=== PATIENT | male | born 1980 | race American Indian/Alaskan Native ===

== ENCOUNTER 2016-07-30 03:04 | Inpatient (IN) | payer OTHER ==
--- NOTE | 2016-07-30 03:40 | Emergency Department Report ---
HPI - General Time Seen by Provider: 07/30/16 03:39 - HPI HPI: Room 20 The patient is a 35-year-old male presenting with a chief complaint of chest pain shortness of breath. The patient states this evening at 23:00 while attempting to lay down to sleep and short of breath of chest discomfort as though something was sitting on his chest. Patient denies nausea/vomiting or diaphoresis. Patient admits to having had a cough that began earlier today whenever he attempted to smoke a cigarette. Patient currently gives his chest pain a score of 7-8/10. Patient states he's never had a stress test or cardiac catheterization. Location: Chest, lungs Duration: Constant since 23:00 Quality: Heaviness Severity: 7-8/10 Modifying factors: [see above] Context: [see above] Mode of transportation: [not driving] ED Past Medical Hx - Past Medical History Hx Hypertension: Yes - Surgical History Past Surgical History?: No - Family History Family history: no significant - Social History Smoking Status: Current Every Day Smoker Substance Use Type: Alcohol (occasional), Marijuana - Medications Home Medications: Home Medications Medication Instructions Recorded Confirmed Last Taken Type Hydrochlorothiazide [HCTZ] 25 mg PO QDAY 07/30/16 07/30/16 Unknown History ED Review of Systems ROS: Stated complaint: SOB Other details as noted in HPI Comment: All other systems reviewed and negative Constitutional: denies: diaphoresis ENT: denies: ear pain, throat pain Respiratory: cough, shortness of breath Cardiovascular: chest pain Endocrine: no symptoms reported Gastrointestinal: denies: abdominal pain, nausea, diarrhea Genitourinary: denies: urgency, dysuria Musculoskeletal: denies: back pain, joint swelling, arthralgia Skin: denies: rash, lesions Neurological: denies: headache, weakness, paresthesias Psychiatric: denies: anxiety, depression Hematological/Lymphatic: denies: easy bleeding, easy bruising Physical Exam - Physical Exam Physical Exam: GENERAL: The patient is well-developed well-nourished male lying on stretcher not appearing to be in acute distress. Occasional cough. [] HEENT: Normocephalic. Atraumatic. Extraocular motions are intact. Patient has moist mucous membranes. NECK: Supple. Trachea midline CHEST/LUNGS: Clear to auscultation. There is no respiratory distress noted. HEART/CARDIOVASCULAR: Regular. There is no tachycardia. There is no gallop rub or murmur. ABDOMEN: Abdomen is soft, nontender. Patient has normal bowel sounds. There is no abdominal distention. SKIN: There is no rash. There is no edema. There is no diaphoresis. NEURO: The patient is awake, alert, and oriented. The patient is cooperative. The patient has normal speech MUSCULOSKELETAL:There is no evidence of acute injury. ED Medical Decision Making - Lab Data Result diagrams: 07/30/16 03:58 07/30/16 03:58 Laboratory Tests 07/30/16 07/30/16 07/30/16 03:58 03:58 03:58 WBC 9.7 RBC 3.93 Hgb 12.1 Hct 34.4 L MCV 87 MCH 31 MCHC 35 H RDW 14.4 Plt Count 236 Lymph % (Auto) 11.4 L [place] % (Auto) 5.2 Eos % (Auto) 1.3 Baso % (Auto) 0.3 Lymph # 1.1 L [place] # 0.5 Eos # 0.1 Baso # 0.0 Seg Neutrophils % 81.8 H Seg Neutrophils # 8.0 H PT 12.9 INR 0.98 APTT 34.6 D-Dimer 807.54 H Sodium 135 L Potassium 3.5 L Chloride 96.0 L Carbon Dioxide 19 L Anion Gap 24 BUN 64 H Creatinine 7.1 H Estimated GFR 11 BUN/Creatinine Ratio 9.01 Glucose 104 H Calcium 8.1 L Total Creatine Kinase 539 H CK-MB (CK-2) 9.5 H CK-MB (CK-2) Rel Index 1.7 Troponin T 0.179 H* NT-Pro-B Natriuret Pep 81187 H - EKG Data -: EKG Interpreted by Me EKG shows normal: sinus rhythm Rate: normal - EKG Data When compared to previous EKG there are: previous EKG unavailable Interpretation: nonspecific ST-T wave delmy (T-wave inversion in leads 1, aVL, V4 , V5, V6) - Radiology Data Radiology results: image reviewed (chest x-ray) interpreted by me: Chest [id number]. Slight haziness right lower lobe - Differential Diagnosis ACS, CHF, GERD, pericarditis, pneumonia, ZOHREH inhibitor reaction Critical care attestation.: If time is entered above; I have spent that time in minutes in the direct care of this critically ill patient, excluding procedure time. ED Disposition Clinical Impression: Chest pain, T wave inversion in EKG, Acute renal failure, Congestive heart failure Disposition: OP ADMITTED IP TO THIS HOSP Is pt being admited?: Yes Does the pt Need Aspirin: Yes Condition: Poor Instructions: Chest Pain (ED) Referrals: PRIMARY CARE, [Primary Care Provider] - 3-5 Days Time of Disposition: 05:00 (hospitalist notified)
[2016-07-30] MEDS ORDERED: ASPIRIN PO ONE (03:47)
[2016-07-30] MEDS ORDERED: ZOFRAN IV ONE (03:47)
[2016-07-30] MEDS ORDERED: NITRO-BID 2% TP ONE (03:47)
[2016-07-30] MEDS ORDERED: TESSALON PERLES PO ONE (03:47)
[2016-07-30] MEDS ORDERED: MORPHINE IV ONE (03:47)
[2016-07-30] MEDS ORDERED: APRESOLINE IV ONE (03:57)
[2016-07-30 04:31] LABS: Basophils % (Auto) 0.3 % (0.0-1.8); Eosinophils % (Auto) 1.3 % (0.0-4.3); Hematocrit 34.4 % (35.5-45.6); Hemoglobin 12.1 gm/dl (11.8-15.2); Mean Corpuscular HGB Conc 35 % (32-34); Mean Corpuscular Hemoglobin 31 pg (28-32); Mean Corpuscular Volume 87 fl (84-94); Platelet Count 236 K/mm3 (140-440); Red Blood Count 3.93 M/mm3 (3.65-5.03); Red Cell Distribution Width 14.4 % (13.2-15.2); White Blood Count 9.7 K/mm3 (4.5-11.0)
[2016-07-30 04:42] LABS: INR 0.98 (0.87-1.13)
[2016-07-30 04:43] LABS: Partial Thromboplastin Time 34.6 Sec. (24.2-36.6)
[2016-07-30 04:51] LABS: Creatine Kinase MB 9.5 ng/mL (0.0-4.0)
[2016-07-30 04:52] LABS: BUN/Creatinine Ratio 9.01; Calcium 8.1 mg/dL (8.4-10.2); Potassium 3.5 mmol/L (3.6-5.0)
[2016-07-30] MEDS ORDERED: NORMODYNE IV ONE ×2 (05:03→05:04)
[2016-07-30] MEDS ORDERED: NORMODYNE 200 MG in D5W 160 ML IV ONE ×2 (05:47→10:00)
[2016-07-30] MEDS ORDERED: DUONEB 0.5 MG-3 MG/3 ML SOLN IH PRN (06:28)
[2016-07-30] MEDS ORDERED: ZOFRAN IV PRN (06:28)
[2016-07-30] MEDS ORDERED: DULCOLAX PR PRN (06:28)
[2016-07-30] MEDS ORDERED: MILK OF MAGNESIA PO PRN (06:28)
[2016-07-30] MEDS ORDERED: TYLENOL PO PRN (06:28)
[2016-07-30] MEDS ORDERED: SODIUM CHLORIDE FLUSH SYRINGE 10 ML IV PRN (06:31)
--- NOTE | 2016-07-30 06:34 | History and Physical Report ---
History of Present Illness Chief complaint: I cant breathe History of present illness: 35 YO male with HTN, Asthma, Medication Noncompliance, Nicotine Dependence presents to ED for evaluation. Pt states that he has experienced difficulty breathing and coughing for the past 6 days with worsening symptoms over the past 8 hours. Pt acknowledges orthopnea, PND, noncompliance with medications as well as chest discomfort secondary to coughing episodes. Cough is nonproductive. Pt denies fever, chills, palpitations, NVD, recent ill contacts, prolonged travel/immobility, leg swelling, calf pain, individual/family history of DVT/PE, hemoptysis, syncope, unintentional weight loss, skin rash, night sweats. Past History Past Medical History: hypertension Past Surgical History: No surgical history, Other (reviewed) Social history: single, smoking. denies: alcohol abuse, prescription drug abuse Family history: diabetes, hypertension Medications and Allergies Allergies Allergy/AdvReac Type Severity Reaction Status Date / Time No Known Allergies Allergy Unverified 07/30/16 03:41 Home Medications Medication Instructions Recorded Confirmed Last Taken Type Hydrochlorothiazide [HCTZ] 25 mg PO QDAY 07/30/16 07/30/16 Unknown History Active Meds: Active Medications Acetaminophen (Tylenol) 650 mg PO Q4H PRN PRN Reason: Pain MILD(1-3)/Fever >100.5/LOPEZ Albuterol/Ipratropium (Duoneb 0.5 Mg-3 Mg/3 Ml Soln) 1 ampul IH Q6HRT PRN PRN Reason: Wheezing Bisacodyl (Dulcolax) 10 mg [place] QDAY PRN PRN Reason: Constipation unrelieved by MOM Hydrochlorothiazide (Hctz) 25 mg PO QDAY [facility] Labetalol HCl 200 mg/ Dextrose 200 mls @ 120 mls/hr IV ONCE.ED ONE; 2 MG/MIN PRN Reason: Protocol Stop: 07/30/16 07:26 Magnesium Hydroxide (Milk Of Magnesia) 30 ml PO Q4H PRN PRN Reason: Constipation Ondansetron HCl (Zofran) 4 mg IV Q8H PRN PRN Reason: N/V unrelieved by Reglan Review of Systems All systems: negative Cardiovascular: orthopnea, paroxysmal nocturnal dyspnea Respiratory: shortness of breath Exam - Constitutional Vitals: Temp Pulse Resp BP Pulse Ox 98.0 F 78 18 172/123 99 07/30/16 03:42 07/30/16 06:23 07/30/16 06:23 07/30/16 06:23 07/30/16 06:23 General appearance: Present: mild distress - EENT Eyes: Present: PERRL ENT: hearing intact, clear oral mucosa - Neck Neck: Present: supple, normal ROM - Respiratory Respiratory effort: normal Respiratory: bilateral: diminished - Cardiovascular Heart Sounds: Present: S1 & S2. Absent: rub, click - Extremities Extremities: pulses symmetrical, No edema Peripheral Pulses: within normal limits - Abdominal General gastrointestinal: Present: soft, non-tender, non-distended, normal bowel sounds Male genitourinary: Present: normal - Integumentary Integumentary: Present: clear, warm, dry - Musculoskeletal Musculoskeletal: gait normal, strength equal bilaterally - Psychiatric Psychiatric: appropriate mood/affect, intact judgment & insight - Neurologic Neurologic: CNII-XII intact, moves all extremities Results - Labs CBC & Chem 7: 07/30/16 03:58 07/30/16 03:58 Labs: Abnormal lab results 07/30/16 07/30/16 07/30/16 Range/Units 03:58 03:58 03:58 Hct 34.4 L (35.5-45.6) % MCHC 35 H (32-34) % Lymph % (Auto) 11.4 L (13.4-35.0) % Lymph # 1.1 L (1.2-5.4) K/mm3 Seg Neutrophils % 81.8 H (40.0-70.0) % Seg Neutrophils # 8.0 H (1.8-7.7) K/mm3 D-Dimer 807.54 H (0-234) ng/mlDDU Sodium 135 L (137-145) mmol/L Potassium 3.5 L (3.6-5.0) mmol/L Chloride 96.0 L (98-107) mmol/L Carbon Dioxide 19 L (22-30) mmol/L BUN 64 H (9-20) mg/dL Creatinine 7.1 H (0.8-1.5) mg/dL Glucose 104 H (75-100) mg/dL POC Glucose (70-105) Calcium 8.1 L (8.4-10.2) mg/dL Total Creatine Kinase 539 H (55-170) units/L CK-MB (CK-2) 9.5 H (0.0-4.0) ng/mL Troponin T 0.179 H* (0.00-0.029) ng/mL NT-Pro-B Natriuret Pep 14149 H (0-450) pg/mL 07/30/16 Range/Units 05:17 Hct (35.5-45.6) % MCHC (32-34) % Lymph % (Auto) (13.4-35.0) % Lymph # (1.2-5.4) K/mm3 Seg Neutrophils % (40.0-70.0) % Seg Neutrophils # (1.8-7.7) K/mm3 D-Dimer (0-234) ng/mlDDU Sodium (137-145) mmol/L Potassium (3.6-5.0) mmol/L Chloride (98-107) mmol/L Carbon Dioxide (22-30) mmol/L BUN (9-20) mg/dL Creatinine (0.8-1.5) mg/dL Glucose (75-100) mg/dL POC Glucose 140 H (70-105) Calcium (8.4-10.2) mg/dL Total Creatine Kinase (55-170) units/L CK-MB (CK-2) (0.0-4.0) ng/mL Troponin T (0.00-0.029) ng/mL NT-Pro-B Natriuret Pep (0-450) pg/mL Assessment and Plan - Patient Problems (1) CHF (congestive heart failure) Current Visit: Yes Status: Suspected Qualifiers: Congestive heart failure type: C Congestive heart failure chronicity: C Plan to address problem: CHF Protocol: Echo, supportive care, fluid restriction, serial cardiac enzymes, ekg, telemetry, d dimer, ct angio chest, fluid restriction, afterload reduction , diuretic therapy, (2) Malignant hypertension Current Visit: Yes Status: Acute Plan to address problem: monitor BP q shift, resume home medication, Bruce Inhibitor, b comfort therapy, (3) Asthma Current Visit: Yes Status: Chronic Qualifiers: Asthma severity: mild intermittent Asthma complication type: A Plan to address problem: supplemental oxygen, nebs, supportive care, pulmonary toilet (4) DVT prophylaxis Current Visit: Yes Status: Acute
[2016-07-30] MEDS ORDERED: PROVENTIL IH PRN (06:35)
--- NOTE | 2016-07-30 07:23 | Consultation ---
History of Present Illness - Reason for Consult Consult date: 07/30/16 acute renal failure, hypokalemia - History of Present Illness The patient is a 35 YO AAM with history significant for Poorly controlled HTN, Asthma, Medication noncompliance, Nicotine Dependence and Drug use presented to the ED for evaluation of difficulty in breathing and non productive cough. Patient developed the symptoms about a week ago and gotten worse on the day of admission. Associated symptoms include orthopnea, PND, nausea, vomiting, decreased appetite and poor sleep. His BP on admission was around 250/150 and currently he is on Labetalol drip. Patient was seen at [facility] ED 4 months ago for uncontrolled Hypertension. Patient hasn't had any blood test done in the past. Denies any hematuria, dysuria, NSAID intake, msucle cramps, jaundice, fever, chills, diarrhea, leg swelling, hemoptysis, syncope, skin rash , night sweats or dizziness. His creatinine is around 7 and PTH is above 700. Baseline creatinine is not available. Past History Past Medical History: hypertension Past Surgical History: No surgical history, Other (reviewed) Social history: single, smoking. denies: alcohol abuse, prescription drug abuse Family history: diabetes, hypertension Medications and Allergies Allergies Allergy/AdvReac Type Severity Reaction Status Date / Time No Known Allergies Allergy Unverified 07/30/16 03:41 Home Medications Medication Instructions Recorded Confirmed Last Taken Type Hydrochlorothiazide [HCTZ] 25 mg PO QDAY 07/30/16 07/30/16 Unknown History Metoprolol [Lopressor] 100 mg PO DAILY 07/30/16 07/30/16 Unknown History Active Meds: Active Medications Acetaminophen (Tylenol) 650 mg PO Q4H PRN PRN Reason: Pain MILD(1-3)/Fever >100.5/LOPEZ Albuterol (Proventil) 2.5 mg IH Q6HRT PRN PRN Reason: Shortness Of Breath Bisacodyl (Dulcolax) 10 mg MD QDAY PRN PRN Reason: Constipation unrelieved by MOM Carvedilol (Coreg) 25 mg PO BID JOSE Furosemide (Lasix) 20 mg IV BID@0600,1800 JOSE Hydrochlorothiazide (Hctz) 25 mg PO QDAY JOSE Labetalol HCl 200 mg/ Dextrose 200 mls @ 120 mls/hr IV ONCE.ED ONE; 2 MG/MIN PRN Reason: Protocol Stop: 07/30/16 07:26 Last Admin: 07/30/16 06:38 Dose: 2 mg/min, 120 mls/hr Lisinopril (Zestril) 5 mg PO QDAY JOSE Magnesium Hydroxide (Milk Of Magnesia) 30 ml PO Q4H PRN PRN Reason: Constipation Ondansetron HCl (Zofran) 4 mg IV Q8H PRN PRN Reason: N/V unrelieved by Reglan Sodium Chloride (Sodium Chloride Flush Syringe 10 Ml) 10 ml IV PRN PRN PRN Reason: LINE FLUSH Review of Systems Constitutional: anorexia, poor appetite, no weight loss, no weight gain, no fever, no chills, no sweats, no fatigue, no weakness, no malaise Ears, nose, mouth and throat: no sinus pressure, no sinus pain, no epistaxis Cardiovascular: orthopnea, shortness of breath, dyspnea on exertion, high blood pressure, no chest pain, no palpitations, no edema, no syncope, no lightheadedness, no leg edema Respiratory: cough, shortness of breath, dyspnea on exertion, no cough with sputum, no hemoptysis Gastrointestinal: nausea, vomiting, no abdominal pain, no diarrhea, no melena Genitourinary Male: no dysuria, no hematuria, no nocturia, no incontinence Rectal: no bleeding Musculoskeletal: no hot joints, no morning stiffness, no muscle weakness Integumentary: no rash, no wounds Neurological: no head injury, no paralysis, no weakness, no seizures, no syncope , no vertigo, no change in mentation, no confusion Psychiatric: no memory loss, no disorientation, no hallucinations Endocrine: no polydipsia, no polyuria, no weight change Hematologic/Lymphatic: no easy bruising, no easy bleeding Exam - Vital Signs Vital signs: Vital Signs Temp Pulse Resp BP Pulse Ox 98.0 F 98 H 20 249/157 98 07/30/16 03:42 07/30/16 03:42 07/30/16 03:42 07/30/16 03:42 07/30/16 03:42 - General Appearance General appearance: well-developed, well-nourished, appears stated age, other ( no distress) EENT: ATNC, PERRL, mucous membranes moist, hearing intact, vision intact Neck: Present: neck supple Respiratory: Clear to Ascultation Heart: regular, S1S2, no murmurs Gastrointestinal: Present: normoactive bowel sounds. Absent: tenderness, distended Integumentary: no rash, warm and dry Neurologic: no focal deficit, no asterixis, alert and oriented x3, CN 3-12 intact Musculoskeletal: Present: other (no edema) Psychiatric: mood/affect appropriate, cooperative Results - Lab Results 07/30/16 08:42 07/30/16 08:42 Most recent lab results Calcium 8.1 mg/dL (8.4-10.2) L 07/30/16 03:58 - Image Kidney/bladder ultrasound: pending Assessment and Plan - Patient Problems (1) Renal insufficiency Current Visit: Yes Status: Chronic Plan to address problem: Patient admitted with malignant hypertension and significantly high creatinine. BP is poorly controlled for the past 20 yrs. Patient has most of advanced CKD features. Most likely the CKD has progressed to ESRD. Some of the symptoms likely due to Uremia. Patient would need catheter to initiate hemodialysis. D/w patient about hemodialysis. (2) Malignant hypertension Current Visit: Yes Status: Chronic Plan to address problem: Patient is on Labetalol drip. Add Clonidine. Avoid ACEI / ARB for now. (3) Secondary hyperparathyroidism (of renal origin) Current Visit: Yes Status: Chronic Plan to address problem: Start on Calcitriol. (4) Congestive heart failure Current Visit: Yes Status: Chronic Qualifiers: Congestive heart failure type: C Congestive heart failure chronicity: C
--- NOTE | 2016-07-30 07:30 | Admit Criteria Form ---
Admission Criteria Documentation: CARDIOLOGY GRG Clinical Indications for Admission to Inpatient Care ( Place 'X' for any and all applicable criteria): Hospital admission is needed for appropriate care of the patient because of ANY ONE of the following (1): [ ] I. Hemodynamic instability as indicated by ALL of the following (1)(2)(3) (4)(5) [ ]a) Vital signs or other findings not as expected for chronic patient condition or baseline [ ]b) Instability indicated by ANY ONE of the following: [ ]i) Hypotension [ ]ii) Symptomatic Tachycardia unresponsive to treatment ( e.g., analgesia, fluids, sedation as indicated) [ ]iii) Inadequate perfusion indicated by ANY ONE of the following: [ ] 1) Lactic acidosis (> 2 mmol/L) [ ] 2) New abnormal capillary refill (> 3 seconds) [ ] 3) Reduced urine output [ ] 4) New altered mental status [ ]iv) Orthostatic vital sign changes unresponsive to treatment (e.g., fluids) [ ]v) IV inotropic or vasopressor medication required to maintain adequate blood pressure or perfusion [ ] II. Severe heart failure as indicated by ANY ONE of the following(17)(18) [ ]a) Respiratory distress [ ]b) Hypotension [ ]c) Anasarca (refractory to outpatient therapy) [ ]d) Cardiac arrhythmias of immediate concern [ ]e) Myocardial ischemia [ ] III. Cardiac arrhythmias or findings of immediate concern indicated by ANY ONE of the following (19)(20): [ ] a) Heart rhythms that are inherently dangerous or unstable indicated by ANY ONE of the following (21)(22)(23): [ ] i) Resuscitated ventricular fibrillation or cardiac arrest [ ] ii) Ventricular escape rhythm [ ] iii) Sustained ventricular tachycardia (30 seconds or more of ventricular rhythm at greater than 100 beats per minute) [ ] iv) Nonsustained ventricular tachycardia and ANY ONE of the following: [ ] 1) Suspected cardiac ischemia as cause or consequence of ventricular tachycardia [ ] 2) In setting of acute myocarditis [ ] b) Unstable cardiac conduction defects indicated by ANY ONE of the following(23)(24)(25) [ ] i) Type II second-degree atrioventricular block [ ]ii) Third-degree atrioventricular block [ ]iii) New-onset left bundle branch block with suspected myocardial ischemia [ ]c) Any heart rhythm and ANY ONE of the following (21)(22)(26)(27) (28) [ ] i) Continuous long-term ECG monitoring needed (e.g., initiation of drug requiring monitoring for more than 24 hours) [ ] ii) Patient has automatic implanted cardioverter defibrillator that is repeatedly firing, malfunctioning, or in need of immediate adjustment of settings beyond the scope of ambulatory or observation care [ ]d) Heart rhythms of concern due to ANY ONE of the following: [ ] i) Hypotension [ ] ii) Respiratory distress [ ] iii) Association with other significant symptoms (e.g., bradycardia with syncope or ongoing dizziness, supraventricular tachycardia with chest pain (14)(15)(17) [ ] IV. Monitoring for cardiac contusion beyond the scope of observation care needed [A](30)(31)(32) [ ] V. Surgical or device complication (e.g., valve replacement complication , pacemaker dysfunction) (35)(41)(44)(45)(46) [ ] . Inpatient palliative care needed. [B](49) Also use Inpatient Palliative Care Criteria [ ] VII. Nonbacterial thrombotic (marantic) endocarditis (36)(43)(47)(48) [X] VIII. Cardiology condition, symptom, or finding for which emergency and observation care has failed or are not considered appropriate. [ ] IX. Acute valvular disease requiring inpatient as indicated by ANY ONE of the following (41) [ ]a) Acute valvular regurgitation (42) [ ]b) Noninfectious valvulitis (43) [ ]c) Obstructive valve thrombosis [ ]d) Paravalvular leak [ ]e) Other significant valvular disorder remaining after emergency or observation level of care (as appropriate) [ ]X. Pericardial disease requiring inpatient treatment as indicated by ANY ONE of the following (33)(34)(35)(36)(37) [ ]a) Suspected tamponade (38)(39)(40) [ ]b) Hemopericardium [ ]c) Other significant pericardial disorder remaining after emergency or observation level of care (as appropriate) [ ] XI. Cardiac ischemia beyond scope of emergency and observation care. [ ] XII. Hypertension requiring inpatient treatment as indicated by ANY ONE of the following (6)(7)(8) [ ]a) SBP greater than 220 mm Hg or DBP greater than 120 mmHg despite treatment [ ]b) SBP greater than 140 mm Hg or DBP greater than 100 mm Hg with evidence of acute end organ damage as indicated by ANY ONE of the following [ ] i) Altered mental status [ ] ii) Acute renal failure as indicated by new onset of ANY ONE of the following (9)(10)(11)(12)(13) [ ]1) 3-fold rise in serum creatinine from baseline [ ]2) Serum creatinine greater than 4 mg/dL ( 354 micromoles/L) with acute rise greater than 0.5 mg/dL (44.2 micromoles/L) [ ]3) Reduction of more than 75% in estimated glomerular filtration rate from baseline [ ]4) Estimated glomerular filtration rate less than 35 mL/min/1.73m2 (0.59 mL/sec/1.73m2) in child up to 18 years of age [ ]5) Cessation of urine output indicated by ALL of the following [ ]A. Adequate volume status [ ]B. Inadequate urine output as indicated by ANY ONE of the following [ ]a. Urine output less than 0.3 mL/kg/hr for 24 hours [ ]b. Anuria (urine output less than 0.1 mL/kg/hr) for 12 hours [ ] iii) Aortic dissection [ ] iv) Myocardial Ischemia [ ] v) Left ventricular heart failure [ ]vi) Retinal Hemorrhage [ ]vii) Other significant finding [ ]c) Hypertension in child requiring inpatient treatment as indicated by ALL of the following(14)(15)(16) [ ] i) Outpatient treatment not effective, not available, or not appropriate [ ]ii) SBP or DBP greater than 95th percentile for age [ ]iii) Evidence of acute end organ damage as indicated by ANY ONE of the following [ ]1) Altered mental status [ ]2) Acute renal failure as indicated by new onset of ANY ONE of the following(9)(10)(11)(12)(13) [ ]A. 3-fold rise in serum creatinine from baseline [ ]B. Serum creatinine greater than 4 mg/dL (354 micromoles/L) with acute rise greater than 0.5 mg/dL (44.2 micromoles/L) [ ]C. Reduction of more than 75% in estimated glomerular filtration rate from baseline [ ]D. Estimated glomerular filtration rate less than 35 mL/min/1.73m2 (0.59 mL/sec/1.73m2) in child up to 18 years of age [ ]E. Cessation of urine output indicated by ALL of the following [ ]a. Adequate volume status [ ]b. Inadequate urine output as indicated by ANY ONE of the following [ ]i) Urine output less than 0.3 mL/kg/hr for 24 hours [ ]ii) Anuria ( urine output less than 0.1 mL/kg/hr) for 12 hours [ ]3) Severe headache [ ]4) Visual disturbance [ ]5) Retinal hemorrhage [ ]6) Other significant finding [ ]XIII. Complications of transplanted heart indicated by ANY ONE of the following(61): [ ]a) Acute graft rejection requiring inpatient management (eg, intravenous immunosuppression)(62)(63) [ ]b) Acute graft heart failure indicated by ANY ONE of the following(64): [ ]i) Hemodynamic instability [ ]ii) Cardiac arrhythmias of immediate concern [ ]iii) Pulmonary edema that is very severe (eg, mechanical ventilation needed, imminent or likely, need for 100% oxygen to keep oxygen saturation above 90%) [ ]iv) Pulmonary edema that is persistent as indicated by ALL of the following: [ ]1) New need for oxygen therapy to keep oxygen saturation above 90% (or increased FiO2 need from baseline) [ ]2) Has not improved sufficiently with emergency department or observation care IV diuretics or other heart failure treatments[E] [ ]v) Altered mental status that is severe or persistent [ ]vi) Increased creatinine (new on laboratory test) with reduction of more than 50% in estimated glomerular filtration rate from baseline [ ]vii) Progressively (ongoing) rising creatinine (known from past laboratory test) with reduction of more than 25% in estimated glomerular filtration rate from baseline [ ]viii) Acute renal failure [ ]ix) Acute peripheral ischemia (eg, examination shows pulseless, cool, mottled, or cyanotic extremity) [ ]x) Pulmonary artery catheter monitoring needed [ ]xi) Other sign or symptom of heart failure requiring inpatient treatment (ie, too severe or not responsive to outpatient and observation care treatment) [ ]c) Infection requiring inpatient management (eg, Hemodynamic instability, need for intravenous antimicrobial treatment)(66)(67)(68)(69)(70) [ ]d) Cardiac allograft vasculopathy requiring inpatient management ( eg evidence of cardiac ischemia)(71) [ ]e) Other complication of transplanted heart (eg, stroke, severe pulmonary hypertension, severe valvular dysfunction) requiring inpatient management(72) The original [facility] [employer] content created by [facility] [employer] [employer] has been revised. The portions of the content which have been revised are identified through the use of italic text or in bold, and [facility] has neither reviewed nor approved the modified material. All other unmodified content is copyright [facility] [employer]. Please see references footnoted in the original [facility] [employer] edition 2016 Admission Criteria Met: Yes
--- NOTE | 2016-07-30 08:45 | XRay Report ---
Single view chest: History: Chest pain. Findings: Cardiomegaly. Trachea is midline. Mild pulmonary venous congestion the loops. Normal CP angles. No consolidation. Impression: Cardiomegaly with mild pulmonary venous congestion. The
[2016-07-30 09:02] LABS: Hematocrit 31.7 % (35.5-45.6); Hemoglobin 11.1 gm/dl (11.8-15.2); Mean Corpuscular HGB Conc 35 % (32-34); Mean Corpuscular Hemoglobin 31 pg (28-32); Mean Corpuscular Volume 88 fl (84-94); Platelet Count 216 K/mm3 (140-440); Red Blood Count 3.59 M/mm3 (3.65-5.03); Red Cell Distribution Width 14.6 % (13.2-15.2); White Blood Count 8.9 K/mm3 (4.5-11.0)
[2016-07-30 09:24] LABS: BUN/Creatinine Ratio 9.56; Calcium 8.3 mg/dL (8.4-10.2); Chloride 94.5 mmol/L (98-107); Potassium 3.5 mmol/L (3.6-5.0)
[2016-07-30 09:45] LABS: Creatine Kinase MB 10.5 ng/mL (0.0-4.0)
[2016-07-30] MEDS ORDERED: ZESTRIL PO SCH (10:00)
[2016-07-30] MEDS: HCTZ PO SCH (10:46)
--- NOTE | 2016-07-30 11:23 | Consultation ---
History of Present Illness - Reason for Consult Consult date: 07/30/16 Hypertensive Emergency - History of Present Illness 35 y/o male with known hypertension, noncompliant with medications admitted with chest pain. Found to be extremely hypertensive and started on labetalol drip. Also given a nitro patch. Currently asleep and significant other is at the bedside. Remainder is negative. To her knowledge, no history of renal disease. Past History Past Medical History: hypertension Past Surgical History: No surgical history, Other (reviewed) Social history: single, smoking. denies: alcohol abuse, prescription drug abuse Family history: diabetes, hypertension Medications and Allergies Allergies Allergy/AdvReac Type Severity Reaction Status Date / Time No Known Allergies Allergy Unverified 07/30/16 03:41 Home Medications Medication Instructions Recorded Confirmed Last Taken Type Hydrochlorothiazide [HCTZ] 25 mg PO QDAY 07/30/16 07/30/16 Unknown History Metoprolol [Lopressor] 100 mg PO DAILY 07/30/16 07/30/16 Unknown History Active Meds: Active Medications Acetaminophen (Tylenol) 650 mg PO Q4H PRN PRN Reason: Pain MILD(1-3)/Fever >100.5/LOPEZ Albuterol (Proventil) 2.5 mg IH Q6HRT PRN PRN Reason: Shortness Of Breath Bisacodyl (Dulcolax) 10 mg [place] QDAY PRN PRN Reason: Constipation unrelieved by MOM Carvedilol (Coreg) 25 mg PO BID JOSE Furosemide (Lasix) 20 mg IV BID@0600,1800 JOSE Hydrochlorothiazide (Hctz) 25 mg PO QDAY [facility] Last Admin: 07/30/16 10:46 Dose: 25 mg Labetalol HCl 200 mg/ Dextrose 200 mls @ 120 mls/hr IV ONCE.ED ONE; 2 MG/MIN PRN Reason: Protocol Stop: 07/30/16 11:39 Influenza Virus Vaccine Quadrival (Fluarix Quad 6551-1817(36 Mos+)) 60 mcg IM .ONCE ONE Stop: 07/31/16 12:01 Lisinopril (Zestril) 5 mg PO QDAY [facility] Last Admin: 07/30/16 10:47 Dose: 5 mg Magnesium Hydroxide (Milk Of Magnesia) 30 ml PO Q4H PRN PRN Reason: Constipation Ondansetron HCl (Zofran) 4 mg IV Q8H PRN PRN Reason: N/V unrelieved by Moises Last Admin: 07/30/16 09:54 Dose: 4 mg Pneumococcal Polyvalent Vaccine (Pneumovax 23) 0.5 ml IM .ONCE ONE Stop: 07/31/16 12:01 Sodium Chloride (Sodium Chloride Flush Syringe 10 Ml) 10 ml IV PRN PRN PRN Reason: LINE FLUSH Review of Systems All systems: negative Exam - Constitutional Vitals: Temp Pulse Resp BP Pulse Ox 98.0 F 57 L 20 151/94 97 07/30/16 03:42 07/30/16 10:47 07/30/16 09:00 07/30/16 10:47 07/30/16 09:00 General appearance: Present: no acute distress, other (asleep) - EENT Eyes: Present: PERRL, EOM intact ENT: hearing intact - Neck Neck: Present: supple, normal ROM - Respiratory Respiratory: bilateral: CTA - Cardiovascular Rhythm: regular Heart Sounds: Present: S1 & S2 - Extremities Extremities: no ischemia - Abdominal General gastrointestinal: Present: soft, non-tender, normal bowel sounds Male genitourinary: Present: deferred - Rectal Rectal Exam: deferred - Integumentary Integumentary: Present: clear, warm, dry - Musculoskeletal Musculoskeletal: strength equal bilaterally - Psychiatric Psychiatric: appropriate mood/affect Results - Labs CBC & Chem 7: 07/30/16 08:42 07/30/16 08:42 Labs: Abnormal lab results 07/30/16 07/30/16 07/30/16 Range/Units 08:42 08:42 09:22 RBC 3.59 L (3.65-5.03) M/mm3 Hgb 11.1 L (11.8-15.2) gm/dl Hct 31.7 L (35.5-45.6) % MCHC 35 H (32-34) % Sodium 134 L (137-145) mmol/L Potassium 3.5 L (3.6-5.0) mmol/L Chloride 94.5 L (98-107) mmol/L BUN 66 H (9-20) mg/dL Creatinine 6.9 H (0.8-1.5) mg/dL Glucose 121 H (75-100) mg/dL Calcium 8.3 L (8.4-10.2) mg/dL Total Creatine Kinase 437 H (55-170) units/L CK-MB (CK-2) 10.5 H (0.0-4.0) ng/mL Troponin T 0.177 H* (0.00-0.029) ng/mL - Imaging and Cardiology Chest x-ray: image reviewed (cardiomegaly but otherwise clear) Assessment and Plan 35 y/o male with hypertensive urgency vs emergency with acute renal failure 1. continue IV drip until PO meds kick in 2. Follow up renal recs 3. Should be screened for diabetes as well 4. Weight loss and compliance CCT 31 minutes.
[2016-07-30] MEDS: COREG PO SCH ×2 (12:39→22:49)
[2016-07-30 12:52] LABS: Creatine Kinase MB 10.6 ng/mL (0.0-4.0)
--- NOTE | 2016-07-30 13:25 | Event Note ---
Date: 07/30/16 The patient is a 35 YO AAM with history significant for Poorly controlled HTN, Asthma, Medication noncompliance, Nicotine Dependence and Drug use presented to the ED for evaluation of difficulty in breathing and non productive cough. His BP on admission was around 250/150 and placed on Labetalol drip. His creatinine is around 7 and PTH is above 700. He will be started on emergent HD. vascular surgeon consulted. He is off labetalol drip now. Cont current mnagement as dictated in H and P. Consult cardiology for elevated troponin.
[2016-07-30] MEDS: APRESOLINE PO SCH ×2 (14:35→22:50)
--- NOTE | 2016-07-30 15:45 | Operative Report ---
Operative Report Operative Report: Date of Procedure: 07/30/2016 Pre-operative Diagnosis: Acute on Chronic Renal Failure Post-operative Diagnosis: Same Procedure(s): 1. Ultrasound-Guided Access Right Internal Jugular Vein 2. Placement of 16 Cm Pre-Curved Vas-Cath Surgeon: Tre Pradhan M.D. Audio Video Technician: None Anesthesia: 2% lidocaine EBL: Minimal Counts: Correct Complications: None Condition: Stable Findings: Successful placement of right internal jugular Vas-Cath both ports aspirate and flush easily. Portable chest x-ray demonstrated the catheter is in excellent position without any evidence of pneumothorax. Specimen: None Indication: Patient with acute on chronic renal failure in need of urgent dialysis. In need of catheter for access. Description of Procedure: The procedure was performed at the patient's bedside. The patient's right neck and chest were prepped and draped in normal fashion. Ultrasound was used to identify the right internal jugular vein that overlies the soft tissue was lidocaine. A small stab incision was made and an access needle was used to ultrasound guidance and the right internal jugular vein. An 0.038 wire was then advanced and the tract was dilated. The Vas-Cath was then placed possible new technique. Both ports were then aspirated and flushed and then probably appropriate amount. The catheter was then sewn in position with 3-0 silk and then dressed sterilely. A portable chest x-ray was then performed and demonstrated the catheter was in excellent position with the tip at the cavoatrial junction and there was no evidence of pneumothorax. The patient tolerated the procedure well. All sponge, needle, and instrument counts were correct. The patient remained in ICU in stable condition.
--- NOTE | 2016-07-30 16:01 | XRay Report ---
Single view chest: Compared to 07/30/16. History: Status post vascular catheter. Findings: Cardiomegaly. Trachea is midline. Tip of the vascular catheter is noted in the mid superior vena cava. No consolidation, pneumothorax or pleural effusion. Impression: Cardiomegaly. No acute lung changes.
--- NOTE | 2016-07-30 16:27 | Consultation ---
History of Present Illness Consult date: 07/30/16 Requesting physician: ZOE YODER Consult reason: elevated troponin History of present illness: Patient is a 35-year-old male with a past medical history significant for hypertension, medication noncompliance, tobacco use, and daily marijuana use. He is previously unknown to our practice. He presented with complaints of shortness of breath, cough, and orthopnea x 1 day prior to arrival. He denies any chest pain, palpitations, nausea, vomiting, diaphoresis, dizziness, or syncope. He denies any precipitating, aggravating, or relieving factors. He reports that he was diagnosed with hypertension at 16 years of age but has not consistently taken any blood pressure medications due to financial concerns and lack of PCP. Past History Past Medical History: hypertension Past Surgical History: No surgical history, Other (reviewed) Social history: single, lives with family, smoking. denies: alcohol abuse, prescription drug abuse Family history: diabetes, hypertension Medications and Allergies Allergies Allergy/AdvReac Type Severity Reaction Status Date / Time No Known Allergies Allergy Unverified 07/30/16 03:41 Home Medications Medication Instructions Recorded Confirmed Last Taken Type Hydrochlorothiazide [HCTZ] 25 mg PO QDAY 07/30/16 07/30/16 Unknown History Metoprolol [Lopressor] 100 mg PO DAILY 07/30/16 07/30/16 Unknown History Active Meds: Active Medications Acetaminophen (Tylenol) 650 mg PO Q4H PRN PRN Reason: Pain MILD(1-3)/Fever >100.5/LOPEZ Albuterol (Proventil) 2.5 mg IH Q6HRT PRN PRN Reason: Shortness Of Breath Amlodipine Besylate (Norvasc) 10 mg PO QDAY [facility] Atorvastatin Calcium (Lipitor) 40 mg PO QHS [facility] Bisacodyl (Dulcolax) 10 mg [place] QDAY PRN PRN Reason: Constipation unrelieved by MOM Calcitriol (Rocaltrol) 0.5 mcg PO QDAY [facility] Carvedilol (Coreg) 25 mg PO BID [facility] Last Admin: 07/30/16 12:39 Dose: 25 mg Furosemide (Lasix) 20 mg IV BID@0600,1800 [facility] Hydralazine HCl (Apresoline) 50 mg PO Q8HR [facility] Last Admin: 07/30/16 14:35 Dose: 50 mg Hydrochlorothiazide (Hctz) 25 mg PO QDAY [facility] Last Admin: 07/30/16 10:46 Dose: 25 mg Influenza Virus Vaccine Quadrival (Fluarix Quad 3620-2169(36 Mos+)) 60 mcg IM .ONCE ONE Stop: 07/31/16 12:01 Magnesium Hydroxide (Milk Of Magnesia) 30 ml PO Q4H PRN PRN Reason: Constipation Ondansetron HCl (Zofran) 4 mg IV Q8H PRN PRN Reason: N/V unrelieved by Reglan Last Admin: 07/30/16 09:54 Dose: 4 mg Pneumococcal Polyvalent Vaccine (Pneumovax 23) 0.5 ml IM .ONCE ONE Stop: 07/31/16 12:01 Sodium Chloride (Sodium Chloride Flush Syringe 10 Ml) 10 ml IV PRN PRN PRN Reason: LINE FLUSH Review of Systems Constitutional: no weight loss, no weight gain, no fever, no chills, no sweats Ears, nose, mouth and throat: no ear pain, no nose pain, no sinus pressure, no sinus pain Cardiovascular: orthopnea, shortness of breath, dyspnea on exertion, paroxysmal nocturnal dyspnea, high blood pressure, no chest pain, no palpitations, no rapid /irregular heart beat, no edema, no syncope, no lightheadedness, no leg edema Respiratory: cough, shortness of breath, dyspnea on exertion, no cough with sputum, no congestion, no wheezing, no pain Gastrointestinal: no abdominal pain, no nausea, no vomiting, no diarrhea, no constipation, no change in bowel habits Genitourinary Male: no dysuria, no hematuria, no flank pain, no discharge, no urinary frequency, no urinary hesitancy Musculoskeletal: no neck stiffness, no neck pain, no shooting arm pain, no arm numbness/tingling, no low back pain, no shooting leg pain, no leg numbness/ tingling Integumentary: no rash, no pruritis, no redness, no sores, no wounds Neurological: no head injury, no transient paralysis, no paralysis, no weakness , no parathesias, no numbness, no tingling, no seizures, no syncope Psychiatric: no anxiety Endocrine: no cold intolerance, no heat intolerance Hematologic/Lymphatic: no easy bruising, no easy bleeding, no lymphadenopathy Allergic/Immunologic: no urticaria, no wheezing, no persistent infections Physical Examination Last Vital Signs Temp 97.4 F L 07/30/16 12:00 Pulse 68 07/30/16 12:39 Resp 15 07/30/16 12:31 BP 142/93 07/30/16 15:11 Pulse Ox 96 07/30/16 15:11 General appearance: no acute distress HEENT: Positive: PERRL, Normocephaly, Mucus Membranes Moist Neck: Positive: neck supple, trachea midline Cardiac: Positive: Reg Rate and Rhythm, S1/S2 Lungs: Positive: Wheezes. Negative: Rales, Rhonchi Neuro: Positive: Grossly Intact, Cranial Nerve 2-12 Intact Abdomen: Positive: Unremarkable, Soft, Active Bowel Sounds. Negative: Tender Skin: Positive: Clear. Negative: Rash, Wound Musculoskeletal: No Fluid Collection, No Pain, Normal Range of Motion Extremities: Present: upper extr. pulses, lower extr. pulses. Absent: edema Results 07/30/16 08:42 07/30/16 08:42 Cardiac Enzymes 07/30/16 07/30/16 Range/Units 09:22 12:21 CK-MB (CK-2) 10.5 H 10.6 H (0.0-4.0) ng/mL CBC 07/30/16 Range/Units 08:42 WBC 8.9 (4.5-11.0) K/mm3 RBC 3.59 L (3.65-5.03) M/mm3 Hgb 11.1 L (11.8-15.2) gm/dl Hct 31.7 L (35.5-45.6) % Plt Count 216 (140-440) K/mm3 Comprehensive Metabolic Panel 07/30/16 Range/Units 08:42 Sodium 134 L (137-145) mmol/L Potassium 3.5 L (3.6-5.0) mmol/L Chloride 94.5 L (98-107) mmol/L Carbon Dioxide 22 (22-30) mmol/L BUN 66 H (9-20) mg/dL Creatinine 6.9 H (0.8-1.5) mg/dL Glucose 121 H (75-100) mg/dL Calcium 8.3 L (8.4-10.2) mg/dL - Imaging and Cardiology Echo: report reviewed EKG: report reviewed, image reviewed EKG interpretations - Telemetry EKG Rhythm: Sinus Rhythm - EKG Sinus rhythms and dysrhythmias: sinus rhythm Chamber hypertrophy or enlargement: left ventricular hypertro Myocardial infarction: septal CT (old age or ind Assessment and Plan Assessment: Hypertensive urgency LVH Elevated troponin - ECG with no ischemic changes; pt denies chest pain; flat; currently nonspecific in setting of hypertensive urgency and ARF. ARF - s/p permacath placement today. Tobacco use / marijuana use Noncompliance Plan: Preliminary echo read reveals severe concentric LVH, grade II diastolic dysfunction, EF 55-60%. Cont current anti-hypertensive regimen. No current clinical evidence of acute heart failure. Consider ischemic evaluation (stress MPI) for risk stratification once medically stabilized - can be done as OP. Assessment and plan reviewed with patient and patient's family at bedside. The patient has been seen in conjunction with Dr. Lerner who agrees with the assessment and plan of care.
[2016-07-30] MEDS: LASIX IV SCH (17:27)
[2016-07-30] MEDS: NORVASC PO SCH (17:27)
[2016-07-30 21:30] LABS: Bacteria,Urine 1+ /HPF (Negative); Bilirubin,Urine NEG (Negative); Blood,Urine NEG (Negative); Ketones,Urine NEG (Negative); Leukocyte Esterase,Urine NEG (Negative); Nitrite,Urine NEG (Negative); Urobilinogen,Urine < 2.0 mg/dL (<2.0)
[2016-07-30] MEDS ORDERED: PROCARDIA XL PO SCH (22:00)
[2016-07-31 04:56] LABS: BUN/Creatinine Ratio 8.66; Chloride 94.4 mmol/L (98-107); Magnesium 2.2 mg/dL (1.7-2.3); Phosphorous 6.4 mg/dL (2.5-4.5); Potassium 3.4 mmol/L (3.6-5.0)
[2016-07-31] MEDS: APRESOLINE PO SCH ×3 (05:44→21:33)
[2016-07-31] MEDS: LASIX IV SCH ×2 (05:44→17:37)
--- NOTE | 2016-07-31 08:07 | Progress Note ---
Assessment and Plan - Patient Problems (1) Renal insufficiency Current Visit: Yes Status: Chronic Plan to address problem: Most likely the CKD has progressed to ESRD. Will initiate hemodialysis today. The patient was explained the indications, benefits and risks involved in hemodialysis. He understood and agreed to proceed with hemodialysis. Patient need tunnel hemodialysis catheter prior to d/c. CM was informed to setup outpatient hemodialysis. (2) Malignant hypertension Current Visit: Yes Status: Chronic Plan to address problem: Patient is off Labetalol drip. BP is well controlled. (3) Secondary hyperparathyroidism (of renal origin) Current Visit: Yes Status: Chronic Plan to address problem: On Calcitriol. (4) Congestive heart failure Current Visit: Yes Status: Chronic Qualifiers: Congestive heart failure type: C Congestive heart failure chronicity: C Plan to address problem: Followed by Cards. Subjective Date of service: 07/31/16 Interval history: Patient is doing ok. Objective - Vital Signs Vital signs: Vital Signs - 12hr 07/30/16 07/30/16 07/30/16 20:11 20:21 20:31 Temperature Pulse Rate 62 63 69 Pulse Rate [ From Monitor] Respiratory 17 17 16 Rate Blood Pressure 143/79 143/79 143/79 O2 Sat by Pulse 99 99 97 Oximetry 07/30/16 07/30/16 07/30/16 20:41 20:51 21:00 Temperature Pulse Rate 66 70 67 Pulse Rate [ From Monitor] Respiratory 18 19 17 Rate Blood Pressure 156/92 156/92 147/88 O2 Sat by Pulse 95 97 97 Oximetry 07/30/16 07/30/16 07/30/16 21:11 21:21 21:30 Temperature Pulse Rate 62 63 68 Pulse Rate [ From Monitor] Respiratory 17 19 16 Rate Blood Pressure 147/88 147/88 140/94 O2 Sat by Pulse 99 97 99 Oximetry 07/30/16 07/30/16 07/30/16 21:41 21:51 22:01 Temperature Pulse Rate 68 71 62 Pulse Rate [ From Monitor] Respiratory 18 21 10 L Rate Blood Pressure 140/94 140/94 140/94 O2 Sat by Pulse 98 97 97 Oximetry 07/30/16 07/30/16 07/30/16 22:11 22:21 22:25 Temperature Pulse Rate 69 66 70 Pulse Rate [ From Monitor] Respiratory 22 22 Rate Blood Pressure 140/94 140/94 140/94 O2 Sat by Pulse 93 94 94 Oximetry 07/30/16 07/30/16 07/30/16 22:30 22:41 22:49 Temperature Pulse Rate 73 63 63 Pulse Rate [ From Monitor] Respiratory 23 20 Rate Blood Pressure 146/88 146/88 146/88 O2 Sat by Pulse 93 93 Oximetry 07/30/16 07/30/16 07/30/16 22:50 22:51 23:00 Temperature Pulse Rate 63 59 L 63 Pulse Rate [ From Monitor] Respiratory 16 14 Rate Blood Pressure 146/88 146/88 148/86 O2 Sat by Pulse 93 99 Oximetry 07/30/16 07/30/16 07/30/16 23:11 23:21 23:30 Temperature Pulse Rate 61 61 65 Pulse Rate [ From Monitor] Respiratory 15 20 14 Rate Blood Pressure 148/86 148/86 150/82 O2 Sat by Pulse 98 96 98 Oximetry 07/30/16 07/30/16 07/31/16 23:41 23:51 00:00 Temperature 97.7 F Pulse Rate 68 60 60 Pulse Rate [ 58 L From Monitor] Respiratory 19 17 20 Rate Blood Pressure 150/82 150/82 155/81 O2 Sat by Pulse 96 99 96 Oximetry 07/31/16 07/31/16 07/31/16 00:11 00:21 00:30 Temperature Pulse Rate 71 70 61 Pulse Rate [ From Monitor] Respiratory 21 22 16 Rate Blood Pressure 155/81 155/81 135/68 O2 Sat by Pulse 95 95 99 Oximetry 07/31/16 07/31/16 07/31/16 00:41 00:51 01:00 Temperature Pulse Rate 68 61 68 Pulse Rate [ From Monitor] Respiratory 20 19 13 Rate Blood Pressure 135/68 135/68 148/86 O2 Sat by Pulse 92 97 97 Oximetry 07/31/16 07/31/16 07/31/16 01:11 01:21 01:31 Temperature Pulse Rate 62 62 60 Pulse Rate [ From Monitor] Respiratory 18 16 12 Rate Blood Pressure 148/86 148/86 161/75 O2 Sat by Pulse 99 99 100 Oximetry 07/31/16 07/31/16 07/31/16 01:41 01:51 02:00 Temperature Pulse Rate 69 58 L 64 Pulse Rate [ From Monitor] Respiratory 16 10 L 10 L Rate Blood Pressure 161/75 161/75 159/85 O2 Sat by Pulse 97 92 99 Oximetry 07/31/16 07/31/16 07/31/16 02:11 02:21 02:30 Temperature Pulse Rate 59 L 58 L 69 Pulse Rate [ From Monitor] Respiratory 21 20 20 Rate Blood Pressure 159/85 159/85 159/95 O2 Sat by Pulse 96 91 97 Oximetry 07/31/16 07/31/16 07/31/16 02:41 02:51 03:00 Temperature Pulse Rate 73 70 64 Pulse Rate [ From Monitor] Respiratory 20 20 16 Rate Blood Pressure 159/85 159/85 149/81 O2 Sat by Pulse 96 93 97 Oximetry 07/31/16 07/31/16 07/31/16 03:11 03:21 03:30 Temperature Pulse Rate 63 66 68 Pulse Rate [ From Monitor] Respiratory 20 21 15 Rate Blood Pressure 149/81 149/81 161/86 O2 Sat by Pulse 99 96 98 Oximetry 07/31/16 07/31/16 07/31/16 03:41 03:51 04:00 Temperature 98.3 F Pulse Rate 64 66 57 L Pulse Rate [ From Monitor] Respiratory 21 14 17 Rate Blood Pressure 159/95 159/95 157/85 O2 Sat by Pulse 92 97 98 Oximetry 07/31/16 07/31/16 07/31/16 04:11 04:21 04:30 Temperature Pulse Rate 60 66 62 Pulse Rate [ From Monitor] Respiratory 17 21 20 Rate Blood Pressure 157/85 157/85 138/82 O2 Sat by Pulse 98 95 94 Oximetry 07/31/16 07/31/16 07/31/16 04:41 04:51 05:01 Temperature Pulse Rate 62 57 L 61 Pulse Rate [ From Monitor] Respiratory 17 18 14 Rate Blood Pressure 138/82 138/82 144/81 O2 Sat by Pulse 97 99 96 Oximetry 07/31/16 07/31/16 07/31/16 05:11 05:21 05:30 Temperature Pulse Rate 66 65 72 Pulse Rate [ From Monitor] Respiratory 16 17 16 Rate Blood Pressure 144/81 144/81 151/101 O2 Sat by Pulse 90 91 92 Oximetry 07/31/16 07/31/16 07/31/16 05:41 05:44 05:51 Temperature Pulse Rate 73 64 61 Pulse Rate [ From Monitor] Respiratory 15 13 Rate Blood Pressure 151/101 151/101 151/101 O2 Sat by Pulse 99 98 Oximetry 07/31/16 07/31/16 06:00 06:11 Temperature Pulse Rate 63 57 L Pulse Rate [ From Monitor] Respiratory 17 21 Rate Blood Pressure 155/95 155/95 O2 Sat by Pulse 98 98 Oximetry - General Appearance General appearance: well-developed, well-nourished, appears stated age, other ( no distress, right IJ temp catheter) EENT: ATNC, PERRL, hearing intact Neck: supple Respiratory: Present: Clear to Ascultation Cardiology: regular, S1S2 Gastrointestinal: normoactive bowel sounds Neurologic: no focal deficit, no asterixis, alert and oriented x3, CN 3-12 intact Musculoskeletal: other (no edema) Psychiatric: mood/affect appropriate, cooperative - Lab 07/30/16 08:42 07/31/16 03:57 Most recent lab results Calcium 8.0 mg/dL (8.4-10.2) L 07/31/16 03:57 Phosphorus 6.40 mg/dL (2.5-4.5) H 07/31/16 03:57 Magnesium 2.20 mg/dL (1.7-2.3) 07/31/16 03:57 Urine Creatinine 127.2 mg/dL (0.1-20.0) H 07/30/16 20:45 Urine Sodium 42 mEq/L 07/30/16 20:45
[2016-07-31] MEDS ORDERED: NACL 0.9% 100 ML IV PRN (08:44)
--- NOTE | 2016-07-31 08:52 | Ultrasound Report ---
ULTRASOUND RENAL BILATERAL HISTORY: Renal failure. TECHNIQUE: transabdominal ultrasound with color Doppler interrogation. FINDINGS: The right kidney measures 9.0 x 4.2 x 5.8cm. Right renal cortex: 1.2cm. The left kidney measures 9.0 x 4.3 x 4.8cm. Left renal cortex: 1.1cm. Both kidneys are echogenic with poor corticomedullary differentiation. There is no evidence for cyst, mass, shadowing calculus or hydronephrosis. Images through the bladder are unremarkable. Color Doppler interrogation suggests reduced cortical perfusion to both kidneys. IMPRESSION: Echogenic kidneys with poor cortical perfusion on color Doppler. These findings could represent acute renal failure or severe medical renal disease.
--- NOTE | 2016-07-31 09:46 | Progress Note ---
Assessment and Plan Assessment: Hypertensive urgency - improved. LVH Elevated troponin - ECG with no ischemic changes; pt denies chest pain; flat; currently nonspecific in setting of hypertensive urgency and ARF. ARF - s/p permacath placement today. Tobacco use / marijuana use Noncompliance Plan: Cont current anti-hypertensive regimen. For HD today per pt. Consider ischemic evaluation (stress MPI) for risk stratification once medically stabilized - can be done as OP. Currently stable cardiac status. Pt may tx out of ICU to tele from cardiology standpoint. The patient has been seen in conjunction with Dr. Lerner who agrees with the assessment and plan of care. Subjective Date of service: 07/31/16 Principal diagnosis: HTN; LVH Interval history: pt resting in bed, no complaints. States SOB has resolved. For possible HD today. VSS. Objective Last Vital Signs Temp 98.2 F 07/31/16 08:00 Pulse 64 07/31/16 09:21 Resp 18 07/31/16 09:21 BP 156/81 07/31/16 09:21 Pulse Ox 97 07/31/16 09:21 - Physical Examination HEENT: Positive: PERRL, Normocephaly, Mucus Membranes Moist Neck: Positive: neck supple, trachea midline Neuro: Positive: Grossly Intact, Cranial Nerve 2-12 Intact Abdomen: Positive: Unremarkable, Soft, Active Bowel Sounds. Negative: Tender Skin: Positive: Clear. Negative: Rash, Wound Musculoskeletal: No Fluid Collection, No Pain, Normal Range of Motion Extremities: Present: upper extr. pulses, lower extr. pulses. Absent: edema - Labs and Meds Cardiac Enzymes 07/30/16 07/30/16 Range/Units 09:22 12:21 CK-MB (CK-2) 10.5 H 10.6 H (0.0-4.0) ng/mL Comprehensive Metabolic Panel 07/31/16 Range/Units 03:57 Sodium 134 L (137-145) mmol/L Potassium 3.4 L (3.6-5.0) mmol/L Chloride 94.4 L (98-107) mmol/L Carbon Dioxide 21 L (22-30) mmol/L BUN 65 H (9-20) mg/dL Creatinine 7.5 H (0.8-1.5) mg/dL Glucose 106 H (75-100) mg/dL Calcium 8.0 L (8.4-10.2) mg/dL - Imaging and Cardiology EKG: report reviewed, image reviewed Echo: report reviewed - EKG Sinus rhythms and dysrhythmias: sinus rhythm Chamber hypertrophy or enlargement: left ventricular hypertro Myocardial infarction: septal VA (old age or ind
[2016-07-31] MEDS ORDERED: K-DUR PO ONE (10:00)
[2016-07-31] MEDS: NORVASC PO SCH (10:10)
[2016-07-31] MEDS: COREG PO SCH ×2 (10:10→21:34)
[2016-07-31] MEDS: HCTZ PO SCH (10:10)
[2016-07-31] MEDS: ROCALTROL PO SCH (10:10)
[2016-07-31] MEDS ORDERED: FLUARIX QUAD 2016-2017(36 MOS+) IM ONE (12:00)
[2016-07-31] MEDS ORDERED: PNEUMOVAX 23 IM ONE (12:00)
[2016-07-31] MEDS ORDERED: NACL 0.9% 1,000 ML IV PRN (12:17)
--- NOTE | 2016-07-31 13:14 | Progress Note ---
Assessment and Plan 35 y/o male with hypertensive urgency vs emergency with acute renal failure 1. Stable for transfer out of ICU 2. Will sign off once out of unit. Subjective Date of service: 07/31/16 Principal diagnosis: HTN; LVH Interval history: No acute events. Off drips. BP stable. Currently undergoing HD Objective - Constitutional Vitals: Vital Signs - 12hr 07/31/16 07/31/16 07/31/16 01:21 01:31 01:41 Temperature Pulse Rate 62 60 69 Respiratory 16 12 16 Rate Blood Pressure 148/86 161/75 161/75 O2 Sat by Pulse 99 100 97 Oximetry O2 Sat by Pulse Oximetry [ Bilateral Lower Lobe] O2 Sat by Pulse Oximetry [ Bilateral Upper Lobe] 07/31/16 07/31/16 07/31/16 01:51 02:00 02:11 Temperature Pulse Rate 58 L 64 59 L Respiratory 10 L 10 L 21 Rate Blood Pressure 161/75 159/85 159/85 O2 Sat by Pulse 92 99 96 Oximetry O2 Sat by Pulse Oximetry [ Bilateral Lower Lobe] O2 Sat by Pulse Oximetry [ Bilateral Upper Lobe] 07/31/16 07/31/16 07/31/16 02:21 02:30 02:41 Temperature Pulse Rate 58 L 69 73 Respiratory 20 20 20 Rate Blood Pressure 159/85 159/95 159/85 O2 Sat by Pulse 91 97 96 Oximetry O2 Sat by Pulse Oximetry [ Bilateral Lower Lobe] O2 Sat by Pulse Oximetry [ Bilateral Upper Lobe] 07/31/16 07/31/16 07/31/16 02:51 03:00 03:11 Temperature Pulse Rate 70 64 63 Respiratory 20 16 20 Rate Blood Pressure 159/85 149/81 149/81 O2 Sat by Pulse 93 97 99 Oximetry O2 Sat by Pulse Oximetry [ Bilateral Lower Lobe] O2 Sat by Pulse Oximetry [ Bilateral Upper Lobe] 07/31/16 07/31/16 07/31/16 03:21 03:30 03:41 Temperature Pulse Rate 66 68 64 Respiratory 21 15 21 Rate Blood Pressure 149/81 161/86 159/95 O2 Sat by Pulse 96 98 92 Oximetry O2 Sat by Pulse Oximetry [ Bilateral Lower Lobe] O2 Sat by Pulse Oximetry [ Bilateral Upper Lobe] 07/31/16 07/31/16 07/31/16 03:51 04:00 04:11 Temperature 98.3 F Pulse Rate 66 57 L 60 Respiratory 14 17 17 Rate Blood Pressure 159/95 157/85 157/85 O2 Sat by Pulse 97 98 98 Oximetry O2 Sat by Pulse Oximetry [ Bilateral Lower Lobe] O2 Sat by Pulse Oximetry [ Bilateral Upper Lobe] 07/31/16 07/31/16 07/31/16 04:21 04:30 04:41 Temperature Pulse Rate 66 62 62 Respiratory 21 20 17 Rate Blood Pressure 157/85 138/82 138/82 O2 Sat by Pulse 95 94 97 Oximetry O2 Sat by Pulse Oximetry [ Bilateral Lower Lobe] O2 Sat by Pulse Oximetry [ Bilateral Upper Lobe] 07/31/16 07/31/16 07/31/16 04:51 05:01 05:11 Temperature Pulse Rate 57 L 61 66 Respiratory 18 14 16 Rate Blood Pressure 138/82 144/81 144/81 O2 Sat by Pulse 99 96 90 Oximetry O2 Sat by Pulse Oximetry [ Bilateral Lower Lobe] O2 Sat by Pulse Oximetry [ Bilateral Upper Lobe] 07/31/16 07/31/16 07/31/16 05:21 05:30 05:41 Temperature Pulse Rate 65 72 73 Respiratory 17 16 15 Rate Blood Pressure 144/81 151/101 151/101 O2 Sat by Pulse 91 92 99 Oximetry O2 Sat by Pulse Oximetry [ Bilateral Lower Lobe] O2 Sat by Pulse Oximetry [ Bilateral Upper Lobe] 07/31/16 07/31/16 07/31/16 05:44 05:51 06:00 Temperature Pulse Rate 64 61 63 Respiratory 13 17 Rate Blood Pressure 151/101 151/101 155/95 O2 Sat by Pulse 98 98 Oximetry O2 Sat by Pulse Oximetry [ Bilateral Lower Lobe] O2 Sat by Pulse Oximetry [ Bilateral Upper Lobe] 07/31/16 07/31/16 07/31/16 06:11 06:21 06:30 Temperature Pulse Rate 57 L 59 L 69 Respiratory 21 18 14 Rate Blood Pressure 155/95 155/95 152/93 O2 Sat by Pulse 98 93 97 Oximetry O2 Sat by Pulse Oximetry [ Bilateral Lower Lobe] O2 Sat by Pulse Oximetry [ Bilateral Upper Lobe] 07/31/16 07/31/16 07/31/16 06:41 06:51 07:00 Temperature Pulse Rate 58 L 60 64 Respiratory 16 21 19 Rate Blood Pressure 152/93 152/93 146/90 O2 Sat by Pulse 98 98 96 Oximetry O2 Sat by Pulse Oximetry [ Bilateral Lower Lobe] O2 Sat by Pulse Oximetry [ Bilateral Upper Lobe] 07/31/16 07/31/16 07/31/16 07:11 07:21 07:30 Temperature Pulse Rate 68 75 69 Respiratory 20 12 16 Rate Blood Pressure 152/93 152/93 148/92 O2 Sat by Pulse 92 98 99 Oximetry O2 Sat by Pulse Oximetry [ Bilateral Lower Lobe] O2 Sat by Pulse Oximetry [ Bilateral Upper Lobe] 07/31/16 07/31/16 07/31/16 07:41 07:51 08:00 Temperature 98.2 F Pulse Rate 71 70 58 L Respiratory 16 14 10 L Rate Blood Pressure 148/92 148/92 142/86 O2 Sat by Pulse 96 98 93 Oximetry O2 Sat by Pulse Oximetry [ Bilateral Lower Lobe] O2 Sat by Pulse Oximetry [ Bilateral Upper Lobe] 07/31/16 07/31/16 07/31/16 08:11 08:21 08:31 Temperature Pulse Rate 66 60 72 Respiratory 13 17 11 L Rate Blood Pressure 142/86 142/86 160/96 O2 Sat by Pulse 99 99 98 Oximetry O2 Sat by Pulse Oximetry [ Bilateral Lower Lobe] O2 Sat by Pulse Oximetry [ Bilateral Upper Lobe] 07/31/16 07/31/16 07/31/16 08:35 08:41 08:51 Temperature Pulse Rate 74 Respiratory 18 Rate Blood Pressure 160/96 160/96 O2 Sat by Pulse 93 97 96 Oximetry O2 Sat by Pulse Oximetry [ Bilateral Lower Lobe] O2 Sat by Pulse Oximetry [ Bilateral Upper Lobe] 07/31/16 07/31/16 07/31/16 09:00 09:11 09:21 Temperature Pulse Rate 73 75 64 Respiratory 15 19 18 Rate Blood Pressure 156/81 156/81 156/81 O2 Sat by Pulse 98 98 97 Oximetry O2 Sat by Pulse Oximetry [ Bilateral Lower Lobe] O2 Sat by Pulse Oximetry [ Bilateral Upper Lobe] 07/31/16 07/31/16 07/31/16 09:30 09:41 09:51 Temperature Pulse Rate 68 63 65 Respiratory 16 15 13 Rate Blood Pressure 132/71 132/71 132/71 O2 Sat by Pulse 99 91 95 Oximetry O2 Sat by Pulse Oximetry [ Bilateral Lower Lobe] O2 Sat by Pulse Oximetry [ Bilateral Upper Lobe] 07/31/16 07/31/16 07/31/16 10:00 10:10 10:11 Temperature Pulse Rate 70 77 62 Respiratory 10 L 19 Rate Blood Pressure 131/85 131/85 131/85 O2 Sat by Pulse 98 97 Oximetry O2 Sat by Pulse Oximetry [ Bilateral Lower Lobe] O2 Sat by Pulse Oximetry [ Bilateral Upper Lobe] 07/31/16 07/31/16 07/31/16 10:21 10:31 10:41 Temperature Pulse Rate 70 73 64 Respiratory 20 20 11 L Rate Blood Pressure 131/85 131/85 131/85 O2 Sat by Pulse 96 98 99 Oximetry O2 Sat by Pulse Oximetry [ Bilateral Lower Lobe] O2 Sat by Pulse Oximetry [ Bilateral Upper Lobe] 07/31/16 07/31/16 07/31/16 10:51 11:01 11:11 Temperature Pulse Rate 72 70 71 Respiratory 15 16 12 Rate Blood Pressure 131/85 131/85 125/77 O2 Sat by Pulse 98 98 96 Oximetry O2 Sat by Pulse Oximetry [ Bilateral Lower Lobe] O2 Sat by Pulse Oximetry [ Bilateral Upper Lobe] 07/31/16 07/31/16 07/31/16 11:21 11:31 11:41 Temperature Pulse Rate 65 66 60 Respiratory 23 21 22 Rate Blood Pressure 125/77 132/83 135/89 O2 Sat by Pulse 97 97 95 Oximetry O2 Sat by Pulse Oximetry [ Bilateral Lower Lobe] O2 Sat by Pulse Oximetry [ Bilateral Upper Lobe] 07/31/16 07/31/16 07/31/16 11:51 12:00 12:11 Temperature Pulse Rate 60 65 61 Respiratory 11 L 17 14 Rate Blood Pressure 128/86 134/86 134/86 O2 Sat by Pulse 96 98 96 Oximetry O2 Sat by Pulse Oximetry [ Bilateral Lower Lobe] O2 Sat by Pulse Oximetry [ Bilateral Upper Lobe] 07/31/16 07/31/16 07/31/16 12:20 12:21 12:24 Temperature 97.5 F L Pulse Rate 66 65 66 Respiratory 15 15 Rate Blood Pressure 141/89 141/89 135/90 O2 Sat by Pulse 96 Oximetry O2 Sat by Pulse 96 Oximetry [ Bilateral Lower Lobe] O2 Sat by Pulse 96 Oximetry [ Bilateral Upper Lobe] General appearance: Present: no acute distress - EENT Eyes: PERRL, EOM intact ENT: hearing intact - Neck Neck: supple - Respiratory Respiratory effort: normal Respiratory: bilateral: CTA - Breasts Breasts: deferred - Cardiovascular Rhythm: regular Heart Sounds: Present: S1 & S2 - Gastrointestinal General gastrointestinal: Present: soft, non-tender Rectal Exam: deferred - Genitourinary Male genitourinary: deferred - Labs CBC & Chem 7: 07/30/16 08:42 07/31/16 03:57 Labs: Abnormal lab results 07/30/16 07/30/16 07/30/16 Range/Units 12:21 13:33 20:45 Sodium (137-145) mmol/L Potassium (3.6-5.0) mmol/L Chloride (98-107) mmol/L Carbon Dioxide (22-30) mmol/L BUN (9-20) mg/dL Creatinine (0.8-1.5) mg/dL Glucose (75-100) mg/dL Calcium (8.4-10.2) mg/dL Phosphorus (2.5-4.5) mg/dL Troponin T 0.163 H* (0.00-0.029) ng/mL PTH Intact 731.4 H (15-65) pg/mL Urine Creatinine 127.2 H (0.1-20.0) mg/dL 07/31/16 Range/Units 03:57 Sodium 134 L (137-145) mmol/L Potassium 3.4 L (3.6-5.0) mmol/L Chloride 94.4 L (98-107) mmol/L Carbon Dioxide 21 L (22-30) mmol/L BUN 65 H (9-20) mg/dL Creatinine 7.5 H (0.8-1.5) mg/dL Glucose 106 H (75-100) mg/dL Calcium 8.0 L (8.4-10.2) mg/dL Phosphorus 6.40 H (2.5-4.5) mg/dL Troponin T (0.00-0.029) ng/mL PTH Intact (15-65) pg/mL Urine Creatinine (0.1-20.0) mg/dL
[2016-07-31] MEDS: PHOSLO PO SCH ×2 (14:53→21:34)
[2016-07-31] MEDS: HEPARIN IV PRN (14:56)
--- NOTE | 2016-07-31 20:18 | Progress Note ---
Assessment and Plan Assessment and plan: 35 years old AAM with hypertension, noncompliant with treatment, tobacco and marijuana abuse, presented for shortness of breath thought to be in hypertensive emergency with BP 250/150 1. Hypertensive emergency BP not controlled on Coreg, amlodipine, hydralazine, HCTZ Monitor and adjust regimen as needed 2. Acute on chronic renal failure Most likely had CKD due to uncontrolled hypertension that progressed to end- stage renal disease Status post Vas-Cath placement Nephrology consulted and HD initiated today 3. Metabolic acidosis Secondary to renal failure 4. Acute metabolic encephalopathy Secondary to combination of uremia/electrolytes abnormalities/acidemia/ hypertensive urgency Treat underlying conditions Supportive care 5. Anemia Normocytic anemia, likely secondary to chronic kidney disease Monitor H&H 6. Elevated troponin EKG with no acute ischemic changes Likely nonspecific in the setting of hypertensive urgency and renal failure Cardiology following 7. Tobacco abuse Counseled regarding importance of quitting 8. Drug abuse Reports daily use of marijuana Counseled regarding importance of quitting 9. Noncompliance Counseled regarding importance of adherence to treatment and follow-up appointments 10. DVT prophylaxis 11. Discharge planning issues Case management consulted for setup of outpatient hemodialysis History Interval history: BP better controlled this morning, no complaints Status post Vas-Cath placement and HD initiated this morning Hospitalist Physical - Constitutional Vitals: Temp Pulse Resp BP Pulse Ox 98.1 F 78 18 153/80 96 07/31/16 16:33 07/31/16 16:33 07/31/16 16:33 07/31/16 16:33 07/31/16 16:33 General appearance: Present: no acute distress, well-nourished - EENT Eyes: Present: PERRL, EOM intact. Absent: scleral icterus, conjunctival injection - Neck Neck: Present: supple, normal ROM, other (R IJ dialysis catheter). Absent: masses or JVD - Respiratory Respiratory effort: normal Respiratory: bilateral: CTA, negative: rhonchi, wheezing - Cardiovascular Rhythm: regular Heart Sounds: Present: S1 & S2. Absent: systolic murmur - Extremities Extremities: no ischemia - Abdominal General gastrointestinal: soft, non-tender, non-distended, normal bowel sounds - Psychiatric Psychiatric: cooperative - Neurologic Neurologic: CNII-XII intact, no focal deficits Results - Labs CBC & Chem 7: 08/02/16 06:26 08/02/16 06:26 Labs: Laboratory Last Values WBC 8.9 K/mm3 (4.5-11.0) 07/30/16 08:42 RBC 3.59 M/mm3 (3.65-5.03) L 07/30/16 08:42 Hgb 11.1 gm/dl (11.8-15.2) L 07/30/16 08:42 Hct 31.7 % (35.5-45.6) L 07/30/16 08:42 MCV 88 fl (84-94) 07/30/16 08:42 MCH 31 pg (28-32) 07/30/16 08:42 MCHC 35 % (32-34) H 07/30/16 08:42 RDW 14.6 % (13.2-15.2) 07/30/16 08:42 Plt Count 216 K/mm3 (140-440) 07/30/16 08:42 Lymph % (Auto) 11.4 % (13.4-35.0) L 07/30/16 03:58 Iron % (Auto) 5.2 % (0.0-7.3) 07/30/16 03:58 Eos % (Auto) 1.3 % (0.0-4.3) 07/30/16 03:58 Baso % (Auto) 0.3 % (0.0-1.8) 07/30/16 03:58 Lymph # 1.1 K/mm3 (1.2-5.4) L 07/30/16 03:58 Iron # 0.5 K/mm3 (0.0-0.8) 07/30/16 03:58 Eos # 0.1 K/mm3 (0.0-0.4) 07/30/16 03:58 Baso # 0.0 K/mm3 (0.0-0.1) 07/30/16 03:58 Seg Neutrophils % 81.8 % (40.0-70.0) H 07/30/16 03:58 Seg Neutrophils # 8.0 K/mm3 (1.8-7.7) H 07/30/16 03:58 PT 12.9 Sec. (12.2-14.9) 07/30/16 03:58 INR 0.98 (0.87-1.13) 07/30/16 03:58 APTT 34.6 Sec. (24.2-36.6) 07/30/16 03:58 D-Dimer 807.54 ng/mlDDU (0-234) H 07/30/16 03:58 Sodium 134 mmol/L (137-145) L 07/31/16 03:57 Potassium 3.4 mmol/L (3.6-5.0) L 07/31/16 03:57 Chloride 94.4 mmol/L (98-107) L 07/31/16 03:57 Carbon Dioxide 21 mmol/L (22-30) L 07/31/16 03:57 Anion Gap 22 mmol/L 07/31/16 03:57 BUN 65 mg/dL (9-20) H 07/31/16 03:57 Creatinine 7.5 mg/dL (0.8-1.5) H 07/31/16 03:57 Estimated GFR 10 ml/min 07/31/16 03:57 BUN/Creatinine Ratio 8.66 % 07/31/16 03:57 Glucose 106 mg/dL (75-100) H 07/31/16 03:57 POC Glucose 140 (70-105) H 07/30/16 05:17 Calcium 8.0 mg/dL (8.4-10.2) L 07/31/16 03:57 Phosphorus 6.40 mg/dL (2.5-4.5) H 07/31/16 03:57 Magnesium 2.20 mg/dL (1.7-2.3) 07/31/16 03:57 Total Creatine Kinase 395 units/L (55-170) H 07/30/16 12:21 CK-MB (CK-2) 10.6 ng/mL (0.0-4.0) H 07/30/16 12:21 CK-MB (CK-2) Rel Index 2.6 (0-4) 07/30/16 12:21 Troponin T 0.163 ng/mL (0.00-0.029) H* 07/30/16 12:21 NT-Pro-B Natriuret Pep 42216 pg/mL (0-450) H 07/30/16 03:58 Triglycerides 55 mg/dL (2-149) 07/30/16 03:58 Cholesterol 133 mg/dL (50-199) 07/30/16 03:58 LDL Cholesterol Direct 73 mg/dL (50-130) 07/30/16 03:58 HDL Cholesterol 49 mg/dL (40-59) 07/30/16 03:58 Cholesterol/HDL Ratio 2.71 % 07/30/16 03:58 PTH Intact 731.4 pg/mL (15-65) H 07/30/16 13:33 Urine Color Yellow (Yellow) 07/30/16 20:45 Urine Turbidity Clear (Clear) 07/30/16 20:45 Urine pH 5.0 (5.0-7.0) 07/30/16 20:45 Ur Specific [place] 1.013 (1.003-1.030) 07/30/16 20:45 Urine Protein 30 mg/dl mg/dL (Negative) 07/30/16 20:45 Urine Glucose (UA) Neg mg/dL (Negative) 07/30/16 20:45 Urine Ketones Neg mg/dL (Negative) 07/30/16 20:45 Urine Blood Neg (Negative) 07/30/16 20:45 Urine Nitrite Neg (Negative) 07/30/16 20:45 Urine Bilirubin Neg (Negative) 07/30/16 20:45 Urine Urobilinogen < 2.0 mg/dL (<2.0) 07/30/16 20:45 Ur Leukocyte Esterase Neg (Negative) 07/30/16 20:45 Urine WBC (Auto) 1.0 /HPF (0.0-6.0) 07/30/16 20:45 Urine RBC (Auto) 1.0 /HPF (0.0-6.0) 07/30/16 20:45 Urine Bacteria (Auto) 1+ /HPF (Negative) 07/30/16 20:45 Urine Eosinophils None seen (None Seen) 07/30/16 20:45 Urine Creatinine 127.2 mg/dL (0.1-20.0) H 07/30/16 20:45 Urine Sodium 42 mEq/L 07/30/16 20:45 Hepatitis A IgM Ab Non-reactive (NonReactive) 07/31/16 12:25 Hep Bs Antigen Non-reactive (Negative) 07/31/16 12:25 Hep B Core IgM Ab Non-reactive (NonReactive) 07/31/16 12:25 Hepatitis C Antibody Non-reactive (NonReactive) 07/31/16 12:25
[2016-08-01] MEDS: APRESOLINE PO SCH ×3 (06:15→21:52)
[2016-08-01] MEDS: LASIX IV SCH ×2 (06:15→18:21)
[2016-08-01] MEDS: PHOSLO PO SCH ×3 (08:15→21:52)
--- NOTE | 2016-08-01 08:39 | Progress Note ---
Assessment and Plan - Patient Problems (1) ESRD (end stage renal disease) Current Visit: Yes Status: Acute Plan to address problem: Advanced CKD in the setting of long standing poorly controlled hypertension, has progressed to ESRD. Patient was started on hemodialysis yesterday and tolerated well. Patient need tunnel hemodialysis catheter prior to d/c. CM was informed to setup outpatient hemodialysis. (2) Malignant hypertension Current Visit: Yes Status: Chronic Plan to address problem: Patient was on Labetalol drip. BP is fairly well controlled. (3) Secondary hyperparathyroidism (of renal origin) Current Visit: Yes Status: Chronic Plan to address problem: On Calcitriol. (4) Congestive heart failure Current Visit: Yes Status: Chronic Qualifiers: Congestive heart failure type: C Congestive heart failure chronicity: C Plan to address problem: Followed by Cards. (5) Medical non-compliance Current Visit: Yes Status: Chronic Plan to address problem: Compliance encouraged. Subjective Date of service: 08/01/16 Principal diagnosis: HTN; LVH Interval history: Patient is doing ok. Objective - Vital Signs Vital signs: Vital Signs - 12hr 07/31/16 07/31/16 07/31/16 21:16 21:20 21:33 Temperature 97.9 F Pulse Rate 72 Pulse Rate [ 72 Right Dorsalis Pedis] Respiratory 20 Rate Blood Pressure 166/99 Blood Pressure 166/99 [Left Arm] O2 Sat by Pulse 98 97 Oximetry 07/31/16 07/31/16 08/01/16 21:34 22:00 00:00 Temperature 98.0 F Pulse Rate 72 72 Pulse Rate [ 75 Right Dorsalis Pedis] Respiratory 20 Rate Blood Pressure 166/99 Blood Pressure 159/95 [Left Arm] O2 Sat by Pulse 98 Oximetry 08/01/16 08/01/16 05:59 06:15 Temperature 98.1 F Pulse Rate 73 Pulse Rate [ 73 Right Dorsalis Pedis] Respiratory 20 Rate Blood Pressure 165/107 Blood Pressure 165/107 [Left Arm] O2 Sat by Pulse 97 Oximetry - General Appearance General appearance: well-developed, well-nourished, appears stated age, other ( no distress, right IJ temp catheter) EENT: ATNC, PERRL, mucous membranes moist, hearing intact, vision intact Neck: supple Respiratory: Present: Clear to Ascultation Cardiology: regular, S1S2, no murmurs Gastrointestinal: normoactive bowel sounds, no tenderness, no distended Integumentary: no rash Neurologic: no focal deficit, no asterixis, alert and oriented x3 Musculoskeletal: other (no edema) Psychiatric: mood/affect appropriate, cooperative - Lab 07/30/16 08:42 07/31/16 03:57 Most recent lab results Calcium 8.0 mg/dL (8.4-10.2) L 07/31/16 03:57 Phosphorus 6.40 mg/dL (2.5-4.5) H 07/31/16 03:57 Magnesium 2.20 mg/dL (1.7-2.3) 07/31/16 03:57 Urine Creatinine 127.2 mg/dL (0.1-20.0) H 07/30/16 20:45 Urine Sodium 42 mEq/L 07/30/16 20:45
[2016-08-01] MEDS ORDERED: NACL 0.9% 100 ML IV PRN (09:00)
[2016-08-01] MEDS ORDERED: NACL 0.9 (PRIMING MACHINE ONLY DIALYSIS) MC ONE (11:14)
[2016-08-01] MEDS ORDERED: ANCEF/STERILE WATER 2 GM/20 ML 2 GM/20 ML SYRINGE IV NR (12:00)
--- NOTE | 2016-08-01 12:43 | Progress Note ---
Assessment and Plan Assessment: Hypertensive urgency - improved. LVH Elevated troponin - ECG with no ischemic changes; pt denies chest pain; flat; currently nonspecific in setting of hypertensive urgency and ARF. ARF - s/p permacath placement today. Tobacco use / marijuana use Noncompliance Plan: Consider ischemic evaluation (stress MPI) for risk stratification once medically stabilized - can be done as OP. Currently stable cardiac status. The patient has been seen in conjunction with Dr. Lerner who agrees with the assessment and plan of care. Subjective Date of service: 08/01/16 Principal diagnosis: HTN; LVH Interval history: pt resting in bed, no complaints. s/p HD yesterday and for HD again today. VSS. Objective Last Vital Signs Temp 98.1 F 08/01/16 10:50 Pulse 81 08/01/16 12:30 Resp 18 08/01/16 10:50 BP 141/104 08/01/16 12:30 Pulse Ox 98 08/01/16 08:00 - Physical Examination General: Appears Well, No Apparent Distress HEENT: Positive: PERRL, Normocephaly, Mucus Membranes Moist Neck: Positive: neck supple, trachea midline Cardiac: Positive: Reg Rate and Rhythm, S1/S2 Lungs: Positive: clear to auscultation Neuro: Positive: Grossly Intact, Cranial Nerve 2-12 Intact Abdomen: Positive: Unremarkable, Soft, Active Bowel Sounds. Negative: Tender Skin: Positive: Clear. Negative: Rash, Wound Musculoskeletal: No Fluid Collection, No Pain, Normal Range of Motion Extremities: Present: upper extr. pulses, lower extr. pulses. Absent: edema - Imaging and Cardiology EKG: report reviewed, image reviewed Echo: report reviewed - Telemetry EKG Rhythm: Sinus Rhythm - EKG Sinus rhythms and dysrhythmias: sinus rhythm Chamber hypertrophy or enlargement: left ventricular hypertro Myocardial infarction: septal [place] (old age or ind
[2016-08-01] MEDS: HEPARIN IV PRN (13:37)
[2016-08-01] MEDS ORDERED: NACL 0.9% 250ML 250 ML ONE (16:00)
[2016-08-01] MEDS ORDERED: HEPARIN/NS 5000 UNIT/500ML(CATH LAB) 500 ML IR ONE (16:00)
[2016-08-01] MEDS ORDERED: ANCEF/STERILE WATER 2 GM/20 ML 2 GM/20 ML SYRINGE IV ONE (16:01)
[2016-08-01] MEDS ORDERED: ZOFRAN ONE (16:37)
[2016-08-01] MEDS ORDERED: SUBLIMAZE ONE (16:37)
[2016-08-01] MEDS: XYLOCAINE 1%/ EPI 1:100,000 INFILTRATI ONE ×2 (16:41→16:49)
[2016-08-01] MEDS: COREG PO SCH ×2 (16:45→21:53)
[2016-08-01] MEDS: HCTZ PO SCH (16:46)
[2016-08-01] MEDS: HEPARIN 10,000 UNITS/10 ML ONE ×3 (16:47→16:54)
[2016-08-01] MEDS: NORVASC PO SCH (16:47)
--- NOTE | 2016-08-01 17:06 | Operative Report ---
Operative Report Operative Report: EXAM: 1. Fluoroscopic-guided conversion of a right internal jugular non-tunneled non- cuffed hemodialysis catheter to a tunneled cuffed hemodialysis catheter. DATE: 08/01/16 INDICATION: End-stage renal disease requiring hemodialysis access. MEDICATIONS: Please see nursing report for full details. DEVICES: 23 cm tip to cuff dual lumen palindrome hemodialysis catheter BELT MOLDER: BERTHA SANDHU MD CONTRAST: None PROCEDURE: The risks, benefits, and alternatives were discussed and informed consent was obtained. The patient was transported to the angiography suite in satisfactory/ stable condition and was transported onto the angiography table. The patient was prepped and draped in a sterile fashion. The existing vascath was prepped and draped in a sterile fashion. Suture was cut. 0.035 inch wire was advanced through the Vas-Cath into the IVC. Vas-Cath was removed. The wire was cleaned with ChloraPrep. Over the 0.035 inch wire, serial dilatation was performed with ultimate placement of a peel-away sheath. Reverse tunneled PermCath was inserted to the peel-away sheath and positioned in the right atrium. Peel-away sheath removed. A suitable exit site was identified on the patient's chest inferior and lateral to the venotomy. The site was anesthetized with local anesthetic and the track was anesthetized. Dermatotomy was made. Reverse tunneler was then tunneled from dermatotomy to the venotomy site/catheter. The PermCath was attached to the tunneling device and reverse tunneled between the dermatotomy to the venotomy. The catheter was reassembled. 4-0 Vicryl suture was used to close the venotomy and Dermabond was then applied. 2-0 Ethilon suture was used to secure the catheter at the dermatotomy. The catheter was charged with heparin 1000 units/mL space. Sterile dressing applied. The patient was transferred from the angiography suite back to the floor in stable condition. FINDINGS: 1. Excellent flow was obtained through the dialysis catheter with 20 mL syringes. 2. The catheter tip is in the right atrium. IMPRESSION: 1. Fluoroscopic-guided conversion of a right internal jugular non-tunneled non- cuffed hemodialysis catheter to a tunneled cuffed hemodialysis catheter.
--- NOTE | 2016-08-01 21:29 | Progress Note ---
Assessment and Plan Assessment and plan: 35 years old AAM with hypertension, noncompliant with treatment, tobacco and marijuana abuse, presented for shortness of breath thought to be in hypertensive emergency with BP 250/150 1. Hypertensive emergency BP now controlled on Coreg, amlodipine, hydralazine, HCTZ + HD with UF Monitor and adjust regimen as needed 2. Acute on chronic renal failure Most likely had CKD due to uncontrolled hypertension that progressed to end- stage renal disease Status post Vas-Cath placement 07/31, exchanged to Permacath today Nephrology consulted; HD initiated 07/31, assessing need daily 3. Metabolic acidosis Secondary to renal failure Improvined after HD started 4. Acute metabolic encephalopathy Secondary to combination of uremia/electrolytes abnormalities/acidemia/ hypertensive urgency Treating underlying conditions Improving 5. Anemia Normocytic anemia, likely secondary to chronic kidney disease 6. Elevated troponin EKG with no acute ischemic changes Likely nonspecific in the setting of hypertensive urgency and renal failure Cardiology following and plans outpatient further ischemic evaluation 7. Tobacco abuse Counseled regarding importance of quitting 8. Drug abuse Reports daily use of marijuana Counseled regarding importance of quitting 9. Noncompliance Counseled regarding importance of adherence to treatment and follow-up appointments 10. DVT prophylaxis 11. Discharge planning issues Case management consulted for setup of outpatient hemodialysis History Interval history: s/p permacath exchange; doing well Hospitalist Physical - Constitutional Vitals: Temp Pulse Resp BP Pulse Ox 97.5 F L 72 20 178/95 99 08/01/16 17:45 08/01/16 17:45 08/01/16 17:45 08/01/16 17:45 08/01/16 17:45 General appearance: Present: no acute distress, well-nourished - EENT Eyes: Present: PERRL, EOM intact. Absent: scleral icterus, conjunctival injection - Neck Neck: Present: supple, normal ROM. Absent: masses or JVD - Respiratory Respiratory effort: normal Respiratory: bilateral: CTA, negative: rhonchi, wheezing - Cardiovascular Rhythm: regular Heart Sounds: Present: S1 & S2. Absent: systolic murmur - Extremities Extremities: no ischemia - Abdominal General gastrointestinal: soft, non-tender, non-distended, normal bowel sounds - Psychiatric Psychiatric: cooperative - Neurologic Neurologic: CNII-XII intact, no focal deficits Results - Labs CBC & Chem 7: 08/02/16 06:26 08/02/16 06:26 Labs: Laboratory Last Values WBC 8.9 K/mm3 (4.5-11.0) 07/30/16 08:42 RBC 3.59 M/mm3 (3.65-5.03) L 07/30/16 08:42 Hgb 11.1 gm/dl (11.8-15.2) L 07/30/16 08:42 Hct 31.7 % (35.5-45.6) L 07/30/16 08:42 MCV 88 fl (84-94) 07/30/16 08:42 MCH 31 pg (28-32) 07/30/16 08:42 MCHC 35 % (32-34) H 07/30/16 08:42 RDW 14.6 % (13.2-15.2) 07/30/16 08:42 Plt Count 216 K/mm3 (140-440) 07/30/16 08:42 Lymph % (Auto) 11.4 % (13.4-35.0) L 07/30/16 03:58 [place] % (Auto) 5.2 % (0.0-7.3) 07/30/16 03:58 Eos % (Auto) 1.3 % (0.0-4.3) 07/30/16 03:58 Baso % (Auto) 0.3 % (0.0-1.8) 07/30/16 03:58 Lymph # 1.1 K/mm3 (1.2-5.4) L 07/30/16 03:58 [place] # 0.5 K/mm3 (0.0-0.8) 07/30/16 03:58 Eos # 0.1 K/mm3 (0.0-0.4) 07/30/16 03:58 Baso # 0.0 K/mm3 (0.0-0.1) 07/30/16 03:58 Seg Neutrophils % 81.8 % (40.0-70.0) H 07/30/16 03:58 Seg Neutrophils # 8.0 K/mm3 (1.8-7.7) H 07/30/16 03:58 PT 12.9 Sec. (12.2-14.9) 07/30/16 03:58 INR 0.98 (0.87-1.13) 07/30/16 03:58 APTT 34.6 Sec. (24.2-36.6) 07/30/16 03:58 D-Dimer 807.54 ng/mlDDU (0-234) H 07/30/16 03:58 Sodium 134 mmol/L (137-145) L 07/31/16 03:57 Potassium 3.4 mmol/L (3.6-5.0) L 07/31/16 03:57 Chloride 94.4 mmol/L (98-107) L 07/31/16 03:57 Carbon Dioxide 21 mmol/L (22-30) L 07/31/16 03:57 Anion Gap 22 mmol/L 07/31/16 03:57 BUN 65 mg/dL (9-20) H 07/31/16 03:57 Creatinine 7.5 mg/dL (0.8-1.5) H 07/31/16 03:57 Estimated GFR 10 ml/min 07/31/16 03:57 BUN/Creatinine Ratio 8.66 % 07/31/16 03:57 Glucose 106 mg/dL (75-100) H 07/31/16 03:57 POC Glucose 140 (70-105) H 07/30/16 05:17 Calcium 8.0 mg/dL (8.4-10.2) L 07/31/16 03:57 Phosphorus 6.40 mg/dL (2.5-4.5) H 07/31/16 03:57 Magnesium 2.20 mg/dL (1.7-2.3) 07/31/16 03:57 Total Creatine Kinase 395 units/L (55-170) H 07/30/16 12:21 CK-MB (CK-2) 10.6 ng/mL (0.0-4.0) H 07/30/16 12:21 CK-MB (CK-2) Rel Index 2.6 (0-4) 07/30/16 12:21 Troponin T 0.163 ng/mL (0.00-0.029) H* 07/30/16 12:21 NT-Pro-B Natriuret Pep 68404 pg/mL (0-450) H 07/30/16 03:58 Triglycerides 55 mg/dL (2-149) 07/30/16 03:58 Cholesterol 133 mg/dL (50-199) 07/30/16 03:58 LDL Cholesterol Direct 73 mg/dL (50-130) 07/30/16 03:58 HDL Cholesterol 49 mg/dL (40-59) 07/30/16 03:58 Cholesterol/HDL Ratio 2.71 % 07/30/16 03:58 PTH Intact 731.4 pg/mL (15-65) H 07/30/16 13:33 Urine Color Yellow (Yellow) 07/30/16 20:45 Urine Turbidity Clear (Clear) 07/30/16 20:45 Urine pH 5.0 (5.0-7.0) 07/30/16 20:45 Ur Specific [place] 1.013 (1.003-1.030) 07/30/16 20:45 Urine Protein 30 mg/dl mg/dL (Negative) 07/30/16 20:45 Urine Glucose (UA) Neg mg/dL (Negative) 07/30/16 20:45 Urine Ketones Neg mg/dL (Negative) 07/30/16 20:45 Urine Blood Neg (Negative) 07/30/16 20:45 Urine Nitrite Neg (Negative) 07/30/16 20:45 Urine Bilirubin Neg (Negative) 07/30/16 20:45 Urine Urobilinogen < 2.0 mg/dL (<2.0) 07/30/16 20:45 Ur Leukocyte Esterase Neg (Negative) 07/30/16 20:45 Urine WBC (Auto) 1.0 /HPF (0.0-6.0) 07/30/16 20:45 Urine RBC (Auto) 1.0 /HPF (0.0-6.0) 07/30/16 20:45 Urine Bacteria (Auto) 1+ /HPF (Negative) 07/30/16 20:45 Urine Eosinophils None seen (None Seen) 07/30/16 20:45 Urine Creatinine 127.2 mg/dL (0.1-20.0) H 07/30/16 20:45 Urine Sodium 42 mEq/L 07/30/16 20:45 Hepatitis A IgM Ab Non-reactive (NonReactive) 07/31/16 12:25 Hep Bs Antigen Non-reactive (Negative) 07/31/16 12:25 Hep B Core IgM Ab Non-reactive (NonReactive) 07/31/16 12:25 Hepatitis C Antibody Non-reactive (NonReactive) 07/31/16 12:25
[2016-08-02] MEDS: LASIX IV SCH ×2 (06:19→17:44)
[2016-08-02] MEDS: APRESOLINE PO SCH ×3 (06:19→21:15)
[2016-08-02 07:08] LABS: Basophils % (Auto) 0.3 % (0.0-1.8); Eosinophils % (Auto) 1.2 % (0.0-4.3); Hematocrit 39.1 % (35.5-45.6); Hemoglobin 13.3 gm/dl (11.8-15.2); Mean Corpuscular HGB Conc 34 % (32-34); Mean Corpuscular Hemoglobin 31 pg (28-32); Mean Corpuscular Volume 90 fl (84-94); Platelet Count 308 K/mm3 (140-440); Red Blood Count 4.33 M/mm3 (3.65-5.03); Red Cell Distribution Width 14.8 % (13.2-15.2); White Blood Count 9.5 K/mm3 (4.5-11.0)
[2016-08-02] MEDS: ROCALTROL PO SCH ×2 (07:14→15:12)
[2016-08-02 07:31] LABS: BUN/Creatinine Ratio 6.72; Chloride 95.6 mmol/L (98-107); Phosphorous 4.8 mg/dL (2.5-4.5); Potassium 4.3 mmol/L (3.6-5.0)
--- NOTE | 2016-08-02 07:42 | Progress Note ---
Assessment and Plan - Patient Problems (1) ESRD (end stage renal disease) Current Visit: Yes Status: Acute Plan to address problem: Advanced CKD in the setting of long standing poorly controlled hypertension, has progressed to ESRD. Patient refused Kidney Biopsy. Patient was started on hemodialysis 2 days ago and today is his third treatment. Outpatient hemodialysis was arranged at [facility]. (2) Malignant hypertension Current Visit: Yes Status: Chronic Plan to address problem: BP is better. (3) Secondary hyperparathyroidism (of renal origin) Current Visit: Yes Status: Chronic Plan to address problem: On Calcitriol. (4) Congestive heart failure Current Visit: Yes Status: Chronic Qualifiers: Congestive heart failure type: C Congestive heart failure chronicity: C Plan to address problem: Followed by Cards. (5) Medical non-compliance Current Visit: Yes Status: Chronic Plan to address problem: Compliance encouraged. Subjective Date of service: 08/02/16 Principal diagnosis: HTN; LVH Interval history: Patient was seen and examined during hemodialysis. Objective - Vital Signs Vital signs: Vital Signs - 12hr 08/01/16 08/01/16 08/01/16 21:52 21:53 22:00 Temperature Pulse Rate 63 63 73 Pulse Rate [ Left Radial] Pulse Rate [ Right Radial] Respiratory Rate Blood Pressure 166/93 166/93 Blood Pressure [Left Arm] Blood Pressure [Right Radial Artery] O2 Sat by Pulse Oximetry 08/01/16 08/02/16 08/02/16 22:20 00:30 04:45 Temperature 98.4 F 98.4 F 98.3 F Pulse Rate Pulse Rate [ 71 Left Radial] Pulse Rate [ 66 69 Right Radial] Respiratory 18 18 18 Rate Blood Pressure Blood Pressure 169/109 [Left Arm] Blood Pressure 166/93 147/102 [Right Radial Artery] O2 Sat by Pulse 99 100 98 Oximetry 08/02/16 06:19 Temperature Pulse Rate 61 Pulse Rate [ Left Radial] Pulse Rate [ Right Radial] Respiratory Rate Blood Pressure 184/101 Blood Pressure [Left Arm] Blood Pressure [Right Radial Artery] O2 Sat by Pulse Oximetry - General Appearance General appearance: well-developed, well-nourished, appears stated age, other ( no distress, right IJ tunnel catheter) EENT: ATNC, PERRL, mucous membranes moist, hearing intact, vision intact Neck: no JVD, no carotid bruit, supple Respiratory: Present: Clear to Ascultation Cardiology: regular, S1S2, no murmurs Gastrointestinal: normoactive bowel sounds Integumentary: no rash Neurologic: no focal deficit, no asterixis, alert and oriented x3, CN 3-12 intact Musculoskeletal: other (no edema) Psychiatric: mood/affect appropriate, cooperative - Lab 08/02/16 06:26 08/02/16 06:26 Most recent lab results Calcium 9.0 mg/dL (8.4-10.2) 08/02/16 06:26 Phosphorus 4.80 mg/dL (2.5-4.5) H 08/02/16 06:26 Magnesium 2.20 mg/dL (1.7-2.3) 07/31/16 03:57 Urine Creatinine 127.2 mg/dL (0.1-20.0) H 07/30/16 20:45 Urine Sodium 42 mEq/L 07/30/16 20:45
[2016-08-02] MEDS ORDERED: NACL 0.9% 100 ML IV PRN (08:00)
[2016-08-02] MEDS: PHOSLO PO SCH ×3 (08:50→21:15)
[2016-08-02] MEDS: COREG PO SCH ×2 (10:00→21:15)
[2016-08-02] MEDS ORDERED: NACL 0.9 (PRIMING MACHINE ONLY DIALYSIS) MC ONE (10:36)
[2016-08-02] MEDS: HEPARIN IV PRN (12:24)
[2016-08-02] MEDS: HCTZ PO SCH (15:12)
[2016-08-02] MEDS: NORVASC PO SCH (15:12)
--- NOTE | 2016-08-02 16:19 | Progress Note ---
Assessment and Plan Assessment: Hypertensive urgency LVH Elevated troponin - ECG with no ischemic changes; pt denies chest pain; flat; currently nonspecific in setting of hypertensive urgency and ARF. ARF - on HD. Tobacco use / marijuana use Noncompliance Plan: Optimize anti-hypertensive regimen - increase hydralazine to 100mg BID. Will consider ischemic evaluation (stress MPI) for risk stratification as OP. Currently stable cardiac status. Will see PRN. Follow up in our office with Yumiko Brown NP, within 2 weeks of hospital discharge ([phone]). The patient has been seen in conjunction with Dr. Lerner who agrees with the assessment and plan of care. Subjective Date of service: 08/02/16 Principal diagnosis: HTN; LVH Interval history: pt resting in bed, no complaints. s/p HD today. BPs remain elevated. Objective Last Vital Signs Temp 97.9 F 08/02/16 12:40 Pulse 72 08/02/16 14:23 Resp 18 08/02/16 12:40 BP 174/110 08/02/16 14:23 Pulse Ox 98 08/02/16 08:35 - Physical Examination General: Appears Well, No Apparent Distress HEENT: Positive: PERRL, Normocephaly, Mucus Membranes Moist Neck: Positive: neck supple, trachea midline Cardiac: Positive: Reg Rate and Rhythm, S1/S2 Lungs: Positive: clear to auscultation Neuro: Positive: Grossly Intact, Cranial Nerve 2-12 Intact Abdomen: Positive: Unremarkable, Soft, Active Bowel Sounds. Negative: Tender Skin: Positive: Clear. Negative: Rash, Wound Musculoskeletal: No Fluid Collection, No Pain, Normal Range of Motion Extremities: Present: upper extr. pulses, lower extr. pulses. Absent: edema - Labs and Meds CBC 08/02/16 Range/Units 06:26 WBC 9.5 (4.5-11.0) K/mm3 RBC 4.33 (3.65-5.03) M/mm3 Hgb 13.3 (11.8-15.2) gm/dl Hct 39.1 D (35.5-45.6) % Plt Count 308 (140-440) K/mm3 Lymph # 1.3 (1.2-5.4) K/mm3 [place] # 0.8 (0.0-0.8) K/mm3 Eos # 0.1 (0.0-0.4) K/mm3 Baso # 0.0 (0.0-0.1) K/mm3 Comprehensive Metabolic Panel 08/02/16 Range/Units 06:26 Potassium 4.3 D (3.6-5.0) mmol/L Carbon Dioxide 28 D (22-30) mmol/L BUN 39 H (9-20) mg/dL Creatinine 5.8 H (0.8-1.5) mg/dL Glucose 94 (75-100) mg/dL Calcium 9.0 (8.4-10.2) mg/dL - Imaging and Cardiology EKG: report reviewed, image reviewed Echo: report reviewed - Telemetry EKG Rhythm: Sinus Rhythm - EKG Sinus rhythms and dysrhythmias: sinus rhythm Chamber hypertrophy or enlargement: left ventricular hypertro Myocardial infarction: septal [place] (old age or ind
--- NOTE | 2016-08-02 16:41 | Event Note ---
Date: 08/02/16 35 year old with ESRD with permcath. Request to evaluate for group home HD access. Will order vein mapping and we will evaluate patient after vein mapping completed.
[2016-08-02 18:29] LABS: Myeloperoxidase Antibody <1.0 AI (<1.0)
--- NOTE | 2016-08-02 21:36 | Progress Note ---
Assessment and Plan Assessment and plan: 35 years old AAM with hypertension, noncompliant with treatment, tobacco and marijuana abuse, presented for shortness of breath thought to be in hypertensive emergency with BP 250/150 1. Hypertensive emergency BP now better controlled on Coreg, amlodipine, hydralazine, HCTZ + HD with UF Monitor and adjust regimen as needed (hydralazine dose increased) 2. Acute on chronic renal failure Most likely had CKD due to uncontrolled hypertension that progressed to end- stage renal disease Status post Vas-Cath placement 07/31, exchanged to Permacath 08/01 Nephrology consulted; HD initiated 07/31 Vasc surgery consulted for permanent access 3. Metabolic acidosis Secondary to renal failure Resolved after HD started 4. Acute metabolic encephalopathy Secondary to combination of uremia/electrolytes abnormalities/acidemia/ hypertensive urgency Underlying conditions treated Resolved 5. Anemia Normocytic anemia, likely secondary to chronic kidney disease 6. Elevated troponin EKG with no acute ischemic changes Likely nonspecific in the setting of hypertensive urgency and renal failure Cardiology following and plans outpatient further ischemic evaluation for risk stratification 7. Tobacco abuse Counseled regarding importance of quitting 8. Drug abuse Reports daily use of marijuana Counseled regarding importance of quitting 9. Noncompliance Counseled regarding importance of adherence to treatment and follow-up appointments 10. DVT prophylaxis 11. Discharge planning issues Case management consulted for setup of outpatient hemodialysis History Interval history: seen on dialysis, doing well, no complaints Hospitalist Physical - Constitutional Vitals: Temp Pulse Resp BP Pulse Ox 97.5 F L 80 18 183/113 98 08/02/16 18:07 08/02/16 20:42 08/02/16 20:42 08/02/16 20:42 08/02/16 20:42 General appearance: Present: no acute distress, well-nourished - EENT Eyes: Present: PERRL, EOM intact. Absent: scleral icterus, conjunctival injection - Neck Neck: Present: supple, normal ROM. Absent: masses or JVD - Respiratory Respiratory effort: normal Respiratory: bilateral: CTA, negative: rhonchi, wheezing - Cardiovascular Rhythm: regular Heart Sounds: Present: S1 & S2. Absent: systolic murmur - Extremities Extremities: no ischemia - Abdominal General gastrointestinal: soft, non-tender, non-distended, normal bowel sounds - Psychiatric Psychiatric: cooperative - Neurologic Neurologic: CNII-XII intact, no focal deficits Results - Labs CBC & Chem 7: 08/02/16 06:26 08/02/16 06:26 Labs: Laboratory Last Values WBC 9.5 K/mm3 (4.5-11.0) 08/02/16 06:26 RBC 4.33 M/mm3 (3.65-5.03) 08/02/16 06:26 Hgb 13.3 gm/dl (11.8-15.2) 08/02/16 06:26 Hct 39.1 % (35.5-45.6) D 08/02/16 06:26 MCV 90 fl (84-94) 08/02/16 06:26 MCH 31 pg (28-32) 08/02/16 06:26 MCHC 34 % (32-34) 08/02/16 06:26 RDW 14.8 % (13.2-15.2) 08/02/16 06:26 Plt Count 308 K/mm3 (140-440) 08/02/16 06:26 Lymph % (Auto) 13.7 % (13.4-35.0) 08/02/16 06:26 [place] % (Auto) 8.7 % (0.0-7.3) H 08/02/16 06:26 Eos % (Auto) 1.2 % (0.0-4.3) 08/02/16 06:26 Baso % (Auto) 0.3 % (0.0-1.8) 08/02/16 06:26 Lymph # 1.3 K/mm3 (1.2-5.4) 08/02/16 06:26 [place] # 0.8 K/mm3 (0.0-0.8) 08/02/16 06:26 Eos # 0.1 K/mm3 (0.0-0.4) 08/02/16 06:26 Baso # 0.0 K/mm3 (0.0-0.1) 08/02/16 06:26 Seg Neutrophils % 76.1 % (40.0-70.0) H 08/02/16 06:26 Seg Neutrophils # 7.3 K/mm3 (1.8-7.7) 08/02/16 06:26 PT 12.9 Sec. (12.2-14.9) 07/30/16 03:58 INR 0.98 (0.87-1.13) 07/30/16 03:58 APTT 34.6 Sec. (24.2-36.6) 07/30/16 03:58 D-Dimer 807.54 ng/mlDDU (0-234) H 07/30/16 03:58 Sodium 134 mmol/L (137-145) L 07/31/16 03:57 Potassium 4.3 mmol/L (3.6-5.0) D 08/02/16 06:26 Chloride 94.4 mmol/L (98-107) L 07/31/16 03:57 Carbon Dioxide 28 mmol/L (22-30) D 08/02/16 06:26 Anion Gap 20 mmol/L 08/02/16 06:26 BUN 39 mg/dL (9-20) H 08/02/16 06:26 Creatinine 5.8 mg/dL (0.8-1.5) H 08/02/16 06:26 Estimated GFR 14 ml/min 08/02/16 06:26 BUN/Creatinine Ratio 6.72 % 08/02/16 06:26 Glucose 94 mg/dL (75-100) 08/02/16 06:26 POC Glucose 140 (70-105) H 07/30/16 05:17 Calcium 9.0 mg/dL (8.4-10.2) 08/02/16 06:26 Phosphorus 4.80 mg/dL (2.5-4.5) H 08/02/16 06:26 Magnesium 2.20 mg/dL (1.7-2.3) 07/31/16 03:57 Total Creatine Kinase 395 units/L (55-170) H 07/30/16 12:21 CK-MB (CK-2) 10.6 ng/mL (0.0-4.0) H 07/30/16 12:21 CK-MB (CK-2) Rel Index 2.6 (0-4) 07/30/16 12:21 Troponin T 0.163 ng/mL (0.00-0.029) H* 07/30/16 12:21 NT-Pro-B Natriuret Pep 20618 pg/mL (0-450) H 07/30/16 03:58 Triglycerides 55 mg/dL (2-149) 07/30/16 03:58 Cholesterol 133 mg/dL (50-199) 07/30/16 03:58 LDL Cholesterol Direct 73 mg/dL (50-130) 07/30/16 03:58 HDL Cholesterol 49 mg/dL (40-59) 07/30/16 03:58 Cholesterol/HDL Ratio 2.71 % 07/30/16 03:58 PTH Intact 731.4 pg/mL (15-65) H 07/30/16 13:33 Urine Color Yellow (Yellow) 07/30/16 20:45 Urine Turbidity Clear (Clear) 07/30/16 20:45 Urine pH 5.0 (5.0-7.0) 07/30/16 20:45 Ur Specific [place] 1.013 (1.003-1.030) 07/30/16 20:45 Urine Protein 30 mg/dl mg/dL (Negative) 07/30/16 20:45 Urine Glucose (UA) Neg mg/dL (Negative) 07/30/16 20:45 Urine Ketones Neg mg/dL (Negative) 07/30/16 20:45 Urine Blood Neg (Negative) 07/30/16 20:45 Urine Nitrite Neg (Negative) 07/30/16 20:45 Urine Bilirubin Neg (Negative) 07/30/16 20:45 Urine Urobilinogen < 2.0 mg/dL (<2.0) 07/30/16 20:45 Ur Leukocyte Esterase Neg (Negative) 07/30/16 20:45 Urine WBC (Auto) 1.0 /HPF (0.0-6.0) 07/30/16 20:45 Urine RBC (Auto) 1.0 /HPF (0.0-6.0) 07/30/16 20:45 Urine Bacteria (Auto) 1+ /HPF (Negative) 07/30/16 20:45 Urine Eosinophils None seen (None Seen) 07/30/16 20:45 Urine Creatinine 127.2 mg/dL (0.1-20.0) H 07/30/16 20:45 Urine Sodium 42 mEq/L 07/30/16 20:45 Proteinase 3 (PR3) Ab <1.0 AI (<1.0) 07/30/16 13:33 Myeloperoxidase Ab <1.0 AI (<1.0) 07/30/16 13:33 Complement C3 115 mg/dL (90-180) 07/30/16 13:33 Complement C4 23 mg/dL (16-47) 07/30/16 13:33 Hepatitis A IgM Ab Non-reactive (NonReactive) 07/31/16 12:25 Hep Bs Antigen Non-reactive (Negative) 07/31/16 12:25 Hep B Core IgM Ab Non-reactive (NonReactive) 07/31/16 12:25 Hepatitis C Antibody Non-reactive (NonReactive) 07/31/16 12:25
[2016-08-03] MEDS: LASIX IV SCH (06:26)
--- NOTE | 2016-08-03 08:19 | Progress Note ---
Assessment and Plan - Patient Problems (1) ESRD (end stage renal disease) Current Visit: Yes Status: Acute Plan to address problem: Advanced CKD in the setting of long standing poorly controlled hypertension, has progressed to ESRD. Patient was started on hemodialysis during this admission and was last dialyzed yesterday. Outpatient hemodialysis was arranged at [facility] starting tomorrow. (2) Malignant hypertension Current Visit: Yes Status: Chronic Plan to address problem: BP is better. Renal artery duplex ordered. (3) Secondary hyperparathyroidism (of renal origin) Current Visit: Yes Status: Chronic Plan to address problem: On Calcitriol. (4) Congestive heart failure Current Visit: Yes Status: Chronic Qualifiers: Congestive heart failure type: C Congestive heart failure chronicity: C Plan to address problem: Followed by Cards. (5) Medical non-compliance Current Visit: Yes Status: Chronic Plan to address problem: Compliance encouraged. Subjective Date of service: 08/03/16 Principal diagnosis: HTN; LVH Interval history: Patient was seen and examined at the bedside. He is doing well. Objective - Vital Signs Vital signs: Vital Signs - 12hr 08/02/16 08/02/16 08/03/16 20:42 23:02 02:12 Temperature 97.8 F Pulse Rate 80 Pulse Rate [ 71 From Monitor] Pulse Rate [ 80 Right Dorsalis Pedis] Respiratory 18 18 Rate Blood Pressure 183/113 148/95 [Right Radial Artery] O2 Sat by Pulse 98 98 Oximetry - General Appearance General appearance: well-developed, well-nourished, appears stated age, other ( no distress, right IJ tunnel catheter) EENT: ATNC, PERRL, mucous membranes moist, hearing intact, vision intact Neck: supple Respiratory: Present: Clear to Ascultation Cardiology: regular, S1S2, no murmurs Gastrointestinal: normoactive bowel sounds, no tenderness, no distended Integumentary: no rash, warm and dry Neurologic: no focal deficit, no asterixis, alert and oriented x3, CN 3-12 intact Musculoskeletal: other (no edema) Psychiatric: mood/affect appropriate, cooperative - Lab 08/02/16 06:26 08/02/16 06:26 Most recent lab results Calcium 9.0 mg/dL (8.4-10.2) 08/02/16 06:26 Phosphorus 4.80 mg/dL (2.5-4.5) H 08/02/16 06:26 Magnesium 2.20 mg/dL (1.7-2.3) 07/31/16 03:57 Urine Creatinine 127.2 mg/dL (0.1-20.0) H 07/30/16 20:45 Urine Sodium 42 mEq/L 07/30/16 20:45
[2016-08-03] MEDS: PHOSLO PO SCH (09:00)
--- NOTE | 2016-08-03 09:59 | Discharge Summary ---
Providers - Providers Date of Admission: 07/30/16 06:28 Date of discharge: 08/03/16 Attending physician: HEAVEN VILLASENOR MD 07/30/16 Consult to Cardiac Rehabilitation [CONS] Routine Reason For Exam: Phase I 07/30/16 07:16 Consult to Physician [CONS] Routine Consulting Provider: AXEL KATHLEEN Reason For Exam: ARF Place consult to:: nephrology Notified:: Dr Kathleen Phone number called:: consult doxcumented in record Was contact made?: Yes If yes, spoke with:: Dr kathleen Time called:: 10:08 07/30/16 14:45 Consult to Interventional Radiology [CONS] Routine Consulting Provider: BERTHA ROSA Reason For Exam: Hemodialysis catheter placement. Place consult to:: bertha rosa Notified:: yes Phone number called:: bedside Was contact made?: Yes If yes, spoke with:: mello RIVER Time called:: 15:54 07/30/16 15:07 Consult to Physician [CONS] Routine Consulting Provider: MAGDALENA CHAIREZ Reason For Exam: elevated troponin Place consult to:: health information tech cardiology Notified:: [facility] liz Phone number called:: [phone] Was contact made?: Yes If yes, spoke with:: Ruth Time called:: 15:59 Comment:: spoke with Ruth Primary care physician: MANAGER MOLECULAR Hospitalization Reason for admission: shortness of breath Condition: Poor Hospital course: 35 YO male with HTN, Asthma, Medication Noncompliance, Nicotine Dependence presents to ED for evaluation. Pt states that he has experienced difficulty breathing and coughing for the past 6 days with worsening symptoms over the past 8 hours prior to admission. Pt acknowledges orthopnea, PND, noncompliance with medications as well as chest discomfort secondary to coughing episodes. Cough is nonproductive. Pt denies fever, chills, palpitations, NVD, recent ill contacts, prolonged travel/immobility, leg swelling, calf pain, individual/ family history of DVT/PE, hemoptysis, syncope, unintentional weight loss, skin rash, night sweats. On admission patient was admitted to the ICU with florid congestive heart failure and hypertensive emergency intermediate blood pressure control was started with diuresis. Also labetalol drip was started. Blood pressure was better controlled and patient was transferred out of the ICU. Patient was seen by nurse case manager while in the ICU also by sample card maker requiring dialysis to be initiated. Electrolytes were corrected acidosis resolved. Patient was seen by vascular surgery for mapping procedure to be done over followed up with them in the practice for fistula creation. Extensive counseling was provided to the patient pending to be compliant. Also a renal Doppler's studies to be done outpatient. Patient is to follow distal follow with cardiology and renal and vascular outpatient along with a primary care physician. Patient's also received counseling regarding community resources information on drug abuse risk of continued drug abuse was discussed with the patient and he verbalized understanding this included tobacco abuse. Discharge diagnosis 1. Hypertensive emergency 2. End-stage renal disease secondary to uncontrolled hypertension 3. Metabolic acidosis 4. Acute metabolic encephalopathy 5. Anemia-memory of chronic disease 6. NSTEMI type 2 7. Acute on chronic diastolic heart failure 8. Tobacco/marijuana abuse 9. Drug abuse 10. Noncompliance 11. Secondary Hyperparathyroidisim 12. Acute Respiratory failure Disposition: DISCHARGED TO HOME OR SELFCARE Time spent for discharge: 35 MINS Core Measure Documentation - Palliative Care Palliative Care/ Comfort Measures: Not Applicable - Core Measures Any of the following diagnoses?: heart failure - VTE Discharge Requirements Deep Vein Thrombosis/Pulmonary Embolism Present on Admission: No - Heart Failure Discharge Requirements ZOHREH/ARB for LVSD if EF <40%: Not Applicable Beta comfort at discharge: Yes Exam - Physical Exam Narrative exam: VITAL SIGNS: Reviewed. GENERAL: The patient appeared well nourished and normally developed. Vital signs as documented. HEAD: No signs of head trauma. EYES: Pupils are equal. Extraocular motions intact. EARS: Hearing grossly intact. MOUTH: Oropharynx is normal. NECK: No adenopathy, no JVD. CHEST: Chest with clear breath sounds bilaterally. No wheezes, rales, or rhonchi. CARDIAC: Regular rate and rhythm. S1 and S2, without murmurs, gallops, or rubs. VASCULAR: No Edema. Peripheral pulses normal and equal in all extremities. ABDOMEN: Soft, without detectable tenderness. No sign of distention. No rebound or guarding, and no masses palpated. Bowel Sounds normal. MUSCULOSKELETAL: Good range of motion of all major joints. Extremities without clubbing, cyanosis or edema. NEUROLOGIC EXAM: Alert and oriented x 3. No focal sensory or strength deficits. Speech normal. Follows commands. PSYCHIATRIC: Mood normal. SKIN: No rash or lesions. - Constitutional Vitals: Temp Pulse Resp BP Pulse Ox 97.8 F 74 18 148/95 98 08/03/16 02:12 08/03/16 08:37 08/03/16 02:12 08/03/16 02:12 08/03/16 02:12 Plan Activity: advance as tolerated, fall precautions Diet: renal Special Instructions: record daily weights, record daily BP diary Follow up with: PRIMARY CAREMD [Primary Care Provider] - 3-5 Days BERTHA SANDHU MD [Staff Physician] - 7 Days AXEL KATHLEEN MD [Staff Physician] - 7 Days MAGDALENA CHAIREZ MD [Staff Physician] - 7 Days Forms: Discharge Signature Page Prescriptions: AtorvaSTATin [Lipitor] 40 mg PO QHS #30 tablet amLODIPine [Norvasc] 10 mg PO QDAY #30 tablet Calcitriol [Rocaltrol] 0.5 mcg PO QDAY #30 capsule Carvedilol [Coreg] 25 mg PO BID #60 tablet hydrALAZINE [Apresoline TAB] 100 mg PO TID #90 tablet
[2016-08-03] MEDS: NORVASC PO SCH (10:39)
[2016-08-03] MEDS: APRESOLINE PO SCH (10:39)
[2016-08-03] MEDS: ROCALTROL PO SCH (10:39)
[2016-08-03] MEDS: COREG PO SCH (10:40)
[2016-08-03] MEDS: HCTZ PO SCH (10:40)
[2016-08-03] MEDS ORDERED: PHOSLO PO SCH (12:00)
[2016-08-03 13:32] VITALS: BP 157/78
== END 2016-08-03 15:27 | disposition home or self-care (01) | DRG 280 ==
LOC: ED 03:04 → 4A 06:28 → CC1 08:56 → 4A 07-31 16:17
PROVIDERS: ADMIT Internal Medicine; ATTEND Internal Medicine
PROC: 02HV33Z Insertion of Infusion Device into Superior Vena Cava, Percutaneous Approach (ICD-10-PCS; principal; 2016-07-30)
PROC: B548ZZA Ultrasonography of Superior Vena Cava, Guidance (ICD-10-PCS; 2016-07-30)
PROC: 3E0234Z Introduction of Serum, Toxoid and Vaccine into Muscle, Percutaneous Approach (ICD-10-PCS; 2016-07-30)
PROC: 5A1D60Z (ICD-10-PCS; 2016-07-31)
PROC: 02H633Z Insertion of Infusion Device into Right Atrium, Percutaneous Approach (ICD-10-PCS; 2016-08-01)
PROC: B2141ZZ Fluoroscopy of Right Heart using Low Osmolar Contrast (ICD-10-PCS; 2016-08-01)
DX: I13.2 Hypertensive heart and chronic kidney disease with heart failure and with stage 5 chronic kidney disease, or end stage renal disease (principal); N18.6 End stage renal disease; I21.4 Non-ST elevation (NSTEMI) myocardial infarction; G93.41 Metabolic encephalopathy; I50.33 Acute on chronic diastolic (congestive) heart failure; J96.00 Acute respiratory failure, unspecified whether with hypoxia or hypercapnia; I24.9 Acute ischemic heart disease, unspecified; N17.9 Acute kidney failure, unspecified; N25.81 Secondary hyperparathyroidism of renal origin; I16.1 Hypertensive emergency; J45.909 Unspecified asthma, uncomplicated; I16.0 Hypertensive urgency; F12.10 Cannabis abuse, uncomplicated; F17.200 Nicotine dependence, unspecified, uncomplicated; D63.1 Anemia in chronic kidney disease; Z71.89 Other specified counseling; Z23 Encounter for immunization; Z91.14 Patient's other noncompliance with medication regimen; Z83.3 Family history of diabetes mellitus; Z82.49 Family history of ischemic heart disease and other diseases of the circulatory system
CPT/HCPCS: 36415; 36581; 71010; 76770; 77001; 80048; 80061; 80074; 81001; 82550; 82553; 82570; 82962; 83735; 83880; 83970; 84100; 84300; 84484; 85025; 85027; 85379; 85610; 85730; 86021; 86038; 86160; 89050; 90686; 90732; 93005; 93010; 93306; 96365; 96375; 99406; A9270-GY; C1750; C1769; J0360; J0690; J1644; J1940; J2270; J2405; J3010; J7030; J7050

== ENCOUNTER 2017-02-08 05:40 | Day surgery (SDC) | payer MEDICARE, MEDICAID ==
[2017-02-08] MEDS ORDERED: NACL 0.9% 1000 ML 1,000 ML IV SCH (06:00)
[2017-02-08] MEDS ORDERED: ANCEF/STERILE WATER 2 GM/20 ML 2 GM/20 ML SYRINGE IV NR (06:00)
[2017-02-08] MEDS ORDERED: NACL BACTERIOSTATIC INFILTRATI ONE (06:22)
[2017-02-08 06:44] LABS: Basophils % (Auto) 0.4 % (0.0-1.8); Eosinophils % (Auto) 3.5 % (0.0-4.3); Hematocrit 33.6 % (35.5-45.6); Hemoglobin 11.8 gm/dl (11.8-15.2); Mean Corpuscular HGB Conc 35 % (32-34); Mean Corpuscular Hemoglobin 31 pg (28-32); Mean Corpuscular Volume 89 fl (84-94); Platelet Count 247 K/mm3 (140-440); Red Blood Count 3.76 M/mm3 (3.65-5.03); Red Cell Distribution Width 13.1 % (13.2-15.2); White Blood Count 5.9 K/mm3 (4.5-11.0)
[2017-02-08 06:55] LABS: INR 0.95 (0.87-1.13)
[2017-02-08 06:58] LABS: Calcium 8.4 mg/dL (8.4-10.2); Chloride 104.7 mmol/L (98-107); Potassium 5.4 mmol/L (3.6-5.0)
--- NOTE | 2017-02-08 07:28 | Anesthesia Consultation ---
Anesthesia Consult and Med Hx Date of service: 02/08/17 - Airway Anesthetic Teeth Evaluation: Good ROM Head & Neck: Adequate Mental/Hyoid Distance: Adequate Mallampati Class: Class III Intubation Access Assessment: Possibly Difficult - Pulmonary Exam CTA: Yes - Cardiac Exam Cardiac Exam: RRR - Pre-Operative Health Status ASA Pre-Surgery Classification: ASA3 Proposed Anesthetic Plan: General - Pulmonary Hx Smoking: Yes (1 ppd x 15 yrs, quit July) Hx Asthma: Yes (not since age 13) Hx Sleep Apnea: No - Cardiovascular System Hx Hypertension: Yes (uncontrolled) Hx Heart Attack/AMI: No - Central Nervous System Hx Seizures: No CVA: No - Endocrine Hx End Stage Renal Disease: Yes (rt permacath, TTRS dialysis) Hx Liver Disease: No - Hematic Hx Anemia: No Hx Sickle Cell Disease: No - Other Systems Hx Alcohol Use: Yes (occasional) Hx Substance Use: Yes (mar[place] , stopped July) Hx Cancer: No - Additional Comments Anesthesia Medical History Comments: Pt denies any familial anesthesia complication
--- NOTE | 2017-02-08 07:29 | Anesthesia Day of Surgery ---
Anesthesia Day of Surgery - Day of Surgery Patient Examined: Yes Patient H&P Reviewed: Yes Patient is NPO: Yes
[2017-02-08] MEDS ORDERED: DIPRIVAN 10 MG/ML IV ONE ×2 (07:46→08:46)
[2017-02-08] MEDS ORDERED: XYLOCAINE MPF 2% ONE (07:47)
[2017-02-08] MEDS ORDERED: DILAUDID ONE (07:47)
[2017-02-08] MEDS ORDERED: ZOFRAN IV PRN (07:48)
[2017-02-08] MEDS ORDERED: DILAUDID IV PRN (07:49)
[2017-02-08] MEDS ORDERED: PROTAMINE SULFATE ONE (07:58)
[2017-02-08] MEDS ORDERED: MARCAINE 0.5% 30 ML INFILTRATI ONE (07:58)
[2017-02-08] MEDS ORDERED: HEPARIN 10,000 UNITS/10 ML ONE (07:58)
[2017-02-08] MEDS ORDERED: NACL 0.9% 500 ML 500 ML ONE (07:58)
[2017-02-08] MEDS ORDERED: SODIUM BICARBONATE ONE (07:58)
[2017-02-08] MEDS ORDERED: VERSED IV NR (08:00)
[2017-02-08] MEDS ORDERED: PEPCID PO NR (08:00)
[2017-02-08] MEDS ORDERED: HEPARIN 10,000 UNITS/10 ML 2,000 UNIT in NACL 0.9% 500 ML 500 ML IR ONE (08:11)
[2017-02-08] MEDS ORDERED: MARCAINE 0.5% INFILTRATI ONE (08:11)
[2017-02-08] MEDS ORDERED: NACL 0.9% IR ONE (08:11)
[2017-02-08] MEDS ORDERED: ZOFRAN ONE (08:39)
[2017-02-08] MEDS ORDERED: BREVIBLOC IV ONE ×2 (09:00→10:22)
--- NOTE | 2017-02-08 10:00 | Short Stay Summary ---
Short Stay Documentation Date of service: 02/08/17 Narrative H&P: See H&P - History H&P: obtained from office - Allergies and Medications Current Medications: Allergies No Known Allergies Allergy (Unverified 07/30/16 03:41) Home Medications Medication Instructions Recorded Confirmed Last Taken Type amLODIPine [Norvasc] 10 mg PO QDAY #30 tablet 08/03/16 02/08/17 02/08/17 04:45 Rx Lisinopril [Zestril] 40 mg PO QDAY 02/08/17 02/08/17 02/08/17 04:45 History Active Medications Famotidine (Pepcid) 20 mg PO PREOP NR Stop: 02/08/17 10:00 Last Admin: 02/08/17 07:36 Dose: 20 mg Hydromorphone HCl (Dilaudid) 0.5 mg IV Q10MIN PRN PRN Reason: Pain , Severe (7-10) Stop: 02/08/17 15:00 Cefazolin Sodium (Ancef/Sterile Water 2 Gm/20 Ml) 2 gm in 20 mls @ 80 mls/hr IV PREOP NR PRN Reason: Protocol Stop: 02/08/17 23:59 Sodium Chloride (Nacl 0.9% 1000 Ml) 1,000 mls @ 42 mls/hr IV DIRECT JOSE Last Admin: 02/08/17 06:30 Dose: 42 mls/hr Midazolam HCl (Versed) 2 mg IV PREOP NR Stop: 02/08/17 23:59 Last Admin: 02/08/17 07:37 Dose: 2 mg Ondansetron HCl (Zofran) 4 mg IV ONCE PRN PRN Reason: Nausea And Vomiting Stop: 02/08/17 10:00 - Brief post op/procedure progress note Date of procedure: 02/08/17 Pre-op diagnosis: ESRD Post-op diagnosis: same Procedure: Creation of Left Shemar Fistula Anesthesia: JALEN Surgeon: ANASTACIA HENDRICKS Estimated blood loss: minimal Pathology: none Condition: stable - Disposition Condition at discharge: Good Disposition: DC-01 TO HOME OR SELFCARE Short Stay Discharge Plan Activity: other (no heavy lifting with left arm) Wound: open to air, keep clean and dry, other (okay to wash the wound with soap and water but do not soak in water) Follow up with: ANASTACIA HENDRICKS MD [Staff Physician] - 14 Days Prescriptions: HYDROcodone/APAP 7.5-325 [[place] 7.5/325] 1 each PO Q6HR PRN #40 tablet PRN Reason: Pain
--- NOTE | 2017-02-08 10:01 | Operative Report ---
Operative Report Operative Report: Date of procedure: 02/08/2017 Pre-operative diagnosis: End-Stage Renal Disease Post-operative diagnosis: End-Stage Renal Disease Procedure(s): Creation of Left Shemar Fistula Surgeon: Tre Pradhan MD Link Wire Fabric Machine Tender: None Anesthesia: General Endotracheal Anesthesia EBL: Minimal Counts: Correct Complications: None Condition: Stable Findings: Successful creation of left arm AV fistula Specimen: None Indication: The patient is a 36-year-old male with history of end-stage renal disease currently on hemodialysis through a right internal jugular permacath. He is in need of long-term access and had adequate vein for creation of an AV fistula. He was given the risk, benefits, and alternative procedures and consented to the procedure. Description of Procedure: The patient was brought to the operating room and laid in supine position after general endotracheal anesthesia was achieved his left arm was prepped and draped in normal sterile fashion. Longitudinal incision was then created on the distal wrist centered over the cephalic vein and a second incision was created in longitudinal fashion over the radial artery. The radial artery was dissected out circumferentially and controlled with vessel loops. The cephalic vein was then dissected out circumferentially, ligating side branches and dividing them, and then a tunnel was created to transpose it over to the radial artery. A 3 Cyndie was then advanced through the cephalic vein proximally to ensure patency. The vein was then flushed with heparinized saline and control of the bulldog clamp. The radial artery vessel loops were put on tension occluding flow, and then an 11 blade and Richards scissors used to create an arteriotomy. An end-to-side anastomosis created between the cephalic vein and the radial artery using a single 6-0 Prolene in running fashion. Prior to completing the anastomosis I flushed the artery both retrograde and antegrade and advanced a 3 Cyndie into the proximal portion of the artery to break the spasm. I then completed the anastomosis and removed all clamps allowing flow into the fistula which had an excellent thrill. The necessity wound using half percent Marcaine plain. Then closed the wounds in 2 layers using a 3-0 Vicryl running fashion the deep dermal layer, 4-0 Monocryl in a running fashion the subcuticular layer, and Surgicel as a dressing. The patient tolerated the procedure well, all sponge needle asthma counts correct, the patient was taken to recovery in stable condition.
[2017-02-08] MEDS ORDERED: PROVENTIL IH ONE (10:13)
--- NOTE | 2017-02-08 10:14 | Post Anesthesia Evaluation ---
- Post Anesthesia Evaluation Patient Participated: Yes Airway Patent: Yes Stable Respiratory Function: Yes Nausea/Vomiting: No Temp > 96.8F: Yes Pain Manageable: Yes Adequeate Hydration: Yes Anesthesia Complications: No Block Receding Appropriately: Not Applicable Patient on Ventilator: No
[2017-02-08] MEDS ORDERED: NORMODYNE IV ONE (10:22)
[2017-02-08 15:05] VITALS: BP 198/94
[2017-02-13] MEDS ORDERED: NEO SYNEPHRINE/NS Syringe(OR USE) IV ONE (12:30)
== END 2017-02-08 13:58 | disposition home or self-care (01) ==
LOC: OR 05:40
PROVIDERS: ATTEND Surgery Vascular Surgery
DX: I12.0 Hypertensive chronic kidney disease with stage 5 chronic kidney disease or end stage renal disease (principal); N18.6 End stage renal disease; J45.909 Unspecified asthma, uncomplicated; Z79.899 Other long term (current) drug therapy; Z87.891 Personal history of nicotine dependence
CPT/HCPCS: 36415; 36821; 80048; 85025; 85610; C1757; J0690; J1170; J1644; J2250; J2405; J2704; J2720; J7030; J7040

== ENCOUNTER 2017-03-01 10:53 | Emergency (ER) | payer MEDICARE, MEDICAID ==
[2017-03-01 11:27] VITALS: BP 170/90
[2017-03-01 11:49] LABS: Basophils % (Auto) 0.7 % (0.0-1.8); Hematocrit 36.2 % (35.5-45.6); Hemoglobin 12.3 gm/dl (11.8-15.2); Mean Corpuscular HGB Conc 34 % (32-34); Mean Corpuscular Hemoglobin 31 pg (28-32); Mean Corpuscular Volume 92 fl (84-94); Platelet Count 269 K/mm3 (140-440); Red Blood Count 3.96 M/mm3 (3.65-5.03); Red Cell Distribution Width 13.1 % (13.2-15.2); White Blood Count 6.3 K/mm3 (4.5-11.0)
[2017-03-01 12:01] LABS: Calcium 9.1 mg/dL (8.4-10.2); Chloride 106.5 mmol/L (98-107); Potassium 5.7 mmol/L (3.6-5.0)
== END 2017-03-01 16:04 | disposition left against medical advice (07) ==
LOC: ED 10:53
DX: Z53.21 Procedure and treatment not carried out due to patient leaving prior to being seen by health care provider (principal)
CPT/HCPCS: 36415; 80048; 84100; 85025; 93005; 93010

== ENCOUNTER 2017-06-05 11:45 | Inpatient (IN) | payer MEDICAID, MEDICARE ==
[2017-06-05 12:56] LABS: Basophils % (Auto) 0.6 % (0.0-1.8); Eosinophils # (Auto) 0.1 K/mm3 (0.0-0.4); Eosinophils % (Auto) 1.8 % (0.0-4.3); Hematocrit 38.1 % (35.5-45.6); Hemoglobin 13.1 gm/dl (11.8-15.2); Lymphocytes # (Auto) 1.3 K/mm3 (1.2-5.4); Lymphocytes % (Auto) 25.2 % (13.4-35.0); Mean Corpuscular HGB Conc 34 % (32-34); Mean Corpuscular Hemoglobin 31 pg (28-32); Mean Corpuscular Volume 90 fl (84-94); Monocytes # (Auto) 0.3 K/mm3 (0.0-0.8); Monocytes % (Auto) 5.6 % (0.0-7.3); Platelet Count 229 K/mm3 (140-440); Red Blood Count 4.22 M/mm3 (3.65-5.03); Red Cell Distribution Width 12.5 % (13.2-15.2)
--- NOTE | 2017-06-05 13:04 | XRay Report ---
CHEST 2 VIEWS INDICATION: Right chest permacath, shortness of breath. No hemodialysis in months. COMPARISON: 07/30/2016 FINDINGS: PA and lateral chest radiographs demonstrate stable cardiomediastinal silhouette/slight cardiomegaly and a right-sided dual-lumen catheter tip now projecting about the cavoatrial junction. Clear lungs. Unremarkable bones. CONCLUSION: No acute chest process, as described. Thank you for the opportunity to participate in this patient's care.
[2017-06-05 13:23] LABS: Calcium 8.4 mg/dL (8.4-10.2)
[2017-06-05] MEDS ORDERED: ZOFRAN IV PRN (17:24)
[2017-06-05] MEDS ORDERED: TYLENOL PO PRN (17:24)
[2017-06-05] MEDS ORDERED: MILK OF MAGNESIA PO PRN (17:24)
[2017-06-05] MEDS ORDERED: SODIUM CHLORIDE FLUSH SYRINGE 10 ML IV PRN (17:24)
--- NOTE | 2017-06-05 17:41 | History and Physical Report ---
History of Present Illness Date of examination: 06/05/17 Date of admission: 06/05/17 17:17 Chief complaint: Missed hemodialysis for the past 3 months. History of present illness: is a 36 YO AAM who is well known to our service with medical history significant for ESRD, HTN and Medical non-compliance who was admitted in the medical floor for management of is ESRD. He missed HD for more than 3 months since he relocated to [facility]. He moved back to [facility] by [facility] and wants to resume hemodialysis. He agrees to be compliant with treatments and mediations. Patient denies any N, V, D, abd pain, cp, sob, leg swelling, weakness or syncope. Past History Past Medical History: dialysis, ESRD, hypertension Medications and Allergies Allergies Allergy/AdvReac Type Severity Reaction Status Date / Time No Known Allergies Allergy Verified 03/01/17 11:23 Home Medications Medication Instructions Recorded Confirmed Last Taken Type amLODIPine [Norvasc] 10 mg PO QDAY #30 tablet 08/03/16 06/06/17 02/08/17 04:45 Rx HYDROcodone/APAP 7.5-325 [[place] 1 each PO Q6HR PRN #40 tablet 02/08/17 06/06/17 Unknown Rx 7.5/325] Lisinopril [Zestril] 40 mg PO QDAY 02/08/17 06/06/17 02/08/17 04:45 History Active Meds: Active Medications Acetaminophen (Tylenol) 650 mg PO Q4H PRN PRN Reason: Pain MILD(1-3)/Fever >100.5/LOPEZ Amlodipine Besylate (Norvasc) 10 mg PO DAILY JOSE Labetalol HCl (Normodyne) 200 mg PO BID JOSE Lisinopril (Zestril) 40 mg PO DAILY JOSE Magnesium Hydroxide (Milk Of Magnesia) 30 ml PO Q4H PRN PRN Reason: Constipation Ondansetron HCl (Zofran) 4 mg IV Q8H PRN PRN Reason: Nausea And Vomiting Sodium Chloride (Sodium Chloride Flush Syringe 10 Ml) 10 ml IV BID JOSE Sodium Chloride (Sodium Chloride Flush Syringe 10 Ml) 10 ml IV PRN PRN PRN Reason: LINE FLUSH Sodium Polystyrene Sulfonate (Kionex) 15 gm PO ONCE ONE Stop: 06/05/17 17:41 Review of Systems Constitutional: no weight loss, no weight gain, no fever, no chills, no anorexia , no weakness, no poor appetite Ears, nose, mouth and throat: no epistaxis Cardiovascular: high blood pressure, no chest pain, no orthopnea, no edema, no syncope, no lightheadedness, no shortness of breath, no dyspnea on exertion, no leg edema Respiratory: no cough, no hemoptysis, no shortness of breath, no dyspnea on exertion Gastrointestinal: no abdominal pain, no nausea, no vomiting, no diarrhea, no hematemesis, no jaundice Genitourinary Male: no dysuria, no hematuria Rectal: no bleeding Integumentary: no rash, no wounds, no jaundice Neurological: no paralysis, no weakness, no syncope, no headaches, no convulsions, no change in mentation, no confusion Psychiatric: no confusion Endocrine: no weight change Hematologic/Lymphatic: no easy bleeding Exam - Vital Signs Vital signs: Vital Signs Temp Pulse Resp BP Pulse Ox 98.8 F 90 20 167/106 99 06/05/17 12:13 06/05/17 12:13 06/05/17 12:13 06/05/17 12:13 06/05/17 12:13 - General Appearance General appearance: well-developed, well-nourished, appears stated age, other ( no distress, right IJ tunnel catheter) EENT: ATNC, PERRL, mucous membranes moist, vision intact Neck: Present: neck supple, trachea midline Respiratory: Clear to Ascultation Heart: regular, S1S2, no murmurs Gastrointestinal: Present: normoactive bowel sounds. Absent: tenderness, distended Integumentary: no rash, warm and dry Neurologic: no focal deficit, no asterixis, alert and oriented x3 Musculoskeletal: Present: other (no edema, left FA AVF) Psychiatric: mood/affect appropriate, cooperative Results - Lab Results 06/06/17 06:43 06/06/17 06:43 Most recent lab results Calcium 8.4 mg/dL (8.4-10.2) 06/05/17 12:50 Assessment and Plan 1. ESRD: Patient missed hemodialysis fo rmore than 3 months. No uremic signs or symptoms. Resume hemodialysis, HD tomorrow. 2. Hyperkalemia: Kayexalate ordered. 3. Metabolic acidosis: Monitor, HD tomorrow. 4. Uncontrolled HTN: Resume home meds. IV Hydralzine prn. 5. Prophylaxis: SCDs. 6. Dispo: Await outpatient HD chair. Compliance encouraged.
[2017-06-05] MEDS ORDERED: KIONEX PO ONE (18:40)
[2017-06-05] MEDS: NORMODYNE PO SCH (21:28)
[2017-06-05] MEDS: APRESOLINE IV PRN (21:29)
[2017-06-05] MEDS: SODIUM CHLORIDE FLUSH SYRINGE 10 ML IV SCH (21:30)
[2017-06-06] MEDS ORDERED: KIONEX PO ONE (06:00)
[2017-06-06 07:07] LABS: Basophils % (Auto) 0.3 % (0.0-1.8); Eosinophils # (Auto) 0.1 K/mm3 (0.0-0.4); Eosinophils % (Auto) 1.7 % (0.0-4.3); Hematocrit 37.5 % (35.5-45.6); Hemoglobin 12.6 gm/dl (11.8-15.2); Lymphocytes # (Auto) 1.4 K/mm3 (1.2-5.4); Lymphocytes % (Auto) 28.1 % (13.4-35.0); Mean Corpuscular HGB Conc 34 % (32-34); Mean Corpuscular Hemoglobin 31 pg (28-32); Mean Corpuscular Volume 92 fl (84-94); Monocytes # (Auto) 0.3 K/mm3 (0.0-0.8); Monocytes % (Auto) 6.1 % (0.0-7.3); Platelet Count 230 K/mm3 (140-440); Red Blood Count 4.07 M/mm3 (3.65-5.03); Red Cell Distribution Width 12.8 % (13.2-15.2)
[2017-06-06 07:24] LABS: Albumin 4.3 g/dL (3.9-5); Calcium 8.6 mg/dL (8.4-10.2)
[2017-06-06] MEDS ORDERED: NACL 0.9% 100 ML IV PRN ×2 (08:30→09:49)
--- NOTE | 2017-06-06 08:30 | Progress Note ---
Assessment and Plan 1. ESRD: Patient missed hemodialysis for more than 3 months. No uremic signs or symptoms. HD today. Vascular consulted to evaluate the AVF. 2. Hyperkalemia: Improved with Kayexalate. HD today. 3. Metabolic acidosis: HD today. 4. Uncontrolled HTN: Continue home meds. IV Hydralzine prn. 5. Prophylaxis: SCDs. 6. Dispo: Await outpatient HD chair. Informed CM. Compliance encouraged. Subjective Date of service: 06/06/17 Interval history: Patient is doing ok. Objective - Vital Signs Vital signs: Vital Signs - 12hr 06/05/17 06/05/17 06/06/17 21:28 21:29 01:16 Temperature 98.3 F Pulse Rate 82 82 76 Respiratory 20 Rate Blood Pressure 191/102 191/102 150/83 O2 Sat by Pulse 100 Oximetry - General Appearance General appearance: well-developed, well-nourished, appears stated age, other ( no distress, right IJ tunnel catheter) EENT: ATNC, PERRL, mucous membranes moist, hearing intact Neck: supple Respiratory: Present: Clear to Ascultation Cardiology: regular, S1S2, no murmurs Gastrointestinal: normoactive bowel sounds, no tenderness, no distended Integumentary: no rash, warm and dry Neurologic: no focal deficit, no asterixis, alert and oriented x3 Musculoskeletal: other (no edema, left FA AVF) Psychiatric: mood/affect appropriate, cooperative - Lab 06/06/17 06:43 06/06/17 06:43 Most recent lab results Calcium 8.6 mg/dL (8.4-10.2) 06/06/17 06:43 Phosphorus 5.70 mg/dL (2.5-4.5) H 06/06/17 06:43
[2017-06-06] MEDS ORDERED: ZESTRIL PO SCH (10:00)
[2017-06-06] MEDS ORDERED: NACL 0.9 (PRIMING MACHINE ONLY DIALYSIS) MC ONE (11:27)
[2017-06-06] MEDS: APRESOLINE IV PRN (11:30)
[2017-06-06] MEDS: HEPARIN IV PRN (12:40)
[2017-06-06] MEDS: NORVASC PO SCH (13:30)
[2017-06-06] MEDS: NORMODYNE PO SCH ×2 (13:31→22:21)
[2017-06-06] MEDS: SODIUM CHLORIDE FLUSH SYRINGE 10 ML IV SCH ×2 (13:32→22:24)
[2017-06-06 14:01] LABS: Hepatitis A Antibody IgM Non-Reactive (NonReactive); Hepatitis B Core IgM Non-Reactive (NonReactive); Hepatitis B Surface Antigen Non-Reactive (Negative); Hepatitis C Virus Antibody Non-Reactive (NonReactive)
--- NOTE | 2017-06-06 15:26 | Consultation ---
History of Present Illness - Reason for Consult Consult date: 06/06/17 Requesting physician: AXEL KATHLEEN - History of Present Illness This pt is a 36 yo AAM with ESRD that was admitted via the ER due to non- compliance with HD for ~3months. The pt is known to our group from previous HD access placement (VC,PC, and LUE Shemar AVF). A Vascular surgery consult is requested to evaluate if his AVF is mature to the point it can be used for HD. His Shemar fistula was created 02/08/[address] Tre Pradhan. Past History Past Medical History: dialysis, ESRD, hypertension Past Surgical History: Other (VC, PC, and LUE Shemar AVF.) Social history: smoking Family history: diabetes, hypertension Medications and Allergies Allergies Allergy/AdvReac Type Severity Reaction Status Date / Time No Known Allergies Allergy Verified 03/01/17 11:23 Home Medications Medication Instructions Recorded Confirmed Last Taken Type amLODIPine [Norvasc] 10 mg PO QDAY #30 tablet 08/03/16 06/06/17 02/08/17 04:45 Rx HYDROcodone/APAP 7.5-325 [[place] 1 each PO Q6HR PRN #40 tablet 02/08/17 06/06/17 Unknown Rx 7.5/325] Lisinopril [Zestril] 40 mg PO QDAY 02/08/17 06/06/17 02/08/17 04:45 History Active Meds: Active Medications Acetaminophen (Tylenol) 650 mg PO Q4H PRN PRN Reason: Pain MILD(1-3)/Fever >100.5/LOPEZ Amlodipine Besylate (Norvasc) 10 mg PO DAILY [facility] Last Admin: 06/06/17 13:30 Dose: 10 mg Heparin Sodium (Porcine) (Heparin) 5,000 unit IV DIANA PRN PRN Reason: hemodialysis Last Admin: 06/06/17 12:40 Dose: 5,000 unit Hydralazine HCl (Apresoline) 20 mg IV Q6H PRN PRN Reason: Hypertension Last Admin: 06/06/17 11:30 Dose: 20 mg Sodium Chloride (Nacl 0.9%) 100 mls @ 999 mls/hr IV DIANA PRN PRN Reason: Hypotension Labetalol HCl (Normodyne) 200 mg PO BID [facility] Last Admin: 06/06/17 13:31 Dose: 200 mg Lisinopril (Zestril) 40 mg PO DAILY [facility] Last Admin: 06/06/17 13:30 Dose: 40 mg Magnesium Hydroxide (Milk Of Magnesia) 30 ml PO Q4H PRN PRN Reason: Constipation Ondansetron HCl (Zofran) 4 mg IV Q8H PRN PRN Reason: Nausea And Vomiting Sodium Chloride (Sodium Chloride Flush Syringe 10 Ml) 10 ml IV BID [facility] Last Admin: 06/06/17 13:32 Dose: 10 ml Sodium Chloride (Sodium Chloride Flush Syringe 10 Ml) 10 ml IV PRN PRN PRN Reason: LINE FLUSH Review of Systems All systems: negative Exam - Constitutional Vitals: Temp Pulse Resp BP Pulse Ox 98.4 F 79 20 173/77 98 06/06/17 13:13 06/06/17 13:13 06/06/17 13:13 06/06/17 13:13 06/06/17 13:13 General appearance: Present: no acute distress - EENT Eyes: Present: EOM intact ENT: hearing intact - Neck Neck: Present: supple - Respiratory Respiratory effort: normal - Extremities Extremities: normal temperature, abnormal (LUE forearm avf, with easily palp thrill, appears to be of good size, incision well domenico, no erythema or drainage. He does have a large side branch, but does not appear to divert too much blood away from his access.) - Psychiatric Psychiatric: appropriate mood/affect, intact judgment & insight, cooperative - Neurologic Neurologic: no focal deficits Results - Labs CBC & Chem 7: 06/06/17 06:43 06/06/17 06:43 Labs: Abnormal lab results 06/06/17 06/06/17 Range/Units 06:43 06:43 RDW 12.8 L (13.2-15.2) % Chloride 108.3 H (98-107) mmol/L Carbon Dioxide 19 L (22-30) mmol/L BUN 49 H (9-20) mg/dL Creatinine 6.2 H (0.8-1.5) mg/dL Phosphorus 5.70 H (2.5-4.5) mg/dL Assessment and Plan AVF appears to have healed well, and has a good thrill, good size. Will check u/ s of avf. Suspect it will be adequate to utilize for HD. Discussed with pt. He does have a large side branch, but it does not appear to divert too much blood away from his access. If this interferes with the AVF function, then he may require revision (with ligation to this branch) of the access. - Patient Problems (1) Dialysis AV fistula malfunction Current Visit: Yes Status: Acute (2) ESRD (end stage renal disease) Current Visit: No Status: Acute (3) Malignant hypertension Current Visit: No Status: Chronic (4) Medical non-compliance Current Visit: No Status: Chronic
[2017-06-07] MEDS ORDERED: NACL 0.9% 100 ML IV PRN (08:21)
[2017-06-07] MEDS: SODIUM CHLORIDE FLUSH SYRINGE 10 ML IV SCH (10:00)
[2017-06-07] MEDS ORDERED: NORMODYNE PO SCH (10:00)
[2017-06-07] MEDS ORDERED: NACL 0.9 (PRIMING MACHINE ONLY DIALYSIS) MC ONE (12:39)
[2017-06-07] MEDS: APRESOLINE IV PRN (12:42)
--- NOTE | 2017-06-07 13:19 | Event Note ---
Date: 06/07/17 Dialysis nurse attempted to use avf today for HD, but was unsuccessful. May need to consider ligating side branches. Will discuss with Dr Pradhan.
[2017-06-07] MEDS: NORVASC PO SCH (13:21)
--- NOTE | 2017-06-07 14:55 | Cat Scan Report ---
CT ABDOMEN AND PELVIS WITHOUT AND WITH CONTRAST INDICATION: Evaluate for adrenal mass. COMPARISON: None similar. FINDINGS: Abdomen and pelvis CT performed before and after IV contrast. LUNG BASES: Borderline/mild cardiomegaly. Artifact from possible hemodialysis catheter tip in the right atrium. Small, 4 mm left hemidiaphragmatic calcification posteriorly on axial image 21, series 2. Mild nonspecific distal esophageal wall prominence/thickening, not excluded for gastroesophageal reflux and/or hiatal hernia, amongst others. ABDOMEN: Precontrast images demonstrate no radiopaque gallstones or renal calculi. Postcontrast images limited due to motion artifact, though imaged liver, spleen, gallbladder, pancreas, nonaneurysmal abdominal aorta, IVC and kidneys appear within normal limits. No suspicious adrenal mass identified. No ascites or size significant adenopathy. Nonopacified GI tract evaluation limited, though grossly nonobstructive. Normal appendix. Mild stool throughout colon. PELVIS: Urinary bladder, seminal vesicles, prostate and rectosigmoid within normal limits. Few pelvic vascular calcifications. No free fluid or significant adenopathy. Prominent lower thoracic spine right-sided osteophytes. Nearly obliterated T12-L1 disc, possibly developmental versus acquired with a "block vertebra" appearance. Mild disc bulge/osteophyte complex at L5-S1 appears slightly left paramidline with questionable impingement. CONCLUSION: No acute CT abnormality or evidence of an adrenal mass with various other findings as mild cardiomegaly, central catheter and multilevel spinal changes, amongst others, as described. Thank you for the opportunity to participate in this patient's care.
[2017-06-07] MEDS: HEPARIN IV PRN (15:34)
[2017-06-07 16:59] VITALS: BP 123/81
--- NOTE | 2017-06-07 17:20 | Progress Note ---
Assessment and Plan 1. ESRD: Continue hemodialysis as planned. Vascular to reevaluate the AVF. 2. Hyperkalemia: Improved. 3. Metabolic acidosis. 4. Uncontrolled HTN: Improving. 5. Prophylaxis: SCDs. 6. Dispo: Await outpatient HD chair. Compliance encouraged. Subjective Date of service: 06/07/17 Interval history: Patient was seen and examined while on hemodialysis. Patient developed bruise / hematoma on attempted use of AVF. Objective - Vital Signs Vital signs: Vital Signs - 12hr 06/07/17 06/07/17 06/07/17 07:45 07:50 08:30 Temperature 98.7 F Pulse Rate 72 Respiratory 18 Rate Blood Pressure 183/80 Blood Pressure 160/70 [Right] O2 Sat by Pulse 98 Oximetry 06/07/17 06/07/17 06/07/17 12:30 12:42 12:45 Temperature 98.5 F Pulse Rate 76 76 81 Respiratory 18 Rate Blood Pressure 202/108 202/108 168/113 Blood Pressure [Right] O2 Sat by Pulse Oximetry 06/07/17 06/07/17 06/07/17 13:00 13:15 13:30 Temperature Pulse Rate 77 79 80 Respiratory Rate Blood Pressure 187/100 165/97 175/96 Blood Pressure [Right] O2 Sat by Pulse Oximetry 06/07/17 06/07/17 06/07/17 13:45 14:00 14:15 Temperature Pulse Rate 70 78 78 Respiratory Rate Blood Pressure 184/103 168/102 168/102 Blood Pressure [Right] O2 Sat by Pulse Oximetry 06/07/17 06/07/17 06/07/17 14:30 14:45 15:00 Temperature Pulse Rate 78 83 83 Respiratory Rate Blood Pressure 174/89 172/104 170/100 Blood Pressure [Right] O2 Sat by Pulse Oximetry 06/07/17 06/07/17 06/07/17 15:15 15:20 16:53 Temperature 98.4 F 99.2 F Pulse Rate 80 84 96 H Respiratory 18 20 Rate Blood Pressure 170/104 170/98 123/81 Blood Pressure [Right] O2 Sat by Pulse 100 Oximetry - General Appearance General appearance: well-developed, well-nourished, appears stated age, other ( no distress, right IJ tunnel catheter) EENT: ATNC, PERRL, hearing intact, vision intact Neck: supple Respiratory: Present: Clear to Ascultation Cardiology: regular, S1S2 Gastrointestinal: normoactive bowel sounds, no tenderness, no distended Integumentary: no rash, warm and dry Neurologic: no focal deficit, no asterixis, alert and oriented x3 Musculoskeletal: other (no edema, left FA AVF) Psychiatric: mood/affect appropriate, cooperative - Lab 06/06/17 06:43 06/06/17 06:43 Most recent lab results Calcium 8.6 mg/dL (8.4-10.2) 06/06/17 06:43 Phosphorus 5.70 mg/dL (2.5-4.5) H 06/06/17 06:43
--- NOTE | 2017-06-07 17:25 | Discharge Summary ---
Providers - Providers Date of Admission: 06/05/17 17:17 Date of discharge: 06/07/17 Attending physician: AXEL KATHLEEN 06/06/17 08:38 Consult to Physician [CONS] Routine Comment: Consulting Provider: ANASTACIA HENDRICKS Physician Instructions: Reason For Exam: Fistula evaluation. Primary care physician: [facility] Hospitalization Reason for admission: ESRD required hemodialysis. Condition: Good Hospital course: was a 36 YO AAM with medical history significant for ESRD, HTN and Medical non-compliance who was admitted in the medical floor for management of ESRD. He presented to our office after missed HD for more than 3 months since he relocated to [facility]. He moved back to [facility] recently. Patient was admitted in the medical floor on 06/05/17. He received hemodialysis on 06/06 & 06/07 and patient tolerated very well. The BP was better controlled after started on Labetalol. The AVF was not usable likely secondary to multiple branches. Vascular will follow the patient in the office on 06/13/2017 for possible procedure. Outpatient hemodialysis was arranged at [facility], 10:45 AM. Compliance was discussed with patient. Disposition: DC-01 TO HOME OR SELFCARE - Discharge Diagnoses (1) ESRD (end stage renal disease) Status: Chronic Core Measure Documentation - Palliative Care Palliative Care/ Comfort Measures: Not Applicable - Core Measures Any of the following diagnoses?: none - VTE Discharge Requirements Deep Vein Thrombosis/Pulmonary Embolism Present on Admission: No Exam - Constitutional Vitals: Temp Pulse Resp BP Pulse Ox 99.2 F 96 H 20 123/81 100 06/07/17 16:53 06/07/17 16:53 06/07/17 16:53 06/07/17 16:53 06/07/17 16:53 General appearance: Present: no acute distress, well-nourished - EENT Eyes: Present: PERRL, EOM intact ENT: hearing intact, clear oral mucosa - Neck Neck: Present: supple, normal ROM - Respiratory Respiratory effort: normal Respiratory: bilateral: CTA, negative: rales, rhonchi, wheezing - Cardiovascular Rhythm: regular Heart Sounds: Present: S1 & S2 - Extremities Extremities: No edema, Full ROM Extremity abnormal: other (left FA AVF) Peripheral Pulses: within normal limits - Abdominal General gastrointestinal: Present: soft, non-tender, non-distended, normal bowel sounds Male genitourinary: Present: deferred - Rectal Rectal Exam: deferred - Integumentary Integumentary: Present: clear, warm, dry - Musculoskeletal Musculoskeletal: strength equal bilaterally - Psychiatric Psychiatric: appropriate mood/affect, cooperative - Neurologic Neurologic: moves all extremities, gait normal Plan Activity: no restrictions, advance as tolerated Weight Bearing Status: Full Weight Bearing Diet: renal Special Instructions: restrict fluid intake to (2 Lts a day) Follow up with: PRIMARY CARE, [Primary Care Provider] - 7 Days Prescriptions: Labetalol HCl 300 mg PO BID 30 Days #30 tablet
== END 2017-06-07 18:00 | disposition home or self-care (01) | DRG 314 ==
LOC: ED 11:45 → 3A 17:17
PROVIDERS: ADMIT Internal Medicine Nephrology; ATTEND Internal Medicine Nephrology
PROC: 5A1D70Z Performance of Urinary Filtration, Intermittent, Less than 6 Hours Per Day (ICD-10-PCS; principal; 2017-06-06)
PROC: 5A1D70Z Performance of Urinary Filtration, Intermittent, Less than 6 Hours Per Day (ICD-10-PCS; 2017-06-07)
DX: T82.590A Other mechanical complication of surgically created arteriovenous fistula, initial encounter (principal); N18.6 End stage renal disease; I12.0 Hypertensive chronic kidney disease with stage 5 chronic kidney disease or end stage renal disease; E87.2 Acidosis; E87.5 Hyperkalemia; F17.200 Nicotine dependence, unspecified, uncomplicated; Y84.1 Kidney dialysis as the cause of abnormal reaction of the patient, or of later complication, without mention of misadventure at the time of the procedure; Z91.14 Patient's other noncompliance with medication regimen; Z82.49 Family history of ischemic heart disease and other diseases of the circulatory system; Z83.3 Family history of diabetes mellitus; Y92.89 Other specified places as the place of occurrence of the external cause
CPT/HCPCS: 36415; 71046; 74178; 80048; 80053; 80074; 82088; 84100; 85025; 93990; 99406; J0360; J1644; J7030; Q9967

== ENCOUNTER 2017-09-06 03:11 | Emergency (ER) | payer MEDICARE ==
[2017-09-06 03:24] VITALS: BP 192/111
[2017-09-06] MEDS ORDERED: AFRIN ONE (03:36)
[2017-09-06] MEDS ORDERED: AFRIN NS ONE (03:41)
--- NOTE | 2017-09-06 03:56 | Emergency Department Report ---
Blank Doc - Documentation Documentation: I evaluated and treated Mr. Mac alongside my colleague Dave Tee [employer]. Anterior epistaxis treated with Afrin and nasal packing. Mr. Mac given education and reassurance. He will return on Saturday 3 days for removal of nasal packing. I recommended KEflex prescription.
[2017-09-06] MEDS ORDERED: NORMODYNE PO ONE (03:57)
[2017-09-06] MEDS ORDERED: ZESTRIL PO ONE (03:58)
--- NOTE | 2017-09-06 04:02 | Emergency Department Report ---
ED ENT HPI - General Chief complaint: Nosebleed Stated complaint: NOSE BLEED Time Seen by Provider: 09/06/17 03:55 Source: patient Mode of arrival: Ambulatory Limitations: No Limitations - History of Present Illness Initial comments: This is a 37-year-old male nontoxic, well nourished in appearance, no acute signs of distress presents to the ED with c/o of epistaxis. Patient stated that he wake up this morning around 230 AM and blow his nose and nose started to bleed. Patient denies any dizziness. Patient denies any nausea, vomiting, chest pain, shortness of breathe, fever, chills, headache, numbness or tingling. Denies any allergies. PMH includes HTN, renal disease, and asthma. MD complaint: epistaxis -: This morning Severity: mild Consistency: constant Improves with: none Worsens with: none Associated Symptoms: denies: fever, cough, gum swelling, toothache, pain with swallowing, sore throat, tinnitus, hearing loss, discharge from ear, rhinorrhea - Related Data Home Medications Medication Instructions Recorded Confirmed Last Taken Lisinopril [Zestril] 40 mg PO QDAY 02/08/17 06/06/17 02/08/17 04:45 Previous Rx's Medication Instructions Recorded Last Taken Type amLODIPine [Norvasc] 10 mg PO QDAY #30 tablet 08/03/16 02/08/17 04:45 Rx Labetalol HCl 300 mg PO BID 30 Days #30 tablet 06/07/17 Unknown Rx Cephalexin [Keflex] 500 mg PO Q8HR #21 cap 09/06/17 Unknown Rx Allergies Allergy/AdvReac Type Severity Reaction Status Date / Time No Known Allergies Allergy Verified 09/06/17 03:19 ED Dental HPI - General Chief complaint: Nosebleed Stated complaint: NOSE BLEED Time Seen by Provider: 09/06/17 03:55 Source: patient Mode of arrival: Ambulatory Limitations: No Limitations - Related Data Home Medications Medication Instructions Recorded Confirmed Last Taken Lisinopril [Zestril] 40 mg PO QDAY 02/08/17 06/06/17 02/08/17 04:45 Previous Rx's Medication Instructions Recorded Last Taken Type amLODIPine [Norvasc] 10 mg PO QDAY #30 tablet 08/03/16 02/08/17 04:45 Rx Labetalol HCl 300 mg PO BID 30 Days #30 tablet 06/07/17 Unknown Rx Cephalexin [Keflex] 500 mg PO Q8HR #21 cap 09/06/17 Unknown Rx Allergies Allergy/AdvReac Type Severity Reaction Status Date / Time No Known Allergies Allergy Verified 09/06/17 03:19 ED Review of Systems ROS: Stated complaint: NOSE BLEED Other details as noted in HPI Constitutional: denies: chills, fever Eyes: denies: eye pain, eye discharge, vision change ENT: epistaxis. denies: ear pain, throat pain Respiratory: denies: cough, shortness of breath, wheezing Cardiovascular: denies: chest pain, palpitations Endocrine: no symptoms reported Gastrointestinal: denies: abdominal pain, nausea, diarrhea Genitourinary: denies: urgency, dysuria Musculoskeletal: denies: back pain, joint swelling, arthralgia Skin: denies: rash, lesions Neurological: denies: headache, weakness, paresthesias Psychiatric: denies: anxiety, depression Hematological/Lymphatic: denies: easy bleeding, easy bruising ED Past Medical Hx - Past Medical History Hx Hypertension: Yes Hx Heart Attack/AMI: No Hx Congestive Heart Failure: No Hx Liver Disease: No Hx Renal Disease: Yes (Hemodialysis) Hx Sickle Cell Disease: No Hx Arthritis: Yes (knees) Hx Seizures: No Hx Asthma: Yes (not since age 13) Hx HIV: No - Surgical History Additional Surgical History: Vas Cath and Fistula to L arm. - Social History Smoking Status: Current Every Day Smoker Substance Use Type: Marijuana - Medications Home Medications: Home Medications Medication Instructions Recorded Confirmed Last Taken Type amLODIPine [Norvasc] 10 mg PO QDAY #30 tablet 08/03/16 06/06/17 02/08/17 04:45 Rx Lisinopril [Zestril] 40 mg PO QDAY 02/08/17 06/06/17 02/08/17 04:45 History Labetalol HCl 300 mg PO BID 30 Days #30 tablet 06/07/17 Unknown Rx Cephalexin [Keflex] 500 mg PO Q8HR #21 cap 09/06/17 Unknown Rx ED Physical Exam - General Limitations: No Limitations General appearance: alert, in no apparent distress - Head Head exam: Present: atraumatic, normocephalic - Eye Eye exam: Present: normal appearance Pupils: Present: normal accommodation - ENT ENT exam: Present: normal exam, normal orophraynx, mucous membranes moist, other (anterior epistaxis) - Neck Neck exam: Present: normal inspection, full ROM. Absent: tenderness, meningismus, lymphadenopathy - Respiratory Respiratory exam: Present: normal lung sounds bilaterally. Absent: respiratory distress, wheezes, rales, rhonchi, stridor, chest wall tenderness, accessory muscle use, decreased breath sounds, prolonged expiratory - Cardiovascular Cardiovascular Exam: Present: regular rate, normal rhythm, normal heart sounds. Absent: bradycardia, tachycardia, irregular rhythm, systolic murmur, diastolic murmur, rubs, gallop - GI/Abdominal GI/Abdominal exam: Present: soft, normal bowel sounds. Absent: distended, tenderness, guarding, rebound, rigid, diminished bowel sounds - Rectal Rectal exam: Present: deferred - Extremities Exam Extremities exam: Present: normal inspection, full ROM, normal capillary refill - Back Exam Back exam: Present: normal inspection, full ROM - Neurological Exam Neurological exam: Present: alert, oriented X3, normal gait - Psychiatric Psychiatric exam: Present: normal affect, normal mood - Skin Skin exam: Present: warm, dry, intact, normal color. Absent: rash ED Course Vital Signs 09/06/17 03:20 Temperature 98.3 F Pulse Rate 80 Respiratory 18 Rate Blood Pressure 192/111 O2 Sat by Pulse 100 Oximetry - Reevaluation(s) Reevaluation #1: 09/06/17 04:03 Patient is speaking in full sentences with no signs of distress noted. - Consultations Consultation #1: 09/06/17 04:03 Patient has been consulted with Dr. Lucien V about patient history, physical exam, and labs and examined and screened patient and agrees to ED plan of care and discharge plan of care. ED Medical Decision Making - Medical Decision Making This is a 37-year-old female male that presents with epistaxis. Patient is stable was exam by me and Dr. Mcgraw. Labs obtained. A merocel and Rhino rocket has been placed and bleeding stopped. Patient was instructed to return in 3 days for removal. I will put patient on Keflex. Patient also received lisinopril and labetalol as he missed his dose this morning. Patient was instructed to Follow-up with a primary care doctor in 3-5 days or if symptoms worsen and continue return to emergency room as soon as possible. At time of discharge, the patient does not seem toxic or ill in appearance. No acute signs of distress noted. Patient agrees to discharge treatment plan of care. No further questions noted by the patient. Critical care attestation.: If time is entered above; I have spent that time in minutes in the direct care of this critically ill patient, excluding procedure time. ED Disposition Clinical Impression: Epistaxis Disposition: DC-01 TO HOME OR SELFCARE Is pt being admited?: No Does the pt Need Aspirin: No Condition: Stable Instructions: Epistaxis (ED) Additional Instructions: Return in 3 days for nasal packing removal and reassessment of nosebleed. Follow-up with a primary care doctor in 3-5 days or if symptoms worsen and continue return to emergency room as soon as possible. Prescriptions: Cephalexin [Keflex] 500 mg PO Q8HR #21 cap Referrals: JERED RIVAS MD [Primary Care Provider] - 3-5 Days PRIMARY CARE, [Referring] - 3-5 Days [facility] [Outside] - 3-5 Days [facility] [Outside] - 3-5 Days Forms: Work/School Release Form(ED)
[2017-09-06] MEDS ORDERED: NORMODYNE ONE (04:05)
[2017-09-06 04:18] LABS: Basophils % (Auto) 0.2 % (0.0-1.8); Eosinophils # (Auto) 0.1 K/mm3 (0.0-0.4); Eosinophils % (Auto) 1.7 % (0.0-4.3); Hematocrit 31.9 % (35.5-45.6); Hemoglobin 11.1 gm/dl (11.8-15.2); Lymphocytes # (Auto) 1.4 K/mm3 (1.2-5.4); Lymphocytes % (Auto) 20.3 % (13.4-35.0); Mean Corpuscular HGB Conc 35 % (32-34); Mean Corpuscular Hemoglobin 32 pg (28-32); Mean Corpuscular Volume 92 fl (84-94); Monocytes # (Auto) 0.4 K/mm3 (0.0-0.8); Monocytes % (Auto) 6.4 % (0.0-7.3); Platelet Count 249 K/mm3 (140-440); Red Blood Count 3.48 M/mm3 (3.65-5.03); Red Cell Distribution Width 15.1 % (13.2-15.2)
== END 2017-09-06 04:43 | disposition home or self-care (01) ==
LOC: ED 03:11
DX: R04.0 Epistaxis (principal); I10 Essential (primary) hypertension; M19.90 Unspecified osteoarthritis, unspecified site; J45.909 Unspecified asthma, uncomplicated; F17.200 Nicotine dependence, unspecified, uncomplicated; F12.90 Cannabis use, unspecified, uncomplicated; Z99.2 Dependence on renal dialysis
CPT/HCPCS: 36415; 85025; 86850; 86900; 86901

== ENCOUNTER 2018-03-09 05:31 | Inpatient (IN) | payer MEDICARE ==
[2018-03-09] MEDS ORDERED: CATAPRES ONE (06:16)
[2018-03-09] MEDS ORDERED: CATAPRES PO ONE (06:16)
[2018-03-09 07:13] LABS: Basophils # (Auto) 0.1 K/mm3 (0.0-0.1); Basophils % (Auto) 0.9 % (0.0-1.8); Eosinophils # (Auto) 0.1 K/mm3 (0.0-0.4); Eosinophils % (Auto) 1.3 % (0.0-4.3); Hematocrit 35.2 % (35.5-45.6); Lymphocytes # (Auto) 0.4 K/mm3 (1.2-5.4); Lymphocytes % (Auto) 5.7 % (13.4-35.0); Mean Corpuscular HGB Conc 34 % (32-34); Mean Corpuscular Volume 90 fl (84-94); Monocytes # (Auto) 0.5 K/mm3 (0.0-0.8); Monocytes % (Auto) 6.1 % (0.0-7.3); Red Blood Count 3.91 M/mm3 (3.65-5.03)
[2018-03-09 07:23] LABS: INR 0.96 (0.87-1.13)
[2018-03-09 07:24] LABS: Partial Thromboplastin Time 24.5 Sec. (24.2-36.6)
[2018-03-09 07:25] LABS: Albumin 3.9 g/dL (3.9-5); Calcium 7.2 mg/dL (8.4-10.2)
[2018-03-09 07:44] LABS: Platelet Count 222 K/mm3 (140-440)
--- NOTE | 2018-03-09 10:51 | Emergency Department Report ---
HPI - General Chief Complaint: GI Bleed Time Seen by Provider: 03/09/18 10:39 - HPI HPI: The patient is a 37 y.o aam who presents to the the er complaining of vomiting that began 2 days ago while at rest. Symptoms have been constant since onset and pt rates them as severe in severity. Patient also reports chest pain and states the symptom is located in his right chest, around his permacath and describes the quality as pressure. Symptoms associated with elevated blood pressure but denies any headache, fever, neck pain. Symptoms are improved with nothing and exacerbated by activity. Patient has a h/o esrd on dialysis, but last went to dialysis in august 2017. ED Past Medical Hx - Past Medical History Previous Medical History?: Yes Hx Hypertension: Yes Hx Heart Attack/AMI: No Hx Congestive Heart Failure: No Hx Liver Disease: No Hx Renal Disease: Yes (Hemodialysis) Hx Sickle Cell Disease: No Hx Arthritis: Yes (knees) Hx Seizures: No Hx Asthma: Yes (not since age 13) Hx HIV: No - Surgical History Past Surgical History?: Yes Additional Surgical History: Vas Cath and Fistula to L arm. - Social History Smoking Status: Current Every Day Smoker Substance Use Type: None - Medications Home Medications: Home Medications Medication Instructions Recorded Confirmed Last Taken Type amLODIPine [Norvasc] 10 mg PO QDAY #30 tablet 08/03/16 06/06/17 02/08/17 04:45 Rx Lisinopril [Zestril] 40 mg PO QDAY 02/08/17 06/06/17 02/08/17 04:45 History Labetalol HCl 300 mg PO BID 30 Days #30 tablet 06/07/17 Unknown Rx cephALEXin [Keflex] 500 mg PO Q8HR #21 cap 09/06/17 Unknown Rx ED Review of Systems ROS: Stated complaint: COUGH WITH BLOOD Other details as noted in HPI Physical Exam - Physical Exam Vital Signs: Vital Signs 03/09/18 03/09/18 06:03 06:21 Temperature 99.2 F Pulse Rate 101 H Respiratory 20 Rate Blood Pressure 232/133 232/133 O2 Sat by Pulse 96 Oximetry Physical Exam: GENERAL APPEARANCE: anxious HEAD: normocephalic. EYES: PERRL, EOMI. Fundi normal, vision is grossly intact. EARS: External auditory canals and tympanic membranes clear, hearing grossly in tact. NOSE: No nasal discharge. THROAT: Oral cavity and pharynx normal. No inflammation, swelling, exudate, or lesions. Teeth and gingiva in good general condition. NECK: Neck supple, non-tender without lymphadenopathy, masses or thyromegaly. CARDIAC: Normal S1 and S2. s4 with mild Systolic murmurs. Rhythm is regular. There is no peripheral edema, cyanosis or pallor. Extremities are warm and well perfused. Capillary refill is less than 2 seconds. No carotid bruits. jvd bilat severe worse on right. LUNGS: Clear to auscultation and percussion without rales, rhonchi, wheezing or diminished breath sounds. ABDOMEN: Positive bowel sounds. Soft, nondistended, nontender. No guarding or rebound. No masses ext: edema: 2 plus bilat lower ext. ED Course Vital Signs 03/09/18 03/09/18 06:03 06:21 Temperature 99.2 F Pulse Rate 101 H Respiratory 20 Rate Blood Pressure 232/133 232/133 O2 Sat by Pulse 96 Oximetry - Reevaluation(s) Reevaluation #1: 03/09/18 12:13 bp remained elevated resumed home meds per nephro nephro rounded on patient in er. ED Medical Decision Making - Lab Data Result diagrams: 03/09/18 06:48 03/09/18 06:48 - Medical Decision Making nephrology consulted, bp consistently 220/120s, resume home bp meds per nephro. admit for dialysis. ddx: fluid overload, hypertensive emergency pulmonary edema acute bronchitis chest pain d/t acs obstructed permacath Critical care attestation.: If time is entered above; I have spent that time in minutes in the direct care of this critically ill patient, excluding procedure time. ED Disposition Clinical Impression: Malignant hypertension, ESRD (end stage renal disease), Medical non-compliance Disposition: OP ADMIT IP TO THIS HOSP Is pt being admited?: Yes Does the pt Need Aspirin: No Condition: Stable Instructions: Hypertension (ED) Referrals: PRIMARY CARE, [Primary Care Provider] - 3-5 Days Forms: Accompanied Note
--- NOTE | 2018-03-09 11:26 | XRay Report ---
FINAL REPORT EXAM: XR CHEST 1V AP HISTORY: fluid overload, chest pain, permacath, right chest TECHNIQUE: Frontal chest radiograph. PRIORS: None. FINDINGS: Right IJ central venous catheter tip lies in the right atrium. Cardiomegaly is noted. No focal consolidation. No pulmonary edema. No pleural effusion. No pneumothorax. There is a left lateral 11th rib fracture. IMPRESSION: 1. Cardiomegaly. No evidence of pulmonary edema. 2. Left lateral 11th rib fracture may be acute or subacute.
--- NOTE | 2018-03-09 11:32 | Consultation ---
History of Present Illness - Reason for Consult Consult date: 03/09/18 end stage renal disease, other (volume overload) - History of Present Illness is a 37 YO AAM who is well known to our service with medical history significant for ESRD, HTN, Asthma, Tobacco smoking and Medical non-compliance who came to the ER with cough, N & V. The symptoms started about 2 days ago. Cough productive of whitish phlegm. He also reports bilateral leg swelling and decreased energy. He was last dialyzed 6 months ago and still has the right sided hemodialysis catheter. Patient denies any sob, orthopnea, PND, fever, chills, abd pain, cp, dizzines, syncope, skin rash or confusion. His BP was around 230/130, creatinine 10.3 and bicarb 18. CXR was negative for negative for pulmonary edema or infiltrate. Nephrology was consulted for further evaluation. He agrees to resume hemodialysis. Past History Past Medical History: ESRD, hypertension Medications and Allergies Allergies Allergy/AdvReac Type Severity Reaction Status Date / Time No Known Allergies Allergy Verified 09/06/17 03:19 Home Medications Medication Instructions Recorded Confirmed Last Taken Type amLODIPine [Norvasc] 10 mg PO QDAY #30 tablet 08/03/16 06/06/17 02/08/17 04:45 Rx Lisinopril [Zestril] 40 mg PO QDAY 02/08/17 06/06/17 02/08/17 04:45 History Labetalol HCl 300 mg PO BID 30 Days #30 tablet 06/07/17 Unknown Rx cephALEXin [Keflex] 500 mg PO Q8HR #21 cap 09/06/17 Unknown Rx Review of Systems Constitutional: fatigue, no weight loss, no weight gain, no fever, no chills, no anorexia, no weakness Cardiovascular: edema, high blood pressure, leg edema, no chest pain, no orthopnea, no palpitations, no syncope, no lightheadedness, no shortness of breath Respiratory: cough, cough with sputum, no hemoptysis, no shortness of breath, no dyspnea on exertion Gastrointestinal: nausea, vomiting, no abdominal pain, no diarrhea, no melena Genitourinary Male: no dysuria, no hematuria Rectal: bleeding Integumentary: rash, no wounds, no jaundice Neurological: no paralysis, no weakness, no seizures, no syncope, no change in speech, no change in mentation, no confusion, no memory loss Exam - Vital Signs Vital signs: Vital Signs Temp Pulse Resp BP Pulse Ox 99.2 F 101 H 20 232/133 96 03/09/18 06:03 03/09/18 06:03 03/09/18 06:03 03/09/18 06:03 03/09/18 06:03 - General Appearance General appearance: well-developed, well-nourished, appears stated age, other (not in distress, right IJ tunnel catheter) EENT: ATNC, PERRL, mucous membranes moist, hearing intact, vision intact Neck: Present: neck supple, trachea midline Respiratory: Clear to Ascultation Heart: regular, S1S2, no murmurs Gastrointestinal: Present: normoactive bowel sounds. Absent: tenderness, distended Integumentary: no rash, warm and dry Neurologic: no focal deficit, no asterixis, alert and oriented x3 Musculoskeletal: Present: other (bilateral LE 1+ edema, left FA AVF) Psychiatric: cooperative Results - Lab Results 03/09/18 06:48 03/09/18 06:48 Most recent lab results Calcium 7.2 mg/dL (8.4-10.2) L 03/09/18 06:48 Assessment and Plan 1. ESRD: Patient stopped dialysis about 6 months ago. Presented with fluid retention and need for dialysis. No acute indication for hemodialysis today. HD tomorrow. 2. Hypertensive urgency: Home BP meds resumed. IV lasix ordered. UF with HD. 3. FEN: IV Lasix ordered. Metabolic acidosis, HD tomorrow. 4. Medical non-compliance.
[2018-03-09] MEDS ORDERED: APRESOLINE IV ONE (11:51)
[2018-03-09] MEDS ORDERED: LASIX 100 MG in NACL 0.9% 50 ML IV ONE (12:00)
[2018-03-09] MEDS: ZESTRIL PO SCH (12:22)
[2018-03-09] MEDS: NORMODYNE PO SCH (12:22)
[2018-03-09] MEDS: NORVASC PO SCH (12:22)
--- NOTE | 2018-03-09 12:24 | History and Physical Report ---
History of Present Illness Chief complaint: Im swollen History of present illness: 37 YO male with HTN, Asthma, Medication Noncompliance, Nicotine Dependence, ESRD on HD with last dialysis 6 months ago presents to ED for evaluation. Pt states that he has experienced nausea, multiple episodes of vomiting, and tenderness around his permacath site over the past 2 days with persistent symptoms over the same time frame. Pt denies orthopnea, PND, fever, chills, palpitations, productive cough, recent ill contacts, prolonged travel/immobility, leg swelling, calf pain, individual/family history of DVT/PE, hemoptysis, syncope, unintentional weight loss, skin rash, night sweats. Pt seen and evaluated in ED and found to have ESRD, Acidosis. Pt admitted to medical floor. Nephrology consulted in ED for urgent dialysis. Past History Past Medical History: arthritis, ESRD, hypertension Past Surgical History: Other (Permacath, LUE AVF) Social history: single Family history: hypertension Medications and Allergies Allergies Allergy/AdvReac Type Severity Reaction Status Date / Time No Known Allergies Allergy Verified 09/06/17 03:19 Home Medications Medication Instructions Recorded Confirmed Last Taken Type amLODIPine [Norvasc] 10 mg PO QDAY #30 tablet 08/03/16 06/06/17 02/08/17 04:45 Rx Lisinopril [Zestril] 40 mg PO QDAY 02/08/17 06/06/17 02/08/17 04:45 History Labetalol HCl 300 mg PO BID 30 Days #30 tablet 06/07/17 Unknown Rx cephALEXin [Keflex] 500 mg PO Q8HR #21 cap 09/06/17 Unknown Rx Active Meds: Active Medications Amlodipine Besylate (Norvasc) 10 mg PO DAILY [facility] Last Admin: 03/09/18 12:22 Dose: 10 mg Documented by: Furosemide 100 mg/ Sodium (Chloride) 60 mls @ 100 mls/hr IV ONCE.ED ONE Stop: 03/09/18 12:35 Labetalol HCl (Normodyne) 300 mg PO BID [facility] Last Admin: 03/09/18 12:22 Dose: 300 mg Documented by: Lisinopril (Zestril) 40 mg PO DAILY [facility] Last Admin: 03/09/18 12:22 Dose: 40 mg Documented by: Review of Systems Constitutional: no weight loss, no weight gain, no fever, no chills Ears, nose, mouth and throat: no ear pain, no ear discharge, no tinnitis, no decreased hearing, no nose pain Cardiovascular: no orthopnea, no palpitations, no rapid/irregular heart beat, no edema Respiratory: no cough, no cough with sputum, no excessive sputum, no hemoptysis, no shortness of breath Gastrointestinal: no nausea, no vomiting, no diarrhea, no constipation Genitourinary Male: no hematuria, no flank pain, no discharge, no urinary frequency, no urinary hesitancy Rectal: no pain, no incontinence, no bleeding Musculoskeletal: no neck stiffness, no neck pain, no arm numbness/tingling Integumentary: no rash, no pruritis, no redness, no sores, no wounds Neurological: no transient paralysis, no paralysis, no weakness, no parathesias, no numbness, no tingling Psychiatric: no memory loss, no change in sleep habits, no sleep disturbances, no insomnia, no hypersomnia, no change in appetite Endocrine: no cold intolerance, no heat intolerance, no polyphagia, no polydipsia, no polyuria Hematologic/Lymphatic: no easy bruising, no easy bleeding, no lymphadenopathy, no lymphedema Allergic/Immunologic: no urticaria, no allergic rhinitis, no wheezing, no persistent infections, no anaphylaxis, no angioedema Exam - Constitutional Vitals: Temp Pulse Resp BP Pulse Ox 99.2 F 92 H 25 H 219/129 96 03/09/18 06:03 03/09/18 12:22 03/09/18 12:15 03/09/18 12:22 03/09/18 12:15 General appearance: Present: mild distress - EENT Eyes: Present: PERRL ENT: hearing intact, clear oral mucosa - Neck Neck: Present: supple, normal ROM - Respiratory Respiratory effort: normal Respiratory: bilateral: CTA - Cardiovascular Heart Sounds: Present: S1 & S2. Absent: rub, click - Extremities Extremities: pulses symmetrical, No edema Peripheral Pulses: within normal limits - Abdominal General gastrointestinal: Present: soft, non-tender, non-distended, normal bowel sounds Male genitourinary: Present: normal - Integumentary Integumentary: Present: clear, warm, dry - Musculoskeletal Musculoskeletal: gait normal, strength equal bilaterally - Psychiatric Psychiatric: appropriate mood/affect, intact judgment & insight - Neurologic Neurologic: CNII-XII intact, moves all extremities Results - Labs CBC & Chem 7: 03/09/18 06:48 03/09/18 06:48 Labs: Abnormal lab results 03/09/18 03/09/18 Range/Units 06:48 06:48 Hct 35.2 L (35.5-45.6) % Lymph % (Auto) 5.7 L (13.4-35.0) % Lymph # 0.4 L (1.2-5.4) K/mm3 Seg Neutrophils % 86.0 H (40.0-70.0) % Carbon Dioxide 18 L (22-30) mmol/L BUN 87 H (9-20) mg/dL Creatinine 10.3 H (0.8-1.5) mg/dL Glucose 102 H (75-100) mg/dL Calcium 7.2 L (8.4-10.2) mg/dL AST 50 H (5-40) units/L Alkaline Phosphatase 150 H (35-129) units/L Assessment and Plan - Patient Problems (1) ESRD (end stage renal disease) Current Visit: Yes Status: Chronic Plan to address problem: Nephrology consulted in ED, Renal diet, strict I/O, monitor uop q shift, avoid nephrotoxic agents. (2) Acidosis Current Visit: Yes Status: Acute Plan to address problem: Urgent dialysis, repeat bmp, ivf resuscitation as tolerated (3) Malignant hypertension Current Visit: Yes Status: Chronic Plan to address problem: IV hydralazine prn, monitor BP q shift, continue medical management (4) Medical non-compliance Current Visit: Yes Status: Chronic Plan to address problem: Pt counseled, Pt acknowledges understanding, and states that he will comply with future dialysis orders. (5) DVT prophylaxis Current Visit: No Status: Acute Plan to address problem: SCD to BLE while in bed.
[2018-03-09] MEDS ORDERED: ZOFRAN IV PRN (12:26)
[2018-03-09] MEDS ORDERED: SODIUM CHLORIDE FLUSH SYRINGE 10 ML IV PRN (12:26)
[2018-03-10] MEDS: NORMODYNE PO SCH ×2 (00:38→14:25)
[2018-03-10] MEDS: SODIUM CHLORIDE FLUSH SYRINGE 10 ML IV SCH ×2 (00:39→10:00)
[2018-03-10] MEDS ORDERED: NACL 0.9% 100 ML IV PRN (09:23)
--- NOTE | 2018-03-10 09:25 | Progress Note ---
Assessment and Plan 1. ESRD: Patient stopped dialysis about 6 months ago. Presented with fluid retention and need for dialysis. Hemodialysis today. 2. Hypertensive urgency: Home BP meds resumed. UF with HD today. Increase Labetalol to 400 mg BID. Monitor. 3. FEN: Volume status is better. Metabolic acidosis, HD tomorrow. 4. Medical non-compliance. Need outpatient HD chair. Subjective Date of service: 03/10/18 Interval history: Patient is feeling better. Objective - Vital Signs Vital signs: Vital Signs - 12hr 03/09/18 03/09/18 03/10/18 21:27 23:29 00:38 Temperature 98.9 F 98.0 F Pulse Rate 82 81 81 Respiratory 18 20 Rate Blood Pressure 166/89 172/100 172/100 O2 Sat by Pulse 97 95 Oximetry 03/10/18 05:39 Temperature 99.1 F Pulse Rate 78 Respiratory 20 Rate Blood Pressure 157/94 O2 Sat by Pulse 96 Oximetry - General Appearance General appearance: well-developed, well-nourished, appears stated age, other (not in distress, right IJ tunnel catheter) EENT: ATNC, PERRL, mucous membranes moist, hearing intact, vision intact Neck: supple Respiratory: Present: Clear to Ascultation Cardiology: regular, S1S2, no murmurs Gastrointestinal: normoactive bowel sounds, no tenderness, no distended Integumentary: no rash, warm and dry Neurologic: no focal deficit, no asterixis, alert and oriented x3 Musculoskeletal: other (no edema, left FA AVF) Psychiatric: cooperative - Lab 03/09/18 06:48 03/09/18 06:48 Most recent lab results Calcium 7.2 mg/dL (8.4-10.2) L 03/09/18 06:48 Medications & Allergies - Medications Allergies/Adverse Reactions: Allergies No Known Allergies Allergy (Verified 09/06/17 03:19) Home Medications: Home Medications Medication Instructions Recorded Confirmed Last Taken Type amLODIPine [Norvasc] 10 mg PO QDAY #30 tablet 08/03/16 06/06/17 02/08/17 04:45 Rx Lisinopril [Zestril] 40 mg PO QDAY 02/08/17 06/06/17 02/08/17 04:45 History Labetalol HCl 300 mg PO BID 30 Days #30 tablet 06/07/17 Unknown Rx cephALEXin [Keflex] 500 mg PO Q8HR #21 cap 09/06/17 Unknown Rx Active Medications: Generic Name Dose Route Start Last Admin Trade Name Freq PRN Reason Stop Dose Admin Acetaminophen 650 mg 03/09/18 12:26 Tylenol PO Q4H PRN Pain MILD(1-3)/Fever >100.5/LOPEZ Amlodipine Besylate 10 mg 03/09/18 12:00 03/09/18 12:22 Norvasc PO 10 mg DAILY JOSE Administration Hydralazine HCl 20 mg 03/09/18 13:09 Apresoline IV Q4HR PRN Hypertension SYS>160 Labetalol HCl 300 mg 03/09/18 12:00 03/10/18 00:38 Normodyne PO 300 mg BID JOSE Administration Lisinopril 40 mg 03/09/18 12:00 03/09/18 12:22 Zestril PO 40 mg DAILY JOSE Administration Ondansetron HCl 4 mg 03/09/18 12:26 Zofran IV Q8H PRN Nausea And Vomiting Sodium Chloride 10 ml 03/09/18 22:00 03/10/18 00:39 Sodium Chloride Flush Syringe 10 Ml IV 10 ml BID JOSE Administration Sodium Chloride 10 ml 03/09/18 12:26 Sodium Chloride Flush Syringe 10 Ml IV PRN PRN LINE FLUSH
--- NOTE | 2018-03-10 10:59 | Progress Note ---
Assessment and Plan Assessment and plan: ESRD. Patient reportedly stopped dialysis 6 months ago. Hemodialysis today per nephrology. Accelerated hypertension. Home antihypertensive medications have been resumed. Continue to monitor closely. Medical noncompliance. Patient has been counseled extensively. History Interval history: is a 37 YO AAM with medical history significant for ESRD, HTN, Asthma, Tobacco smoking and Medical non-compliance who came to the ER with cough, N & V. 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 Cough productive of whitish phlegm. He also reports bilateral leg swelling and decreased energy. He was last dialyzed 6 months ago and still has the right sided hemodialysis catheter. Patient denies any sob, orthopnea, PND, fever, chills, abd pain, cp, dizzines, syncope, skin rash or confusion. His BP was around 230/130, creatinine 10.3 and bicarb 18. CXR was negative for negative for pulmonary edema or infiltrate. Nephrology was consulted for further evaluation. He agrees to resume hemodialysis. Hospitalist Physical - Constitutional Vitals: Temp Pulse Resp BP Pulse Ox 99.1 F 78 20 157/94 96 03/10/18 05:39 03/10/18 05:39 03/10/18 05:39 03/10/18 05:39 03/10/18 05:39 General appearance: Present: no acute distress - EENT Eyes: Present: PERRL, EOM intact ENT: hearing intact, clear oral mucosa, dentition normal - Neck Neck: Present: supple, normal ROM - Respiratory Respiratory effort: normal Respiratory: bilateral: CTA - Cardiovascular Rhythm: regular Heart Sounds: Present: S1 & S2. Absent: gallop, rub - Extremities Extremities: no ischemia, No edema, Full ROM - Abdominal General gastrointestinal: soft, non-tender, non-distended, normal bowel sounds - Integumentary Integumentary: Present: clear, warm, dry - Neurologic Neurologic: CNII-XII intact, moves all extremities Results - Labs CBC & Chem 7: 03/09/18 06:48 03/09/18 06:48 Labs: Laboratory Last Values WBC 7.7 K/mm3 (4.5-11.0) 03/09/18 06:48 RBC 3.91 M/mm3 (3.65-5.03) 03/09/18 06:48 Hgb 12.0 gm/dl (11.8-15.2) 03/09/18 06:48 Hct 35.2 % (35.5-45.6) L 03/09/18 06:48 MCV 90 fl (84-94) 03/09/18 06:48 MCH 31 pg (28-32) 03/09/18 06:48 MCHC 34 % (32-34) 03/09/18 06:48 RDW 14.0 % (13.2-15.2) 03/09/18 06:48 Plt Count 222 K/mm3 (140-440) 03/09/18 06:48 Lymph % (Auto) 5.7 % (13.4-35.0) L 03/09/18 06:48 [place] % (Auto) 6.1 % (0.0-7.3) 03/09/18 06:48 Eos % (Auto) 1.3 % (0.0-4.3) 03/09/18 06:48 Baso % (Auto) 0.9 % (0.0-1.8) 03/09/18 06:48 Lymph # 0.4 K/mm3 (1.2-5.4) L 03/09/18 06:48 [place] # 0.5 K/mm3 (0.0-0.8) 03/09/18 06:48 Eos # 0.1 K/mm3 (0.0-0.4) 03/09/18 06:48 Baso # 0.1 K/mm3 (0.0-0.1) 03/09/18 06:48 Seg Neutrophils % 86.0 % (40.0-70.0) H 03/09/18 06:48 Seg Neutrophils # 6.6 K/mm3 (1.8-7.7) 03/09/18 06:48 PT 13.2 Sec. (12.2-14.9) 03/09/18 06:48 INR 0.96 (0.87-1.13) 03/09/18 06:48 APTT 24.5 Sec. (24.2-36.6) 03/09/18 06:48 Sodium 139 mmol/L (137-145) 03/09/18 06:48 Potassium 3.9 mmol/L (3.6-5.0) 03/09/18 06:48 Chloride 101.7 mmol/L (98-107) 03/09/18 06:48 Carbon Dioxide 18 mmol/L (22-30) L 03/09/18 06:48 Anion Gap 23 mmol/L 03/09/18 06:48 BUN 87 mg/dL (9-20) H 03/09/18 06:48 Creatinine 10.3 mg/dL (0.8-1.5) H 03/09/18 06:48 Estimated GFR 7 ml/min 03/09/18 06:48 BUN/Creatinine Ratio 8 % 03/09/18 06:48 Glucose 102 mg/dL (75-100) H 03/09/18 06:48 Calcium 7.2 mg/dL (8.4-10.2) L 03/09/18 06:48 Total Bilirubin 0.50 mg/dL (0.1-1.2) 03/09/18 06:48 AST 50 units/L (5-40) H 03/09/18 06:48 ALT 45 units/L (7-56) 03/09/18 06:48 Alkaline Phosphatase 150 units/L (35-129) H 03/09/18 06:48 Total Protein 6.7 g/dL (6.3-8.2) 03/09/18 06:48 Albumin 3.9 g/dL (3.9-5) 03/09/18 06:48 Albumin/Globulin Ratio 1.4 % 03/09/18 06:48 Lipase 60 units/L (13-60) 03/09/18 06:48 Blood Type A POSITIVE 03/09/18 06:48 Antibody Screen Negative 03/09/18 06:48
--- NOTE | 2018-03-10 12:00 | Consultation ---
History of Present Illness - Reason for Consult Consult date: 03/10/18 dialysis catheter malfunction - History of Present Illness Patient with a history of end-stage renal disease on hemodialysis who previously had been dialyzed through a right chest wall tunneled hemodialysis catheter. He apparently has not dialyzed in 6 months. There is a history of medical noncompliance. The patient also has a left Shemar fistula with a palpable thrill that he states that one time in the past had been used for dialysis cannulation. Past History Past Medical History: dialysis, ESRD, hypertension Past Surgical History: Other (Permacath, LUE AVF) Social history: single Family history: hypertension Medications and Allergies Allergies Allergy/AdvReac Type Severity Reaction Status Date / Time No Known Allergies Allergy Verified 09/06/17 03:19 Home Medications Medication Instructions Recorded Confirmed Last Taken Type amLODIPine [Norvasc] 10 mg PO QDAY #30 tablet 08/03/16 06/06/17 02/08/17 04:45 Rx Lisinopril [Zestril] 40 mg PO QDAY 02/08/17 06/06/17 02/08/17 04:45 History Labetalol HCl 300 mg PO BID 30 Days #30 tablet 06/07/17 Unknown Rx cephALEXin [Keflex] 500 mg PO Q8HR #21 cap 09/06/17 Unknown Rx Active Meds: Active Medications Acetaminophen (Tylenol) 650 mg PO Q4H PRN PRN Reason: Pain MILD(1-3)/Fever >100.5/LOPEZ Amlodipine Besylate (Norvasc) 10 mg PO DAILY [facility] Last Admin: 03/09/18 12:22 Dose: 10 mg Documented by: Hydralazine HCl (Apresoline) 20 mg IV Q4HR PRN PRN Reason: Hypertension SYS>160 Sodium Chloride (Nacl 0.9%) 100 mls @ 999 mls/hr IV DIANA PRN PRN Reason: Hypotension Labetalol HCl (Normodyne) 300 mg PO BID [facility] Last Admin: 03/10/18 00:38 Dose: 300 mg Documented by: Lisinopril (Zestril) 40 mg PO DAILY [facility] Last Admin: 03/09/18 12:22 Dose: 40 mg Documented by: Ondansetron HCl (Zofran) 4 mg IV Q8H PRN PRN Reason: Nausea And Vomiting Sodium Chloride (Sodium Chloride Flush Syringe 10 Ml) 10 ml IV BID JOSE Last Admin: 03/10/18 00:39 Dose: 10 ml Documented by: Sodium Chloride (Sodium Chloride Flush Syringe 10 Ml) 10 ml IV PRN PRN PRN Reason: LINE FLUSH Review of Systems All systems: negative Exam - Constitutional Vitals: Temp Pulse Resp BP Pulse Ox 99.1 F 78 20 157/94 96 03/10/18 05:39 03/10/18 05:39 03/10/18 05:39 03/10/18 05:39 03/10/18 05:39 General appearance: Present: no acute distress - EENT Eyes: Present: PERRL, EOM intact ENT: hearing intact - Neck Neck: Present: supple, normal ROM - Respiratory Respiratory effort: normal - Extremities Extremities: no ischemia - Abdominal General gastrointestinal: Present: deferred Male genitourinary: Present: deferred - Rectal Rectal Exam: deferred - Psychiatric Psychiatric: appropriate mood/affect, cooperative - Neurologic Neurologic: no focal deficits Results - Labs CBC & Chem 7: 03/09/18 06:48 03/09/18 06:48 Assessment and Plan Patient with a functioning Shemar fistula. The patient will need to undergo dialysis through the fistula to demonstrate its functionality prior to PermCath removal. Patient will be going to dialysis today. We'll plan on removing dialysis catheter tomorrow seeming successful dialysis through his Shemar fistula.
[2018-03-10] MEDS: ZESTRIL PO SCH (14:25)
[2018-03-10] MEDS: NORVASC PO SCH (14:26)
[2018-03-10 16:41] LABS: Hepatitis B Surface Antigen Non-Reactive (Negative); Hepatitis C Virus Antibody Non-Reactive (NonReactive)
[2018-03-10] MEDS: APRESOLINE IV PRN (19:16)
[2018-03-11] MEDS: NORMODYNE PO SCH ×3 (00:55→21:17)
[2018-03-11] MEDS: SODIUM CHLORIDE FLUSH SYRINGE 10 ML IV SCH ×3 (00:56→21:18)
[2018-03-11] MEDS: TYLENOL PO PRN ×3 (04:54→21:16)
[2018-03-11] MEDS ORDERED: VANCOMYCIN PHARMACY TO DOSE IV SCH (09:00)
[2018-03-11] MEDS ORDERED: LEVAQUIN 750MG/150ML 750 MG/150 ML BAG IV ONE (09:00)
[2018-03-11] MEDS ORDERED: VANCOMYCIN 1,250 MG in NACL 0.9% 250ML 250 ML IV ONE (10:00)
[2018-03-11] MEDS ORDERED: LEVAQUIN 750MG/150ML 750 MG/150 ML BAG IV SCH (10:00)
[2018-03-11] MEDS: NORVASC PO SCH (10:11)
[2018-03-11] MEDS: ZESTRIL PO SCH (10:11)
[2018-03-11] MEDS: APRESOLINE IV PRN (10:20)
--- NOTE | 2018-03-11 11:48 | Progress Note ---
Assessment and Plan Assessment and plan: SIRS. No evid of obvious infectious etiology. Empiric abx. Blood cx x 2 ESRD. Patient reportedly stopped dialysis 6 months ago. Hemodialysis per nephrology. Accelerated hypertension. Home antihypertensive medications have been resumed. Continue to monitor closely. Medical noncompliance. Patient has been counseled extensively. History Interval history: is a 37 YO AAM with medical history significant for ESRD, HTN, Asthma, Tobacco smoking and Medical non-compliance who came to the ER with cough, N & V. 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 Cough productive of whitish phlegm. He also reports bilateral leg swelling and decreased energy. He was last dialyzed 6 months ago and still has the right sided hemodialysis catheter. Patient denies any sob, orthopnea, PND, fever, chills, abd pain, cp, dizzines, syncope, skin rash or confusion. His BP was around 230/130, creatinine 10.3 and bicarb 18. CXR was negative for negative for pulmonary edema or infiltrate. Nephrology was consulted for further evaluation. He agrees to resume hemodialysis. Pt with fever last night and this am Hospitalist Physical - Constitutional Vitals: Temp Pulse Resp BP Pulse Ox 101.5 F H 120 H 18 180/114 97 03/11/18 05:28 03/11/18 10:20 03/11/18 05:28 03/11/18 10:20 03/11/18 07:56 General appearance: Present: no acute distress - EENT Eyes: Present: PERRL, EOM intact ENT: hearing intact, clear oral mucosa, dentition normal - Neck Neck: Present: supple, normal ROM - Respiratory Respiratory effort: normal Respiratory: bilateral: CTA - Cardiovascular Rhythm: regular Heart Sounds: Present: S1 & S2. Absent: gallop, rub - Extremities Extremities: no ischemia, No edema, Full ROM - Abdominal General gastrointestinal: soft, non-tender, non-distended, normal bowel sounds - Integumentary Integumentary: Present: clear, warm, dry - Neurologic Neurologic: CNII-XII intact, moves all extremities Results - Labs CBC & Chem 7: 03/09/18 06:48 03/09/18 06:48 Labs: Laboratory Last Values WBC 7.7 K/mm3 (4.5-11.0) 03/09/18 06:48 RBC 3.91 M/mm3 (3.65-5.03) 03/09/18 06:48 Hgb 12.0 gm/dl (11.8-15.2) 03/09/18 06:48 Hct 35.2 % (35.5-45.6) L 03/09/18 06:48 MCV 90 fl (84-94) 03/09/18 06:48 MCH 31 pg (28-32) 03/09/18 06:48 MCHC 34 % (32-34) 03/09/18 06:48 RDW 14.0 % (13.2-15.2) 03/09/18 06:48 Plt Count 222 K/mm3 (140-440) 03/09/18 06:48 Lymph % (Auto) 5.7 % (13.4-35.0) L 03/09/18 06:48 [place] % (Auto) 6.1 % (0.0-7.3) 03/09/18 06:48 Eos % (Auto) 1.3 % (0.0-4.3) 03/09/18 06:48 Baso % (Auto) 0.9 % (0.0-1.8) 03/09/18 06:48 Lymph # 0.4 K/mm3 (1.2-5.4) L 03/09/18 06:48 [place] # 0.5 K/mm3 (0.0-0.8) 03/09/18 06:48 Eos # 0.1 K/mm3 (0.0-0.4) 03/09/18 06:48 Baso # 0.1 K/mm3 (0.0-0.1) 03/09/18 06:48 Seg Neutrophils % 86.0 % (40.0-70.0) H 03/09/18 06:48 Seg Neutrophils # 6.6 K/mm3 (1.8-7.7) 03/09/18 06:48 PT 13.2 Sec. (12.2-14.9) 03/09/18 06:48 INR 0.96 (0.87-1.13) 03/09/18 06:48 APTT 24.5 Sec. (24.2-36.6) 03/09/18 06:48 Sodium 139 mmol/L (137-145) 03/09/18 06:48 Potassium 3.9 mmol/L (3.6-5.0) 03/09/18 06:48 Chloride 101.7 mmol/L (98-107) 03/09/18 06:48 Carbon Dioxide 18 mmol/L (22-30) L 03/09/18 06:48 Anion Gap 23 mmol/L 03/09/18 06:48 BUN 87 mg/dL (9-20) H 03/09/18 06:48 Creatinine 10.3 mg/dL (0.8-1.5) H 03/09/18 06:48 Estimated GFR 7 ml/min 03/09/18 06:48 BUN/Creatinine Ratio 8 % 03/09/18 06:48 Glucose 102 mg/dL (75-100) H 03/09/18 06:48 Calcium 7.2 mg/dL (8.4-10.2) L 03/09/18 06:48 Total Bilirubin 0.50 mg/dL (0.1-1.2) 03/09/18 06:48 AST 50 units/L (5-40) H 03/09/18 06:48 ALT 45 units/L (7-56) 03/09/18 06:48 Alkaline Phosphatase 150 units/L (35-129) H 03/09/18 06:48 Total Protein 6.7 g/dL (6.3-8.2) 03/09/18 06:48 Albumin 3.9 g/dL (3.9-5) 03/09/18 06:48 Albumin/Globulin Ratio 1.4 % 03/09/18 06:48 Lipase 60 units/L (13-60) 03/09/18 06:48 Hepatitis A IgM Ab Non-reactive (NonReactive) 03/10/18 15:55 Hep Bs Antigen Non-reactive (Negative) 03/10/18 15:55 Hep B Core IgM Ab Non-reactive (NonReactive) 03/10/18 15:55 Hepatitis C Antibody Non-reactive (NonReactive) 03/10/18 15:55 Blood Type A POSITIVE 03/09/18 06:48 Antibody Screen Negative 03/09/18 06:48 Nutrition/Malnutrition Assess - Dietary Evaluation Nutrition/Malnutrition Findings: Nutrition Notes Start: 03/10/18 16:44 Freq: Status: Active Protocol: Document 03/10/18 16:44 OL (Rec: 03/10/18 16:50 OL [facility]-[id number]) Nutrition Notes Need for Assessment generated from: bilingual case manager Initial or Follow up Assessment Current Diagnoses CKD (stage V CKD) Hypertension Current Diet Renal Labs/Tests BUN 87 Cr 10.3 Medications Ca 7.2 Height 5 ft 10 in Weight 88.3 kg [place] Body Weight (lbs) 166.0 BMI 27.9 Subjective/Other Information RD screen for malnutrition risk. Pt. reports he only has a good appetite if he smokes marijuana. Pt. eats 1-2 times daily. Pt. last HD was 6 months ago; pt. weighted 225# at that time. Pt. amenable to ONS. Burn Absent Trauma Absent #1 Nutrition Diagnoses Malnutrition Etiology substance abuse, poor appetite As Evidenced by Signs and Symptoms 13.7% body wt. loss; energy intake less than 75% for greater than one month Is patient on ventilator? No Is Patient Ambulatory and/or Out of Bed Yes REE-([facility]-ambulatory/OOB) [ 2358.525 [id number]] Calculation Used for Recommendations [facility] Additional Notes protein (1.2-1.4g/kg): 106- 124g fluid: 1mL/kcal Malnutrition Assessment Food and Nutrition Intake <75% EST ENER REQ 7 DAYS Interpretation of weight loss (Severe) > Up to 10% in 6 months Nutrition Intervention Change Diet Order: Continue renal Add Supplement/Snack (indicate name/kcal nepro daily (butter pecan) /protein ) Provides kCal: 425 Provides Protein (gm) 19 Goal #1 PO + ONS intakes to meet 75- 100% of nutrient needs Anticipated Discharge Needs: renal Follow-Up By: 03/12/18 Additional Comments f/u: intakes
--- NOTE | 2018-03-11 12:16 | Progress Note ---
Assessment and Plan 1. ESRD: Patient was restarted on hemodialysis yesterday after stopped for about 6 months. Patient tolerated HD well and was able to use the AVF. Next Hemodialysis tomorrow. 2. Hypertensive urgency: BP is better. Monitor. 3. Fever: Likely related to tunnel catheter, s/p removed. On Vancomycin, monitor cultures. 4. FEN: Volume status is better. 5. Medical non-compliance. Need outpatient HD chair. Subjective Date of service: 03/11/18 Interval history: Patient had fever last night and today AM. Objective - Vital Signs Vital signs: Vital Signs - 12hr 03/11/18 03/11/18 03/11/18 00:55 05:28 07:56 Temperature 101.5 F H Pulse Rate 94 H 91 H Respiratory 18 Rate Blood Pressure 150/69 138/80 O2 Sat by Pulse 95 97 Oximetry 03/11/18 03/11/18 10:10 10:20 Temperature Pulse Rate 120 H 120 H Respiratory Rate Blood Pressure 180/114 180/114 O2 Sat by Pulse Oximetry - General Appearance General appearance: well-developed, well-nourished, appears stated age, other (not in distress, right IJ tunnel catheter) EENT: ATNC, PERRL, mucous membranes moist, hearing intact, vision intact Neck: supple Respiratory: Present: Clear to Ascultation Cardiology: regular, S1S2, no murmurs Gastrointestinal: normoactive bowel sounds, no tenderness, no distended Integumentary: no rash, warm and dry Neurologic: no focal deficit, no asterixis, alert and oriented x3 Musculoskeletal: other (left FA AVF, no edema) Psychiatric: cooperative - Lab 03/09/18 06:48 03/09/18 06:48 Most recent lab results Calcium 7.2 mg/dL (8.4-10.2) L 03/09/18 06:48 Medications & Allergies - Medications Allergies/Adverse Reactions: Allergies No Known Allergies Allergy (Verified 09/06/17 03:19) Home Medications: Home Medications Medication Instructions Recorded Confirmed Last Taken Type amLODIPine [Norvasc] 10 mg PO QDAY #30 tablet 08/03/16 06/06/17 02/08/17 04:45 Rx Lisinopril [Zestril] 40 mg PO QDAY 02/08/17 06/06/17 02/08/17 04:45 History Labetalol HCl 300 mg PO BID 30 Days #30 tablet 06/07/17 Unknown Rx cephALEXin [Keflex] 500 mg PO Q8HR #21 cap 09/06/17 Unknown Rx Active Medications: Generic Name Dose Route Start Last Admin Trade Name Freq PRN Reason Stop Dose Admin Acetaminophen 650 mg 03/09/18 12:26 03/11/18 10:10 Tylenol PO 650 mg Q4H PRN Administration Pain MILD(1-3)/Fever >100.5/LOPEZ Amlodipine Besylate 10 mg 03/09/18 12:00 03/11/18 10:11 Norvasc PO 10 mg DAILY JOSE Administration Hydralazine HCl 20 mg 03/09/18 13:09 03/11/18 10:20 Apresoline IV 20 mg Q4HR PRN Administration Hypertension SYS>160 Sodium Chloride 100 mls @ 999 mls/hr 03/10/18 09:23 Nacl 0.9% IV DIANA PRN Hypotension Levofloxacin/Dextrose 500 mg in 100 mls @ 100 mls/hr 03/13/18 09:00 Levaquin 500mg/100ml IV Q48H JOSE Labetalol HCl 400 mg 03/10/18 15:40 03/11/18 10:10 Normodyne PO 400 mg BID JOSE Administration Lisinopril 40 mg 03/09/18 12:00 03/11/18 10:11 Zestril PO 40 mg DAILY JOSE Administration Ondansetron HCl 4 mg 03/09/18 12:26 Zofran IV Q8H PRN Nausea And Vomiting Sodium Chloride 10 ml 03/09/18 22:00 03/11/18 10:12 Sodium Chloride Flush Syringe 10 Ml IV 10 ml BID JOSE Administration Sodium Chloride 10 ml 03/09/18 12:26 Sodium Chloride Flush Syringe 10 Ml IV PRN PRN LINE FLUSH
[2018-03-11] MEDS ORDERED: XYLOCAINE 1% 20 mL INFILTRATI ONE (14:43)
[2018-03-11] MEDS ORDERED: XYLOCAINE 1% 20 mL ONE (14:43)
--- NOTE | 2018-03-11 16:22 | Operative Report ---
Operative Report Operative Report: Date of procedure: 03/11/2018 Pre-operative diagnosis: Infected permacath, end-stage renal disease Post-operative diagnosis: Same Procedure name(s): Removal of permacath Surgeon: Ziyad Méndez MD [employer] Director: None Anesthesia: Local EBL: None Specimen(s): Tip of permacath Complications: None Findings: Permacath removed in total. Tip sent for culture. Procedure: Patient in the supine position the skin overlying the permacath exit site was prepped and draped using sterile technique. The skin surrounding the exit site was anesthetized with 1% Xylocaine. Using combination of blunt and sharp dissection through the exit site scar tissue was from the permacath. Using upward traction cuff was released from the surrounding tissue and the catheter withdrew. Pressure was held for hemostasis. The catheter tip was cultured. Patient tolerated the procedure well. Sterile dressing applied.
--- NOTE | 2018-03-12 09:49 | Progress Note ---
Assessment and Plan 1. ESRD: Patient was restarted on hemodialysis 2 days ago after stopped for about 6 months. Patient tolerated HD well and was able to use the AVF. Next Hemodialysis today. 2. Hypertensive urgency: BP is better. Monitor. 3. Fever: Likely related to tunnel catheter, s/p removed. On Vancomycin, monitor cultures. ID consulted. 4. FEN: Volume status is better. 5. Medical non-compliance. Need outpatient HD chair. Subjective Date of service: 03/12/18 Interval history: Patient continues to have intermittent fever. Objective - Vital Signs Vital signs: Vital Signs - 12hr 03/11/18 03/11/18 03/12/18 22:16 23:40 05:21 Temperature 99.8 F H 100.1 F H Pulse Rate 83 Respiratory 18 18 18 Rate Blood Pressure 119/68 133/84 O2 Sat by Pulse 97 Oximetry - General Appearance General appearance: well-developed, well-nourished, appears stated age, other (not in distress) EENT: ATNC, PERRL, hearing intact, vision intact Neck: supple Respiratory: Present: Clear to Ascultation Cardiology: regular, S1S2, no murmurs Gastrointestinal: normoactive bowel sounds, no tenderness, no distended Integumentary: no rash, warm and dry Neurologic: no focal deficit, no asterixis, alert and oriented x3 Musculoskeletal: other (left FA AVF, no edema) Psychiatric: cooperative - Lab 03/09/18 06:48 03/09/18 06:48 Most recent lab results Calcium 7.2 mg/dL (8.4-10.2) L 03/09/18 06:48 Medications & Allergies - Medications Allergies/Adverse Reactions: Allergies No Known Allergies Allergy (Verified 09/06/17 03:19) Home Medications: Home Medications Medication Instructions Recorded Confirmed Last Taken Type amLODIPine [Norvasc] 10 mg PO QDAY #30 tablet 08/03/16 06/06/17 02/08/17 04:45 Rx Lisinopril [Zestril] 40 mg PO QDAY 02/08/17 06/06/17 02/08/17 04:45 History Labetalol HCl 300 mg PO BID 30 Days #30 tablet 06/07/17 Unknown Rx cephALEXin [Keflex] 500 mg PO Q8HR #21 cap 06/29/18 Unknown Rx Active Medications: Generic Name Dose Route Start Last Admin Trade Name Freq PRN Reason Stop Dose Admin Acetaminophen 650 mg 03/09/18 12:26 03/11/18 21:16 Tylenol PO 650 mg Q4H PRN Administration Pain MILD(1-3)/Fever >100.5/LOPEZ Amlodipine Besylate 10 mg 03/09/18 12:00 03/11/18 10:11 Norvasc PO 10 mg DAILY JOSE Administration Hydralazine HCl 20 mg 03/09/18 13:09 03/11/18 10:20 Apresoline IV 20 mg Q4HR PRN Administration Hypertension SYS>160 Sodium Chloride 100 mls @ 999 mls/hr 03/10/18 09:23 Nacl 0.9% IV DIANA PRN Hypotension Levofloxacin/Dextrose 500 mg in 100 mls @ 100 mls/hr 03/13/18 09:00 Levaquin 500mg/100ml IV Q48H JOSE Labetalol HCl 400 mg 03/10/18 15:40 03/11/18 21:17 Normodyne PO 400 mg BID JOSE Administration Lisinopril 40 mg 03/09/18 12:00 03/11/18 10:11 Zestril PO 40 mg DAILY JOSE Administration Ondansetron HCl 4 mg 03/09/18 12:26 Zofran IV Q8H PRN Nausea And Vomiting Sodium Chloride 10 ml 03/09/18 22:00 03/11/18 21:18 Sodium Chloride Flush Syringe 10 Ml IV 10 ml BID JOSE Administration Sodium Chloride 10 ml 03/09/18 12:26 Sodium Chloride Flush Syringe 10 Ml IV PRN PRN LINE FLUSH
[2018-03-12] MEDS ORDERED: NACL 0.9% 100 ML IV PRN (10:30)
--- NOTE | 2018-03-12 10:57 | Consultation ---
History of Present Illness - Reason for Consult Consult date: 03/12/18 Fever, Infected Permacath Requesting physician: JERED MURCIA - History of Present Illness This patient is a 37 year old male with a past medical history of HTN, Asthma, medication noncompliance, Nicotine dependence, ESRD on HD with last dialysis 6 months ago, presents to the ED on 03/09/18 with complaints of nausea, multiple episodes of vomiting, and tenderness around his permacath site over the past 2 days. On admission WBC 7.7, Creatinine 10.3, Temp 99.2,, BP 174/87, HR 84., Chest Xray shows no focal consolidation , pulmonary edema, pleural effusion or pnuemothorax. Blood cultures were drawn and are pending. On 03/11/18 his Permacath was removed and the tip was sent for culture. Patient is now spiking fevers, highest temperature 101.5. Hence Infectious Disease was consulted. Patient states that he has had generalized weakness for last month. He states that 2 days ago, his symptoms became worse and he started having increased tenderness around his right vascath site. He also states for the last 6 months, he has had increasing nightsweats and weight loss. He was was diagnosed with ESRD in 2017 and has been compliant with HD up until the past 6 months. He sates that he has been busy and unable to make his appointment. . He admits to Nicotine and marijuana abuse. He denies any other substance or alcohol abuse. He is in a heterosexual relationship. Review of Systems: General: + fever, +chills, nightsweats, unintentional weight change, and change in appetite Cutaneous: no rash, pruritus Head: no headaches or injury Eyes: no changes in vision, eye pain, double vision Ears: no ear pain, ear discharge, ringing or hearing loss Nose: no nose bleeding, + stuffiness Mouth & throat: no bleeding gums, no horseness, no dental problems, or swollen glands Neck: no pain, node enlargement/lumps, tyroid enlargement or tenderness Respiratory: + cough, yellow sputum , no hemoptysis, pleuritic chest pain Cardiovascular: no chest pain, leg edema, cyanosis, LEGER, orthopnea Musculoskeletal: no decreased joint motion, bone or joint pain, joint swelling, muscle aches Gastrointestinal: + nausea, vomiting, no diarrhea, constipation, melena, bright red blood in stools, fecal incontinence, jaundice Genitourinary +no frequent urination, no dysuria, hematuria, incontinence Neurogical: no seizures, no headaches, + generalized weakness,, no loss of speech or vision; no memory loss, no vertigo, no tremors, no numbness Psychiatric: stable mood; no excessive anxiety, sadness or moodiness Past History Past Medical History: dialysis, ESRD, hypertension Past Surgical History: Other (Permacath, LUE AVF) Social history: single Family history: hypertension Medications and Allergies Allergies Allergy/AdvReac Type Severity Reaction Status Date / Time No Known Allergies Allergy Verified 09/06/17 03:19 Home Medications Medication Instructions Recorded Confirmed Last Taken Type amLODIPine [Norvasc] 10 mg PO QDAY #30 tablet 08/03/16 06/06/17 02/08/17 04:45 Rx Lisinopril [Zestril] 40 mg PO QDAY 02/08/17 06/06/17 02/08/17 04:45 History Labetalol HCl 300 mg PO BID 30 Days #30 tablet 06/07/17 Unknown Rx cephALEXin [Keflex] 500 mg PO Q8HR #21 cap 09/06/17 Unknown Rx Active Meds: Active Medications Acetaminophen (Tylenol) 650 mg PO Q4H PRN PRN Reason: Pain MILD(1-3)/Fever >100.5/LOPEZ Last Admin: 03/11/18 21:16 Dose: 650 mg Documented by: Amlodipine Besylate (Norvasc) 10 mg PO DAILY [facility] Last Admin: 03/11/18 10:11 Dose: 10 mg Documented by: Hydralazine HCl (Apresoline) 20 mg IV Q4HR PRN PRN Reason: Hypertension SYS>160 Last Admin: 03/11/18 10:20 Dose: 20 mg Documented by: Levofloxacin/Dextrose (Levaquin 500mg/100ml) 500 mg in 100 mls @ 100 mls/hr IV Q48H [facility] Sodium Chloride (Nacl 0.9%) 100 mls @ 999 mls/hr IV DIANA PRN PRN Reason: Hypotension Labetalol HCl (Normodyne) 300 mg PO BID [facility] Lisinopril (Zestril) 40 mg PO DAILY [facility] Last Admin: 03/11/18 10:11 Dose: 40 mg Documented by: Ondansetron HCl (Zofran) 4 mg IV Q8H PRN PRN Reason: Nausea And Vomiting Sodium Chloride (Sodium Chloride Flush Syringe 10 Ml) 10 ml IV BID JOSE Last Admin: 03/11/18 21:18 Dose: 10 ml Documented by: Sodium Chloride (Sodium Chloride Flush Syringe 10 Ml) 10 ml IV PRN PRN PRN Reason: LINE FLUSH Physical Examination - Physical Exam Narrative exam: Constitutional: Alert, cooperative. No acute distress Head, Ears, Nose: Normocephalic, atraumatic. External ears, nose normal Eyes: Conjunctivae/corneas clear. No icterus. No ptosis. Neck: Supple, no meningeal signs Oral: dentition poor. no thrush Cardiovascular: S1, S2 normal. Respiratory: Good air entry, clear to auscultation, +stuffiness GI: Soft, non-tender; bowel sounds normal. No peritoneal signs Musculoskeletal: No pedal edema, no cyanosis. Skin: No rash or abscess. Hem/Lymphatic: No palpable cervical or supraclavicular nodes. No lymphangitis Psych: Mood ok. Affect normal Neurological: Awake, alert, oriented. Lines: - Constitutional Vitals: Vital Signs Temp Pulse Resp BP Pulse Ox 100.1 F H 83 18 133/84 97 03/12/18 05:21 03/11/18 23:40 03/12/18 05:21 03/12/18 05:21 03/11/18 23:40 Temperature -Last 24 Hours Temperature 100.1 F Temperature 99.8 F Temperature 99.2 F Temperature 99.2 F Temperature 99.9 F Results - Labs CBC & Chem 7: 03/09/18 06:48 03/09/18 06:48 Assessment and Plan Imagin03/09/2018 Chest:Cardiomegaly. No evidence of pulmonary edema. left lateral 11th rib fracture may be acute or subacute. Cultures: 03/11/2018 Blood: in progress 03/11/2018 Vas Cath Tip : in progress A/P: 37-year old male with a history of HTN, Asthma, medication noncompliance, Nicotine dependence, ESRD on HD with last dialysis 6 months ago, admitted with: 1. Fevers - Etiology unclear, likely related to infected HD catheter, +/- Influenza. No leukocytosis, UTI or Pnuemonia. Blood cultures drawn and are pending. VasCath removed on 03/11/18, Cultures in progress. Complains of cough, runny nose and generalized body aches on admission. Will order influenza screen. Currently being treated with Levofloxacin. 2. End stage Renal Disease- noncompliant with HD appointments. Possible infected vascath- cutlures pending. Nephrology following. 3. Nicotine dependence- counseled on tobacco cessation Plan: f/u Blood cultures f/u Vas cath culture order influenza screen Start Cefepime 1 gm q PM continue vancomycin Discontinue levofloxacin TTE ordered start tamiflu 30 mg daily empirically until influenza screen results d/w Dr. Juan Suárez, ASSOCIATE PROFESSOR OF COMMUNICATION [facility] M: [phone] O:[phone]
--- NOTE | 2018-03-12 14:22 | Progress Note ---
Assessment and Plan Assessment and plan: Sepsis likely from infected permcath Empiric abx. Blood cx x 2 consult ID Dialysis catheter removed, catheter tip cultured ESRD. Patient reportedly stopped dialysis 6 months ago. Hemodialysis per nep hrology. Accelerated hypertension. Home antihypertensive medications have been resumed. Continue to monitor closely. Medical noncompliance. Patient has been counseled extensively. History Interval history: No fever Hospitalist Physical - Physical exam Narrative exam: GEN: Not in acute distress, obese HEENT: Normocephalic, atraumatic, Neck: supple, No JVD Lungs: Clear to auscultation, no wheeze Heart:S1 and S2 regular, no murmurs, rubs or gallop, Abd:soft, non tender, non distended, normal bowel sounds Ext: No edema, no clubbing or cyanosis Neuro: AAO x 3, No focal signs - Constitutional Vitals: Temp Pulse Resp BP Pulse Ox 99.4 F 85 14 150/78 98 03/12/18 11:34 03/12/18 11:34 03/12/18 11:34 03/12/18 11:34 03/12/18 11:34 General appearance: Present: no acute distress Results - Labs CBC & Chem 7: 03/09/18 06:48 03/09/18 06:48 Labs: Laboratory Last Values WBC 7.7 K/mm3 (4.5-11.0) 03/09/18 06:48 RBC 3.91 M/mm3 (3.65-5.03) 03/09/18 06:48 Hgb 12.0 gm/dl (11.8-15.2) 03/09/18 06:48 Hct 35.2 % (35.5-45.6) L 03/09/18 06:48 MCV 90 fl (84-94) 03/09/18 06:48 MCH 31 pg (28-32) 03/09/18 06:48 MCHC 34 % (32-34) 03/09/18 06:48 RDW 14.0 % (13.2-15.2) 03/09/18 06:48 Plt Count 222 K/mm3 (140-440) 03/09/18 06:48 Lymph % (Auto) 5.7 % (13.4-35.0) L 03/09/18 06:48 [place] % (Auto) 6.1 % (0.0-7.3) 03/09/18 06:48 Eos % (Auto) 1.3 % (0.0-4.3) 03/09/18 06:48 Baso % (Auto) 0.9 % (0.0-1.8) 03/09/18 06:48 Lymph # 0.4 K/mm3 (1.2-5.4) L 03/09/18 06:48 [place] # 0.5 K/mm3 (0.0-0.8) 03/09/18 06:48 Eos # 0.1 K/mm3 (0.0-0.4) 03/09/18 06:48 Baso # 0.1 K/mm3 (0.0-0.1) 03/09/18 06:48 Seg Neutrophils % 86.0 % (40.0-70.0) H 03/09/18 06:48 Seg Neutrophils # 6.6 K/mm3 (1.8-7.7) 03/09/18 06:48 PT 13.2 Sec. (12.2-14.9) 03/09/18 06:48 INR 0.96 (0.87-1.13) 03/09/18 06:48 APTT 24.5 Sec. (24.2-36.6) 03/09/18 06:48 Sodium 139 mmol/L (137-145) 03/09/18 06:48 Potassium 3.9 mmol/L (3.6-5.0) 03/09/18 06:48 Chloride 101.7 mmol/L (98-107) 03/09/18 06:48 Carbon Dioxide 18 mmol/L (22-30) L 03/09/18 06:48 Anion Gap 23 mmol/L 03/09/18 06:48 BUN 87 mg/dL (9-20) H 03/09/18 06:48 Creatinine 10.3 mg/dL (0.8-1.5) H 03/09/18 06:48 Estimated GFR 7 ml/min 03/09/18 06:48 BUN/Creatinine Ratio 8 % 03/09/18 06:48 Glucose 102 mg/dL (75-100) H 03/09/18 06:48 Calcium 7.2 mg/dL (8.4-10.2) L 03/09/18 06:48 Total Bilirubin 0.50 mg/dL (0.1-1.2) 03/09/18 06:48 AST 50 units/L (5-40) H 03/09/18 06:48 ALT 45 units/L (7-56) 03/09/18 06:48 Alkaline Phosphatase 150 units/L (35-129) H 03/09/18 06:48 Total Protein 6.7 g/dL (6.3-8.2) 03/09/18 06:48 Albumin 3.9 g/dL (3.9-5) 03/09/18 06:48 Albumin/Globulin Ratio 1.4 % 03/09/18 06:48 Lipase 60 units/L (13-60) 03/09/18 06:48 Hepatitis A IgM Ab Non-reactive (NonReactive) 03/10/18 15:55 Hep Bs Antigen Non-reactive (Negative) 03/10/18 15:55 Hep B Core IgM Ab Non-reactive (NonReactive) 03/10/18 15:55 Hepatitis C Antibody Non-reactive (NonReactive) 03/10/18 15:55 Blood Type A POSITIVE 03/09/18 06:48 Antibody Screen Negative 03/09/18 06:48 Nutrition/Malnutrition Assess - Dietary Evaluation Nutrition/Malnutrition Findings: Nutrition Notes Start: 03/10/18 16:44 Freq: Status: Active Protocol: Document 03/10/18 16:44 OL (Rec: 03/10/18 16:50 OL [id number]) Nutrition Notes Need for Assessment generated from: apprenticeship representative Initial or Follow up Assessment Current Diagnoses CKD (stage V CKD) Hypertension Current Diet Renal Labs/Tests BUN 87 Cr 10.3 Medications Ca 7.2 Height 5 ft 10 in Weight 88.3 kg [place] Body Weight (lbs) 166.0 BMI 27.9 Subjective/Other Information RD screen for malnutrition risk. Pt. reports he only has a good appetite if he smokes marijuana. Pt. eats 1-2 times daily. Pt. last HD was 6 months ago; pt. weighted 225# at that time. Pt. amenable to ONS. Burn Absent Trauma Absent #1 Nutrition Diagnoses Malnutrition Etiology substance abuse, poor appetite As Evidenced by Signs and Symptoms 13.7% body wt. loss; energy intake less than 75% for greater than one month Is patient on ventilator? No Is Patient Ambulatory and/or Out of Bed Yes REE-([facility]-ambulatory/OOB) [ 2358.525 NUTR.[id number]] Calculation Used for Recommendations [facility] Additional Notes protein (1.2-1.4g/kg): 106- 124g fluid: 1mL/kcal Malnutrition Assessment Food and Nutrition Intake <75% EST ENER REQ 7 DAYS Interpretation of weight loss (Severe) > Up to 10% in 6 months Nutrition Intervention Change Diet Order: Continue renal Add Supplement/Snack (indicate name/kcal nepro daily (butter pecan) /protein ) Provides kCal: 425 Provides Protein (gm) 19 Goal #1 PO + ONS intakes to meet 75- 100% of nutrient needs Anticipated Discharge Needs: renal Follow-Up By: 03/12/18 Additional Comments f/u: intakes
[2018-03-12] MEDS ORDERED: TAMIFLU PO SCH (17:00)
[2018-03-12] MEDS: ZESTRIL PO SCH (19:17)
[2018-03-12] MEDS: NORVASC PO SCH (19:17)
[2018-03-12] MEDS: NORMODYNE PO SCH (19:18)
[2018-03-12] MEDS: MAXIPIME/NS 1 GM/100 ML 1 GM/100 ML BAG IV SCH (19:52)
[2018-03-12] MEDS: SODIUM CHLORIDE FLUSH SYRINGE 10 ML IV SCH ×2 (19:59→23:02)
[2018-03-13] MEDS: TAMIFLU PO SCH (02:01)
[2018-03-13] MEDS: NORMODYNE PO SCH ×3 (02:06→21:16)
[2018-03-13] MEDS ORDERED: LEVAQUIN 500MG/100ML 500 MG/100 ML BAG IV SCH (09:00)
--- NOTE | 2018-03-13 09:27 | Progress Note ---
Assessment and Plan 1. ESRD: Patient was restarted on hemodialysis 2 days ago after stopped for about 6 months. Patient tolerated HD well and was able to use the AVF. Hemodialysis today. 2. Hypertensive urgency: BP is better. Monitor. 3. Fever: Likely related to tunnel catheter, s/p removed. On Vancomycin, monitor cultures. Also being treated for Flu. Followed by ID. 4. FEN: Volume status is better. 5. Medical non-compliance. Need outpatient HD chair. Subjective Date of service: 03/13/18 Interval history: Patient had fever last night. Objective - Vital Signs Vital signs: Vital Signs - 12hr 03/12/18 03/12/18 03/13/18 22:00 23:00 02:06 Temperature 100.8 F H Pulse Rate 88 Pulse Rate [ 88 Left Brachial] Respiratory 16 16 Rate Blood Pressure 116/66 Blood Pressure 143/74 [Left] O2 Sat by Pulse Oximetry 03/13/18 05:25 Temperature 98.7 F Pulse Rate 74 Pulse Rate [ Left Brachial] Respiratory 18 Rate Blood Pressure Blood Pressure 118/68 [Left] O2 Sat by Pulse 88 Oximetry - General Appearance General appearance: well-developed, well-nourished, appears stated age, other (not in distress) EENT: ATNC, PERRL, hearing intact, vision intact Neck: supple Respiratory: Present: Clear to Ascultation Cardiology: regular, S1S2, no murmurs Gastrointestinal: normoactive bowel sounds, no tenderness, no distended Integumentary: no rash, warm and dry Neurologic: no focal deficit, no asterixis, alert and oriented x3 Musculoskeletal: other (no edema) - Lab 03/09/18 06:48 03/09/18 06:48 Most recent lab results Calcium 7.2 mg/dL (8.4-10.2) L 03/09/18 06:48 Medications & Allergies - Medications Allergies/Adverse Reactions: Allergies No Known Allergies Allergy (Verified 09/06/17 03:19) Home Medications: Home Medications Medication Instructions Recorded Confirmed Last Taken Type amLODIPine [Norvasc] 10 mg PO QDAY #30 tablet 08/03/16 06/06/17 02/08/17 04:45 Rx Lisinopril [Zestril] 40 mg PO QDAY 12/01/17 03/29/18 12/01/17 04:45 History Labetalol HCl 300 mg PO BID 30 Days #30 tablet 06/07/17 Unknown Rx cephALEXin [Keflex] 500 mg PO Q8HR #21 cap 09/06/17 Unknown Rx Active Medications: Generic Name Dose Route Start Last Admin Trade Name Freq PRN Reason Stop Dose Admin Acetaminophen 650 mg 03/09/18 12:26 03/11/18 21:16 Tylenol PO 650 mg Q4H PRN Administration Pain MILD(1-3)/Fever >100.5/LOPEZ Amlodipine Besylate 10 mg 03/09/18 12:00 03/12/18 19:17 Norvasc PO Not Given DAILY JOSE Hydralazine HCl 20 mg 03/09/18 13:09 03/11/18 10:20 Apresoline IV 20 mg Q4HR PRN Administration Hypertension SYS>160 Sodium Chloride 100 mls @ 999 mls/hr 03/12/18 10:30 Nacl 0.9% IV DIANA PRN Hypotension Cefepime HCl 1 gm in 100 mls @ 200 mls/hr 03/12/18 18:00 03/12/18 19:52 Maxipime/Ns 1 Gm/100 Ml IV 200 mls/hr QPM JOSE Administration Protocol Labetalol HCl 300 mg 03/12/18 10:30 03/13/18 02:06 Normodyne PO Not Given BID JOSE Lisinopril 40 mg 03/09/18 12:00 03/12/18 19:17 Zestril PO Not Given DAILY JOSE Ondansetron HCl 4 mg 03/09/18 12:26 Zofran IV Q8H PRN Nausea And Vomiting Oseltamivir Phosphate 30 mg 03/12/18 20:00 03/13/18 02:01 Tamiflu PO 03/16/18 10:01 Not Given DAILY JOSE Sodium Chloride 10 ml 03/09/18 22:00 03/12/18 23:02 Sodium Chloride Flush Syringe 10 Ml IV 10 ml BID JOSE Administration Sodium Chloride 10 ml 03/09/18 12:26 Sodium Chloride Flush Syringe 10 Ml IV PRN PRN LINE FLUSH
--- NOTE | 2018-03-13 09:39 | Progress Note ---
Assessment and Plan Imagin03/09/2018 Chest:Cardiomegaly. No evidence of pulmonary edema. left lateral 11th rib fracture may be acute or subacute. Cultures: 03/11/2018 Blood: no growth thus far 03/11/2018 Vas Cath Tip: Citrobacter Koseri, resistant to ampicillin 03/13/2018 Blood: pending A/P: 37-year old male with a history of HTN, Asthma, medication noncompliance, Nicotine dependence, ESRD on HD with last dialysis 6 months ago, admitted with: 1. Fevers - Etiology unclear, likely related to infected HD catheter, +/- Influenza. No leukocytosis, UTI or Pnuemonia. Blood cultures drawn and are pending. VasCath removed on 03/11/18, Cultures in progress. Complains of cough, runny nose and generalized body aches on admission. Will order influenza screen. Currently being treated with Levofloxacin. TTE shows no evidence of vascular vegetation. 2. End stage Renal Disease- noncompliant with HD appointments. Possible infected vascath. Culture grew Citrobacter Kosri. Antibiotics renally dosed. Nephrology following. 3. Nicotine dependence- counseled on tobacco cessation Plan: f/u Blood cultures f/u Vas cath culture f/u influenza screen continue Cefepime 1 gm q PM while inpatient discontinue vancomycin continue tamiflu 30 mg daily empirically until influenza screen results Can be discharged on Ciprofloxacin 500 mg daily for 7 days [facility] M: [phone] O:[phone] Subjective Date of service: 03/13/18 Interval history: Patient seen and examined. Denied generalized pain, SOB or rashes. Stated th at he as feeling better overall. Nurses notes, labs and reports reviewed, discussed with patient. Objective - Exam Narrative Exam: Constitutional: Alert, cooperative. No acute distress Head, Ears, Nose: Normocephalic, atraumatic. External ears, nose normal Eyes: Conjunctivae/corneas clear. No icterus. No ptosis. Neck: Supple, no meningeal signs Oral: dentition poor. no thrush Cardiovascular: S1, S2 normal. Respiratory: Good air entry, clear to auscultation, +stuffiness GI: Soft, non-tender; bowel sounds normal. No peritoneal signs Musculoskeletal: No pedal edema, no cyanosis. Skin: No rash or abscess. Hem/Lymphatic: No palpable cervical or supraclavicular nodes. No lymphangitis Psych: Mood ok. Affect normal Neurological: Awake, alert, oriented. Lines: - Constitutional Vitals: Vital Signs Temp Pulse Resp BP Pulse Ox 98.7 F 74 18 118/68 88 03/13/18 05:25 03/13/18 05:25 03/13/18 05:25 03/13/18 05:25 03/13/18 05:25 Temperature -Last 24 Hours Temperature 98.7 F Temperature 100.8 F Temperature 99.4 F Temperature 99.4 F Temperature 99.4 F - Labs CBC & Chem 7: 03/09/18 06:48 03/09/18 06:48
[2018-03-13] MEDS ORDERED: NACL 0.9% 100 ML IV PRN (10:30)
[2018-03-13] MEDS ORDERED: VANCOMYCIN/NS 1 GM/250 ML 1 GM/250 ML BAG IV ONE (14:00)
[2018-03-13] MEDS: ZESTRIL PO SCH (16:37)
[2018-03-13] MEDS: NORVASC PO SCH (16:37)
[2018-03-13] MEDS: SODIUM CHLORIDE FLUSH SYRINGE 10 ML IV SCH ×2 (16:38→21:19)
--- NOTE | 2018-03-13 16:47 | Progress Note ---
Assessment and Plan Assessment and plan: Sepsis likely from infected permcath citrobacter Koseri Empiric abx. Blood cx x 2 ID physician following Dialysis catheter removed, catheter tip cultured Infected dialysis catheter, removed ESRD. Patient reportedly stopped dialysis 6 months ago. Hemodialysis per nephrology. Accelerated hypertension. Home antihypertensive medications have been resumed. Continue to monitor closely. Medical noncompliance. Patient has been counseled extensively. History Interval history: fever yesterday Hospitalist Physical - Physical exam Narrative exam: GEN: Not in acute distress, obese HEENT: Normocephalic, atraumatic, Neck: supple, No JVD Lungs: Clear to auscultation, no wheeze Heart:S1 and S2 regular, no murmurs, rubs or gallop, Abd:soft, non tender, non distended, normal bowel sounds Ext: No edema, no clubbing or cyanosis Neuro: AAO x 3, No focal signs - Constitutional Vitals: Temp Pulse Resp BP Pulse Ox 98.9 F 73 16 144/89 88 03/13/18 16:18 03/13/18 16:18 03/13/18 16:18 03/13/18 16:18 03/13/18 05:25 General appearance: Present: no acute distress Results - Labs CBC & Chem 7: 03/09/18 06:48 03/09/18 06:48 Labs: Laboratory Last Values WBC 7.7 K/mm3 (4.5-11.0) 03/09/18 06:48 RBC 3.91 M/mm3 (3.65-5.03) 03/09/18 06:48 Hgb 12.0 gm/dl (11.8-15.2) 03/09/18 06:48 Hct 35.2 % (35.5-45.6) L 03/09/18 06:48 MCV 90 fl (84-94) 03/09/18 06:48 MCH 31 pg (28-32) 03/09/18 06:48 MCHC 34 % (32-34) 03/09/18 06:48 RDW 14.0 % (13.2-15.2) 03/09/18 06:48 Plt Count 222 K/mm3 (140-440) 03/09/18 06:48 Lymph % (Auto) 5.7 % (13.4-35.0) L 03/09/18 06:48 [place] % (Auto) 6.1 % (0.0-7.3) 03/09/18 06:48 Eos % (Auto) 1.3 % (0.0-4.3) 03/09/18 06:48 Baso % (Auto) 0.9 % (0.0-1.8) 03/09/18 06:48 Lymph # 0.4 K/mm3 (1.2-5.4) L 03/09/18 06:48 [place] # 0.5 K/mm3 (0.0-0.8) 03/09/18 06:48 Eos # 0.1 K/mm3 (0.0-0.4) 03/09/18 06:48 Baso # 0.1 K/mm3 (0.0-0.1) 03/09/18 06:48 Seg Neutrophils % 86.0 % (40.0-70.0) H 03/09/18 06:48 Seg Neutrophils # 6.6 K/mm3 (1.8-7.7) 03/09/18 06:48 PT 13.2 Sec. (12.2-14.9) 03/09/18 06:48 INR 0.96 (0.87-1.13) 03/09/18 06:48 APTT 24.5 Sec. (24.2-36.6) 03/09/18 06:48 Sodium 139 mmol/L (137-145) 03/09/18 06:48 Potassium 3.9 mmol/L (3.6-5.0) 03/09/18 06:48 Chloride 101.7 mmol/L (98-107) 03/09/18 06:48 Carbon Dioxide 18 mmol/L (22-30) L 03/09/18 06:48 Anion Gap 23 mmol/L 03/09/18 06:48 BUN 87 mg/dL (9-20) H 03/09/18 06:48 Creatinine 10.3 mg/dL (0.8-1.5) H 03/09/18 06:48 Estimated GFR 7 ml/min 03/09/18 06:48 BUN/Creatinine Ratio 8 % 03/09/18 06:48 Glucose 102 mg/dL (75-100) H 03/09/18 06:48 Calcium 7.2 mg/dL (8.4-10.2) L 03/09/18 06:48 Total Bilirubin 0.50 mg/dL (0.1-1.2) 03/09/18 06:48 AST 50 units/L (5-40) H 03/09/18 06:48 ALT 45 units/L (7-56) 03/09/18 06:48 Alkaline Phosphatase 150 units/L (35-129) H 03/09/18 06:48 Total Protein 6.7 g/dL (6.3-8.2) 03/09/18 06:48 Albumin 3.9 g/dL (3.9-5) 03/09/18 06:48 Albumin/Globulin Ratio 1.4 % 03/09/18 06:48 Lipase 60 units/L (13-60) 03/09/18 06:48 Random Vancomycin 11.2 ug/mL (0-40.0) 03/13/18 04:32 Hepatitis A IgM Ab Non-reactive (NonReactive) 03/10/18 15:55 Hep Bs Antigen Non-reactive (Negative) 03/10/18 15:55 Hep B Core IgM Ab Non-reactive (NonReactive) 03/10/18 15:55 Hepatitis C Antibody Non-reactive (NonReactive) 03/10/18 15:55 Blood Type A POSITIVE 03/09/18 06:48 Antibody Screen Negative 03/09/18 06:48 Nutrition/Malnutrition Assess - Dietary Evaluation Nutrition/Malnutrition Findings: Nutrition Notes Start: 03/10/18 16:44 Freq: Status: Active Protocol: Document 03/13/18 15:05 OH (Rec: 03/13/18 15:22 OH [id number]) Nutrition Notes Need for Assessment generated from: Education Initial or Follow up Brief Note Current Diagnoses CKD (stage V CKD) Other Pertinent Diagnosis Medical noncompliance Current Diet Renal Labs/Tests Reviewed Medications Reviewed Subjective/Other Information F/u: Pt. lying in bed. Pt. verbalized "I have the list at home as to what foods I should and shouldn't eat." Pt. states he knows not to consume whole milk. Educated pt that he shouldn't be consuming milk in general but almond/soy milk. Pt. responded , "Well that's not going to happen." Pt. had AVF access placed and CVC removed secondary to infection. Pt. states," I don't understand how I can feel worse on dialysis than off." Discussed w/pt that consistency is the pineda to cleansing toxins from the blood. Pt. would prefer chocolate vs vanilla nepro that has been being provided at meals. Pt. states he will be starting back on dialysis upon discharge. Enc pt to discuss dietary restrictions/ concerns w/RD at [facility] facility . #1 Nutrition Diagnoses Food and nutrition-related knowledge deficit Etiology inadequate understanding/poor compliance with dietary recommenations for CKD stage 5 dietary recommendations As Evidenced by Signs and Symptoms responses indicating poor understanding of na/fluid/K+/ p04 (ESRD) goals Is patient on ventilator? No Additional Notes PROTEIN: 1.2-1.4 G/KG (106-124 g/day) FLUID: 1 L/DAY or per MD Nutrition Intervention Change Diet Order: Continue renal Add Supplement/Snack (indicate name/kcal nepro daily (chocolate/butter /protein ) pecan) Provides kCal: 425 Provides Protein (gm) 19 Teaching Recipient Patient Learning Readiness Poor Teaching Methods Discussion Response to Teaching Reinforcement needed Education Handouts Provided None provided as pt states he has everything at home. Verbally instructed patient regarding request for renal vitamin rx to boost health. Barriers to Learning Cognitive/Verbal Motivation Age related Emotional Cultural Environmental Anticipated Discharge Needs: renal Follow-Up By: 03/17/18 Additional Comments f/u: po intake; tolerance to ONS
[2018-03-13] MEDS: MAXIPIME/NS 1 GM/100 ML 1 GM/100 ML BAG IV SCH (18:16)
[2018-03-13] MEDS ORDERED: LOVENOX SUB-Q SCH ×2 (23:05→23:15)
[2018-03-14 05:36] LABS: Hematocrit 34.1 % (35.5-45.6); Hemoglobin 11.6 gm/dl (11.8-15.2); Mean Corpuscular HGB Conc 34 % (32-34); Mean Corpuscular Volume 90 fl (84-94); Platelet Count 183 K/mm3 (140-440); Red Blood Count 3.81 M/mm3 (3.65-5.03); Red Cell Distribution Width 13.9 % (13.2-15.2)
[2018-03-14 06:01] LABS: Calcium 7.3 mg/dL (8.4-10.2)
[2018-03-14 06:43] VITALS: BP 137/74
--- NOTE | 2018-03-14 08:28 | Progress Note ---
Hospitalist Physical - Constitutional Vitals: Temp Pulse Resp BP Pulse Ox 97.9 F 68 20 137/74 100 03/14/18 06:23 03/14/18 06:23 03/14/18 06:23 03/14/18 06:23 03/14/18 06:23 General appearance: Present: no acute distress Results - Labs CBC & Chem 7: 03/14/18 Unknown 03/14/18 Unknown Labs: Laboratory Last Values WBC 3.6 K/mm3 (4.5-11.0) L 03/14/18 Unknown RBC 3.81 M/mm3 (3.65-5.03) 03/14/18 Unknown Hgb 11.6 gm/dl (11.8-15.2) L 03/14/18 Unknown Hct 34.1 % (35.5-45.6) L 03/14/18 Unknown MCV 90 fl (84-94) 03/14/18 Unknown MCH 31 pg (28-32) 03/14/18 Unknown MCHC 34 % (32-34) 03/14/18 Unknown RDW 13.9 % (13.2-15.2) 03/14/18 Unknown Plt Count 183 K/mm3 (140-440) 03/14/18 Unknown Lymph % (Auto) 5.7 % (13.4-35.0) L 03/09/18 06:48 [place] % (Auto) 6.1 % (0.0-7.3) 03/09/18 06:48 Eos % (Auto) 1.3 % (0.0-4.3) 03/09/18 06:48 Baso % (Auto) 0.9 % (0.0-1.8) 03/09/18 06:48 Lymph # 0.4 K/mm3 (1.2-5.4) L 03/09/18 06:48 [place] # 0.5 K/mm3 (0.0-0.8) 03/09/18 06:48 Eos # 0.1 K/mm3 (0.0-0.4) 03/09/18 06:48 Baso # 0.1 K/mm3 (0.0-0.1) 03/09/18 06:48 Seg Neutrophils % 86.0 % (40.0-70.0) H 03/09/18 06:48 Seg Neutrophils # 6.6 K/mm3 (1.8-7.7) 03/09/18 06:48 PT 13.2 Sec. (12.2-14.9) 03/09/18 06:48 INR 0.96 (0.87-1.13) 03/09/18 06:48 APTT 24.5 Sec. (24.2-36.6) 03/09/18 06:48 Sodium 136 mmol/L (137-145) L 03/14/18 Unknown Potassium 4.1 mmol/L (3.6-5.0) 03/14/18 Unknown Chloride 93.5 mmol/L (98-107) L 03/14/18 Unknown Carbon Dioxide 24 mmol/L (22-30) 03/14/18 Unknown Anion Gap 23 mmol/L 03/14/18 Unknown BUN 56 mg/dL (9-20) H 03/14/18 Unknown Creatinine 6.9 mg/dL (0.8-1.5) H 03/14/18 Unknown Estimated GFR 11 ml/min 03/14/18 Unknown BUN/Creatinine Ratio 8 % 03/14/18 Unknown Glucose 91 mg/dL (75-100) 03/14/18 Unknown Calcium 7.3 mg/dL (8.4-10.2) L 03/14/18 Unknown Total Bilirubin 0.50 mg/dL (0.1-1.2) 03/09/18 06:48 AST 50 units/L (5-40) H 03/09/18 06:48 ALT 45 units/L (7-56) 03/09/18 06:48 Alkaline Phosphatase 150 units/L (35-129) H 03/09/18 06:48 Total Protein 6.7 g/dL (6.3-8.2) 03/09/18 06:48 Albumin 3.9 g/dL (3.9-5) 03/09/18 06:48 Albumin/Globulin Ratio 1.4 % 03/09/18 06:48 Lipase 60 units/L (13-60) 03/09/18 06:48 Random Vancomycin 11.2 ug/mL (0-40.0) 03/13/18 04:32 Hepatitis A IgM Ab Non-reactive (NonReactive) 03/10/18 15:55 Hep Bs Antigen Non-reactive (Negative) 03/10/18 15:55 Hep B Core IgM Ab Non-reactive (NonReactive) 03/10/18 15:55 Hepatitis C Antibody Non-reactive (NonReactive) 03/10/18 15:55 Blood Type A POSITIVE 03/09/18 06:48 Antibody Screen Negative 03/09/18 06:48 Nutrition/Malnutrition Assess - Dietary Evaluation Nutrition/Malnutrition Findings: Nutrition Notes Start: 03/10/18 16:44 Freq: Status: Active Protocol: Document 03/13/18 15:05 OH (Rec: 03/13/18 15:22 OH [id number]) Nutrition Notes Need for Assessment generated from: Education Initial or Follow up Brief Note Current Diagnoses CKD (stage V CKD) Other Pertinent Diagnosis Medical noncompliance Current Diet Renal Labs/Tests Reviewed Medications Reviewed Subjective/Other Information F/u: Pt. lying in bed. Pt. verbalized "I have the list at home as to what foods I should and shouldn't eat." Pt. states he knows not to consume whole milk. Educated pt that he shouldn't be consuming milk in general but almond/soy milk. Pt. responded , "Well that's not going to happen." Pt. had AVF access placed and CVC removed secondary to infection. Pt. states," I don't understand how I can feel worse on dialysis than off." Discussed w/pt that consistency is the pineda to cleansing toxins from the blood. Pt. would prefer chocolate vs vanilla nepro that has been being provided at meals. Pt. states he will be starting back on dialysis upon discharge. Enc pt to discuss dietary restrictions/ [facility] . #1 Nutrition Diagnoses Food and nutrition-related knowledge deficit Etiology inadequate understanding/poor compliance with dietary recommenations for CKD stage 5 dietary recommendations As Evidenced by Signs and Symptoms responses indicating poor understanding of na/fluid/K+/ p04 (ESRD) goals Is patient on ventilator? No Additional Notes PROTEIN: 1.2-1.4 G/KG (106-124 g/day) FLUID: 1 L/DAY or per MD Nutrition Intervention Change Diet Order: Continue renal Add Supplement/Snack (indicate name/kcal nepro daily (chocolate/butter /protein ) peckj) Provides kCal: 425 Provides Protein (gm) 19 Teaching Recipient Patient Learning Readiness Poor Teaching Methods Discussion Response to Teaching Reinforcement needed Education Handouts Provided None provided as pt states he has everything at home. Verbally instructed patient regarding request for renal vitamin rx to boost health. Barriers to Learning Cognitive/Verbal Motivation Age related Emotional Cultural Environmental Anticipated Discharge Needs: renal Follow-Up By: 03/17/18 Additional Comments f/u: po intake; tolerance to ONS
--- NOTE | 2018-03-14 09:05 | Event Note ---
Date: 03/14/18 LATE NOTE: Patient was successfully having dialysis performed through the indwelling AVF. Given successful use of AV access, no further vascular procedures planned at this time. If the patient's condition changes, please contact vascular for reevaluation of the AV access.
--- NOTE | 2018-03-14 09:20 | Progress Note ---
Assessment and Plan 1. ESRD: Patient was restarted on hemodialysis 3 days ago after stopped for about 6 months. Patient tolerated HD well and was able to use the AVF. Last dialyzed yesterday. 2. Hypertensive urgency: BP is better. Monitor. 3. Fever: Likely related to tunnel catheter, s/p removed. On Vancomycin, monitor cultures. Also being treated for Flu. Followed by ID. 4. FEN: Volume status is better. 5. Medical non-compliance: Compliance encouraged. Outpatient HD chair at [facility]. Subjective Date of service: 03/14/18 Interval history: Patient is doing better. Objective - Vital Signs Vital signs: Vital Signs - 12hr 03/14/18 06:23 Temperature 97.9 F Pulse Rate 68 Respiratory 20 Rate Blood Pressure 137/74 O2 Sat by Pulse 100 Oximetry - General Appearance General appearance: well-developed, well-nourished, appears stated age, other (not in distress) EENT: ATNC, PERRL, mucous membranes moist, hearing intact, vision intact Neck: supple Respiratory: Present: Clear to Ascultation Cardiology: regular, S1S2, no murmurs Gastrointestinal: normoactive bowel sounds, no tenderness, no distended Integumentary: no rash Neurologic: no focal deficit, no asterixis, alert and oriented x3 Musculoskeletal: other (left FA AVF, no edema) Psychiatric: cooperative - Lab 03/14/18 Unknown 03/14/18 Unknown Most recent lab results Calcium 7.3 mg/dL (8.4-10.2) L 03/14/18 Unknown Medications & Allergies - Medications Allergies/Adverse Reactions: Allergies No Known Allergies Allergy (Verified 09/06/17 03:19) Home Medications: Home Medications Medication Instructions Recorded Confirmed Last Taken Type Labetalol HCl 300 mg PO BID 30 Days #30 tablet 06/07/17 Unknown Rx Ciprofloxacin HCl [Ciprofloxacin 500 mg PO DAILY #7 tab 03/14/18 Unknown Rx TAB] Lisinopril [Zestril] 40 mg PO QDAY #30 tablet 03/14/18 Unknown Rx Oseltamivir Phosphate [Tamiflu] 30 mg PO QDAY 3 Days capsule 03/14/18 Unknown Rx amLODIPine [Norvasc] 10 mg PO QDAY #30 tablet 03/14/18 Unknown Rx Active Medications: Generic Name Dose Route Start Last Admin Trade Name Freq PRN Reason Stop Dose Admin Acetaminophen 650 mg 03/09/18 12:26 03/11/18 21:16 Tylenol PO 650 mg Q4H PRN Administration Pain MILD(1-3)/Fever >100.5/LOPEZ Amlodipine Besylate 10 mg 03/09/18 12:00 03/13/18 16:37 Norvasc PO 10 mg DAILY JOSE Administration Enoxaparin Sodium 30 mg 03/13/18 23:15 Lovenox SUB-Q DAILY@2200 [facility] Hydralazine HCl 20 mg 03/09/18 13:09 03/11/18 10:20 Apresoline IV 20 mg Q4HR PRN Administration Hypertension SYS>160 Cefepime HCl 1 gm in 100 mls @ 200 mls/hr 03/12/18 18:00 03/13/18 18:16 Maxipime/Ns 1 Gm/100 Ml IV 200 mls/hr QPM JOSE Administration Protocol Sodium Chloride 100 mls @ 999 mls/hr 03/13/18 10:30 Nacl 0.9% IV DIANA PRN Hypotension Labetalol HCl 300 mg 03/12/18 10:30 03/13/18 21:16 Normodyne PO 300 mg BID JOSE Administration Lisinopril 40 mg 03/09/18 12:00 03/13/18 16:37 Zestril PO 40 mg DAILY JOSE Administration Ondansetron HCl 4 mg 03/09/18 12:26 Zofran IV Q8H PRN Nausea And Vomiting Oseltamivir Phosphate 30 mg 03/12/18 20:00 03/13/18 02:01 Tamiflu PO 03/16/18 10:01 Not Given DAILY JOSE Sodium Chloride 10 ml 03/09/18 22:00 03/13/18 21:19 Sodium Chloride Flush Syringe 10 Ml IV 10 ml BID JOSE Administration Sodium Chloride 10 ml 03/09/18 12:26 Sodium Chloride Flush Syringe 10 Ml IV PRN PRN LINE FLUSH
--- NOTE | 2018-03-14 09:33 | Progress Note ---
Assessment and Plan Imagin03/09/2018 Chest:Cardiomegaly. No evidence of pulmonary edema. left lateral 11th rib fracture may be acute or subacute. Cultures: 03/11/2018 Blood: no growth thus far 03/11/2018 Vas Cath Tip: Citrobacter Koseri, resistant to ampicillin 03/13/2018 Blood: no growth thus far A/P: 37-year old male with a history of HTN, Asthma, medication noncompliance, Agustin teresita dependence, ESRD on HD with last dialysis 6 months ago, admitted with: 1. Fevers - Resolved. Etiology unclear, likely related to infected HD catheter, +/- Influenza. No leukocytosis, UTI or Pnuemonia. Blood cultures drawn and are pending. VasCath removed on 03/11/18, Cultures in progress. Complains of cough, runny nose and generalized body aches on admission. Will order influenza screen. Currently being treated with Levofloxacin. TTE shows no evidence of vascular vegetation. 2. End stage Renal Disease- noncompliant with HD appointments. Possible infected vascath. Culture grew Citrobacter Kosri. Antibiotics renally dosed. Nephrology following. 3. Nicotine dependence- counseled on tobacco cessation Plan: f/u Blood cultures continue Cefepime 1 gm q PM while inpatient Can be discharged on Ciprofloxacin 500 mg daily for 7 days [facility] [employer] [facility] M: [phone] O:[phone] Subjective Date of service: 03/14/18 Interval history: Patient seen and examined. Denied generalized pain, SOB or rashes. Stated that he as feeling better overall. Nurses notes, labs and reports reviewed, discussed with patient. Objective - Exam Narrative Exam: Constitutional: Alert, cooperative. No acute distress Head, Ears, Nose: Normocephalic, atraumatic. External ears, nose normal Eyes: Conjunctivae/corneas clear. No icterus. No ptosis. Neck: Supple, no meningeal signs Oral: dentition poor. no thrush Cardiovascular: S1, S2 normal. Respiratory: Good air entry, clear to auscultation, +stuffiness GI: Soft, non-tender; bowel sounds normal. No peritoneal signs Musculoskeletal: No pedal edema, no cyanosis. Skin: No rash or abscess. Hem/Lymphatic: No palpable cervical or supraclavicular nodes. No lymphangitis Psych: Mood ok. Affect normal Neurological: Awake, alert, oriented. Lines: - Constitutional Vitals: Vital Signs Temp Pulse Resp BP Pulse Ox 97.9 F 68 20 137/74 100 03/14/18 06:23 03/14/18 06:23 03/14/18 06:23 03/14/18 06:23 03/14/18 06:23 Temperature -Last 24 Hours Temperature 97.9 F Temperature 97.6 F Temperature 98.8 F Temperature 98.9 F Temperature 98.3 F Temperature 99.1 F - Labs CBC & Chem 7: 03/14/18 Unknown 03/14/18 Unknown Labs: Abnormal lab results 03/14/18 03/14/18 Range/Units Unknown Unknown WBC 3.6 L (4.5-11.0) K/mm3 Hgb 11.6 L (11.8-15.2) gm/dl Hct 34.1 L (35.5-45.6) % Sodium 136 L (137-145) mmol/L Chloride 93.5 L (98-107) mmol/L BUN 56 H (9-20) mg/dL Creatinine 6.9 H (0.8-1.5) mg/dL Calcium 7.3 L (8.4-10.2) mg/dL
[2018-03-14] MEDS: ZESTRIL PO SCH (09:59)
[2018-03-14] MEDS: NORMODYNE PO SCH (09:59)
[2018-03-14] MEDS: NORVASC PO SCH (10:00)
[2018-03-14] MEDS: TAMIFLU PO SCH (10:00)
[2018-03-14] MEDS ORDERED: LOVENOX SUB-Q SCH (10:00)
[2018-03-14] MEDS: SODIUM CHLORIDE FLUSH SYRINGE 10 ML IV SCH (10:01)
--- NOTE | 2018-03-14 10:38 | Discharge Summary ---
Providers - Providers Date of Admission: 03/09/18 12:26 Date of discharge: 03/14/18 Attending physician: JERED MURCIA 03/12/18 07:58 Consult to Physician [CONS] Routine Comment: Consulting Provider: GENESIS CRUZ Physician Instructions: Reason For Exam: Fever,poss infected permcath Primary care physician: TYREE LIRIANO MD Hospitalization Condition: Fair Hospital course: Patient is 37 yo with hypertension, Asthma, ESRD on HD with last dialysis 6 months ago presents to ED for evaluation. He presented with nausea, vomiting and pain around his permacath site over the past 2 days. He was evaluated in emergency Department. Blood cultures drawn and he was started on IV antibiotics and admitted. Nephrology was consulted. Infection disease specialist was consulted. The infected catheter was removed by vasc surgery and tip culture grew Citrobacter Koseri bacteria . He was subsequently discharged home on Ciprofloxacin on 03/14/2018 to follow as an outpatient. Time spent in discharge, 33 mins Disposition: DC-01 TO HOME OR SELFCARE - Discharge Diagnoses (1) Sepsis Status: Acute (2) Complication of vascular dialysis catheter Status: Acute (3) Dialysis AV fistula malfunction Status: Acute (4) ESRD (end stage renal disease) Status: Chronic Core Measure Documentation - Palliative Care Palliative Care/ Comfort Measures: Not Applicable - Core Measures Any of the following diagnoses?: none Exam - Constitutional Vitals: Temp Pulse Resp BP Pulse Ox 97.9 F 68 20 137/74 100 03/14/18 06:23 03/14/18 09:59 03/14/18 06:23 03/14/18 09:59 03/14/18 06:23 Plan Activity: no restrictions Diet: low fat, low cholesterol, low salt, renal Additional Instructions: 1.Follow up with PCP or [facility] in 1 week. 2.Continue routine Hemodialysis as scheduled. 3.Follow up with Dr. Mares at Dialysis Unit in 1 week Follow up with: PRIMARY CAREMD [Primary Care Provider] - 3-5 Days Forms: Accompanied Note Prescriptions: amLODIPine [Norvasc] 10 mg PO QDAY #30 tablet Ciprofloxacin HCl [Ciprofloxacin TAB] 500 mg PO DAILY #7 tab Lisinopril [Zestril] 40 mg PO QDAY #30 tablet Oseltamivir Phosphate [Tamiflu] 30 mg PO QDAY 3 Days capsule
== END 2018-03-14 15:30 | disposition home or self-care (01) | DRG 314 ==
LOC: ED 05:31 → 3A 12:26
PROVIDERS: ADMIT Internal Medicine; ATTEND Internal Medicine
PROC: 5A1D70Z Performance of Urinary Filtration, Intermittent, Less than 6 Hours Per Day (ICD-10-PCS; 2018-03-10)
PROC: 02PAX3Z Removal of Infusion Device from Heart, External Approach (ICD-10-PCS; principal; 2018-03-11)
PROC: 5A1D70Z Performance of Urinary Filtration, Intermittent, Less than 6 Hours Per Day (ICD-10-PCS; 2018-03-12)
PROC: 5A1D70Z Performance of Urinary Filtration, Intermittent, Less than 6 Hours Per Day (ICD-10-PCS; 2018-03-13)
DX: T82.7XXA Infection and inflammatory reaction due to other cardiac and vascular devices, implants and grafts, initial encounter (principal); A41.9 Sepsis, unspecified organism; N18.6 End stage renal disease; I12.0 Hypertensive chronic kidney disease with stage 5 chronic kidney disease or end stage renal disease; I16.0 Hypertensive urgency; J45.909 Unspecified asthma, uncomplicated; F17.200 Nicotine dependence, unspecified, uncomplicated; Y84.1 Kidney dialysis as the cause of abnormal reaction of the patient, or of later complication, without mention of misadventure at the time of the procedure; M19.90 Unspecified osteoarthritis, unspecified site; Z91.15 Patient's noncompliance with renal dialysis; Z71.6 Tobacco abuse counseling; Z91.14 Patient's other noncompliance with medication regimen; Y92.89 Other specified places as the place of occurrence of the external cause; Z71.89 Other specified counseling; Z82.49 Family history of ischemic heart disease and other diseases of the circulatory system; Z79.899 Other long term (current) drug therapy
CPT/HCPCS: 36415; 71045; 80048; 80053; 80074; 80202; 83690; 85025; 85027; 85610; 85730; 86850; 86900; 86901; 87040; 87076; 87116; 87186; 93005; 93010; 93306; 96374; 99285; G0378; J0360; J0692; J1940; J1956; J3370; J7050

== ENCOUNTER 2020-09-01 11:05 | Observation (INO) | payer MEDICARE ==
--- NOTE | 2020-09-01 11:42 | Event Note ---
ED Screening Note ED Screening Note: Pt reports missing his last 6 HD appnts. Requesting emergent HD This initial assessment/diagnostic orders/clinical plan/treatment(s) is/are subject to change based on patients health status, clinical progression and re- assessment by fellow clinical providers in the ED. Further treatment and workup at subsequent clinical providers discretion. Patient/guardian urged not to elope from the ED as their condition may be serious if not clinically assessed and managed. Initial orders include: labs ekg
--- NOTE | 2020-09-01 12:24 | Emergency Department Report ---
HPI - General Chief Complaint: Medical Clearance Time Seen by Provider: 09/01/20 12:15 - HPI HPI: This is a 40-year-old -[place] male presents to the emergency department with the complaint of missing his past 6 dialysis sessions. Patient says that he was down in [facility] for about 2 weeks in celebration of his birthday and did not get set up for dialysis there. The patient attempted to get dialysis yesterday but was told that he has missed too many sessions to get dialysis and that he needs to go to the emergency department. He denies any fever, chest pain, shortness of breath, lower extremity swelling, but just complains of some mild abdominal cramping. His bench jeweler is Dr. Mares. ED Past Medical Hx - Past Medical History Previous Medical History?: Yes Hx Hypertension: Yes Hx Heart Attack/AMI: No Hx Congestive Heart Failure: No Hx Diabetes: No Hx Liver Disease: No Hx Renal Disease: Yes (Hemodialysis M,W,F) Hx Sickle Cell Disease: No Hx Arthritis: Yes (knees) Hx Seizures: No Hx Asthma: Yes Hx COPD: No Hx HIV: No - Surgical History Past Surgical History?: Yes Additional Surgical History: Vas Cath and Fistula to L arm. - Social History Smoking Status: Former Smoker - Medications Home Medications: Home Medications Medication Instructions Recorded Confirmed Last Taken Type Aspirin EC [Halfprin EC] 81 mg PO QDAY #30 tablet. 07/27/19 Unknown Rx Calcium Acetate [Phoslo] 1,334 mg PO TIDWM #90 capsule 07/27/19 Unknown Rx Acetaminophen [Acetaminophen TAB] 650 mg PO Q4H PRN tablet 02/11/20 Unknown Rx Epoetin Ryan 20,000 Unit [Procrit] 20,000 unit SUB-Q DIANA PRN vial 02/11/20 Unknown Rx amLODIPine 10 mg PO QDAY #30 tablet 02/11/20 Unknown Rx hydrALAZINE [Apresoline TAB] 100 mg PO Q8HR #90 tab 02/11/20 Unknown Rx labetaloL [Labetalol 100mg TAB] 300 mg PO BID 60 Days #60 tablet 02/11/20 Unknown Rx ED Review of Systems ROS: Stated complaint: lab workup Other details as noted in HPI Comment: All other systems reviewed and negative Constitutional: denies: chills, fever Eyes: denies: eye pain, vision change ENT: denies: ear pain, throat pain Respiratory: denies: cough, shortness of breath Cardiovascular: denies: chest pain, palpitations Gastrointestinal: abdominal pain. denies: nausea, vomiting Genitourinary: denies: dysuria, discharge Musculoskeletal: denies: back pain, arthralgia Skin: denies: rash, lesions Neurological: denies: headache, weakness Physical Exam - Physical Exam Vital Signs: Vital Signs 09/01/20 11:14 Temperature 97.9 F Pulse Rate 73 Respiratory 20 Rate Blood Pressure 193/99 O2 Sat by Pulse 100 Oximetry Physical Exam: GENERAL: The patient is well-developed well-nourished. HENT: Normocephalic. Atraumatic. Patient has moist mucous membranes. EYES: Extraocular motions are intact. NECK: Supple. Trachea is midline. CHEST/LUNGS: Clear to auscultation. There is no respiratory distress noted. HEART/CARDIOVASCULAR: Regular. There is no tachycardia. There is no murmur. ABDOMEN: Abdomen is soft, nontender. Patient has normal bowel sounds. There is no abdominal distention. SKIN: Skin is warm and dry. NEURO: The patient is awake, alert, and oriented. The patient is cooperative. The patient has no focal neurologic deficits. Normal speech. MUSCULOSKELETAL: There is no tenderness or deformity. There is no limitation range of motion. Left upper extremity dialysis fistula appears patent. ED Course Vital Signs 09/01/20 11:14 Temperature 97.9 F Pulse Rate 73 Respiratory 20 Rate Blood Pressure 193/99 O2 Sat by Pulse 100 Oximetry ED Medical Decision Making - Lab Data Result diagrams: 09/01/20 11:50 09/01/20 11:50 Lab Results 09/01/20 09/01/20 Range/Units 11:50 11:50 WBC 5.1 (4.5-11.0) K/mm3 RBC 3.13 L (3.65-5.03) M/mm3 Hgb 10.4 L (11.8-15.2) gm/dl Hct 30.8 L (35.5-45.6) % MCV 98 H (84-94) fl MCH 33 H (28-32) pg MCHC 34 (32-34) % RDW 14.6 (13.2-15.2) % Plt Count 278 (140-440) K/mm3 Sodium 138 (137-145) mmol/L Potassium 5.2 H (3.6-5.0) mmol/L Chloride 96.7 L (98-107) mmol/L Carbon Dioxide 17 L (22-30) mmol/L Anion Gap 30 mmol/L BUN 129 H (9-20) mg/dL Creatinine 36.6 H (0.8-1.3) mg/dL Estimated GFR 2 ml/min BUN/Creatinine Ratio 4 % Glucose 97 (75-100) mg/dL Calcium 8.7 (8.4-10.2) mg/dL Phosphorus 10.60 H (2.5-4.5) mg/dL NT-Pro-B Natriuret Pep 10822 H (0-450) pg/mL - Medical Decision Making This patient presents to the emergency department after missing his last 6 dialysis sessions. His only physical complaint is some mild abdominal cramping. He does not appear in any respiratory or acute distress. He appears to have a patent left upper extremity dialysis fistula. He presents with some hypertension but otherwise vital signs are reassuring. Labs shows mild hyperkalemia with a potassium of 5.2. There is significant renal insufficiency and possibly some uremia with a BUN of 130 and creatinine of 36. Nephrology was contacted and consulted and the patient will receive dialysis today. The patient has been accepted for admission by the hospitalist, Dr. Montes. Critical Care Time: No Critical care attestation.: If time is entered above; I have spent that time in minutes in the direct care of this critically ill patient, excluding procedure time. ED Disposition Clinical Impression: End-stage renal disease needing dialysis, Missed dialysis, Hypertensive urgency Disposition: OP ADMIT IP TO THIS HOSP Is pt being admited?: Yes Condition: Serious Time of Disposition: 16:23
[2020-09-01 12:57] LABS: Hematocrit 30.8 % (35.5-45.6); Hemoglobin 10.4 gm/dl (11.8-15.2); Mean Corpuscular HGB Conc 34 % (32-34); Mean Corpuscular Volume 98 fl (84-94); Platelet Count 278 K/mm3 (140-440); Red Blood Count 3.13 M/mm3 (3.65-5.03); Red Cell Distribution Width 14.6 % (13.2-15.2)
[2020-09-01 13:28] LABS: Calcium 8.7 mg/dL (8.4-10.2)
--- NOTE | 2020-09-01 14:18 | History and Physical Report ---
History of Present Illness Chief complaint: I need dialysis History of present illness: 40 YO male with HTN, Asthma, Medication Noncompliance, Nicotine Dependence, ESRD on HD(M,W,F) with last dialysis 2 weeks ago presents to ED for evaluation. Pt states that he has been noncompliant with outpatient dialysis over the past 2 weeks as a result of traveling to [place]. Patient was unable to receive dialysis while in [place]. Patient states that he presented to his routine dialysis center today for dialysis and was unable to receive dialysis and was instructed to seek further care at [facility]. Patient transported to [facility] via private vehicle for further care and evaluation of the aforementioned symptoms. The patient was seen and evaluated in the emergency department. All lab and imaging studies reviewed. Patient found to have end-stage renal disease in need of urgent dialysis. Nephrology team consulted. Pt denies fever, chills, palpitations, productive cough, skin rash, recent ill contacts, . Pt admitted to medical floor. Nephrology consulted in ED for urgent dialysis. Past History Past Medical History: ESRD, hypertension Past Surgical History: Other (Dialysis access) Social history: single, smoking Family history: hypertension Medications and Allergies Allergies Allergy/AdvReac Type Severity Reaction Status Date / Time No Known Allergies Allergy Verified 07/23/19 17:18 Home Medications Medication Instructions Recorded Confirmed Last Taken Type Aspirin EC [Halfprin EC] 81 mg PO QDAY #30 tablet. 07/27/19 Unknown Rx Calcium Acetate [Phoslo] 1,334 mg PO TIDWM #90 capsule 07/27/19 Unknown Rx Acetaminophen [Acetaminophen TAB] 650 mg PO Q4H PRN tablet 02/11/20 Unknown Rx Epoetin Ryan 20,000 Unit [Procrit] 20,000 unit SUB-Q DIANA PRN vial 02/11/20 Unknown Rx amLODIPine 10 mg PO QDAY #30 tablet 02/11/20 Unknown Rx hydrALAZINE [Apresoline TAB] 100 mg PO Q8HR #90 tab 02/11/20 Unknown Rx labetaloL [Labetalol 100mg TAB] 300 mg PO BID 60 Days #60 tablet 02/11/20 Unknown Rx Active Meds: Active Medications Heparin Sodium (Porcine) (Heparin 10,000 Units/10 Ml Vial) 3,000 unit IV DIANA PRN PRN Reason: hemodialysis Sodium Chloride (Nacl 0.9%) 100 mls @ 999 mls/hr IV DIANA PRN PRN Reason: Hypotension Review of Systems Constitutional: no weight loss, no weight gain, no fever, no chills Ears, nose, mouth and throat: no ear pain, no ear discharge, no tinnitis, no decreased hearing, no nasal congestion, no nasal discharge Cardiovascular: no chest pain, no orthopnea, no palpitations, no rapid/irregular heart beat, no syncope Respiratory: no cough, no cough with sputum, no excessive sputum, no hemoptysis, no dyspnea on exertion Gastrointestinal: no abdominal pain, no nausea, no vomiting, no diarrhea, no constipation, no change in bowel habits Genitourinary Male: no hematuria, no flank pain, no discharge, no urinary frequency, no urinary hesitancy Rectal: no pain, no incontinence, no bleeding Musculoskeletal: no neck stiffness, no neck pain, no shooting arm pain, no arm numbness/tingling, no low back pain Integumentary: no rash, no pruritis, no redness, no sores, no wounds Neurological: no transient paralysis, no paralysis, no weakness, no parathesias, no numbness, no tingling, no seizures Psychiatric: no anxiety, no memory loss, no change in sleep habits, no sleep disturbances, no insomnia, no hypersomnia, no change in appetite, no disori entation Endocrine: no cold intolerance, no heat intolerance, no polyphagia, no excessive thirst, no polydipsia, no polyuria, no nocturia, no excessive sweating Hematologic/Lymphatic: no easy bruising, no easy bleeding, no lymphadenopathy, no lymphedema Allergic/Immunologic: no urticaria, no allergic rhinitis, no wheezing, no persistent infections, no anaphylaxis Exam - Constitutional Vitals: Temp Pulse Resp BP Pulse Ox 97.9 F 67 18 186/111 100 09/01/20 11:14 09/01/20 13:00 09/01/20 13:06 09/01/20 13:00 09/01/20 13:06 General appearance: Present: no acute distress, well-nourished - EENT Eyes: Present: PERRL ENT: hearing intact, clear oral mucosa - Neck Neck: Present: supple, normal ROM - Respiratory Respiratory effort: normal Respiratory: bilateral: CTA - Cardiovascular Heart Sounds: Present: S1 & S2. Absent: rub, click - Extremities Extremities: pulses symmetrical, No edema Peripheral Pulses: within normal limits - Abdominal General gastrointestinal: Present: soft, non-tender, non-distended, normal bowel sounds Male genitourinary: Present: normal - Integumentary Integumentary: Present: clear, warm, dry - Musculoskeletal Musculoskeletal: gait normal, strength equal bilaterally - Psychiatric Psychiatric: appropriate mood/affect, intact judgment & insight - Neurologic Neurologic: CNII-XII intact, moves all extremities Results - Labs CBC & Chem 7: 09/01/20 11:50 09/01/20 11:50 Labs: Abnormal lab results 09/01/20 09/01/20 Range/Units 11:50 11:50 RBC 3.13 L (3.65-5.03) M/mm3 Hgb 10.4 L (11.8-15.2) gm/dl Hct 30.8 L (35.5-45.6) % MCV 98 H (84-94) fl MCH 33 H (28-32) pg Potassium 5.2 H (3.6-5.0) mmol/L Chloride 96.7 L (98-107) mmol/L Carbon Dioxide 17 L (22-30) mmol/L BUN 129 H (9-20) mg/dL Creatinine 36.6 H (0.8-1.3) mg/dL Phosphorus 10.60 H (2.5-4.5) mg/dL NT-Pro-B Natriuret Pep 11637 H (0-450) pg/mL Assessment and Plan - Patient Problems (1) End stage renal disease Current Visit: Yes Status: Acute Plan to address problem: Nephrology team consulted in ED, urgent dialysis as per renal team, monitor urine output every shift, avoid nephrotoxic agents (2) Acidosis Current Visit: Yes Status: Acute Plan to address problem: Urgent dialysis, supportive care. (3) Nicotine dependence Current Visit: Yes Status: Acute Qualifiers: Nicotine product type: cigarettes Substance use status: in withdrawal Qualified Code(s): F17.213 - Nicotine dependence, cigarettes, with withdrawal Plan to address problem: Smoking cessation counseling, behavior change counseling, +15 minutes. (4) DVT prophylaxis Current Visit: Yes Status: Acute Plan to address problem: SCD to bilateral lower extremities while in bed, patient is ambulatory
[2020-09-01] MEDS ORDERED: ACETAMINOPHEN 325 MG TAB PO PRN ×2 (14:25→15:00)
[2020-09-01] MEDS ORDERED: HEPARIN 10,000 UNITS/10 ML VIAL IV PRN (14:30)
[2020-09-01] MEDS ORDERED: SODIUM CHLORIDE 0.9% 100 ML IV PRN (14:30)
--- NOTE | 2020-09-01 14:30 | Electrocardiograph Report ---
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
--- NOTE | 2020-09-01 14:32 | Consultation ---
History of Present Illness - Reason for Consult Consult date: 09/01/20 end stage renal disease, hyperkalemia - History of Present Illness The patient is a 40 year old AAM well known to our service with pmh significant for Hypertension, Anemia, Nicotine dependence, Anemia and ESRD on hemodialysis (MWF) who presented to [facility] ED on 09/01 for hemodialysis need. He missed about 2 weeks of hemodialysis as he was out of town. He didn't setup dialysis prior to his departure. He denies any chest pain, sob, cough, leg swelling, weakness, N, V, D, abd pain, dizziness or confusion. Initial BP was around 200/100. Labs significant for Creatinine 36.6, BUN 129, K 5.2, bicarb 17 and Hb 10.4. Nephr ology was consulted for further evaluation and treatment. Past History Past Medical History: other (See HPI.) Medications and Allergies Allergies Allergy/AdvReac Type Severity Reaction Status Date / Time No Known Allergies Allergy Verified 07/23/19 17:18 Home Medications Medication Instructions Recorded Confirmed Last Taken Type Aspirin EC [Halfprin EC] 81 mg PO QDAY #30 tablet. 07/27/19 09/01/20 Unknown Rx Calcium Acetate [Phoslo] 1,334 mg PO TIDWM #90 capsule 07/27/19 09/01/20 Unknown Rx Acetaminophen [Acetaminophen TAB] 650 mg PO Q4H PRN tablet 02/11/20 09/01/20 Unknown Rx Epoetin Ryan 20,000 Unit [Procrit] 20,000 unit SUB-Q DIANA PRN vial 02/11/20 Unknown Rx amLODIPine 10 mg PO QDAY #30 tablet 02/11/20 09/01/20 Unknown Rx hydrALAZINE [Apresoline TAB] 100 mg PO Q8HR #90 tab 02/11/20 09/01/20 Unknown Rx labetaloL [Labetalol 100mg TAB] 300 mg PO BID 60 Days #60 tablet 02/11/20 09/01/20 Unknown Rx Active Meds: Active Medications Acetaminophen (Acetaminophen 325 Mg Tab) 650 mg PO Q4H PRN PRN Reason: Pain MILD(1-3)/Fever >100.5/LOPEZ Acetaminophen (Acetaminophen 325 Mg Tab) 650 mg PO Q4H PRN PRN Reason: Pain MILD(1-3)/Fever >100.5/LOPEZ Albuterol (Albuterol 2.5 Mg/3 Ml Nebu) 2.5 mg IH Q4HRT PRN PRN Reason: Shortness Of Breath Amlodipine Besylate (Amlodipine 10 Mg Tab) 10 mg PO QDAY [facility] Aspirin (Aspirin Ec 81 Mg Tab) 81 mg PO QDAY [facility] Calcium Acetate (Calcium Acetate 667 Mg Cap) 1,334 mg PO TIDWM [facility] Heparin Sodium (Porcine) (Heparin 10,000 Units/10 Ml Vial) 3,000 unit IV DIANA PRN PRN Reason: hemodialysis Hydralazine HCl (Hydralazine 100 Mg Tab) 100 mg PO Q8HR [facility] Sodium Chloride (Nacl 0.9%) 100 mls @ 999 mls/hr IV DIANA PRN PRN Reason: Hypotension Labetalol HCl (Labetalol 100 Mg Tab) 300 mg PO BID [facility] Ondansetron HCl (Ondansetron 4 Mg/2 Ml Inj) 4 mg IV Q8H PRN PRN Reason: Nausea And Vomiting Sodium Chloride (Sodium Chloride 0.9% 10 Ml Flush Syringe) 10 ml IV BID [facility] Sodium Chloride (Sodium Chloride 0.9% 10 Ml Flush Syringe) 10 ml IV PRN PRN PRN Reason: LINE FLUSH Review of Systems Constitutional: no weight loss, no weight gain, no fever, no chills, no anorexia, no fatigue, no weakness Cardiovascular: high blood pressure, no chest pain, no edema, no lightheadedness, no shortness of breath, no leg edema Respiratory: no cough, no shortness of breath, no dyspnea on exertion Gastrointestinal: no abdominal pain, no nausea, no vomiting, no diarrhea, no melena Genitourinary Male: no dysuria, no hematuria Neurological: no syncope, no change in speech, no change in mentation, no confusion Exam - Vital Signs Vital signs: Vital Signs Temp Pulse Resp BP Pulse Ox 97.9 F 73 20 193/99 100 09/01/20 11:14 09/01/20 11:14 09/01/20 11:14 09/01/20 11:14 09/01/20 11:14 Results - Lab Results 09/01/20 11:50 09/02/20 05:04 Most recent lab results Calcium 8.7 mg/dL (8.4-10.2) 09/01/20 11:50 Phosphorus 10.60 mg/dL (2.5-4.5) H 09/01/20 11:50 Assessment and Plan 1. End stage renal disease: On maintenance hemodialysis three times a week, MWF schedule. Last outpatient dialysis about 2 weeks [facility]. Presented with significant metabolic abnormalities. Hemodialysis: 09/01. 2. FEN: Hyperkalemia, HD today. Metabolic acidosis, HD today, monitor. Hyperphosphatemia, renal diet, monitor. Binders as prescribed. Monitor lytes and volume status. 3. Hypertension: Resume home meds. UF with HD. Monitor BP. 4. Anemia, POA: Epogen with HD as needed. Monitor Hb. 5. Nicotine dependence: Counseled. 6. Medical non-compliance: Counseled. Subjective: Patient was seen and examined at the bedside. Examination: General appearance: alert, well-developed, appears stated age, no distress HEENT: ATNC, CATHY Neck: neck supple, trachea midline Respiratory: Clear to Ascultation Heart: regular, normal heart rate, S1S2, no murmur Gastrointestinal: soft, normoactive bowel sounds, not tender, not distended Integumentary: no rash, warm and dry Neurologic: no focal deficit, alert and oriented x3 Ext: no edema Hemodialysis access: L FA AVF Psychiatric: mood/affect appropriate, cooperative
[2020-09-01] MEDS ORDERED: ONDANSETRON 4 MG/2 ML INJ IV PRN (15:00)
[2020-09-01 15:24] LABS: Hepatitis B Surface Antigen Non-Reactive (Negative); Hepatitis C Virus Antibody Non-Reactive (NonReactive)
[2020-09-01] MEDS ORDERED: ALBUTEROL 2.5 MG/3 ML NEBU IH PRN (16:00)
[2020-09-01] MEDS: amLODIPine 10 MG TAB PO SCH (18:42)
[2020-09-01] MEDS: hydrALAZINE 100 MG TAB PO SCH ×2 (18:43→22:53)
[2020-09-01] MEDS: CALCIUM ACETATE 667 MG CAP PO SCH (22:52)
[2020-09-02 05:49] LABS: Calcium 8.4 mg/dL (8.4-10.2)
[2020-09-02] MEDS: hydrALAZINE 100 MG TAB PO SCH ×2 (06:03→14:04)
[2020-09-02] MEDS: CALCIUM ACETATE 667 MG CAP PO SCH ×2 (08:00→14:05)
[2020-09-02] MEDS: amLODIPine 10 MG TAB PO SCH (09:00)
[2020-09-02] MEDS ORDERED: ASPIRIN EC 81 MG TAB PO SCH (10:00)
--- NOTE | 2020-09-02 11:12 | Discharge Summary ---
Providers - Providers Date of Admission: 09/01/20 14:20 Date of discharge: 09/02/20 Attending physician: ZOE YODER 09/01/20 14:10 Consult to Physician [CONS] Routine Comment: Consulting Provider: AXEL KATHLEEN Physician Instructions: Reason For Exam: ESRD needing dialysis Primary care physician: [facility] [employer] [facility] Hospitalization Condition: Serious Hospital course: 40 YO male with HTN, Medication Noncompliance, Nicotine Dependence, ESRD on HD(M,W,F) with last dialysis 2 weeks ago presents to ED for hemodialysis needs.. Pt states that he has been noncompliant with outpatient dialysis over the past 2 weeks as a result of traveling to [place]. Patient was unable to receive dialysis while in [place]. Patient states that he presented to his routine dialysis center for dialysis and was instructed to seek further care at [facility]. Nephrology was consulted in the ER. Patient was dialyzed per nephrology recommendation. Patient noted to be clinically stable and was discharged home in stable condition following hemodialysis. Disposition: DC- TO HOME OR SELFCARE Final Discharge Diagnosis (Prints w/discharge instructions): End Stage Renal Disease. Volume overload. Metabolic acidosis due to ESRD. Hypertension, uncontrolled. Hyperkalemia, resolved. Anemia of CD Time spent for discharge: 34 minutes Core Measure Documentation - Palliative Care Palliative Care/ Comfort Measures: Not Applicable - Core Measures Any of the following diagnoses?: none Exam - Physical Exam Narrative exam: GENERAL: well-developed and well-nourished lying on bed appeared to be in no discomfort. HEENT: Normocephalic. Atraumatic. No conjunctival congestion or icterus. Patient has moist mucous membranes. NECK: Supple. Trachea midline. CHEST/LUNGS: Clear to auscultated bilaterally, breathing nonlabored. No wheezes crackles or rhonchi. HEART/CARDIOVASCULAR: Regular in rate and rhythm. S1 and S2 positive. ABDOMEN: Abdomen is soft, nontender. Patient has normal bowel sounds. SKIN: There is no rash. Warm and dry. NEURO: No focal motor deficit. Follows command. MUSCULOSKELETAL: No joint effusion or tenderness. EXTRIMITY: No edema, no cyanosis or clubbing. PSYCH: Cooperative. - Constitutional Vitals: Temp Pulse Resp BP Pulse Ox 98.0 F 82 16 154/78 95 09/02/20 09:15 09/02/20 11:00 09/02/20 09:15 09/02/20 11:00 09/02/20 05:41 Plan Activity: advance as tolerated Weight Bearing Status: Weight Bear as Tolerated Diet: renal Special Instructions: restrict fluid intake to, record daily BP diary Follow up with: PRIMARY CARE, [Primary Care Provider] - 3-5 Days AXEL KATHLEEN MD [Staff Physician] - 7 Days Prescriptions: Calcium Acetate [Phoslo] 1,334 mg PO TIDWM #90 capsule
--- NOTE | 2020-09-02 11:13 | Progress Note ---
Assessment and Plan 1. End stage renal disease: On maintenance hemodialysis three times a week, MWF schedule. Last outpatient dialysis about 2 weeks [facility]. Presented with significant metabolic abnormalities. Hemodialysis: 09/01, 09/02. 2. FEN: Hyperkalemia, improved. Metabolic acidosis, improved, monitor. Hyperphosphatemia, renal diet, monitor. Binders as prescribed. Monitor lytes and volume status. 3. Hypertension: Continue BP meds. UF with HD. Monitor BP. 4. Anemia, POA: Epogen with HD as needed. Monitor Hb. 5. Nicotine dependence: Counseled. 6. Medical non-compliance: Counseled. Subjective: Patient was seen and examined at the bedside. Examination: General appearance: alert, well-developed, appears stated age, no distress HEENT: ATNC, CATHY Neck: neck supple, trachea midline Respiratory: Clear to Ascultation Heart: regular, normal heart rate, S1S2, no murmur Gastrointestinal: soft, normoactive bowel sounds, not tender, not distended Integumentary: no rash, warm and dry Neurologic: no focal deficit, alert and oriented x3 Ext: no edema Hemodialysis access: L FA AVF Psychiatric: mood/affect appropriate, cooperative Subjective Date of service: 09/02/20 Objective - Vital Signs Vital signs: Vital Signs - 12hr 09/02/20 09/02/20 09/02/20 05:41 09:15 09:30 Temperature 98.6 F 98.0 F Pulse Rate 74 78 78 Respiratory 20 16 Rate Blood Pressure 161/76 178/95 178/95 O2 Sat by Pulse 95 Oximetry 09/02/20 09/02/20 09/02/20 09:45 10:00 10:15 Temperature Pulse Rate 75 77 79 Respiratory Rate Blood Pressure 169/102 172/96 172/102 O2 Sat by Pulse Oximetry 09/02/20 09/02/20 09/02/20 10:30 10:45 11:00 Temperature Pulse Rate 80 78 82 Respiratory Rate Blood Pressure 178/103 174/107 169/102 O2 Sat by Pulse Oximetry - Lab 09/01/20 11:50 09/02/20 05:04 Most recent lab results Calcium 8.4 mg/dL (8.4-10.2) 09/02/20 05:04 Phosphorus 10.60 mg/dL (2.5-4.5) H 09/01/20 11:50 Medications & Allergies - Medications Allergies/Adverse Reactions: Allergies No Known Allergies Allergy (Verified 07/23/19 17:18) Home Medications: Home Medications Medication Instructions Recorded Confirmed Last Taken Type Aspirin EC [Halfprin EC] 81 mg PO QDAY #30 tablet. 07/27/19 09/01/20 Unknown Rx Calcium Acetate [Phoslo] 1,334 mg PO TIDWM #90 capsule 07/27/19 09/01/20 Unknown Rx Acetaminophen [Acetaminophen TAB] 650 mg PO Q4H PRN tablet 02/11/20 09/01/20 Unknown Rx Epoetin Ryan 20,000 Unit [Procrit] 20,000 unit SUB-Q DIANA PRN vial 02/11/20 09/01/20 Unknown Rx amLODIPine 10 mg PO QDAY #30 tablet 02/11/20 09/01/20 Unknown Rx hydrALAZINE [Apresoline TAB] 100 mg PO Q8HR #90 tab 02/11/20 09/01/20 Unknown Rx labetaloL [Labetalol 100mg TAB] 300 mg PO BID 60 Days #60 tablet 02/11/20 09/01/20 Unknown Rx Active Medications: Generic Name Dose Route Start Last Admin Trade Name Freq PRN Reason Stop Dose Admin Acetaminophen 650 mg 09/01/20 15:00 Acetaminophen 325 Mg Tab PO Q4H PRN Pain MILD(1-3)/Fever >100.5/LOPEZ Albuterol 2.5 mg 09/01/20 16:00 Albuterol 2.5 Mg/3 Ml Nebu IH Q4HRT PRN Shortness Of Breath Amlodipine Besylate 10 mg 09/01/20 16:30 09/01/20 18:42 Amlodipine 10 Mg Tab PO 10 mg QDAY JOSE Administration Aspirin 81 mg 09/02/20 10:00 Aspirin Ec 81 Mg Tab PO QDAY JOSE Calcium Acetate 1,334 mg 09/01/20 17:00 09/01/20 22:52 Calcium Acetate 667 Mg Cap PO 1,334 mg TIDWM JOSE Administration Heparin Sodium (Porcine) 3,000 unit 09/01/20 14:30 Heparin 10,000 Units/10 Ml Vial IV DIANA PRN hemodialysis Hydralazine HCl 100 mg 09/01/20 16:30 09/02/20 06:03 Hydralazine 100 Mg Tab PO 100 mg Q8HR JOSE Administration Sodium Chloride 100 mls @ 999 mls/hr 09/01/20 14:30 Nacl 0.9% IV DIANA PRN Hypotension Labetalol HCl 300 mg 09/01/20 16:30 09/01/20 22:53 Labetalol 100 Mg Tab PO 300 mg BID JOSE Administration Ondansetron HCl 4 mg 09/01/20 15:00 Ondansetron 4 Mg/2 Ml Inj IV Q8H PRN Nausea And Vomiting Sodium Chloride 10 ml 09/01/20 22:00 09/01/20 22:54 Sodium Chloride 0.9% 10 Ml Flush Syringe IV 10 ml BID JOSE Administration Sodium Chloride 10 ml 09/01/20 15:00 Sodium Chloride 0.9% 10 Ml Flush Syringe IV PRN PRN LINE FLUSH
[2020-09-02 14:10] VITALS: BP 154/78
== END 2020-09-02 15:49 | disposition home or self-care (01) ==
LOC: ED 11:05 → 3A 14:20
PROVIDERS: ADMIT Internal Medicine; ATTEND Internal Medicine
DX: E87.2 Acidosis (principal); I16.0 Hypertensive urgency; I12.0 Hypertensive chronic kidney disease with stage 5 chronic kidney disease or end stage renal disease; N18.6 End stage renal disease; M19.90 Unspecified osteoarthritis, unspecified site; J45.909 Unspecified asthma, uncomplicated; D64.9 Anemia, unspecified; F17.213 Nicotine dependence, cigarettes, with withdrawal; Z79.82 Long term (current) use of aspirin; Z99.2 Dependence on renal dialysis; Z91.14 Patient's other noncompliance with medication regimen; Z79.899 Other long term (current) drug therapy
CPT/HCPCS: 36415; 80048; 80074; 83880; 84100; 85027; 93005; 99284; 99406; G0257; G0378

== ENCOUNTER 2020-11-29 09:46 | Inpatient (IN) | payer MEDICARE ==
--- NOTE | 2020-11-29 10:09 | Emergency Department Report ---
ED Chest Pain HPI - General Chief Complaint: Chest Pain Stated Complaint: CHEST PAIN, BACK PAIN Time Seen by Provider: 11/29/20 10:03 Source: patient Mode of arrival: Ambulatory Limitations: No Limitations - History of Present Illness Initial Comments: 40-year-old male, history of hypertension, ESRD (MW schedule), presents to ED with chest pain. Patient reports pain started this morning, after vomiting twice. Patient reports some blood-streaked emesis. States pain is located all across his chest and also across his entire back. Patient states the pain feels like muscle soreness. Patient states he has not been dialyzed in 1 week because he was having car trouble. States he was never able to get transportation arranged. Patient also reports some shortness of breath. Patient denies any fever or cough. Patient is unvaccinated against COVID-19. Patient reports tobacco and marijuana use. He denies any alcohol use or any other illicit drug use. Technical Sales Support Specialist: Dr Suzan OCHOA Complaint: chest pain -: This morning Pain Location: other (Anterior chest) Pain Radiation: back Severity: moderate Quality: other (Soreness) Consistency: constant Improves With: nothing Worsens With: nothing re: nausea, vomting, dyspnea Other Symptoms: denies: cough, fever Treatments Prior to Arrival: none - Related Data Previous Rx's Medication Instructions Recorded Last Taken Type Aspirin EC [Halfprin EC] 81 mg PO QDAY #30 tablet. 07/27/19 Unknown Rx Acetaminophen [Acetaminophen TAB] 650 mg PO Q4H PRN tablet 02/11/20 Unknown Rx Epoetin Ryan 20,000 Unit [Procrit] 20,000 unit SUB-Q DIANA PRN vial 02/11/20 Unknown Rx amLODIPine 10 mg PO QDAY #30 tablet 02/11/20 Unknown Rx hydrALAZINE [Apresoline TAB] 100 mg PO Q8HR #90 tab 02/11/20 Unknown Rx labetaloL [Labetalol 100mg TAB] 300 mg PO BID 60 Days #60 tablet 02/11/20 Unknown Rx Calcium Acetate [Phoslo] 1,334 mg PO TIDWM #90 capsule 09/02/20 Unknown Rx Allergies Allergy/AdvReac Type Severity Reaction Status Date / Time No Known Allergies Allergy Verified 07/23/19 17:18 Heart Score - HEART Score History: Slightly suspicious EKG: Non-specific Age: < 45 Risk factors: 1-2 risk factors Troponin: > 3x normal limit HEART Score: 4 - EKG Read Time Time EKG Completed: 10:20 EKG Read Time: 10:23 ED Review of Systems ROS: Stated complaint: CHEST PAIN, BACK PAIN Other details as noted in HPI Comment: All other systems reviewed and negative Constitutional: denies: chills, fever Respiratory: shortness of breath Cardiovascular: chest pain Gastrointestinal: nausea, vomiting Musculoskeletal: back pain ED Past Medical Hx - Past Medical History Hx Hypertension: Yes Hx Heart Attack/AMI: No Hx Congestive Heart Failure: No Hx Diabetes: No Hx Liver Disease: No Hx Renal Disease: Yes (Hemodialysis M,W,F) Hx Sickle Cell Disease: No Hx Arthritis: Yes (knees) Hx Seizures: No Hx Asthma: Yes Hx COPD: No Hx HIV: No - Surgical History Additional Surgical History: Vas Cath and Fistula to L arm. - Social History Smoking Status: Current Some Day Smoker - Medications Home Medications: Home Medications Medication Instructions Recorded Confirmed Last Taken Type Aspirin EC [Halfprin EC] 81 mg PO QDAY #30 tablet. 07/27/19 09/01/20 Unknown Rx Acetaminophen [Acetaminophen TAB] 650 mg PO Q4H PRN tablet 02/11/20 09/01/20 Unknown Rx Epoetin Ryan 20,000 Unit [Procrit] 20,000 unit SUB-Q DIANA PRN vial 02/11/20 09/01/20 Unknown Rx amLODIPine 10 mg PO QDAY #30 tablet 02/11/20 09/01/20 Unknown Rx hydrALAZINE [Apresoline TAB] 100 mg PO Q8HR #90 tab 02/11/20 09/01/20 Unknown Rx labetaloL [Labetalol 100mg TAB] 300 mg PO BID 60 Days #60 tablet 02/11/20 09/01/20 Unknown Rx Calcium Acetate [Phoslo] 1,334 mg PO TIDWM #90 capsule 09/02/20 Unknown Rx ED Physical Exam - General Limitations: No Limitations General appearance: alert, in no apparent distress - Head Head exam: Present: atraumatic, normocephalic - Eye Eye exam: Present: normal appearance, EOMI - ENT ENT exam: Present: mucous membranes moist - Neck Neck exam: Present: normal inspection - Respiratory Respiratory exam: Present: normal lung sounds bilaterally. Absent: respiratory distress - Cardiovascular Cardiovascular Exam: Present: regular rate, normal rhythm - GI/Abdominal GI/Abdominal exam: Present: soft, tenderness (Right upper quadrant). Absent: distended - Extremities Exam Extremities exam: Present: normal inspection - Neurological Exam Neurological exam: Present: alert, oriented X3 - Psychiatric Psychiatric exam: Present: normal affect, normal mood - Skin Skin exam: Present: warm, dry, intact, normal color ED Course Vital Signs 11/29/20 11/29/20 11/29/20 10:46 11:01 11:09 Temperature 98.1 F Pulse Rate 97 H Respiratory 14 26 H Rate Blood Pressure 210/120 O2 Sat by Pulse 97 Oximetry 11/29/20 11/29/20 11/29/20 11:15 11:31 11:45 Temperature Pulse Rate 87 Respiratory 19 18 15 Rate Blood Pressure 212/124 206/121 206/116 O2 Sat by Pulse 98 98 99 Oximetry 11/29/20 11/29/20 11/29/20 12:01 12:39 12:45 Temperature Pulse Rate 96 H Respiratory 19 Rate Blood Pressure 235/132 235/132 235/132 O2 Sat by Pulse 100 100 88 Oximetry 11/29/20 11/29/20 11/29/20 13:01 13:15 13:31 Temperature Pulse Rate 92 H 98 H 98 H Respiratory 27 H 23 24 Rate Blood Pressure 236/122 235/132 196/122 O2 Sat by Pulse 96 97 98 Oximetry 11/29/20 11/29/20 11/29/20 13:45 14:15 14:30 Temperature Pulse Rate 89 87 Respiratory 12 9 L 12 Rate Blood Pressure 191/113 205/112 O2 Sat by Pulse 98 99 98 Oximetry 11/29/20 11/29/20 11/29/20 14:46 15:05 18:00 Temperature 98.8 F Pulse Rate 80 Respiratory 19 22 18 Rate Blood Pressure 197/110 209/116 175/104 O2 Sat by Pulse 98 98 Oximetry 11/29/20 11/29/20 11/29/20 18:30 18:33 18:41 Temperature Pulse Rate 80 80 Respiratory 17 Rate Blood Pressure 175/104 206/112 175/108 O2 Sat by Pulse 97 96 Oximetry 11/29/20 11/29/20 11/29/20 18:45 18:50 19:00 Temperature Pulse Rate 79 78 77 Respiratory 13 Rate Blood Pressure 176/100 177/108 180/102 O2 Sat by Pulse 97 Oximetry 11/29/20 11/29/20 11/29/20 19:01 19:11 19:15 Temperature Pulse Rate 81 81 81 Respiratory 19 20 Rate Blood Pressure 180/102 176/103 176/103 O2 Sat by Pulse 100 97 Oximetry 11/29/20 11/29/20 11/29/20 19:21 19:30 19:31 Temperature Pulse Rate 78 78 85 Respiratory 31 H 25 H Rate Blood Pressure 178/105 178/105 178/105 O2 Sat by Pulse 98 98 Oximetry 11/29/20 11/29/20 11/29/20 19:41 19:45 19:50 Temperature Pulse Rate 87 75 83 Respiratory 25 H 15 Rate Blood Pressure 177/105 177/105 178/104 O2 Sat by Pulse 96 98 Oximetry 11/29/20 11/29/20 11/29/20 20:00 20:01 20:11 Temperature Pulse Rate 81 87 80 Respiratory 22 18 Rate Blood Pressure 178/104 178/104 178/101 O2 Sat by Pulse 97 98 Oximetry 11/29/20 11/29/20 11/29/20 20:15 20:20 20:30 Temperature Pulse Rate 77 79 85 Respiratory 21 Rate Blood Pressure 178/101 168/108 168/108 O2 Sat by Pulse 98 Oximetry 11/29/20 11/29/20 11/29/20 20:31 20:41 20:45 Temperature Pulse Rate 74 81 82 Respiratory 23 18 Rate Blood Pressure 168/108 180/103 180/106 O2 Sat by Pulse 99 99 Oximetry 11/29/20 11/29/20 11/29/20 20:50 21:00 21:01 Temperature Pulse Rate 79 74 77 Respiratory 18 19 Rate Blood Pressure 187/100 171/108 187/100 O2 Sat by Pulse 98 100 Oximetry 11/29/20 11/29/20 11/29/20 21:11 21:15 21:21 Temperature Pulse Rate 79 74 84 Respiratory 20 17 Rate Blood Pressure 171/108 173/104 173/104 O2 Sat by Pulse 99 96 Oximetry 11/29/20 11/29/20 11/29/20 21:30 21:31 21:41 Temperature Pulse Rate 77 76 83 Respiratory 16 18 Rate Blood Pressure 171/102 173/104 171/102 O2 Sat by Pulse 100 91 Oximetry 11/29/20 11/29/20 11/29/20 21:42 21:50 22:00 Temperature Pulse Rate 77 79 88 Respiratory 22 19 Rate Blood Pressure 175/99 179/99 179/99 O2 Sat by Pulse 99 Oximetry 11/29/20 11/29/20 11/29/20 22:01 22:11 22:21 Temperature Pulse Rate 87 Respiratory 23 27 H 15 Rate Blood Pressure 179/99 160/93 161/97 O2 Sat by Pulse 97 97 94 Oximetry 11/29/20 11/30/20 11/30/20 22:31 00:55 01:01 Temperature Pulse Rate 102 H Respiratory 16 21 Rate Blood Pressure 161/97 167/85 124/64 O2 Sat by Pulse 97 99 98 Oximetry 11/30/20 03:32 Temperature 98.4 F Pulse Rate 97 H Respiratory 16 Rate Blood Pressure 162/96 O2 Sat by Pulse 96 Oximetry - Consultations Consultation #1: 11/29/20 13:[address] Mares. States will arrange dialysis for the patient. ED Medical Decision Making - Lab Data Result diagrams: 11/30/20 05:32 11/30/20 05:32 - EKG Data -: EKG Interpreted by Ok EKG shows normal: sinus rhythm, intervals, QRS complexes Rate: normal - EKG Data Interpretation: other (lateral T wave inversions) - Radiology Data Radiology results: report reviewed, image reviewed - Medical Decision Making 40-year-old male presents to ED with chest and back pain. Patient is h ypertensive has missed 1 week of dialysis. EKG shows no ST changes. Troponin is elevated, however I suspect this is secondary to his renal disease. CTA chest negative for any aortic pathology or PE. Potassium 5.8. Patient given insulin, glucose, calcium gluconate. Patient is hypertensive, hydralazine then labetalol given for BP control. I spoke with patient's lifestyle consultant who will arrange for patient to be dialyzed. Patient will be admitted to hospitalist, Dr. Elizabeth. Critical Care Time: Yes Critical care time in (mins) excluding proc time.: 35 Critical care attestation.: If time is entered above; I have spent that time in minutes in the direct care of this critically ill patient, excluding procedure time. Critical Care Time: 35 min ED Disposition Clinical Impression: ESRD needing dialysis, Hyperkalemia, Hypertensive emergency, Chest pain, Elevated troponin Disposition: ADMITTED INPATIENT Is pt being admited?: Yes Condition: Stable Time of Disposition: 13:33
--- NOTE | 2020-11-29 11:00 | XRay Report ---
Abdominal series with chest x-ray HISTORY: Chest pain, vomiting COMPARISON: 02/08/2020 IMPRESSION: Single view of the chest demonstrates moderate cardiomegaly and mild central venous conge stion. The lungs are clear otherwise. Supine and upright views of the abdomen demonstrate no evidence for dilated bowel, fluid levels or free air. There is normal stool in the colon. Signer Name: Jabari Potts Jr, MD Signed: 11/29/2020 10:56 AM Workstation Name: [id number]
[2020-11-29] MEDS ORDERED: hydrALAZINE 20 MG/1 ML INJ IV ONE (11:09)
--- NOTE | 2020-11-29 11:43 | Electrocardiograph Report ---
[facility] Test Date: 2020-11-29 Test Time: 10:20:08 Pat Name: BUCKY STEPHENS Department: Room: Gender: M Director Of Marketing Operations: ELDA : 1980 Requested By: VAN CASTLE Order Number: [id number] Reading MD: Darinel Rico Measurements Intervals [place] Rate: 85 P: 80 VT: 168 QRS: -38 QRSD: 105 T: QT: 387 QTc: 463 Interpretive Statements Sinus rhythm Probable left atrial enlargement Left axis deviation and lafb nonspecific st-t Compared to ECG 09/01/2020 11:56:28 Left ventricular hypertrophy no longer present Electronically Signed On 11-29-2020 11:43:15 EDT by Darinel Rico
[2020-11-29 11:53] LABS: Basophils % (Auto) 0.2 % (0.0-1.8); Eosinophils % (Auto) 0.2 % (0.0-4.3); Hematocrit 28.6 % (35.5-45.6); Hemoglobin 9.7 gm/dl (11.8-15.2); Lymphocytes # (Auto) 0.4 K/mm3 (1.2-5.4); Lymphocytes % (Auto) 4.4 % (13.4-35.0); Mean Corpuscular HGB Conc 34 % (32-34); Mean Corpuscular Volume 96 fl (84-94); Monocytes # (Auto) 0.5 K/mm3 (0.0-0.8); Monocytes % (Auto) 5.2 % (0.0-7.3); Platelet Count 255 K/mm3 (140-440); Red Blood Count 2.98 M/mm3 (3.65-5.03); Red Cell Distribution Width 14.9 % (13.2-15.2)
[2020-11-29 11:56] LABS: Calcium 9.6 mg/dL (8.4-10.2)
[2020-11-29 11:58] LABS: Alanine Aminotransferase 23 units/L (7-56); Albumin 4.4 g/dL (3.9-5)
[2020-11-29 11:59] LABS: Bilirubin,Direct < 0.2 mg/dL (0-0.2)
[2020-11-29 12:01] LABS: INR 1.04 (0.87-1.13); Partial Thromboplastin Time 36.6 Sec. (24.2-36.6)
[2020-11-29] MEDS ORDERED: DEXTROSE 50% IN WATER (25GM) 50 ML SYRINGE IV ONE (12:11)
[2020-11-29] MEDS ORDERED: CALCIUM GLUCONATE 1,000 MG in SODIUM CHLORIDE 0.9% 100 ML IV ONE (12:11)
[2020-11-29] MEDS ORDERED: INSULIN REGULAR, HUMAN 100 UNITS/1 ML IV ONE (12:11)
[2020-11-29 12:29] LABS: Chol/HDL Ratio 2.83 %
--- NOTE | 2020-11-29 13:25 | Cat Scan Report ---
CTA CHEST WITH IV CONTRAST INDICATION: chest and back pain 100 ml omni 350. TECHNIQUE: Axial CT images were obtained through the chest after injection of IV contrast. 3 plane MIP reconstru ctions were produced. All CT scans at this location are performed using CT dose reduction for ALARA b y means of automated exposure control. COMPARISON: None available. FINDINGS: Pulmonary Arteries: No pulmonary emboli. Thoracic Aorta: No acute abnormality. Heart: Cardiomegaly is noted. There is advanced coronary artery calcification. Lungs: Lungs are clear aside from subtle dependent bibasilar groundglass opacities which may be due t o subsegmental atelectasis. There is a punctate calcified granuloma right lower lobe. Pleura: No pleural effusion. No pneumothorax. Lymph Nodes: No significant adenopathy. Additional Findings: None. Upper Abdomen: No acute findings. The kidneys are very small with thin cortex. Skeletal Structures: No significant osseous abnormality. IMPRESSION: 1. No CT evidence for pulmonary embolism. 2. No acute pulmonary or pleural findings. Signer Name: Papo Payne MD Signed: 11/29/2020 1:21 PM Workstation Name: [id number]
[2020-11-29] MEDS ORDERED: SODIUM CHLORIDE 0.9% 100 ML IV PRN (14:05)
[2020-11-29] MEDS ORDERED: HEPARIN 10,000 UNITS/10 ML VIAL IV PRN (14:05)
[2020-11-29] MEDS ORDERED: amLODIPine 5 MG TAB PO ONE (14:09)
--- NOTE | 2020-11-29 14:10 | Consultation ---
History of Present Illness - Reason for Consult Consult date: 11/29/20 end stage renal disease, hyperkalemia - History of Present Illness The patient is a 40 year old male well known to our service with pmh significant for Hypertension, Nicotine dependence, Anemia and ESRD on hemodialysis (MWF) who presented to [facility] ED on 11/29 iwth c/o chest pain. He reports 2 episodes of vomiting in the morning followed by chest pain. Chest pain is retrosternal, intermittent in nature mild, 3 on a scale of 1-10 and not radiating. Patient attributes the chest pain to his vomiting and reflux symptoms. Patient has been noncompliant did not go for hemodialysis for 1 week because of having problems with transportation and is car not being functional. He denies any sob, cough, leg swelling, weakness, N, V, D, abd pain, dizziness, confusion, fever, loss of smell and taste. No exposure to Covid. Initial BP was 210/120. Labs significant for Creatinine 38, BUN 104, K 5.6, bicarb 20 and Hb 9.7. Nephrology was consulted for further evaluation and treatment. Medications and Allergies Allergies Allergy/AdvReac Type Severity Reaction Status Date / Time No Known Allergies Allergy Verified 07/23/19 17:18 Home Medications Medication Instructions Recorded Confirmed Last Taken Type Aspirin EC [Halfprin EC] 81 mg PO QDAY #30 tablet. 07/27/19 09/01/20 Unknown Rx Acetaminophen [Acetaminophen TAB] 650 mg PO Q4H PRN tablet 02/11/20 09/01/20 Unknown Rx Epoetin Ryan 20,000 Unit [Procrit] 20,000 unit SUB-Q DIANA PRN vial 02/11/20 09/01/20 Unknown Rx amLODIPine 10 mg PO QDAY #30 tablet 02/11/20 09/01/20 Unknown Rx hydrALAZINE [Apresoline TAB] 100 mg PO Q8HR #90 tab 02/11/20 09/01/20 Unknown Rx labetaloL [Labetalol 100mg TAB] 300 mg PO BID 60 Days #60 tablet 02/11/20 09/01/20 Unknown Rx Calcium Acetate [Phoslo] 1,334 mg PO TIDWM #90 capsule 09/02/20 Unknown Rx Active Meds: Active Medications Heparin Sodium (Porcine) (Heparin 10,000 Units/10 Ml Vial) 3,000 unit IV DIANA PRN PRN Reason: hemodialysis Sodium Chloride (Nacl 0.9%) 100 mls @ 999 mls/hr IV DIANA PRN PRN Reason: Hypotension Labetalol HCl (Labetalol 200 Mg Tab) 300 mg PO BID JOSE Review of Systems Constitutional: no weight loss, no weight gain, no fever, no chills, no anorexia, no fatigue, no weakness, no poor appetite Cardiovascular: chest pain, high blood pressure, no orthopnea, no edema, no syncope, no lightheadedness, no shortness of breath, no leg edema Respiratory: no cough, no cough with sputum, no hemoptysis, no shortness of breath Gastrointestinal: no abdominal pain, no nausea, no vomiting, no diarrhea, no melena Genitourinary Male: no dysuria, no hematuria Integumentary: no rash Neurological: no aphasia, no change in speech, no change in mentation, no confusion Exam - Vital Signs Vital signs: Vital Signs Pulse Resp 97 H 14 11/29/20 10:46 11/29/20 10:46 Results - Lab Results 11/30/20 05:32 11/30/20 05:32 Most recent lab results Calcium 9.6 mg/dL (8.4-10.2) 11/29/20 10:45 Assessment and Plan 1. End stage renal disease: On maintenance hemodialysis three times a week, MWF schedule. Last outpatient dialysis about a week RIGHT OF [facility] [employer]. Presented with significant metabolic abnormalities. Hemodialysis: today. 2. FEN: Hyperkalemia, HD today. Metabolic acidosis, HD today, monitor. Binders as prescribed. Monitor lytes and volume status. 3. Hypertensive urgency: Resume home meds. IV meds as needed. UF with HD. Monitor BP. 4. Elevated troponin: Likely 2/2 ESRD. CTA negative. Lexiscan ordered. 5. Anemia, POA: Epogen with HD as needed. Monitor Hb. 6. Nicotine dependence: Counseled. 7. Medical non-compliance: Counseled. Subjective: Patient was seen and examined at the bedside. Examination: General appearance: alert, well-developed, appears stated age, no distress HEENT: ATNC, CATHY Neck: neck supple, trachea midline Respiratory: Clear to auscultation Heart: regular, normal heart rate, S1S2, no murmur Gastrointestinal: soft, normoactive bowel sounds, not tender, not distended Integumentary: no rash, warm and dry Neurologic: no focal deficit, alert and oriented x3 Ext: no edema Hemodialysis access: L FA AVF Psychiatric: mood/affect appropriate, cooperative
--- NOTE | 2020-11-29 18:56 | Event Note ---
Date: 11/29/20 Hemodialysis consent obtained from patient.
[2020-11-29 20:26] LABS: Hepatitis C Virus Antibody Non-Reactive (NonReactive)
[2020-11-29 20:30] LABS: Hepatitis B Surface Antigen Nonreactive (Negative)
[2020-11-29] MEDS ORDERED: ACETAMINOPHEN 325 MG TAB PO PRN ×2 (22:34→22:36)
[2020-11-29] MEDS ORDERED: ONDANSETRON 4 MG/2 ML INJ IV PRN (22:36)
[2020-11-29] MEDS ORDERED: MORPHINE 2 MG/1 ML INJ IV PRN (22:36)
[2020-11-29] MEDS ORDERED: METOCLOPRAMIDE 10 MG/2 ML INJ IV PRN (22:36)
[2020-11-29] MEDS ORDERED: HYDROmorphone 1 MG/1 ML INJ IV PRN (22:36)
[2020-11-29] MEDS ORDERED: hydrALAZINE 20 MG/1 ML INJ IV PRN (22:41)
[2020-11-30] MEDS: hydrALAZINE 100 MG TAB PO SCH ×3 (05:30→22:25)
[2020-11-30 06:21] LABS: Basophils % (Auto) 0.1 % (0.0-1.8); Eosinophils % (Auto) 0.2 % (0.0-4.3); Hematocrit 27.8 % (35.5-45.6); Hemoglobin 9.3 gm/dl (11.8-15.2); Lymphocytes # (Auto) 0.9 K/mm3 (1.2-5.4); Lymphocytes % (Auto) 8.3 % (13.4-35.0); Mean Corpuscular HGB Conc 34 % (32-34); Mean Corpuscular Volume 95 fl (84-94); Monocytes # (Auto) 0.7 K/mm3 (0.0-0.8); Monocytes % (Auto) 6.5 % (0.0-7.3); Platelet Count 246 K/mm3 (140-440); Red Blood Count 2.91 M/mm3 (3.65-5.03); Red Cell Distribution Width 14.6 % (13.2-15.2)
[2020-11-30 06:43] LABS: Albumin 3.6 g/dL (3.9-5); Calcium 9.2 mg/dL (8.4-10.2)
--- NOTE | 2020-11-30 07:17 | History and Physical Report ---
History of Present Illness Date of examination: 11/29/20 Date of admission: 11/29/20 13:33 Chief complaint: Vomiting times 2 in the AM followed by chest pain History of present illness: 40-year-old -Serbian male with history of end-stage renal disease, hyper tension and anemia on hemodialysis with 2 episodes of vomiting in the morning followed by chest pain. Reports blood-streaked emesis. No further blood while vomiting. Chest pain is retrosternal very intermittent in nature mild 3 on a scale of 1-10. Patient attributes the chest pain to his vomiting and reflux symptoms. Patient has been very noncompliant did not go for hemodialysis for 1 week because of having problems with transportation and is car not being functional. No fevers no loss of smell and taste. No exposure to Covid. - Past Medical History --Hypertension: Yes --Renal Disease: Yes (Hemodialysis M,W,F) --Arthritis: Yes (knees) --Asthma: Yes - Surgical History Additional Surgical History: Vas Cath and Fistula to L arm. - Social History Smoking Status: Current Some Day Smoker -Family history --Hypertension: - Medications Home Medications: Home Medications Medication Instructions Recorded Confirmed Last Taken Type Aspirin EC [Halfprin EC] 81 mg PO QDAY #30 tablet. 07/27/19 09/01/20 Unknown Rx Acetaminophen [Acetaminophen TAB] 650 mg PO Q4H PRN tablet 02/11/20 09/01/20 Unknown Rx Epoetin Ryan 20,000 Unit [Procrit] 20,000 unit SUB-Q DIANA PRN vial 02/11/20 09/01/20 Unknown Rx amLODIPine 10 mg PO QDAY #30 tablet 02/11/20 09/01/20 Unknown Rx hydrALAZINE [Apresoline TAB] 100 mg PO Q8HR #90 tab 02/11/20 09/01/20 Unknown Rx labetaloL [Labetalol 100mg TAB] 300 mg PO BID 60 Days #60 tablet 02/11/20 09/01/20 Unknown Rx Calcium Acetate [Phoslo] 1,334 mg PO TIDWM #90 capsule 09/02/20 Unknown Rx Review of Systems ROS: Stated complaint: CHEST PAIN, BACK PAIN Other details as noted in HPI Comment: All other systems reviewed and negative Constitutional: denies: chills, fever Respiratory: shortness of breath Cardiovascular: chest pain Gastrointestinal: nausea, vomiting Musculoskeletal: back pain Medications and Allergies Allergies Allergy/AdvReac Type Severity Reaction Status Date / Time No Known Allergies Allergy Verified 07/23/19 17:18 Home Medications Medication Instructions Recorded Confirmed Last Taken Type Aspirin EC [Halfprin EC] 81 mg PO QDAY #30 tablet. 07/27/19 09/01/20 Unknown Rx Acetaminophen [Acetaminophen TAB] 650 mg PO Q4H PRN tablet 02/11/20 09/01/20 Unknown Rx Epoetin Ryan 20,000 Unit [Procrit] 20,000 unit SUB-Q DIANA PRN vial 02/11/2008/10 Unknown Rx amLODIPine 10 mg PO QDAY #30 tablet 02/11/20 09/01/20 Unknown Rx hydrALAZINE [Apresoline TAB] 100 mg PO Q8HR #90 tab 02/11/20 09/01/20 Unknown Rx labetaloL [Labetalol 100mg TAB] 300 mg PO BID 60 Days #60 tablet 02/11/20 09/01/20 Unknown Rx Calcium Acetate [Phoslo] 1,334 mg PO TIDWM #90 capsule 09/02/20 Unknown Rx Active Meds: Active Medications Acetaminophen (Acetaminophen 325 Mg Tab) 650 mg PO Q4H PRN PRN Reason: Pain MILD(1-3)/Fever >100.5/LOPEZ Amlodipine Besylate (Amlodipine 10 Mg Tab) 10 mg PO QDAY JOSE Aspirin (Aspirin Ec 81 Mg Tab) 81 mg PO QDAY JOSE Calcium Acetate (Calcium Acetate 667 Mg Cap) 1,334 mg PO TIDWM JOSE Famotidine (Famotidine 10 Mg Tab) 10 mg PO BID JOSE Heparin Sodium (Porcine) (Heparin 10,000 Units/10 Ml Vial) 3,000 unit IV DIANA PRN PRN Reason: hemodialysis Heparin Sodium (Porcine) (Heparin 5,000 Unit/1 Ml Vial) 5,000 unit SUB-Q Q12HR [facility] Hydralazine HCl (Hydralazine 100 Mg Tab) 100 mg PO Q8HR [facility] Last Admin: 11/30/20 05:30 Dose: 100 mg Documented by: Hydralazine HCl (Hydralazine 20 Mg/1 Ml Inj) 10 mg IV Q3H PRN PRN Reason: Hypertension Hydromorphone HCl (Hydromorphone 1 Mg/1 Ml Inj) 0.5 mg IV Q3H PRN PRN Reason: Pain , Severe (7-10) Sodium Chloride (Nacl 0.9%) 100 mls @ 999 mls/hr IV DIANA PRN PRN Reason: Hypotension Labetalol HCl (Labetalol 100 Mg Tab) 100 mg PO Q8HR [facility] Last Admin: 11/30/20 05:30 Dose: 100 mg Documented by: Labetalol HCl (Labetalol 200 Mg Tab) 200 mg PO Q8HR [facility] Last Admin: 11/30/20 05:29 Dose: 200 mg Documented by: Metoclopramide HCl (Metoclopramide 10 Mg/2 Ml Inj) 5 mg IV Q6H PRN PRN Reason: Nausea And Vomiting Morphine Sulfate (Morphine 2 Mg/1 Ml Inj) 2 mg IV Q4H PRN PRN Reason: Pain, Moderate (4-6) Ondansetron HCl (Ondansetron 4 Mg/2 Ml Inj) 4 mg IV Q8H PRN PRN Reason: Nausea And Vomiting Sodium Chloride (Sodium Chloride 0.9% 10 Ml Flush Syringe) 10 ml IV BID JOSE Sodium Chloride (Sodium Chloride 0.9% 10 Ml Flush Syringe) 10 ml IV PRN PRN PRN Reason: LINE FLUSH Exam - Constitutional Vitals: Temp Pulse Resp BP Pulse Ox 98.4 F 87 16 162/96 98 11/30/20 03:32 11/30/20 06:01 11/30/20 03:32 11/30/20 05:30 11/30/20 06:09 General appearance: Present: no acute distress, well-nourished - EENT Eyes: Present: PERRL ENT: hearing intact, clear oral mucosa - Neck Neck: Present: supple, normal ROM - Respiratory Respiratory effort: normal Respiratory: bilateral: CTA - Cardiovascular Heart rate: 78 Rhythm: regular Heart Sounds: Present: S1 & S2. Absent: rub, click - Extremities Extremities: no ischemia, pulses intact, pulses symmetrical, No edema Peripheral Pulses: within normal limits - Abdominal General gastrointestinal: Present: soft, non-tender, non-distended, normal bowel sounds Male genitourinary: Present: normal - Integumentary Integumentary: Present: clear, warm, dry - Musculoskeletal Musculoskeletal: gait normal, strength equal bilaterally - Psychiatric Psychiatric: appropriate mood/affect, intact judgment & insight - Neurologic Neurologic: CNII-XII intact, moves all extremities HEART Score - HEART Score History: Moderately suspicious Risk factors: > 3 risk factors or hx of atherosclerotic disease Troponin: Troponin T 0.190 ng/mL (0.00-0.029) H* 11/29/20 13:49 Troponin: 1-3x normal limit - Critical Actions Critical Actions: 4-6 pts:12-16.6% risk of adverse cardiac event. Should be admitted Results - Labs CBC & Chem 7: 11/30/20 05:32 11/30/20 05:32 Labs: Laboratory Last Values WBC 11.2 K/mm3 (4.5-11.0) H 11/30/20 05:32 RBC 2.91 M/mm3 (3.65-5.03) L 11/30/20 05:32 Hgb 9.3 gm/dl (11.8-15.2) L 11/30/20 05:32 Hct 27.8 % (35.5-45.6) L 11/30/20 05:32 MCV 95 fl (84-94) H 11/30/20 05:32 MCH 32 pg (28-32) 11/30/20 05:32 MCHC 34 % (32-34) 11/30/20 05:32 RDW 14.6 % (13.2-15.2) 11/30/20 05:32 Plt Count 246 K/mm3 (140-440) 11/30/20 05:32 Lymph % (Auto) 8.3 % (13.4-35.0) L 11/30/20 05:32 [place] % (Auto) 6.5 % (0.0-7.3) 11/30/20 05:32 Eos % (Auto) 0.2 % (0.0-4.3) 11/30/20 05:32 Baso % (Auto) 0.1 % (0.0-1.8) 11/30/20 05:32 Lymph # (Auto) 0.9 K/mm3 (1.2-5.4) L 11/30/20 05:32 [place] # (Auto) 0.7 K/mm3 (0.0-0.8) 11/30/20 05:32 Eos # (Auto) 0.0 K/mm3 (0.0-0.4) 11/30/20 05:32 Baso # (Auto) 0.0 K/mm3 (0.0-0.1) 11/30/20 05:32 Seg Neutrophils % 84.9 % (40.0-70.0) H 11/30/20 05:32 Seg Neutrophils # 9.5 K/mm3 (1.8-7.7) H 11/30/20 05:32 PT 14.1 Sec. (12.2-14.9) 11/29/20 10:45 INR 1.04 (0.87-1.13) 11/29/20 10:45 APTT 36.6 Sec. (24.2-36.6) 11/29/20 10:45 Sodium 137 mmol/L (137-145) 11/30/20 05:32 Potassium 4.6 mmol/L (3.6-5.0) D 11/30/20 05:32 Chloride 96.1 mmol/L (98-107) L 11/30/20 05:32 Carbon Dioxide 24 mmol/L (22-30) 11/30/20 05:32 Anion Gap 22 mmol/L 11/30/20 05:32 BUN 62 mg/dL (9-20) H 11/30/20 05:32 Creatinine 20.9 mg/dL (0.8-1.3) H 11/30/20 05:32 Estimated GFR 3 ml/min 11/30/20 05:32 BUN/Creatinine Ratio 3 % 11/30/20 05:32 Glucose 92 mg/dL (75-100) 11/30/20 05:32 Calcium 9.2 mg/dL (8.4-10.2) 11/30/20 05:32 Total Bilirubin 0.40 mg/dL (0.1-1.2) 11/30/20 05:32 Direct Bilirubin < 0.2 mg/dL (0-0.2) 11/29/20 10:45 Indirect Bilirubin 0.2 mg/dL 11/29/20 10:45 AST 115 units/L (5-40) H 11/30/20 05:32 ALT 145 units/L (7-56) H 11/30/20 05:32 Alkaline Phosphatase 186 units/L (35-129) H 11/30/20 05:32 Troponin T 0.190 ng/mL (0.00-0.029) H* 11/29/20 13:49 Total Protein 6.8 g/dL (6.3-8.2) 11/30/20 05:32 Albumin 3.6 g/dL (3.9-5) L 11/30/20 05:32 Albumin/Globulin Ratio 1.1 % 11/30/20 05:32 Triglycerides 52 mg/dL (2-149) 11/29/20 10:45 Cholesterol 139 mg/dL (50-199) 11/29/20 10:45 LDL Cholesterol Direct 79 mg/dL (50-130) 11/29/20 10:45 HDL Cholesterol 49 mg/dL (40-59) 11/29/20 10:45 Cholesterol/HDL Ratio 2.83 % 11/29/20 10:45 Lipase 57 units/L (13-60) 11/29/20 10:45 Hepatitis A IgM Ab Non-reactive (NonReactive) 11/29/20 19:49 Hep Bs Antigen Nonreactive (Negative) 11/29/20 19:49 Hep B Core IgM Ab Non-reactive (NonReactive) 11/29/20 19:49 Hepatitis C Antibody Non-reactive (NonReactive) 11/29/20 19:49 - Imaging and Cardiology EKG: report reviewed (Normal sinus rhythm, no acute ST-T wave changes) Chest x-ray: report reviewed Imaging and Cardiology: Chest CTA No acute evidence for pulmonary embolism or any acute rib pulmonary or pleural findings. Chest/abdomen x-ray No acute findings Mild central venous congestion Torres/IV: Voiding Method Urinal Assessment and Plan Advance Directives: Yes (Full code) VTE prophylaxis?: Chemical Plan of care discussed with patient/family: Yes - Patient Problems (1) Hypertensive emergency Current Visit: Yes Status: Acute Plan to address problem: Patient initiated on his home medications with which patient has been nonc ompliant IV hydralazine 10 mg 3 as needed for blood pressure more than 150/100 (2) Elevated troponin Current Visit: Yes Status: Acute Plan to address problem: Probably secondary to end-stage renal disease and troponin leak We will get Lexiscan (3) ESRD needing dialysis Current Visit: Yes Status: Acute Plan to address problem: Nephrology consulted Patient noncompliant Patient will get hemodialysis today (4) Volume overload Current Visit: Yes Status: Acute Plan to address problem: Patient needs hemodialysis per increase ultrafiltration and volume removal (5) Anemia Current Visit: Yes Status: Chronic Qualifiers: Anemia type: due to chronic kidney disease Plan to address problem: Secondary to chronic kidney disease (6) Hyperkalemia Current Visit: No Status: Resolved Plan to address problem: Treated in the emergency room with bicarb and insulin (7) DVT prophylaxis Current Visit: Yes Status: Acute Plan to address problem: On heparin and GI prophylaxis
[2020-11-30] MEDS ORDERED: REGADENOSON 0.4 MG/5 ML INJ IV ONE (08:21)
[2020-11-30] MEDS ORDERED: EPOETIN ALFA-EPBX 10,000 UNIT/1 ML VIAL SUB-Q PRN (09:00)
--- NOTE | 2020-11-30 09:41 | Progress Note ---
Assessment and Plan Assessment and plan: -- Hypertensive emergency; present on admission Current Visit: Yes Status: Acute Blood pressures moderate control , continue all antihypertensives , As needed hydralazine Patient advised to comply with medications diet and follow-up visits --Elevated troponin/NSTEMI type II Current Visit: Yes Status: Acute In the setting of end-stage renal disease However patient has multiple risk factors, evaluate for acute coronary syndrome stress test rescheduled for tomorrow 12/01/2020 --ESRD needing dialysis Current Visit: Yes Status: Acute Nephrology following HD per schedule --Volume overload Current Visit: Yes Status: Acute Due to noncompliance with HD , hemodialysis per schedule Per nephrology --Anemia of chronic disease Current Visit: Yes Status: Chronic Secondary to chronic kidney disease Procrit during dialysis --Hyperkalemia Current Visit: No Status: Resolved Plan to address problem: Treated in the emergency room with bicarb and insulin Resolved closely monitor electrolytes --DVT prophylaxis Current Visit: Yes Status: Acute Subcu heparin and GI prophylaxis. Closely monitor the patient and adjust management as needed Plan of care reviewed with the patient and his nurse Personnel Generalist Manager recommendations noted N.p.o. from midnight for possible stress test tomorrow History Interval history: I have seen and examined the patient at the bedside Chart and medications reviewed Patient feels better Scheduled for stress test however patient was not n.p.o. rescheduled for tomorrow Hospitalist Physical - Constitutional Vitals: Temp Pulse Resp BP Pulse Ox 98.4 F 87 16 162/96 98 11/30/20 03:32 11/30/20 06:01 11/30/20 03:32 11/30/20 05:30 11/30/20 06:09 General appearance: Present: no acute distress, well-nourished - EENT Eyes: Present: PERRL, EOM intact - Neck Neck: Present: supple, normal ROM - Respiratory Respiratory effort: normal Respiratory: bilateral: diminished, negative: rales, rhonchi, wheezing - Cardiovascular Rhythm: regular Heart Sounds: Present: S1 & S2 - Extremities Extremities: no ischemia, No edema - Abdominal General gastrointestinal: soft, non-tender, non-distended, normal bowel sounds - Integumentary Integumentary: Present: clear, warm - Psychiatric Psychiatric: appropriate mood/affect, cooperative - Neurologic Neurologic: CNII-XII intact, moves all extremities HEART Score - HEART Score Risk factors: > 3 risk factors or hx of atherosclerotic disease Troponin: Troponin T 0.190 ng/mL (0.00-0.029) H* 11/29/20 13:49 Troponin: 1-3x normal limit - Critical Actions Critical Actions: 4-6 pts:12-16.6% risk of adverse cardiac event. Should be admitted Results - Labs CBC & Chem 7: 11/30/20 05:32 11/30/20 05:32 Labs: Laboratory Last Values WBC 11.2 K/mm3 (4.5-11.0) H 11/30/20 05:32 RBC 2.91 M/mm3 (3.65-5.03) L 11/30/20 05:32 Hgb 9.3 gm/dl (11.8-15.2) L 11/30/20 05:32 Hct 27.8 % (35.5-45.6) L 11/30/20 05:32 MCV 95 fl (84-94) H 11/30/20 05:32 MCH 32 pg (28-32) 11/30/20 05:32 MCHC 34 % (32-34) 11/30/20 05:32 RDW 14.6 % (13.2-15.2) 11/30/20 05:32 Plt Count 246 K/mm3 (140-440) 11/30/20 05:32 Lymph % (Auto) 8.3 % (13.4-35.0) L 11/30/20 05:32 [place] % (Auto) 6.5 % (0.0-7.3) 11/30/20 05:32 Eos % (Auto) 0.2 % (0.0-4.3) 11/30/20 05:32 Baso % (Auto) 0.1 % (0.0-1.8) 11/30/20 05:32 Lymph # (Auto) 0.9 K/mm3 (1.2-5.4) L 11/30/20 05:32 [place] # (Auto) 0.7 K/mm3 (0.0-0.8) 11/30/20 05:32 Eos # (Auto) 0.0 K/mm3 (0.0-0.4) 11/30/20 05:32 Baso # (Auto) 0.0 K/mm3 (0.0-0.1) 11/30/20 05:32 Seg Neutrophils % 84.9 % (40.0-70.0) H 11/30/20 05:32 Seg Neutrophils # 9.5 K/mm3 (1.8-7.7) H 11/30/20 05:32 PT 14.1 Sec. (12.2-14.9) 11/29/20 10:45 INR 1.04 (0.87-1.13) 11/29/20 10:45 APTT 36.6 Sec. (24.2-36.6) 11/29/20 10:45 Sodium 137 mmol/L (137-145) 11/30/20 05:32 Potassium 4.6 mmol/L (3.6-5.0) D 11/30/20 05:32 Chloride 96.1 mmol/L (98-107) L 11/30/20 05:32 Carbon Dioxide 24 mmol/L (22-30) 11/30/20 05:32 Anion Gap 22 mmol/L 11/30/20 05:32 BUN 62 mg/dL (9-20) H 11/30/20 05:32 Creatinine 20.9 mg/dL (0.8-1.3) H 11/30/20 05:32 Estimated GFR 3 ml/min 11/30/20 05:32 BUN/Creatinine Ratio 3 % 11/30/20 05:32 Glucose 92 mg/dL (75-100) 11/30/20 05:32 Calcium 9.2 mg/dL (8.4-10.2) 11/30/20 05:32 Total Bilirubin 0.40 mg/dL (0.1-1.2) 11/30/20 05:32 Direct Bilirubin < 0.2 mg/dL (0-0.2) 11/29/20 10:45 Indirect Bilirubin 0.2 mg/dL 11/29/20 10:45 AST 115 units/L (5-40) H 11/30/20 05:32 ALT 145 units/L (7-56) H 11/30/20 05:32 Alkaline Phosphatase 186 units/L (35-129) H 11/30/20 05:32 Troponin T 0.190 ng/mL (0.00-0.029) H* 11/29/20 13:49 Total Protein 6.8 g/dL (6.3-8.2) 11/30/20 05:32 Albumin 3.6 g/dL (3.9-5) L 11/30/20 05:32 Albumin/Globulin Ratio 1.1 % 11/30/20 05:32 Triglycerides 52 mg/dL (2-149) 11/29/20 10:45 Cholesterol 139 mg/dL (50-199) 11/29/20 10:45 LDL Cholesterol Direct 79 mg/dL (50-130) 11/29/20 10:45 HDL Cholesterol 49 mg/dL (40-59) 11/29/20 10:45 Cholesterol/HDL Ratio 2.83 % 11/29/20 10:45 Lipase 57 units/L (13-60) 11/29/20 10:45 Hepatitis A IgM Ab Non-reactive (NonReactive) 11/29/20 19:49 Hep Bs Antigen Nonreactive (Negative) 11/29/20 19:49 Hep B Core IgM Ab Non-reactive (NonReactive) 11/29/20 19:49 Hepatitis C Antibody Non-reactive (NonReactive) 11/29/20 19:49 Torres/IV: Voiding Method Urinal Active Medications - Current Medications Current Medications: Generic Name Dose Route Start Last Admin Trade Name Freq PRN Reason Stop Dose Admin Acetaminophen 650 mg 11/29/20 22:34 Acetaminophen 325 Mg Tab PO Q4H PRN Pain MILD(1-3)/Fever >100.5/LOPEZ Amlodipine Besylate 10 mg 11/30/20 10:00 Amlodipine 10 Mg Tab PO QDAY JOSE Aspirin 81 mg 11/30/20 10:00 Aspirin Ec 81 Mg Tab PO QDAY JOSE Calcium Acetate 1,334 mg 11/30/20 08:00 Calcium Acetate 667 Mg Cap PO TIDWM JOSE Famotidine 10 mg 11/30/20 10:00 Famotidine 10 Mg Tab PO BID JOSE Heparin Sodium (Porcine) 3,000 unit 11/29/20 14:05 Heparin 10,000 Units/10 Ml Vial IV DIANA PRN hemodialysis Heparin Sodium (Porcine) 5,000 unit 11/30/20 10:00 Heparin 5,000 Unit/1 Ml Vial SUB-Q Q12HR JOSE Hydralazine HCl 100 mg 11/29/20 23:00 11/30/20 05:30 Hydralazine 100 Mg Tab PO 100 mg Q8HR JOSE Administration Hydralazine HCl 10 mg 11/29/20 22:41 Hydralazine 20 Mg/1 Ml Inj IV Q3H PRN Hypertension Hydromorphone HCl 0.5 mg 11/29/20 22:36 Hydromorphone 1 Mg/1 Ml Inj IV Q3H PRN Pain , Severe (7-10) Sodium Chloride 100 mls @ 999 mls/hr 11/29/20 14:05 Nacl 0.9% IV DIANA PRN Hypotension Labetalol HCl 100 mg 11/29/20 23:00 11/30/20 05:30 Labetalol 100 Mg Tab PO 100 mg Q8HR JOSE Administration Labetalol HCl 200 mg 11/29/20 23:00 11/30/20 05:29 Labetalol 200 Mg Tab PO 200 mg Q8HR JOSE Administration Metoclopramide HCl 5 mg 11/29/20 22:36 Metoclopramide 10 Mg/2 Ml Inj IV Q6H PRN Nausea And Vomiting Morphine Sulfate 2 mg 11/29/20 22:36 Morphine 2 Mg/1 Ml Inj IV Q4H PRN Pain, Moderate (4-6) Ondansetron HCl 4 mg 11/29/20 22:36 Ondansetron 4 Mg/2 Ml Inj IV Q8H PRN Nausea And Vomiting Sodium Chloride 10 ml 11/30/20 10:00 Sodium Chloride 0.9% 10 Ml Flush Syringe IV BID JOSE Sodium Chloride 10 ml 11/29/20 22:36 Sodium Chloride 0.9% 10 Ml Flush Syringe IV PRN PRN LINE FLUSH
--- NOTE | 2020-11-30 15:22 | Progress Note ---
Assessment and Plan 1. End stage renal disease: On maintenance hemodialysis three times a week, MWF schedule. Last outpatient dialysis about a week AGILE QA TESTER. Presented with significant metabolic abnormalities. Hemodialysis: 11/29. HD today. 2. FEN: Hyperkalemia, improved. Metabolic acidosis, improved, monitor. Binders as prescribed. Monitor lytes and volume status. 3. Hypertensive urgency: Continue home meds. IV meds as needed. UF with HD. Monitor BP, better. 4. Elevated troponin: Likely 2/2 ESRD. CTA negative. Lexiscan ordered. 5. Anemia, POA: Epogen with HD as needed. Monitor Hb. 6. Nicotine dependence: Counseled. 7. Medical non-compliance: Counseled. Subjective: Patient was seen and examined at the bedside. Examination: General appearance: alert, well-developed, appears stated age, no distress HEENT: ATNC, CATHY Neck: neck supple, trachea midline Respiratory: Clear to auscultation Heart: regular, normal heart rate, S1S2, no murmur Gastrointestinal: soft, normoactive bowel sounds, not tender, not distended Integumentary: no rash, warm and dry Neurologic: no focal deficit, alert and oriented x3 Ext: no edema Hemodialysis access: L FA AVF Psychiatric: mood/affect appropriate, cooperative Subjective Date of service: 11/30/20 Objective - Vital Signs Vital signs: Vital Signs - 12hr 11/30/20 11/30/20 11/30/20 03:32 05:29 05:30 Temperature 98.4 F Pulse Rate 97 H 97 H 97 H Respiratory 16 Rate Blood Pressure 162/96 162/96 162/96 O2 Sat by Pulse 96 Oximetry 11/30/20 11/30/20 06:01 06:09 Temperature Pulse Rate 87 Respiratory Rate Blood Pressure O2 Sat by Pulse 98 Oximetry - Lab 11/30/20 05:32 11/30/20 05:32 Most recent lab results Calcium 9.2 mg/dL (8.4-10.2) 11/30/20 05:32 Medications & Allergies - Medications Allergies/Adverse Reactions: Allergies No Known Allergies Allergy (Verified 07/23/19 17:18) Home Medications: Home Medications Medication Instructions Recorded Confirmed Last Taken Type Aspirin EC [Halfprin EC] 81 mg PO QDAY #30 tablet. 07/27/19 09/01/20 Unknown Rx Acetaminophen [Acetaminophen TAB] 650 mg PO Q4H PRN tablet 02/11/20 09/01/20 Unknown Rx Epoetin Ryan 20,000 Unit [Procrit] 20,000 unit SUB-Q DIANA PRN vial 02/11/20 09/01/20 Unknown Rx amLODIPine 10 mg PO QDAY #30 tablet 02/11/20 09/01/20 Unknown Rx hydrALAZINE [Apresoline TAB] 100 mg PO Q8HR #90 tab 02/11/20 09/01/20 Unknown Rx labetaloL [Labetalol 100mg TAB] 300 mg PO BID 60 Days #60 tablet 02/11/20 09/01/20 Unknown Rx Calcium Acetate [Phoslo] 1,334 mg PO TIDWM #90 capsule 09/02/20 Unknown Rx Active Medications: Generic Name Dose Route Start Last Admin Trade Name Freq PRN Reason Stop Dose Admin Acetaminophen 650 mg 11/29/20 22:34 Acetaminophen 325 Mg Tab PO Q4H PRN Pain MILD(1-3)/Fever >100.5/LOPEZ Amlodipine Besylate 10 mg 11/30/20 10:00 Amlodipine 10 Mg Tab PO QDAY [facility] Aspirin 81 mg 11/30/20 10:00 Aspirin Ec 81 Mg Tab PO QDAY [facility] Calcium Acetate 1,334 mg 11/30/20 08:00 Calcium Acetate 667 Mg Cap PO TIDWM JOSE Famotidine 10 mg 11/30/20 10:00 Famotidine 10 Mg Tab PO BID JOSE Heparin Sodium (Porcine) 3,000 unit 11/29/20 14:05 Heparin 10,000 Units/10 Ml Vial IV DIANA PRN hemodialysis Heparin Sodium (Porcine) 5,000 unit 11/30/20 10:00 Heparin 5,000 Unit/1 Ml Vial SUB-Q Q12HR JOSE Hydralazine HCl 100 mg 11/29/20 23:00 11/30/20 05:30 Hydralazine 100 Mg Tab PO 100 mg Q8HR JOSE Administration Hydralazine HCl 10 mg 11/29/20 22:41 Hydralazine 20 Mg/1 Ml Inj IV Q3H PRN Hypertension Hydromorphone HCl 0.5 mg 11/29/20 22:36 Hydromorphone 1 Mg/1 Ml Inj IV Q3H PRN Pain , Severe (7-10) Sodium Chloride 100 mls @ 999 mls/hr 11/29/20 14:05 Nacl 0.9% IV DIANA PRN Hypotension Labetalol HCl 100 mg 11/29/20 23:00 11/30/20 05:30 Labetalol 100 Mg Tab PO 100 mg Q8HR JOSE Administration Labetalol HCl 200 mg 11/29/20 23:00 11/30/20 05:29 Labetalol 200 Mg Tab PO 200 mg Q8HR JOSE Administration Metoclopramide HCl 5 mg 11/29/20 22:36 Metoclopramide 10 Mg/2 Ml Inj IV Q6H PRN Nausea And Vomiting Morphine Sulfate 2 mg 11/29/20 22:36 Morphine 2 Mg/1 Ml Inj IV Q4H PRN Pain, Moderate (4-6) Ondansetron HCl 4 mg 11/29/20 22:36 Ondansetron 4 Mg/2 Ml Inj IV Q8H PRN Nausea And Vomiting Sodium Chloride 10 ml 11/30/20 10:00 Sodium Chloride 0.9% 10 Ml Flush Syringe IV BID JOSE Sodium Chloride 10 ml 11/29/20 22:36 Sodium Chloride 0.9% 10 Ml Flush Syringe IV PRN PRN LINE FLUSH
[2020-11-30] MEDS: CALCIUM ACETATE 667 MG CAP PO SCH ×2 (15:34→15:49)
[2020-11-30] MEDS: ASPIRIN EC 81 MG TAB PO SCH (15:48)
[2020-11-30] MEDS: amLODIPine 10 MG TAB PO SCH (15:49)
[2020-11-30] MEDS: FAMOTIDINE 10 MG TAB PO SCH ×2 (15:50→22:25)
[2020-11-30] MEDS: HEPARIN 5,000 UNIT/1 ML VIAL SUB-Q SCH ×2 (15:50→22:26)
[2020-12-01] MEDS: hydrALAZINE 100 MG TAB PO SCH (05:12)
[2020-12-01] MEDS ORDERED: REGADENOSON 0.4 MG/5 ML INJ IV ONE (08:12)
[2020-12-01] MEDS: FAMOTIDINE 10 MG TAB PO SCH (11:30)
[2020-12-01] MEDS: amLODIPine 10 MG TAB PO SCH (11:30)
[2020-12-01] MEDS: CALCIUM ACETATE 667 MG CAP PO SCH (11:30)
[2020-12-01] MEDS: ASPIRIN EC 81 MG TAB PO SCH (11:30)
[2020-12-01] MEDS: HEPARIN 5,000 UNIT/1 ML VIAL SUB-Q SCH (11:30)
[2020-12-01 12:14] VITALS: BP 154/83
--- NOTE | 2020-12-01 12:51 | Nuclear Medicine Report ---
APPROVED REPORT Exam: Nuclear Stress Test Indication: Chest pain Patient Location: [address] [place] [address] Room #: 469 Ht: 5 ft 10 in Wt: 189 lbs BSA: 2.04 m2 HR: 84 bpmBP: 148/82 mmHgBMI: 27.11 Rhythm: NSR Stress Test Details Stress Test: Pharmacologic stress testing performed using 0.4 mg of regadenoson per 5 mL given IV over 10 seconds. HR Resting HR: 84 bpm Max HR Achieved: 103 bpm Max Heart Rate (APMHR): 180.640424 bpm Target HR (85% APMHR): 153.448364 bpm % of APMHR: 57.22 Recovery HR: 92 bpm BP Resting BP: 148/82 mmHg Max BP: 141/67 mmHg ECG Resting ECG: Sinus Rhythm Clinical Reason for Termination: Completed protocol Stress Symptoms: None NM EXAM: Myocardial Perfusion REST/STRESS Imaging Protocol: Rest Tc-99m/Stress Tc-99m 1 day Resting Data Rest SPECT myocardial perfusion imaging was performed in supine position 45 minutes following the intravenous injection of 10 mCi of Tc-99m Myoview. Time of rest injection: 0645 Pharmacologic Stress Pharmacologic stress test was performed by injecting Regadenoson 0.4 mg IV push followed by the intravenous injection of 28 mCi of Tc-99m Myoview. Time of stress injection: 0832 Gated Stress SPECT was performed 30 minutes after stress injection. The images were gated to evaluate regional wall motion and calculate left ventricular ejection fraction. Study Quality Study: excellent Lung Uptake: Normal Study Data TID = 1.20. Perfusion Wall Motion The rest and stress images show normal left ventricular wall motion. Nuclear Conclusion ECG Findings: negative for ischemia Clinical Findings: negative for ischemia Nuclear Findings: negative for ischemia Exercise Capacity: not assessed Left Ventricular Function: normal Normal study. No scintigraphic evidence for myocardial ischemia or scar. Normal left ventricular size and function with no regional wall motion abnormalities.
--- NOTE | 2020-12-01 12:59 | Discharge Summary ---
Providers - Providers Date of Admission: 11/29/20 13:33 Date of discharge: 12/01/20 Attending physician: JUAN MEYERS 11/29/20 13:15 Consult to Physician [CONS] Stat Comment: Consulting Provider: AXEL KATHLEEN Physician Instructions: Reason For Exam: hyperkalemia Primary care physician: FREIGHT SEPARATOR Hospitalization Reason for admission: Chest pain/hypertensive emergency Condition: Stable Pertinent studies: CTA chest; no CT evidence of PE no acute pulmonary abnormalities noted Chest x-ray; moderate cardiomegaly mild central venous congestion lungs clear Nuclear stress test; negative for ischemia, normal LV function Hospital course: 40-year-old -[place] male with history of end-stage renal disease, hypertension and anemia on hemodialysis with 2 episodes of vomiting in the morning followed by chest pain. Patient was initially evaluated noted to have hypertensive emergency with blood pressures more than 200s systolic and more than 130 diastolic, patient also complains of chest pain, cardiac enzymes were positive also has history of end-stage renal disease on hemodialysis Patient was symptomatically managed subsequently underwent nuclear stress test which was negative for ischemia, preserved LV function, Patient's blood pressures closely monitored medications optimized, patient was strongly advised to comply with medications diet and follow-up visits Today patient is comfortable no new complaints vital signs stable Physical examination prior to discharge is unremarkable Cleared by cardiology and patient is hemodynamically and clinically stable at discharge Patient strongly advised to comply with medications diet follow-up visits Patient also advised smoking cessation and use nicotine patch as needed Patient verbalized understanding; Also advised to follow-up with primary care physician in 3 to 5 days and private tire builder in 2 to 3 weeks Discharge diagnosis: -- Hypertensive emergency; present on admission Current Visit: Yes Status: Acute Blood pressures moderate control , continue all antihypertensives , As needed hydralazine Patient advised to comply with medications diet and follow-up visits --Elevated troponin/NSTEMI type II Current Visit: Yes Status: Acute In the setting of end-stage renal disease However patient has multiple risk factors, evaluate for acute coronary syndrome stress test rescheduled for tomorrow 12/01/2020 --ESRD needing dialysis Current Visit: Yes Status: Acute Nephrology following HD per schedule --Volume overload Current Visit: Yes Status: Acute Due to noncompliance with HD , hemodialysis per schedule Per nephrology --Anemia of chronic disease Current Visit: Yes Status: Chronic Secondary to chronic kidney disease Procrit during dialysis --Hyperkalemia Current Visit: No Status: Resolved Plan to address problem: Treated in the emergency room with bicarb and insulin Resolved closely monitor electrolytes --DVT prophylaxis Current Visit: Yes Status: Acute Subcu heparin and GI prophylaxis. Hemodynamically and clinically stable at discharge Disposition: 01 HOME / SELF CARE / HOMELESS Final Discharge Diagnosis (Prints w/discharge instructions): Hypertensive emergency; present on admission, resolved. End-stage renal disease. On hemodialysis MWF. Hyperkalemia resolved. Anemia of chronic disease. Volume overload present on admission resolved. Non-ST elevation ND/stress test negative. GERD Time spent for discharge: 35 min Core Measure Documentation - Palliative Care Palliative Care/ Comfort Measures: Not Applicable - Core Measures Any of the following diagnoses?: none Exam - Constitutional Vitals: Temp Pulse Resp BP Pulse Ox 98.1 F 91 H 18 154/83 99 12/01/20 11:03 12/01/20 11:03 12/01/20 11:03 12/01/20 11:03 12/01/20 11:03 General appearance: Present: no acute distress, well-nourished - EENT Eyes: Present: PERRL, EOM intact - Neck Neck: Present: supple, normal ROM - Respiratory Respiratory effort: normal Respiratory: bilateral: diminished, negative: rales, rhonchi, wheezing - Cardiovascular Rhythm: regular Heart Sounds: Present: S1 & S2 - Extremities Extremities: no ischemia, No edema - Abdominal General gastrointestinal: Present: soft, non-tender, non-distended, normal bowel sounds - Integumentary Integumentary: Present: clear, warm - Musculoskeletal Musculoskeletal: strength equal bilaterally, generalized weakness - Psychiatric Psychiatric: appropriate mood/affect, cooperative - Neurologic Neurologic: moves all extremities Plan Activity: no restrictions Diet: other (Cardiac diet) Special Instructions: smoking cessation Additional Instructions: Advised to quit tobacco use, nicotine patch as needed. If you have worsening symptoms contact MD or go to nearest emergency room as needed. Advised to follow private tire builder in 2 to 3 weeks Follow up with: TYREE LIRIANO MD [Primary Care Provider] - 7 Days MICHELLE DEL RIO MD [Staff Physician] - 14 Days Prescriptions: Nicotine [Habitrol] 14 mg TD DAILY #30 patch Famotidine [Pepcid] 10 mg PO BID #30 tablet
--- NOTE | 2020-12-01 19:58 | Progress Note ---
Assessment and Plan 1. End stage renal disease: On maintenance hemodialysis three times a week, MWF schedule. Last outpatient dialysis about a week [employer]. Presented with significant metabolic abnormalities. Hemodialysis: 11/29. HD today. 2. FEN: Hyperkalemia, improved. Metabolic acidosis, improved, monitor. Binders as prescribed. Monitor lytes and volume status. 3. Hypertensive urgency: Continue home meds. IV meds as needed. UF with HD. Monitor BP, better. 4. Elevated troponin: Likely 2/2 ESRD. CTA negative. Lexiscan ordered. 5. Anemia, POA: Epogen with HD as needed. Monitor Hb. 6. Nicotine dependence: Counseled. 7. Medical non-compliance: Counseled. Subjective: Patient was seen and examined at the bedside. Examination: General appearance: alert, well-developed, appears stated age, no distress HEENT: ATNC, CATHY Neck: neck supple, trachea midline Respiratory: Clear to auscultation Heart: regular, normal heart rate, S1S2, no murmur Gastrointestinal: soft, normoactive bowel sounds, not tender, not distended Integumentary: no rash, warm and dry Neurologic: no focal deficit, alert and oriented x3 Ext: no edema Hemodialysis access: L FA AVF Psychiatric: mood/affect appropriate, cooperative Subjective Date of service: 12/01/20 Objective - Vital Signs Vital signs: Vital Signs - 12hr 12/01/20 12/01/20 12/01/20 08:31 08:32 08:33 Temperature Pulse Rate Respiratory Rate Blood Pressure 138/65 129/67 129/67 O2 Sat by Pulse Oximetry 12/01/20 12/01/20 12/01/20 08:34 11:03 13:00 Temperature 98.1 F Pulse Rate 91 H 91 H Respiratory 18 Rate Blood Pressure 124/70 154/83 O2 Sat by Pulse 99 Oximetry - Lab 11/30/20 05:32 11/30/20 05:32 Most recent lab results Calcium 9.2 mg/dL (8.4-10.2) 11/30/20 05:32 Medications & Allergies - Medications Allergies/Adverse Reactions: Allergies No Known Allergies Allergy (Verified 07/23/19 17:18) Home Medications: Home Medications Medication Instructions Recorded Confirmed Last Taken Type Aspirin EC [Halfprin EC] 81 mg PO QDAY #30 tablet. 07/27/19 09/01/20 Unknown Rx Acetaminophen [Acetaminophen TAB] 650 mg PO Q4H PRN tablet 02/11/20 09/01/20 Unknown Rx Epoetin Ryan 20,000 Unit [Procrit] 20,000 unit SUB-Q DIANA PRN vial 02/11/20 09/01/20 Unknown Rx amLODIPine 10 mg PO QDAY #30 tablet 02/11/20 09/01/20 Unknown Rx hydrALAZINE [Apresoline TAB] 100 mg PO Q8HR #90 tab 02/11/20 09/01/20 Unknown Rx labetaloL [Labetalol 100mg TAB] 300 mg PO BID 60 Days #60 tablet 02/11/20 09/01/20 Unknown Rx Calcium Acetate [Phoslo] 1,334 mg PO TIDWM #90 capsule 09/02/20 Unknown Rx Famotidine [Pepcid] 10 mg PO BID #30 tablet 12/01/20 Unknown Rx Nicotine [Habitrol] 14 mg TD DAILY #30 patch 12/01/20 Unknown Rx
== END 2020-12-01 14:35 | disposition home or self-care (01) | DRG 280 ==
LOC: ED 09:46 → 4A 13:33
PROVIDERS: ADMIT Internal Medicine; ATTEND Internal Medicine
PROC: 5A1D70Z Performance of Urinary Filtration, Intermittent, Less than 6 Hours Per Day (ICD-10-PCS; principal; 2020-11-29)
PROC: 5A1D70Z Performance of Urinary Filtration, Intermittent, Less than 6 Hours Per Day (ICD-10-PCS; 2020-11-30)
DX: I16.1 Hypertensive emergency (principal); N18.6 End stage renal disease; I21.A1 Myocardial infarction type 2; E87.2 Acidosis; D63.1 Anemia in chronic kidney disease; F17.200 Nicotine dependence, unspecified, uncomplicated; I12.0 Hypertensive chronic kidney disease with stage 5 chronic kidney disease or end stage renal disease; Z79.82 Long term (current) use of aspirin; J45.909 Unspecified asthma, uncomplicated; M19.90 Unspecified osteoarthritis, unspecified site; E87.5 Hyperkalemia; R07.89 Other chest pain
CPT/HCPCS: 36415; 71275; 74022; 78452; 80048; 80053; 80061; 80074; 80076; 83690; 84484; 85025; 85610; 85730; 93005; 93017; G0378; A9502; J0360; J0610; J1644; J1815; J2785; Q9967

== ENCOUNTER 2021-09-03 23:54 | Emergency (ER) | payer MEDICARE ==
[2021-09-04] MEDS ORDERED: OXYMETAZOLINE 0.05% NASAL SPRAY NS ONE (00:09)
[2021-09-04 00:37] LABS: Hematocrit 26.3 % (35.5-45.6); Hemoglobin 8.8 gm/dl (11.8-15.2); Mean Corpuscular HGB Conc 33 % (32-34); Mean Corpuscular Volume 96 fl (84-94); Platelet Count 332 K/mm3 (140-440); Red Blood Count 2.74 M/mm3 (3.65-5.03); Red Cell Distribution Width 16.4 % (13.2-15.2)
[2021-09-04 00:47] LABS: INR 0.97 (0.87-1.13); Partial Thromboplastin Time 36.9 Sec. (24.2-36.6)
[2021-09-04] MEDS ORDERED: TRANEXAMIC ACID 1,000 MG in SODIUM CHLORIDE 0.9% 100 ML IV NR (01:00)
[2021-09-04] MEDS ORDERED: PANTOPRAZOLE 40 MG INJ IV ONE ×2 (01:02→01:04)
[2021-09-04] MEDS ORDERED: OCTREOTIDE 50 MCG/1 ML INJ IV ONE ×2 (01:04→01:44)
[2021-09-04] MEDS ORDERED: TRANEXAMIC ACID 1,000 MG/10 ML IV ONE (01:10)
[2021-09-04 01:32] LABS: Hematocrit 23.6 % (35.5-45.6); Hemoglobin 7.9 gm/dl (11.8-15.2)
[2021-09-04 01:52] LABS: Calcium 8.5 mg/dL (8.4-10.2)
[2021-09-04] MEDS ORDERED: OCTREOTIDE 500 MCG in SODIUM CHLORIDE 0.9% 100 ML IV SCH (02:00)
[2021-09-04] MEDS ORDERED: LORazepam 2 MG/ML VIAL IV ONE (02:00)
[2021-09-04] MEDS ORDERED: PANTOPRAZOLE 80 MG in SODIUM CHLORIDE 0.9% 100 ML IV SCH (02:00)
--- NOTE | 2021-09-04 02:02 | Emergency Department Report ---
ED General Adult HPI - General Chief complaint: Nosebleed Stated complaint: EPISTAXIS Time Seen by Provider: 09/04/21 00:08 Source: patient, EMS Mode of arrival: Wheelchair Limitations: No Limitations - History of Present Illness Initial comments: THIS IS A 41 YEAR OLD MALE WITH MEDICAL HISTORY OF ESRD-HD AND HYPERTENSION BROUGHT IN BY EMS WITH CONCERN OF RIGHT NOSTRIL BLEED THAT STARTED AROUND 10PM. ON MY ARRIVAL, PATIENT'S NOT PINCHING HIS NOSE CORRECTLY AND STATES HE HE SWALLOWING A LOT OF BLOOD AND COUGHING IT UP WELL. PATIENT STATES HE DOESN'T DRINK ALCOHOL. STATES HE IS NOT ON ANY ANTICOAGULATION OR ANTIPLATELET. Patient denies any other discomfort denies fever chill night sweat dizziness blurred vision leading to headache tinnitus ear pain runny nose sore throat loss of taste loss of smell chest pain palpitation short of breath cough abdominal pain nausea vomiting diarrhea constipation joint pain muscle pain new rash and heat or cold intolerance. - Related Data Previous Rx's Medication Instructions Recorded Last Taken Type Aspirin EC [Halfprin EC] 81 mg PO QDAY #30 tablet. 07/27/19 Unknown Rx Acetaminophen [Acetaminophen TAB] 650 mg PO Q4H PRN tablet 02/11/20 Unknown Rx Epoetin Ryan 20,000 Unit [Procrit] 20,000 unit SUB-Q DIANA PRN vial 02/11/20 Unknown Rx amLODIPine 10 mg PO QDAY #30 tablet 02/11/20 Unknown Rx hydrALAZINE [Apresoline TAB] 100 mg PO Q8HR #90 tab 02/11/20 Unknown Rx labetaloL [Labetalol 100mg TAB] 300 mg PO BID 60 Days #60 tablet 02/11/20 Unknown Rx Calcium Acetate [Phoslo] 1,334 mg PO TIDWM #90 capsule 09/02/20 Unknown Rx Famotidine [Pepcid] 10 mg PO BID #30 tablet 12/01/20 Unknown Rx Nicotine [Habitrol] 14 mg TD DAILY #30 patch 12/01/20 Unknown Rx Allergies Allergy/AdvReac Type Severity Reaction Status Date / Time No Known Allergies Allergy Verified 09/04/21 00:14 ED Review of Systems ROS: Stated complaint: EPISTAXIS Other details as noted in HPI Comment: All other systems reviewed and negative Constitutional: no symptoms reported Eyes: as per HPI ENT: as per HPI, epistaxis (Right nostril) Respiratory: no symptoms reported Cardiovascular: as per HPI Endocrine: no symptoms reported Gastrointestinal: as per HPI Genitourinary: as per HPI Musculoskeletal: as per HPI Skin: as per HPI Neurological: as per HPI Psychiatric: as per HPI Hematological/Lymphatic: as per HPI ED Past Medical Hx - Past Medical History Previous Medical History?: Yes Hx Hypertension: Yes Hx Heart Attack/AMI: No Hx Congestive Heart Failure: No Hx Diabetes: No Hx Liver Disease: No Hx Renal Disease: Yes (Hemodialysis M,W,F) Hx Sickle Cell Disease: No Hx Arthritis: Yes (knees) Hx Seizures: No Hx Asthma: Yes Hx COPD: No Hx HIV: No - Surgical History Additional Surgical History: Vas Cath and Fistula to L arm. - Social History Smoking Status: Never Smoker Substance Use Type: None - Medications Home Medications: Home Medications Medication Instructions Recorded Confirmed Last Taken Type Aspirin EC [Halfprin EC] 81 mg PO QDAY #30 tablet. 07/27/19 09/01/20 Unknown Rx Acetaminophen [Acetaminophen TAB] 650 mg PO Q4H PRN tablet 02/11/20 09/01/20 Unknown Rx Epoetin Ryan 20,000 Unit [Procrit] 20,000 unit SUB-Q DIANA PRN vial 02/11/20 09/01/20 Unknown Rx amLODIPine 10 mg PO QDAY #30 tablet 02/11/20 09/01/20 Unknown Rx hydrALAZINE [Apresoline TAB] 100 mg PO Q8HR #90 tab 02/11/20 09/01/20 Unknown Rx labetaloL [Labetalol 100mg TAB] 300 mg PO BID 60 Days #60 tablet 02/11/20 09/01/20 Unknown Rx Calcium Acetate [Phoslo] 1,334 mg PO TIDWM #90 capsule 09/02/20 Unknown Rx Famotidine [Pepcid] 10 mg PO BID #30 tablet 12/01/20 Unknown Rx Nicotine [Habitrol] 14 mg TD DAILY #30 patch 12/01/20 Unknown Rx ED Physical Exam - General Limitations: No Limitations General appearance: alert, in no apparent distress - Head Head exam: Present: atraumatic, normocephalic, normal inspection - Eye Eye exam: Present: normal appearance, PERRL, EOMI Pupils: Present: normal accommodation - ENT ENT exam: Present: normal exam, other (Right anterior nastril bleed) - Neck Neck exam: Present: normal inspection, tenderness - Respiratory Respiratory exam: Present: normal lung sounds bilaterally - Cardiovascular Cardiovascular Exam: Present: regular rate, normal rhythm - GI/Abdominal GI/Abdominal exam: Present: soft - Extremities Exam Extremities exam: Present: normal inspection, full ROM, normal capillary refill - Back Exam Back exam: Present: normal inspection, full ROM - Neurological Exam Neurological exam: Present: alert, altered, oriented X3, CN II-XII intact, normal gait - Psychiatric Psychiatric exam: Present: normal affect, normal mood - Skin Skin exam: Present: normal color ED Course Vital Signs 09/04/21 09/04/21 09/04/21 00:05 01:29 01:32 Temperature 98.7 F Pulse Rate 87 86 88 Respiratory 17 15 Rate Blood Pressure 196/122 212/121 Blood Pressure 176/86 [Right] O2 Sat by Pulse 97 99 Oximetry 09/04/21 02:42 Temperature Pulse Rate 84 Respiratory 19 Rate Blood Pressure Blood Pressure 191/110 [Right] O2 Sat by Pulse 99 Oximetry - Reevaluation(s) Reevaluation #1: IN THE ER, WE DO NOT HAVE ONLY 2 MEROCEL THAT HAVE BEEN IN 2019 AND ARE SMALL SIZE; THERE ARE NO OTHER NASAL PACKING IN [facility] AND TAXATION ACCOUNTANT ALSO COULDN'T FIND ANY WELL. HAS TO USE FEMALE VAGINAL TAMPON WHICH WAS SOAKED IN BOTH TXA AND AFRIN. RIGHT AFTER I INSERTED INTO THE RIGHT NOSTRIL PATIENT HAS SIGNIFICANT HEMOPTYSIS OF SEMI-FORMED BLOOD AND STATE H/H WAS ORDERED WITH H/H BEING AT 7.6/23.6. SINCE 1 HOUR, PATIENT FEELS THE BLEEDI NG STOPPED AND IS NOT COUGHING OR SPITTING UP ANYMORE BLOOD. I WILL ORDER ONE MORE H/H TO MAKE SURE NO SIGNIFICANT DOWN TRENDING BEFORE DISCHARGING PATIENT. ED Medical Decision Making - Lab Data Result diagrams: 09/04/21 01:14 09/04/21 01:14 - Medical Decision Making Patient resting comfortably in bed with no coughing up blood and no more nasal bleeding according to the patient. I will go ahead and d/c the patient. Patient here for 2 have nasal tampon removed within 24 to 36 hours and no later than that. Patient informed to return to the ER if noticed that starts to bleed again. Critical care attestation.: If time is entered above; I have spent that time in minutes in the direct care of this critically ill patient, excluding procedure time. ED Disposition Clinical Impression: Bleeding nose Disposition: 01 HOME / SELF CARE / HOMELESS Is pt being admited?: No Does the pt Need Aspirin: No Condition: Stable Instructions: Nosebleed, Adult Additional Instructions: Your nasal tampon will need to come out in 24-36 hours and no later than that. Please return to the Emergency Room or go to your primary care provider to have your nasal tampon taken out. In the meantime, if you noticed it starts to bleed again, please return to the Emergency Room immediately. Referrals: COLBY MENDEZ MD [Primary Care Provider] - 3-5 Days Time of Disposition: 03:17
[2021-09-04 04:08] VITALS: BP 186/99
== END 2021-09-04 03:42 | disposition home or self-care (01) ==
LOC: ED 23:54
DX: R04.0 Epistaxis (principal); I12.0 Hypertensive chronic kidney disease with stage 5 chronic kidney disease or end stage renal disease; N18.6 End stage renal disease; Z99.2 Dependence on renal dialysis; M19.90 Unspecified osteoarthritis, unspecified site; J45.909 Unspecified asthma, uncomplicated; Z98.890 Other specified postprocedural states
CPT/HCPCS: 36415; 80048; 85014; 85018; 85027; 85610; 85730; 86850; 86900; 86901; 96365; 96375; 96376; 99284; C9113; J2060; J3490; J2501; J2354

== ENCOUNTER 2021-09-15 12:13 | Emergency (ER) | payer MEDICARE ==
--- NOTE | 2021-09-15 13:05 | Event Note ---
ED Screening Note ED Screening Note: STATES HIS NEPRHOLOGY MD TOLD HIM TO COME HERE FOR LABS/HD DENIES MISSING HD This initial assessment/diagnostic orders/clinical plan/treatment(s) is/are subject to change based on patients health status, clinical progression and re- assessment by fellow clinical providers in the ED. Further treatment and workup at subsequent clinical providers discretion. Patient/guardian urged not to elope from the ED as their condition may be serious if not clinically assessed and managed. Initial orders include: LABS RO NEED FOR EMERGENT HD
[2021-09-15 23:15] LABS: Hepatitis B Surface Antigen Non-Reactive (Negative); Hepatitis C Virus Antibody Non-Reactive (NonReactive)
== END 2021-09-15 13:05 | disposition left against medical advice (07) ==
LOC: ED 12:13
DX: Z53.21 Procedure and treatment not carried out due to patient leaving prior to being seen by health care provider (principal)
CPT/HCPCS: 36415; 80074

== ENCOUNTER 2021-09-15 15:48 | Observation (INO) | payer MEDICARE ==
--- NOTE | 2021-09-15 16:19 | Event Note ---
ED Screening Note ED Screening Note: DR SESSIONS SENT HERE FOR HIGH K ON HD DUE TODAY- DR SESSIONS WOULD HAVE TO BE SEEN IN ER FUE TO HIGH K L AV FISTULA This initial assessment/diagnostic orders/clinical plan/treatment(s) is/are subject to change based on patients health status, clinical progression and re- assessment by fellow clinical providers in the ED. Further treatment and workup at subsequent clinical providers discretion. Patient/guardian urged not to elope from the ED as their condition may be serious if not clinically assessed and managed. Initial orders include: LABS ?hd
[2021-09-15 17:28] LABS: Hematocrit 21.5 % (35.5-45.6); Hemoglobin 7.2 gm/dl (11.8-15.2); Mean Corpuscular HGB Conc 33 % (32-34); Mean Corpuscular Volume 95 fl (84-94); Platelet Count 267 K/mm3 (140-440); Red Blood Count 2.27 M/mm3 (3.65-5.03); Red Cell Distribution Width 17.1 % (13.2-15.2)
[2021-09-15 17:55] LABS: Blood Urea Nitrogen 70 mg/dL (9-20); Calcium 9.5 mg/dL (8.4-10.2); Hemolysis Index 34
[2021-09-15 17:56] LABS: BUN/Creatinine Ratio 4
[2021-09-15] MEDS ORDERED: DEXTROSE 50% IN WATER (25GM) 50 ML VIAL IV ONE (18:12)
[2021-09-15] MEDS ORDERED: INSULIN REGULAR, HUMAN 100 UNITS/1 ML IV ONE ×2 (18:13→22:15)
[2021-09-15] MEDS ORDERED: SODIUM POLYSTYRENE 15 GM/60 ML ORAL LIQD PO ONE ×2 (18:13→22:15)
[2021-09-15] MEDS ORDERED: CALCIUM GLUCONATE 1,000 MG in SODIUM CHLORIDE 0.9% 100 ML IV ONE (18:55)
[2021-09-15] MEDS ORDERED: EPOETIN ALFA-EPBX 20,000 UNIT/1 ML VIAL IV PRN (18:58)
[2021-09-15] MEDS ORDERED: SODIUM CHLORIDE 0.9% 100 ML IV PRN (18:58)
[2021-09-15] MEDS ORDERED: HEPARIN 10,000 UNITS/10 ML VIAL IV PRN (18:58)
--- NOTE | 2021-09-15 19:23 | Emergency Department Report ---
ED General Adult HPI - General Chief complaint: Weakness Stated complaint: BLODOWORK/DIALYSIS/SENT BY MD Time Seen by Provider: 09/15/21 16:18 Source: patient Mode of arrival: Ambulatory Limitations: No Limitations - History of Present Illness Initial comments: pt presents to ed for dialysis -: Gradual, days(s) Radiation: non-radiation Associated Symptoms: denies: denies other symptoms, confusion, chest pain, headaches - Related Data Previous Rx's Medication Instructions Recorded Last Taken Type Aspirin EC [Halfprin EC] 81 mg PO QDAY #30 tablet.dr 07/27/19 Unknown Rx Acetaminophen [Acetaminophen TAB] 650 mg PO Q4H PRN tablet 02/11/20 Unknown Rx Epoetin Ryan 20,000 Unit [Procrit] 20,000 unit SUB-Q DIANA PRN vial 02/11/20 Unknown Rx amLODIPine 10 mg PO QDAY #30 tablet 02/11/20 Unknown Rx hydrALAZINE [Apresoline TAB] 100 mg PO Q8HR #90 tab 02/11/20 Unknown Rx labetaloL [Labetalol 100mg TAB] 300 mg PO BID 60 Days #60 tablet 02/11/20 Unknown Rx Calcium Acetate [Phoslo] 1,334 mg PO TIDWM #90 capsule 09/02/20 Unknown Rx Famotidine [Pepcid] 10 mg PO BID #30 tablet 12/01/20 Unknown Rx Nicotine [Habitrol] 14 mg TD DAILY #30 patch 12/01/20 Unknown Rx Allergies Allergy/AdvReac Type Severity Reaction Status Date / Time No Known Allergies Allergy Verified 09/04/21 00:14 ED Review of Systems ROS: Stated complaint: BLODOWORK/DIALYSIS/SENT BY MD Other details as noted in HPI Constitutional: denies: chills, fever Eyes: denies: eye pain, eye discharge, vision change ENT: denies: ear pain, throat pain Respiratory: denies: cough, shortness of breath, wheezing Cardiovascular: denies: chest pain, palpitations Endocrine: no symptoms reported Gastrointestinal: denies: abdominal pain, nausea, diarrhea Genitourinary: denies: urgency, dysuria Musculoskeletal: denies: back pain, joint swelling, arthralgia Skin: denies: rash, lesions Neurological: denies: headache, weakness, paresthesias Psychiatric: denies: anxiety, depression Hematological/Lymphatic: denies: easy bleeding, easy bruising ED Past Medical Hx - Past Medical History Hx Hypertension: Yes Hx Heart Attack/AMI: No Hx Congestive Heart Failure: No Hx Diabetes: No Hx Liver Disease: No Hx Renal Disease: Yes (Hemodialysis M,W,F) Hx Sickle Cell Disease: No Hx Arthritis: Yes (knees) Hx Seizures: No Hx Asthma: Yes Hx COPD: No Hx HIV: No - Surgical History Additional Surgical History: Vas Cath and Fistula to L arm. - Social History Smoking Status: Never Smoker Substance Use Type: None - Medications Home Medications: Home Medications Medication Instructions Recorded Confirmed Last Taken Type Aspirin EC [Halfprin EC] 81 mg PO QDAY #30 tablet. 07/27/19 09/01/20 Unknown Rx Acetaminophen [Acetaminophen TAB] 650 mg PO Q4H PRN tablet 02/11/20 09/01/20 Unknown Rx Epoetin Ryan 20,000 Unit [Procrit] 20,000 unit SUB-Q DIANA PRN vial 02/11/20 09/01/20 Unknown Rx amLODIPine 10 mg PO QDAY #30 tablet 02/11/20 09/01/20 Unknown Rx hydrALAZINE [Apresoline TAB] 100 mg PO Q8HR #90 tab 02/11/20 09/01/20 Unknown Rx labetaloL [Labetalol 100mg TAB] 300 mg PO BID 60 Days #60 tablet 02/11/20 09/01/20 Unknown Rx Calcium Acetate [Phoslo] 1,334 mg PO TIDWM #90 capsule 09/02/20 Unknown Rx Famotidine [Pepcid] 10 mg PO BID #30 tablet 12/01/20 Unknown Rx Nicotine [Habitrol] 14 mg TD DAILY #30 patch 12/01/20 Unknown Rx ED Physical Exam - General Limitations: No Limitations General appearance: alert, in no apparent distress - Head Head exam: Present: atraumatic, normocephalic - Eye Eye exam: Present: normal appearance - ENT ENT exam: Present: mucous membranes moist - Neck Neck exam: Present: normal inspection - Respiratory Respiratory exam: Present: normal lung sounds bilaterally. Absent: respiratory distress - Cardiovascular Cardiovascular Exam: Present: regular rate, normal rhythm. Absent: systolic murmur, diastolic murmur, rubs, gallop - GI/Abdominal GI/Abdominal exam: Present: soft, normal bowel sounds - Rectal Rectal exam: Present: deferred - Extremities Exam Extremities exam: Present: normal inspection - Back Exam Back exam: Present: normal inspection - Neurological Exam Neurological exam: Present: alert, oriented X3 - Psychiatric Psychiatric exam: Present: normal affect, normal mood - Skin Skin exam: Present: warm, dry, intact, normal color. Absent: rash ED Course Vital Signs 09/15/21 16:15 Temperature 98 F Pulse Rate 86 Respiratory 16 Rate Blood Pressure 170/92 [Left] O2 Sat by Pulse 100 Oximetry ED Medical Decision Making - Lab Data Result diagrams: 09/15/21 16:33 09/15/21 16:33 Critical care attestation.: If time is entered above; I have spent that time in minutes in the direct care of this critically ill patient, excluding procedure time. ED Disposition Clinical Impression: Renal insufficiency, ESRD (end stage renal disease), End-stage renal disease needing dialysis, Hyperkalemia Disposition: ADMITTED INPATIENT Is pt being admited?: Yes Does the pt Need Aspirin: No Condition: Stable
[2021-09-15] MEDS ORDERED: HYDROmorphone 0.5 MG/0.5 ML INJ IV PRN (19:34)
[2021-09-15] MEDS ORDERED: ACETAMINOPHEN 325 MG TAB PO PRN (19:34)
[2021-09-15] MEDS ORDERED: ALBUTEROL 2.5 MG/3 ML NEBU IH PRN (19:34)
[2021-09-15] MEDS ORDERED: ONDANSETRON 4 MG/2 ML INJ IV PRN (19:34)
[2021-09-15] MEDS ORDERED: oxyCODONE /ACETAMINOPHEN 5-325MG TAB PO PRN (19:34)
--- NOTE | 2021-09-15 19:34 | History and Physical Report ---
History of Present Illness Chief complaint: I need dialysis History of present illness: 40 YO male with HTN, Asthma, Medication Noncompliance, Nicotine Dependence, ESRD on HD(M,W,F). Patient was unable to receive dialysis today. Patient states that he presented to his routine dialysis center today for dialysis and was unable to receive dialysis and was instructed to seek further care at [facility]. Patient transported to [facility] via private vehicle for further care and evaluation of the aforementioned symptoms. The patient was seen and evaluated in the emergency department. All lab and imaging studies reviewed. Patient found to have end-stage renal disease in need of urgent dialysis. Nephrology team consulted. Pt denies fever, chills, palpitations, productive cough, skin rash, recent ill contacts, . Pt admitted to medical floor. Nephrology consulted in ED for urgent dialysis. Past History Past Medical History: ESRD, hypertension, other (see hpi) Past Surgical History: Other (dialysis access) Social history: single, smoking Family history: hypertension Medications and Allergies Allergies Allergy/AdvReac Type Severity Reaction Status Date / Time No Known Allergies Allergy Verified 09/04/21 00:14 Home Medications Medication Instructions Recorded Confirmed Last Taken Type Aspirin EC [Halfprin EC] 81 mg PO QDAY #30 tablet. 07/27/19 09/01/20 Unknown Rx Acetaminophen [Acetaminophen TAB] 650 mg PO Q4H PRN tablet 02/11/20 09/01/20 Unknown Rx Epoetin Ryan 20,000 Unit [Procrit] 20,000 unit SUB-Q DIANA PRN vial 02/11/20 09/01/20 Unknown Rx amLODIPine 10 mg PO QDAY #30 tablet 02/11/20 09/01/20 Unknown Rx hydrALAZINE [Apresoline TAB] 100 mg PO Q8HR #90 tab 02/11/20 09/01/20 Unknown Rx labetaloL [Labetalol 100mg TAB] 300 mg PO BID 60 Days #60 tablet 02/11/20 09/01/20 Unknown Rx Calcium Acetate [Phoslo] 1,334 mg PO TIDWM #90 capsule 09/02/20 Unknown Rx Famotidine [Pepcid] 10 mg PO BID #30 tablet 12/01/20 Unknown Rx Nicotine [Habitrol] 14 mg TD DAILY #30 patch 12/01/20 Unknown Rx Active Meds: Active Medications Dextrose (Dextrose 50% In Water (25gm) 50 Ml Syringe) 100 ml IV ONCE ONE Stop: 09/15/21 20:01 Epoetin Ryan-epbx (Epoetin Ryan-Epbx 20,000 Unit/1 Ml Vial) 20,000 unit IV DIANA PRN PRN Reason: hemodialysis Heparin Sodium (Porcine) (Heparin 10,000 Units/10 Ml Vial) 3,000 unit IV DIANA PRN PRN Reason: hemodialysis Sodium Chloride (Nacl 0.9%) 100 mls @ 999 mls/hr IV DIANA PRN PRN Reason: Hypotension Review of Systems Constitutional: no weight loss, no weight gain, no fever, no chills Ears, nose, mouth and throat: no ear pain, no tinnitis, no nose pain, no nasal congestion, no nasal discharge Cardiovascular: no chest pain, no palpitations, no edema, no syncope Respiratory: no cough, no hemoptysis, no dyspnea on exertion Gastrointestinal: no abdominal pain, no nausea, no vomiting, no diarrhea, no constipation Genitourinary Male: no hematuria, no flank pain, no discharge, no urinary frequency, no urinary hesitancy Rectal: no pain, no bleeding Musculoskeletal: no neck pain, no arm numbness/tingling, no low back pain, no leg numbness/tingling Integumentary: no rash, no pruritis, no sores, no wounds, no jaundice Neurological: no head injury, no weakness, no parathesias, no syncope Psychiatric: no anxiety, no change in sleep habits, no insomnia, no change in libido Endocrine: no cold intolerance, no polyphagia, no polydipsia, no polyuria, no excessive sweating, no weight change Hematologic/Lymphatic: no easy bleeding Allergic/Immunologic: no urticaria, no allergic rhinitis, no wheezing Exam - Constitutional Vitals: Temp Pulse Resp BP Pulse Ox 98 F 86 16 170/92 100 09/15/21 16:15 09/15/21 16:15 09/15/21 16:15 09/15/21 16:15 09/15/21 16:15 General appearance: Present: mild distress - EENT Eyes: Present: PERRL ENT: hearing intact, clear oral mucosa - Neck Neck: Present: supple, normal ROM - Respiratory Respiratory effort: normal Respiratory: bilateral: CTA - Cardiovascular Heart Sounds: Present: S1 & S2. Absent: rub, click - Extremities Extremities: pulses symmetrical, No edema Peripheral Pulses: within normal limits - Abdominal General gastrointestinal: Present: soft, non-tender, non-distended, normal bowel sounds Male genitourinary: Present: normal - Integumentary Integumentary: Present: clear, warm, dry - Musculoskeletal Musculoskeletal: gait normal, strength equal bilaterally - Psychiatric Psychiatric: appropriate mood/affect, intact judgment & insight - Neurologic Neurologic: CNII-XII intact, moves all extremities Results - Labs CBC & Chem 7: 09/15/21 16:33 09/15/21 16:33 Labs: Abnormal lab results 09/15/21 09/15/21 Range/Units 16:33 16:33 RBC 2.27 L (3.65-5.03) M/mm3 Hgb 7.2 L (11.8-15.2) gm/dl Hct 21.5 L (35.5-45.6) % MCV 95 H (84-94) fl RDW 17.1 H (13.2-15.2) % Potassium 6.1 H* (3.6-5.0) mmol/L BUN 70 H (9-20) mg/dL Creatinine 17.4 H (0.8-1.3) mg/dL Phosphorus 5.60 H (2.5-4.5) mg/dL Magnesium 3.10 H (1.7-2.3) mg/dL NT-Pro-B Natriuret Pep > 95748 H (0-450) pg/mL Assessment and Plan - Patient Problems (1) ESRD (end stage renal disease) Status: Acute Plan to address problem: Nephrology team consulted in ED, dialysis as per renal team, supportive care. (2) Nicotine dependence Status: Chronic Qualifiers: Nicotine product type: cigarettes Substance use status: in withdrawal Qualified Code(s): F17.213 - Nicotine dependence, cigarettes, with withdrawal Plan to address problem: Smoke cessation counseling, supportive care, behavior change counseling, +15 minutes. (3) Hyperkalemia Status: Acute Plan to address problem: Calcium gluconate, Kayexalate, no EKG changes. (4) Metabolic acidosis Status: Resolved Plan to address problem: Urgent dialysis. (5) DVT prophylaxis Status: Acute Plan to address problem: SCD to bilateral lower extremities while in bed (6) Advance care planning Status: Acute Plan to address problem: Disease education done, care plan discussed, diagnosis discussed, prognosis discussed, patient is full code. Patient knowledges understanding and agreement with care plan, +30 minutes. (7) Preventative health care Status: Acute Plan to address problem: Patient counseled regarding medication compliance, renal dietary compliance. Outpatient follow-up with primary care physician for all age and risk factor appropriate screening test. +30 minutes.
[2021-09-15] MEDS ORDERED: DEXTROSE 50% IN WATER (25GM) 50 ML SYRINGE IV ONE (20:00)
[2021-09-16] MEDS ORDERED: cloNIDine 0.1 MG TAB PO ONE (05:13)
[2021-09-16 06:58] LABS: Hemoglobin 6.5 gm/dl (11.8-15.2)
[2021-09-16 07:18] LABS: Calcium 9.2 mg/dL (8.4-10.2)
[2021-09-16 07:31] LABS: Hepatitis B Surface Antigen Non-Reactive (Negative); Hepatitis C Virus Antibody Non-Reactive (NonReactive)
[2021-09-16] MEDS ORDERED: SODIUM CHLORIDE 0.9% 500 ML 500 ML IV ONE (07:44)
--- NOTE | 2021-09-16 07:46 | Consultation ---
History of Present Illness - Reason for Consult Consult date: 09/16/21 end stage renal disease Past History Past Medical History: ESRD, hypertension, other (see hpi) Past Surgical History: Other (dialysis access) Social history: single, smoking Family history: hypertension Medications and Allergies Allergies Allergy/AdvReac Type Severity Reaction Status Date / Time No Known Allergies Allergy Verified 09/04/21 00:14 Home Medications Medication Instructions Recorded Confirmed Last Taken Type Aspirin EC [Halfprin EC] 81 mg PO QDAY #30 tablet. 07/27/19 09/01/20 Unknown Rx Acetaminophen [Acetaminophen TAB] 650 mg PO Q4H PRN tablet 02/11/20 09/01/20 Unknown Rx Epoetin Ryan 20,000 Unit [Procrit] 20,000 unit SUB-Q DIANA PRN vial 02/11/20 09/01/20 Unknown Rx amLODIPine 10 mg PO QDAY #30 tablet 02/11/20 09/01/20 Unknown Rx hydrALAZINE [Apresoline TAB] 100 mg PO Q8HR #90 tab 02/11/20 09/01/20 Unknown Rx labetaloL [Labetalol 100mg TAB] 300 mg PO BID 60 Days #60 tablet 02/11/20 09/01/20 Unknown Rx Calcium Acetate [Phoslo] 1,334 mg PO TIDWM #90 capsule 09/02/20 Unknown Rx Famotidine [Pepcid] 10 mg PO BID #30 tablet 12/01/20 Unknown Rx Nicotine [Habitrol] 14 mg TD DAILY #30 patch 12/01/20 Unknown Rx Active Meds: Active Medications Acetaminophen (Acetaminophen 325 Mg Tab) 650 mg PO Q4H PRN PRN Reason: Pain MILD(1-3)/Fever >100.5/LOPEZ Albuterol (Albuterol 2.5 Mg/3 Ml Nebu) 2.5 mg IH Q4HRT PRN PRN Reason: Shortness Of Breath Epoetin Ryan-epbx (Epoetin Ryan-Epbx 20,000 Unit/1 Ml Vial) 20,000 unit IV DIANA PRN PRN Reason: hemodialysis Heparin Sodium (Porcine) (Heparin 10,000 Units/10 Ml Vial) 3,000 unit IV DIANA PRN PRN Reason: hemodialysis Hydromorphone HCl (Hydromorphone 0.5 Mg/0.5 Ml Inj) 0.5 mg IV Q23H PRN PRN Reason: Pain , Severe (7-10) Sodium Chloride (Nacl 0.9%) 100 mls @ 999 mls/hr IV DIANA PRN PRN Reason: Hypotension Sodium Chloride (Nacl 0.9% 500 Ml) 500 mls @ 0 mls/hr IV ONCE ONE Stop: 09/16/21 07:45 Ondansetron HCl (Ondansetron 4 Mg/2 Ml Inj) 4 mg IV Q8H PRN PRN Reason: Nausea And Vomiting Oxycodone/Acetaminophen (Oxycodone /Acetaminophen 5-325mg Tab) 1 tab PO Q6H PRN PRN Reason: Pain, Moderate (4-6) Sodium Chloride (Sodium Chloride 0.9% 10 Ml Flush Syringe) 10 ml IV BID JOSE Last Admin: 09/15/21 21:37 Dose: 10 ml Sodium Chloride (Sodium Chloride 0.9% 10 Ml Flush Syringe) 10 ml IV PRN PRN PRN Reason: LINE FLUSH Exam - Vital Signs Vital signs: Vital Signs Temp Pulse Resp BP Pulse Ox 98 F 86 16 170/92 100 09/15/21 16:15 09/15/21 16:15 09/15/21 16:15 09/15/21 16:15 09/15/21 16:15 Results - Lab Results 09/16/21 06:09 09/16/21 06:09 Most recent lab results Calcium 9.2 mg/dL (8.4-10.2) 09/16/21 06:09 Phosphorus 5.60 mg/dL (2.5-4.5) H 09/15/21 16:33 Magnesium 3.10 mg/dL (1.7-2.3) H 09/15/21 16:33
[2021-09-16 07:58] LABS: Hematocrit 18.9 % (35.5-45.6)
--- NOTE | 2021-09-16 08:06 | Discharge Summary ---
Providers - Providers Date of Admission: 09/15/21 19:34 Date of discharge: 09/16/21 Attending physician: MEIR CANADA 09/15/21 19:20 Consult to Physician [CONS] Stat Comment: Consulting Provider: AXEL KATHLEEN Physician Instructions: Reason For Exam: radha Primary care physician: COLBY MENDEZ Hospitalization Reason for admission: ESRD with missed HD Condition: Stable Hospital course: 40 YO male with HTN, Asthma, Medication Noncompliance, Nicotine Dependence, ESRD on HD(M,W,F) presented to the emergency room because he was unable to receive dialysis on the day of admission. Patient presented to his routine dialysis center for dialysis and was unable to receive dialysis and was instructed to seek further care at [facility]. Patient transported to [facility] via private vehicle for further care and evaluation of the aforementioned symptoms. The patient was seen and evaluated in the emergency department. All lab and imaging studies reviewed. Patient found to have end-stage renal disease in need of urgent dialysis. Nephrology team consulted. Pt admitted to medical floor. Nephrology consulted in ED for urgent dialysis. Nephrology has arranged for the patient to receive hemodialysis this morning. The patient was noted to have hyperkalemia of 6.1 and a hemoglobin of 7.2. Follow-up hemoglobin today was noted to be 6.5. I discussed the case with Dr. Kathleen who reports that the patient will receive hemodialysis today as well as 1 unit PRBCs. 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 Dedicated discharge time 32 minutes Disposition: 01 HOME / SELF CARE / HOMELESS Final Discharge Diagnosis (Prints w/discharge instructions): ESRD, nicotine dependence, hyperkalemia, metabolic acidosis Core Measure Documentation - Palliative Care Palliative Care/ Comfort Measures: Not Applicable - Core Measures Any of the following diagnoses?: none Exam - Constitutional Vitals: Temp Pulse Resp BP Pulse Ox 98.4 F 73 18 208/111 100 09/16/21 04:56 09/16/21 05:19 09/16/21 04:56 09/16/21 05:19 09/16/21 04:56 General appearance: Present: no acute distress, well-nourished - EENT Eyes: Present: PERRL ENT: hearing intact, clear oral mucosa - Neck Neck: Present: supple, normal ROM - Respiratory Respiratory effort: normal Respiratory: bilateral: CTA - Cardiovascular Heart Sounds: Present: S1 & S2. Absent: rub, click - Extremities Extremities: pulses symmetrical, No edema Peripheral Pulses: within normal limits - Abdominal General gastrointestinal: Present: soft, non-tender, non-distended, normal bowel sounds Male genitourinary: Present: normal - Integumentary Integumentary: Present: clear, warm, dry - Musculoskeletal Musculoskeletal: gait normal, strength equal bilaterally - Psychiatric Psychiatric: appropriate mood/affect, intact judgment & insight - Neurologic Neurologic: CNII-XII intact, moves all extremities Plan Activity: advance as tolerated Weight Bearing Status: Weight Bear as Tolerated Diet: renal Follow up with: COLBY MENDEZ MD [Primary Care Provider] - 7 Days AXEL KATHLEEN MD [Staff Physician] - 7 Days Prescriptions: hydrALAZINE [Apresoline TAB] 100 mg PO Q8HR #90 tab Losartan [Cozaar] 100 mg PO QDAY #30 tablet Aspirin EC [Halfprin EC] 81 mg PO QDAY #30 tablet. labetaloL [Labetalol 100mg TAB] 300 mg PO BID 60 Days #60 tablet NIFEdipine XL [Procardia Xl] 30 mg PO Q12HR #60 tab
[2021-09-16] MEDS: CALCIUM ACETATE 667 MG CAP PO SCH ×3 (08:43→18:51)
[2021-09-16] MEDS ORDERED: LOSARTAN 50 MG TAB PO SCH (10:00)
[2021-09-16] MEDS ORDERED: amLODIPine 10 MG TAB PO SCH (10:00)
[2021-09-16] MEDS: NIFEdipine XL 30 MG TAB PO SCH ×2 (14:43→21:19)
[2021-09-16] MEDS ORDERED: SODIUM CHLORIDE 0.9% 1000 ML 1,000 ML ONE (20:32)
[2021-09-17 01:23] VITALS: BP 165/101
--- NOTE | 2021-09-17 19:41 | Electrocardiograph Report ---
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
== END 2021-09-17 01:35 | disposition home or self-care (01) ==
LOC: ED 15:48 → 3A 19:34
PROVIDERS: ADMIT Internal Medicine; ATTEND Hospitalist
DX: E87.2 Acidosis (principal); I12.0 Hypertensive chronic kidney disease with stage 5 chronic kidney disease or end stage renal disease; N18.6 End stage renal disease; D63.1 Anemia in chronic kidney disease; E87.5 Hyperkalemia; M19.90 Unspecified osteoarthritis, unspecified site; J45.909 Unspecified asthma, uncomplicated; N28.9 Disorder of kidney and ureter, unspecified; F17.213 Nicotine dependence, cigarettes, with withdrawal; Z99.2 Dependence on renal dialysis; Z79.82 Long term (current) use of aspirin; Z79.899 Other long term (current) drug therapy; Z98.890 Other specified postprocedural states
CPT/HCPCS: 36415; 36430; 80048; 80074; 83735; 83880; 84100; 85014; 85018; 85027; 86850; 86900; 86901; 86920; 93005; 96374; 96375; 99284; G0257; G0378; J0610; J3490; P9016; Q9967; J1815

== ENCOUNTER 2021-11-20 22:29 | Inpatient (IN) | payer MEDICARE ==
[2021-11-21] MEDS ORDERED: hydrALAZINE 100 MG TAB PO STA (01:05)
--- NOTE | 2021-11-21 01:06 | Emergency Department Report ---
ED General Adult HPI - General Chief complaint: High BP Stated complaint: I missed my dialysis Time Seen by Provider: 11/21/21 01:01 Source: patient, RN notes reviewed, old records reviewed Mode of arrival: Ambulatory Limitations: No Limitations - History of Present Illness Initial comments: The patient was evaluated in the emergency department for symptoms described in the history of present illness. He/she was evaluated in the context of the global COVID-19 pandemic, which necessitated consideration that the patient might be at risk for infection with the virus that causes COVID-19. Institutional protocols and algorithms that pertain to the evaluation of patients at risk for COVID-19 are in a state of rapid change based on information released by regulatory bodies including the CDC and federal and state organizations. These policies and algorithms were followed during the patient's care in the emergency department. Please note that these policies, procedures and recommendations changed on a rapid basis. Nephrology: Dr. Mares This is a 41-year-old gentleman, with a history of end-stage renal disease on hemodialysis, Saturday, Saturday, Saturday. It is currently Saturday. He last received dialysis last week on Saturday He presents to the department today because he reports his outpatient hemodialysis center told him to do so. He denies all complaints at this time. He feels like he is at his baseline. Improves with: none Worsens with: none Associated Symptoms: denies other symptoms - Related Data Previous Rx's Medication Instructions Recorded Last Taken Type Acetaminophen [Acetaminophen TAB] 650 mg PO Q4H PRN tablet 02/11/20 Unknown Rx Epoetin Ryan 20,000 Unit [Procrit] 20,000 unit SUB-Q DIANA PRN vial 02/11/20 Unknown Rx Calcium Acetate [Phoslo] 1,334 mg PO TIDWM #90 capsule 09/02/20 Unknown Rx Famotidine [Pepcid] 10 mg PO BID #30 tablet 12/01/20 Unknown Rx Nicotine [Habitrol] 14 mg TD DAILY #30 patch 12/01/20 Unknown Rx Aspirin EC [Halfprin EC] 81 mg PO QDAY #30 tablet. 09/16/21 Unknown Rx Losartan [Cozaar] 100 mg PO QDAY #30 tablet 09/16/21 Unknown Rx NIFEdipine XL [Procardia Xl] 30 mg PO Q12HR #60 tab 09/16/21 Unknown Rx hydrALAZINE [Apresoline TAB] 100 mg PO Q8HR #90 tab 09/16/21 Unknown Rx labetaloL [Labetalol 100mg TAB] 300 mg PO BID 60 Days #60 tablet 09/16/21 Unknown Rx labetaloL [Labetalol 200mg TAB] 300 mg PO BID tablet 09/16/21 Unknown Rx Allergies Allergy/AdvReac Type Severity Reaction Status Date / Time No Known Allergies Allergy Verified 09/04/21 00:14 ED Review of Systems ROS: Stated complaint: HIGH PROTEIN AND DAILSYS Other details as noted in HPI Comment: All other systems reviewed and negative ED Past Medical Hx - Past Medical History Hx Hypertension: Yes Hx Heart Attack/AMI: No Hx Congestive Heart Failure: No Hx Diabetes: No Hx Liver Disease: No Hx Renal Disease: Yes (Hemodialysis M,W,F) Hx Sickle Cell Disease: No Hx Arthritis: Yes (knees) Hx Seizures: No Hx Asthma: Yes Hx COPD: No Hx HIV: No - Surgical History Additional Surgical History: Vas Cath and Fistula to L arm. - Social History Smoking Status: Current Every Day Smoker - Medications Home Medications: Home Medications Medication Instructions Recorded Confirmed Last Taken Type Acetaminophen [Acetaminophen TAB] 650 mg PO Q4H PRN tablet 02/11/20 09/01/20 Unknown Rx Epoetin Ryan 20,000 Unit [Procrit] 20,000 unit SUB-Q DIANA PRN vial 02/11/20 09/01/20 Unknown Rx Calcium Acetate [Phoslo] 1,334 mg PO TIDWM #90 capsule 09/02/20 Unknown Rx Famotidine [Pepcid] 10 mg PO BID #30 tablet 12/01/20 Unknown Rx Nicotine [Habitrol] 14 mg TD DAILY #30 patch 12/01/20 Unknown Rx Aspirin EC [Halfprin EC] 81 mg PO QDAY #30 tablet. 09/16/21 Unknown Rx Losartan [Cozaar] 100 mg PO QDAY #30 tablet 09/16/21 Unknown Rx NIFEdipine XL [Procardia Xl] 30 mg PO Q12HR #60 tab 09/16/21 Unknown Rx hydrALAZINE [Apresoline TAB] 100 mg PO Q8HR #90 tab 09/16/21 Unknown Rx labetaloL [Labetalol 100mg TAB] 300 mg PO BID 60 Days #60 tablet 09/16/21 Unknown Rx labetaloL [Labetalol 200mg TAB] 300 mg PO BID tablet 09/16/21 Unknown Rx ED Physical Exam - General Limitations: No Limitations General appearance: alert, in no apparent distress - Head Head exam: Present: atraumatic, normocephalic - Eye Eye exam: Present: normal appearance, EOMI. Absent: nystagmus - ENT ENT exam: Present: normal exam, normal orophraynx, mucous membranes moist, normal external ear exam - Neck Neck exam: Present: normal inspection, full ROM. Absent: tenderness, meningismus - Respiratory Respiratory exam: Present: rales (Faint rales at the lung bases). Absent: respiratory distress, rhonchi, stridor, decreased breath sounds - Cardiovascular Cardiovascular Exam: Present: regular rate, normal rhythm, normal heart sounds, JVD. Absent: bradycardia, tachycardia, irregular rhythm, systolic murmur, diastolic murmur, rubs, gallop - GI/Abdominal GI/Abdominal exam: Present: soft. Absent: distended, tenderness, guarding, rebound, rigid, pulsatile mass - Rectal Rectal exam: Present: deferred - Extremities Exam Extremities exam: Present: normal inspection (Left upper extremity fistula, with appropriate thrill, without redness, pus or streaking), full ROM, pedal edema, other (2+ pulses noted in the bilateral upper and lower extremities. There is no palpable cord. negative Homans sign. Muscular compartments are soft. The pelvis is stable.). Absent: calf tenderness - Back Exam Back exam: Present: normal inspection. Absent: tenderness, CVA tenderness (R), CVA tenderness (L), paraspinal tenderness, vertebral tenderness - Neurological Exam Neurological exam: Present: alert, oriented X3, normal gait, other (No facial droop. Tongue midline. Extraocular movements intact bilaterally. Facial sensation intact to light touch in V1, V2, V3 distribution bilaterally. 5 and a 5 strength in 4 extremities. Sensation intact to light touch in 4 extremities.). Absent: motor sensory deficit - Psychiatric Psychiatric exam: Present: normal affect, normal mood - Skin Skin exam: Present: warm, dry, intact, normal color. Absent: rash ED Course Vital Signs 11/20/21 11/21/21 11/21/21 23:21 01:10 01:33 Temperature 98.4 F Pulse Rate 83 77 75 Respiratory 18 15 Rate Blood Pressure 170/95 Blood Pressure 181/94 174/87 [Right] O2 Sat by Pulse 98 97 Oximetry O2 Sat by Pulse Oximetry [ Digit-Finger] 11/21/21 02:02 Temperature Pulse Rate Respiratory Rate Blood Pressure Blood Pressure [Right] O2 Sat by Pulse Oximetry O2 Sat by Pulse 100 Oximetry [ Digit-Finger] - Reevaluation(s) Reevaluation #1: 11/21/21 01:51 Differential diagnosis, including but not limited to: Hypertensive urgency, azotemia, uremia, metabolic acidosis, missed hemodialysis, fluid overload Assessment and plan: 41-year-old gentleman, with a known history of dialysis noncompliance, presenting with probable need for hemodialysis. He is afebrile with reassuring vital signs with exception of hypertension. He has taken labetalol and hydralazine in the past. Administer labetalol and hydralazine at this time. Obtain appropriate laboratory studies. Chest x-ray shows cardiomegaly We will discussed with his private server administrator once his initial laboratory studies have resulted. He is agreeable to admission and hospitalization 11/21/21 02:02 Reevaluation #2: 11/21/21 02:33 Patient resting comfortably in stretcher. Anemia is likely anemia of chronic disease. He is found to have evidence of end-stage renal disease requiring emergent hemodialysis, manifested by hyperkalemia, azotemia, uremia, and metabolic acidosis. Hyperkalemia cocktail ordered. Contacted his server administrator, Dr. Lucia Coleman Have requested emergent hemodialysis. His server administrator will follow in consultation. Hospital physician, Dr. Mel Guillen to admit to [facility] - Pulse Oximetry Interpretation Digit-Finger Initial Pulse Oximetry Readin O2 Sat by Pulse Oximetry: 100 Actions Taken: none ED Medical Decision Making - Lab Data Result diagrams: 11/21/21 01:20 11/21/21 01:20 Vital Signs 11/20/21 11/21/21 11/21/21 23:21 01:10 01:33 Temperature 98.4 F Pulse Rate 83 77 75 Respiratory 18 15 Rate Blood Pressure 170/95 Blood Pressure 181/94 174/87 [Right] O2 Sat by Pulse 98 97 Oximetry Lab Results 11/21/21 11/21/21 Range/Units 01:20 01:20 WBC 6.3 (4.5-11.0) K/mm3 RBC 2.43 L (3.65-5.03) M/mm3 Hgb 7.5 L (11.8-15.2) gm/dl Hct 22.3 L (35.5-45.6) % MCV 92 (84-94) fl MCH 31 (28-32) pg MCHC 34 (32-34) % RDW 16.5 H (13.2-15.2) % Plt Count 211 (140-440) K/mm3 Sodium 140 (137-145) mmol/L Potassium 8.0 H* (3.6-5.0) mmol/L Chloride 96.7 L (98-107) mmol/L Carbon Dioxide 23 (22-30) mmol/L Anion Gap 28 mmol/L BUN 105 H (9-20) mg/dL Creatinine 22.9 H (0.8-1.3) mg/dL Estimated GFR 3 ml/min BUN/Creatinine Ratio 5 % Glucose 92 (75-100) mg/dL Calcium 9.0 (8.4-10.2) mg/dL - EKG Data -: EKG Interpreted by Id EKG shows normal: sinus rhythm Rate: normal - EKG Data 11/21/21 01:50 The EKG is interpreted at 12: Oh 5 AM Sinus rhythm, with a rate of 85 bpm. There is a first-degree AV block. There is a left axis deviation. There is left anterior fascicular block. There is motion artifact. The QTC is 4 8 0 ms. This is an abnormal EKG. This is not a STEMI - Radiology Data Radiology results: pending, report reviewed, image reviewed CHEST 1 VIEW INDICATION / CLINICAL INFORMATION: ESRD and hypertension. COMPARISON: Chest x-ray 11/29/2020 FINDINGS: SUPPORT DEVICES: None. HEART / ME DIASTINUM: Mild to moderate cardiomegaly. LUNGS / PLEURA: Lungs are clear for degree of inspiration and technique utilized. BONES: No significant osseous abnormality. ADDITIONAL FINDINGS: No significant additional findings. IMPRESSION: 1. No active cardiopulmonary disease. Signer Name: Naren Marks II, MD Signed: 11/21/2021 12:45 AM Workstation Name: [id number] Critical Care Time: Yes Critical care time in (mins) excluding proc time.: 35 Critical care attestation.: If time is entered above; I have spent that time in minutes in the direct care of this critically ill patient, excluding procedure time. ED Disposition Clinical Impression: Medical non-compliance, Hypertension, Fluid overload, Missed dialysis, End- stage renal disease needing dialysis, Hyperkalemia Disposition: 09 ADMITTED INPATIENT Is pt being admited?: Yes Does the pt Need Aspirin: No Condition: Serious Instructions: Hypertension (ED)
--- NOTE | 2021-11-21 01:49 | XRay Report ---
CHEST 1 VIEW INDICATION / CLINICAL INFORMATION: ESRD and hypertension. COMPARISON: Chest x-ray 11/29/2020 FINDINGS: SUPPORT DEVICES: None. HEART / MEDIASTINUM: Mild to moderate cardiomegaly. LUNGS / PLEURA: Lungs are clear for degree of inspiration and technique utilized. BONES: No significant osseous abnormality. ADDITIONAL FINDINGS: No significant additional findings. IMPRESSION: 1. No active cardiopulmonary disease. Signer Name: Naren Marks II, MD Signed: 11/21/2021 1:45 AM Workstation Name: [id number]
[2021-11-21 02:12] LABS: Hematocrit 22.3 % (35.5-45.6); Hemoglobin 7.5 gm/dl (11.8-15.2); Mean Corpuscular HGB Conc 34 % (32-34); Mean Corpuscular Volume 92 fl (84-94); Platelet Count 211 K/mm3 (140-440); Red Blood Count 2.43 M/mm3 (3.65-5.03); Red Cell Distribution Width 16.5 % (13.2-15.2)
[2021-11-21] MEDS ORDERED: CALC GLUCONATE 1GM/NS 100 ML 1 GM/100 ML BAG IV ONE ×2 (02:30→06:10)
[2021-11-21] MEDS ORDERED: ALBUTEROL 2.5 MG/3 ML NEBU IH ONE (02:30)
[2021-11-21] MEDS ORDERED: DEXTROSE 50% IN WATER (25GM) 50 ML SYRINGE IV ONE ×5 (02:30→07:00)
[2021-11-21] MEDS ORDERED: INSULIN REGULAR, HUMAN 100 UNITS/1 ML IV ONE (02:30)
[2021-11-21] MEDS ORDERED: SODIUM BICARB 8.4% 50 MEQ/50 ML SYRINGE IV ONE (02:30)
[2021-11-21] MEDS ORDERED: SODIUM POLYSTYRENE 15 GM/60 ML ORAL LIQD PO ONE (02:32)
[2021-11-21] MEDS ORDERED: MORPHINE 2 MG/1 ML INJ IV PRN (03:01)
[2021-11-21] MEDS ORDERED: ONDANSETRON 4 MG/2 ML INJ IV PRN (03:01)
[2021-11-21] MEDS ORDERED: ACETAMINOPHEN 325 MG TAB PO PRN (03:01)
[2021-11-21] MEDS ORDERED: MAGNESIUM HYDROXIDE (MOM) ORAL LIQD UDC PO PRN (03:01)
[2021-11-21] MEDS ORDERED: MORPHINE 4 MG/1 ML INJ IV PRN (03:01)
--- NOTE | 2021-11-21 03:12 | History and Physical Report ---
History of Present Illness Date of examination: 11/21/21 Date of admission: 11/21/2021 Chief complaint: ESRD- Missed Dialysis History of present illness: 41-year-old -French male with known history of end-stage renal disease on dialysis Saturday, Saturday and Fridays. He reports to the emergency room today because he misses dialysis. He is otherwise doing well and denies any problems today. Last dialysis session was on Saturday last week. Work-up in the emergency room today, lab is significant for potassium of 8, BUN of 105 and creatinine of 22.9. Hemoglobin of 7.5 and hematocrit of 22.3. BNP of 1267. Pharmacy Benefit Manager has been consulted for possible dialysis. Past History Past Medical History: arthritis, dialysis, ESRD, hypertension, other (Asthma) Past Surgical History: Other (History: Vas Cath and Fistula to L arm.) Social history: smoking ( Current Every Day Smoker) Family history: no significant family history Medications and Allergies Allergies Allergy/AdvReac Type Severity Reaction Status Date / Time No Known Allergies Allergy Verified 09/04/21 00:14 Home Medications Medication Instructions Recorded Confirmed Last Taken Type Acetaminophen [Acetaminophen TAB] 650 mg PO Q4H PRN tablet 02/11/20 09/01/20 Unknown Rx Epoetin Ryan 20,000 Unit [Procrit] 20,000 unit SUB-Q DIANA PRN vial 02/11/20 09/01/20 Unknown Rx Calcium Acetate [Phoslo] 1,334 mg PO TIDWM #90 capsule 09/02/20 Unknown Rx Famotidine [Pepcid] 10 mg PO BID #30 tablet 12/01/20 Unknown Rx Nicotine [Habitrol] 14 mg TD DAILY #30 patch 12/01/20 Unknown Rx Aspirin EC [Halfprin EC] 81 mg PO QDAY #30 tablet. 09/16/21 Unknown Rx Losartan [Cozaar] 100 mg PO QDAY #30 tablet 09/16/21 Unknown Rx NIFEdipine XL [Procardia Xl] 30 mg PO Q12HR #60 tab 09/16/21 Unknown Rx hydrALAZINE [Apresoline TAB] 100 mg PO Q8HR #90 tab 09/16/21 Unknown Rx labetaloL [Labetalol 100mg TAB] 300 mg PO BID 60 Days #60 tablet 09/16/21 Unknown Rx labetaloL [Labetalol 200mg TAB] 300 mg PO BID tablet 09/16/21 Unknown Rx Active Meds: Active Medications CALC GLUCONATE 1GM/NS 100 ML (Calcium Gluonate/Ns 1,000mg/100ml) 1 gm in 100 mls @ 100 mls/hr IV ONCE ONE Stop: 11/21/21 03:29 Review of Systems Constitutional: no fever, no chills Ears, nose, mouth and throat: no nasal congestion, no sore throat Cardiovascular: no chest pain, no palpitations Respiratory: no cough, no shortness of breath Gastrointestinal: no abdominal pain, no nausea, no vomiting, no diarrhea Genitourinary Male: no dysuria, no hematuria, no flank pain Musculoskeletal: no neck pain, no low back pain Integumentary: no rash, no pruritis Neurological: no headaches, no confusion Psychiatric: no anxiety, no depression Endocrine: no polyphagia, no polydipsia, no polyuria, no nocturia Exam - Constitutional Vitals: Temp Pulse Resp BP Pulse Ox 98.4 F 75 20 153/84 100 11/20/21 23:21 11/21/21 01:33 11/21/21 01:16 11/21/21 02:30 11/21/21 02:33 General appearance: Present: no acute distress, well-nourished - EENT Eyes: Present: PERRL, EOM intact. Absent: scleral icterus ENT: hearing intact, clear oral mucosa, dentition normal - Neck Neck: Present: supple, normal ROM - Respiratory Respiratory effort: normal Respiratory: bilateral: CTA - Cardiovascular Rhythm: regular Heart Sounds: Present: S1 & S2. Absent: gallop, systolic murmur, diastolic murmur, rub, click - Extremities Extremities: no ischemia, pulses intact, pulses symmetrical, normal temperature, normal color, Full ROM, abnormal (Left upper arm AV fistula. Palpable thrill.) Extremity abnormal: edema (1+ bilateral lower extremity edema) Peripheral Pulses: within normal limits - Abdominal General gastrointestinal: Present: soft, non-tender, non-distended, normal bowel sounds. Absent: mass - Integumentary Integumentary: Present: clear, warm, dry, normal turgor. Absent: rash - Musculoskeletal Musculoskeletal: strength equal bilaterally - Psychiatric Psychiatric: appropriate mood/affect, intact judgment & insight, memory intact, cooperative - Neurologic Neurologic: CNII-XII intact, no focal deficits, moves all extremities Results - Labs CBC & Chem 7: 11/21/21 01:20 11/21/21 01:20 Labs: Abnormal lab results 11/21/21 11/21/21 Range/Units 01:20 01:20 RBC 2.43 L (3.65-5.03) M/mm3 Hgb 7.5 L (11.8-15.2) gm/dl Hct 22.3 L (35.5-45.6) % RDW 16.5 H (13.2-15.2) % Potassium 8.0 H* (3.6-5.0) mmol/L Chloride 96.7 L (98-107) mmol/L BUN 105 H (9-20) mg/dL Creatinine 22.9 H (0.8-1.3) mg/dL Assessment and Plan Assessment: 1. End-stage renal disease on dialysis. 2. Noncompliance with dialysis. Plan: 1. Patient admitted and will be evaluated for possible dialysis this AM. 2. We will resume routine medications. DVT prophylaxis: Subcutaneous heparin CODE STATUS: Full code
[2021-11-21] MEDS ORDERED: HEPARIN 5,000 UNIT/1 ML VIAL SUB-Q SCH (06:00)
[2021-11-21] MEDS ORDERED: FUROSEMIDE 40 MG/4 ML INJ IV ONE (06:06)
[2021-11-21] MEDS ORDERED: HEPARIN 10,000 UNITS/10 ML VIAL IV PRN (06:06)
[2021-11-21] MEDS ORDERED: EPOETIN ALFA-EPBX 10,000 UNIT/1 ML VIAL IV PRN (06:06)
[2021-11-21] MEDS ORDERED: SODIUM CHLORIDE 0.9% 100 ML IV PRN (06:06)
[2021-11-21] MEDS ORDERED: CALCIUM ACETATE 667 MG CAP PO SCH (08:00)
--- NOTE | 2021-11-21 08:37 | Consultation ---
History of Present Illness - Reason for Consult Consult date: 11/21/21 - History of Present Illness The patient is a 41 year old male well known to our service with pmh significant for Hypertension, Nicotine dependence, Anemia, ESRD on hemodialysis (MWF) and Medical non-compliance who presented to [facility] ED on 11/21/21 with missed hemodialysis. He missed the past few hemodialysis treatments. He denies any cp, sob, cough, leg swelling, weakness, N, V, D, abd pain, dizziness, confusion and leg swelling. No exposure to Covid. Labs significant for Creatinine 22.9, BUN 105 and K 8. CXR negative for any acute process. Nephrology was consulted for further evaluation and treatment. Past History Past Medical History: arthritis, dialysis, ESRD, hypertension, other (Asthma) Past Surgical History: Other (History: Vas Cath and Fistula to L arm.) Social history: smoking ( Current Every Day Smoker) Family history: no significant family history Medications and Allergies Allergies Allergy/AdvReac Type Severity Reaction Status Date / Time No Known Allergies Allergy Verified 09/04/21 00:14 Home Medications Medication Instructions Recorded Confirmed Last Taken Type Acetaminophen [Acetaminophen TAB] 650 mg PO Q4H PRN tablet 02/11/20 09/01/20 Unknown Rx Epoetin Ryan 20,000 Unit [Procrit] 20,000 unit SUB-Q DIANA PRN vial 02/11/20 09/01/20 Unknown Rx Calcium Acetate [Phoslo] 1,334 mg PO TIDWM #90 capsule 09/02/20 Unknown Rx Famotidine [Pepcid] 10 mg PO BID #30 tablet 12/01/20 Unknown Rx Nicotine [Habitrol] 14 mg TD DAILY #30 patch 12/01/20 Unknown Rx Aspirin EC [Halfprin EC] 81 mg PO QDAY #30 tablet. 09/16/21 Unknown Rx NIFEdipine XL [Procardia Xl] 30 mg PO Q12HR #60 tab 09/16/21 Unknown Rx hydrALAZINE [Apresoline TAB] 100 mg PO Q8HR #90 tab 09/16/21 Unknown Rx labetaloL [Labetalol 100mg TAB] 300 mg PO BID 60 Days #60 tablet 09/16/21 Unknown Rx Active Meds: Active Medications Acetaminophen (Acetaminophen 325 Mg Tab) 650 mg PO Q4H PRN PRN Reason: Pain MILD(1-3)/Fever >100.5/LOPEZ Aspirin (Aspirin Ec 81 Mg Tab) 81 mg PO QDAY [facility] Calcium Acetate (Calcium Acetate 667 Mg Cap) 1,334 mg PO TIDWM [facility] Epoetin Ryan-epbx (Epoetin Ryan-Epbx 10,000 Unit/1 Ml Vial) 10,000 unit IV DIANA PRN PRN Reason: hemodialysis Famotidine (Famotidine 10 Mg Tab) 10 mg PO BID [facility] Heparin Sodium (Porcine) (Heparin 5,000 Unit/1 Ml Vial) 5,000 unit SUB-Q Q8HR [facility] Last Admin: 11/21/21 06:33 Dose: 5,000 unit Heparin Sodium (Porcine) (Heparin 10,000 Units/10 Ml Vial) 3,000 unit IV DIANA PRN PRN Reason: hemodialysis Sodium Chloride (Nacl 0.9%) 100 mls @ 999 mls/hr IV DIANA PRN PRN Reason: Hypotension Labetalol HCl (Labetalol 100 Mg Tab) 300 mg PO BID [facility] Losartan Potassium (Losartan 50 Mg Tab) 100 mg PO QDAY [facility] Magnesium Hydroxide (Magnesium Hydroxide (Mom) Oral Liqd Udc) 30 ml PO Q4H PRN PRN Reason: Constipation Morphine Sulfate (Morphine 2 Mg/1 Ml Inj) 2 mg IV Q4H PRN PRN Reason: Pain, Moderate (4-6) Morphine Sulfate (Morphine 4 Mg/1 Ml Inj) 4 mg IV Q4H PRN PRN Reason: Pain , Severe (7-10) Ondansetron HCl (Ondansetron 4 Mg/2 Ml Inj) 4 mg IV Q8H PRN PRN Reason: Nausea And Vomiting Sodium Chloride (Sodium Chloride 0.9% 10 Ml Flush Syringe) 10 ml IV PRN PRN PRN Reason: LINE FLUSH Review of Systems All systems: negative Exam - Vital Signs Vital signs: Vital Signs Temp Pulse Resp BP Pulse Ox 98.4 F 83 18 181/94 98 11/20/21 23:21 11/20/21 23:21 11/20/21 23:21 11/20/21 23:21 11/20/21 23:21 Results - Lab Results 11/21/21 01:20 11/21/21 12:30 Most recent lab results Calcium 9.0 mg/dL (8.4-10.2) 11/21/21 01:20 Assessment and Plan 1. End stage renal disease: On maintenance hemodialysis three times a week, MWF schedule. Meds dosage based on GFR. Hemodialysis: today. 2. FEN: Hyperkalemia, 2/2 missed HD, HD today, monitor. Binders as prescribed. Monitor lytes and volume status. 3. Hypertensive urgency: Continue home meds. IV meds as needed. UF with HD. Monitor BP, better. 4. Anemia, POA: Epogen with HD as needed. Monitor Hb. 5. Nicotine dependence: Counseled. 6. Medical non-compliance: Counseled. Subjective: Patient was seen and examined at the bedside. Examination: General appearance: alert, well-developed, appears stated age, no distress HEENT: ATNC, CATHY Neck: neck supple, trachea midline Respiratory: Clear to auscultation Heart: regular, normal heart rate, S1S2, no murmur Gastrointestinal: soft, normoactive bowel sounds, not tender, not distended Integumentary: no rash, warm and dry Neurologic: no focal deficit, alert and oriented x3 Ext: tarce LE edema Hemodialysis access: L FA AVF Psychiatric: mood/affect appropriate, cooperative
[2021-11-21] MEDS ORDERED: ASPIRIN EC 81 MG TAB PO SCH (10:00)
[2021-11-21] MEDS ORDERED: FAMOTIDINE 10 MG TAB PO SCH (10:00)
[2021-11-21] MEDS ORDERED: LOSARTAN 50 MG TAB PO SCH (10:00)
[2021-11-21] MEDS ORDERED: hydrALAZINE 100 MG TAB PO SCH (10:30)
[2021-11-21] MEDS ORDERED: NIFEdipine XL 30 MG TAB PO SCH (11:00)
[2021-11-21] MEDS ORDERED: hydrALAZINE 20 MG/1 ML INJ IV NR (11:15)
[2021-11-21 11:40] LABS: Hepatitis B Surface Antigen Non-Reactive (Negative); Hepatitis C Virus Antibody Non-Reactive (NonReactive)
[2021-11-21] MEDS ORDERED: hydrALAZINE 20 MG/1 ML INJ IV PRN (13:00)
[2021-11-21 14:39] LABS: Calcium 8.6 mg/dL (8.4-10.2)
--- NOTE | 2021-11-21 14:58 | Event Note ---
Date: 11/21/21 Patient seen and examined, presented with need for dialysis and hyperkalemia. Getting hemodialysis now, BP greater than 200s, resume home meds and adjust as needed Continue to follow clinically, plan for DC if SBP improved and less than 160
[2021-11-21 15:35] VITALS: BP 143/92
--- NOTE | 2021-11-21 17:07 | Discharge Summary ---
Providers - Providers Date of Admission: 11/21/21 03:01 Date of discharge: 11/21/21 Attending physician: ZOE YODER 11/21/21 01:05 Consult to Physician [CONS] Stat Comment: Dr. Santos spoke with Dr. Kathleen @ [phone] Consulting Provider: AXEL KATHLEEN Physician Instructions: Reason For Exam: esrd htn Primary care physician: COLBY MENDEZ Hospitalization Condition: Serious Disposition: HOME / SELF CARE / HOMELESS Final Discharge Diagnosis (Prints w/discharge instructions): --Hyperkalemia. -- ESRD. --Malignant HTN Time spent for discharge: 34 minutes Exam - Constitutional Vitals: Temp Pulse Resp BP Pulse Ox 98.1 F 82 18 143/92 100 11/21/21 12:48 11/21/21 15:35 11/21/21 15:35 11/21/21 15:35 11/21/21 15:35 Plan Activity: advance as tolerated Weight Bearing Status: Weight Bear as Tolerated Diet: renal Follow up with: COLBY MENDEZ MD [Primary Care Provider] - 3-5 Days
--- NOTE | 2021-11-23 17:13 | Electrocardiograph Report ---
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
== END 2021-11-21 18:25 | disposition home or self-care (01) | DRG 640 ==
LOC: ED 22:29 → 4A 11-21 03:01
PROVIDERS: ADMIT Internal Medicine Geriatric Medicine; ATTEND Internal Medicine
PROC: 5A1D70Z Performance of Urinary Filtration, Intermittent, Less than 6 Hours Per Day (ICD-10-PCS; principal; 2021-11-21)
DX: E87.5 Hyperkalemia (principal); N18.6 End stage renal disease; I12.0 Hypertensive chronic kidney disease with stage 5 chronic kidney disease or end stage renal disease; Z99.2 Dependence on renal dialysis; F17.200 Nicotine dependence, unspecified, uncomplicated; M17.0 Bilateral primary osteoarthritis of knee; J45.909 Unspecified asthma, uncomplicated; Z91.15 Patient's noncompliance with renal dialysis; D64.9 Anemia, unspecified; I16.0 Hypertensive urgency; Z79.899 Other long term (current) drug therapy; Z79.82 Long term (current) use of aspirin
CPT/HCPCS: 36415; 71045; 80048; 80074; 82962; 85027; 93005; 96374; 99285; G0378; J3490; Q9967; J0360; J0610; J1644; J1815; J1940